=== PATIENT | male | born 1940 | race Caucasian/White ===

== ENCOUNTER → 2018-06-17 10:45 | Outpatient (CLI) | payer MEDICARE, BC, SELFPAY | PROVIDERS: Family Provider Internal Medicine; PCP Internal Medicine; Visit Provider Psychiatry & Neurology Neurology | DX: R51 Headache (principal) | CPT/HCPCS: 70450 ==

== ENCOUNTER 2018-07-27 11:00 | Outpatient (RCR) | payer MEDICARE, BC, SELFPAY ==
--- NOTE | 2018-04-14 12:09 | HP.PTEVAL_ITS ---
Patient's Visit Information ISIAH PATEL is a 77 year old M referred to Physical Therapy by NASEEM Ramirez with a diagnosis of PD and unbalance. Date of Evaluation: 04/14/18 Physical Therapist: Zoe Agrawal - Visit Plan Plan: No R knee strengthening per Dr Mccray.....ok to do some R functional hip abd strength to be able to help with knee giving out into valgus with walking and functional B glut strenth to be able to assist with getting out of a chair. Work on gait mechaincs with increase stride and heel to toe gait, work on 90 degree and 180 degree turns, work on Posture and static and dynmaic balance. - Subjective Subjective: Pt fell and broke his knee cap and he had 2 failed surgeries and he had to have knee cap removed and wears a brace as he has almost no quad control.....Dr Mccray wants no more therapy on the R knee because the pt pushes himself too much and the quad tendon tears more. Pt is not sure if his brace is to be locked or not with gait. Discussed having the brace lpcked for stability with gait. He fell again and broke his L hip. He has been using the U -step for about a year now with no falls. He needs min A at home or a lift chart at home.... He does some leg lifts at home in bed in morning. He sits in the wc at home to eat and does some therapy at the sink as well. 3 steps in and out of the house in the garage with a 2 railings. They also have a wc ramp/ lift and he goes out in his wc to the mailbox. He has a stand up shower with shower rails. - Objective Gait: walks with a u-step wtih a R knee brace that needs to be locked into extension as R Quad control is poor. He walks on his L toe and does not advance his L foot like he should with gait. He has flexed trunk and neck with gait. Sit to stand: needs min A at times. Turning 90 degrees to sit down in chair: takes multiple tiny steps and sometimes leaves L foot behind and unsafe turning to get into the chair. Stairs: up 3 steps with 2 hand rails (up with the L and down with the R) with min A. Bed mobility: sit to supine and supine to iván Indep. Rolling to each side indep. Hip abd R 4-/5 and L 4/5, able to bridge,,,, R knee ext 3-/5 and L knee ext 4/5, B knee flex 4-/5...... - Goals Goal 1:: I HEP Goal Time Frame: 6-8 Weeks Goal 2:: Be able to turn 90 and 180 degrees with large steps safely with good coordination and no LOB Goal Time Frame: 6-8 Weeks Goal 3:: Be able to walk 1 lap around Dept with good fluid motion with U-step with CGA with no R knee giving out on him Goal Time Frame: 6-8 Weeks Goal 4:: Be able to side step in // bars X 6 lengths with good stride and decreaed freq of R knee giving out on him. Goal Time Frame: 6-8 Weeks Goal 5:: Be able to sit to stand X 4 in a row with good form with UE support Goal Time Frame: 6-8 Weeks - Anticipated Interventions Patient/Client Instruction: Educate patient on: Condition, Plan of Care For the Purpose of:: To improve muscle performance and motor function, To improve ability to perform ADL's, To increase tolerance to activity/condition/ position, To improve performance and independence with ADL's, To improve ability of physical actions for home/community/work/leisure, To improve gait and locomotor functions, To improve balance, To improve safety with gait Therapeutic Exercise to Include: Strength training, Balance training, Coordination, Postural training, Gait and locomotor training, Neuromotor development, Active ROM For the Purpose of:: To improve muscle performance and motor function, To improve ability to perform ADL's, To increase tolerance to activity/condition/ position, To improve performance and independence with ADL's, To improve ability of physical actions for home/community/work/leisure, To improve gait and locomotor functions, To improve balance, To improve safety with gait, To improve safety, To improve health and function, To foster healthy habits Functional Training to Include: Gait training For the Purpose of:: To improve gait and locomotor functions, To improve safety with gait Thank you for the opportunity to evaluate your patient. For Medicare and Medicare HMO plans, please review the plan of care and approve it. It will need to be FAXED BACK to us at [phone] for Medicare purposes. Please let me know if there are questions or concerns regarding this plan of care. Physician Signature: Date:
--- NOTE | 2018-05-19 12:33 | HP.PTREVAL_ITS ---
Latrice Parks, NASEEM-C, It has been my pleasure to treat ISIAH PATEL over the last 5 visits for PD and unbalance. Please see the progress note below for an update on the physical therapy plan of care! Subjective: Pt reports that there is a screw or something missing on his brace and he is going up to [facility] to get it fixed. Objective/Function: Pt's R leg giving out with gait and other standing activities is hindering pt from more smooth gait pattern at times. Plan Plan: No R knee strengthening per Dr Mccray.....ok to do some R functional hip abd strength to be able to help with knee giving out into valgus with walking and functional B glut strenth to be able to assist with getting out of a chair. Work on gait mechaincs with increase stride and heel to toe gait, work on 90 degree and 180 degree turns, work on Posture and static and dynmaic balance. Goals Goal 1:: I HEP Goal Time Frame: 6-8 Weeks Goal 2:: Be able to turn 90 and 180 degrees with large steps safely with good coordination and no LOB Goal Time Frame: 6-8 Weeks Goal 3:: Be able to walk 1 lap around Dept with good fluid motion with U-step with CGA with no R knee giving out on him Goal Time Frame: 6-8 Weeks Goal 4:: Be able to side step in // bars X 6 lengths with good stride and decreaed freq of R knee giving out on him. Goal Time Frame: 6-8 Weeks Goal 5:: Be able to sit to stand X 4 in a row with good form with UE support Goal Time Frame: 6-8 Weeks Anticipated Interventions Patient/Client Instruction: Educate patient on: Condition, Plan of Care For the Purpose of:: To improve muscle performance and motor function, To improve ability to perform ADL's, To increase tolerance to activity/condition/ position, To improve performance and independence with ADL's, To improve ability of physical actions for home/community/work/leisure, To improve gait and locomotor functions, To improve balance, To improve safety with gait Therapeutic Exercise to Include: Strength training, Balance training, Coordination, Postural training, Gait and locomotor training, Neuromotor development, Active ROM For the Purpose of:: To improve muscle performance and motor function, To improve ability to perform ADL's, To increase tolerance to activity/condition/ position, To improve performance and independence with ADL's, To improve ability of physical actions for home/community/work/leisure, To improve gait and locomotor functions, To improve balance, To improve safety with gait, To improve safety, To improve health and function, To foster healthy habits Functional Training to Include: Gait training For the Purpose of:: To improve gait and locomotor functions, To improve safety with gait Please do not hesitate to contact me at [phone] by phone or Fax: if you have questions or concerns regarding this new plan of care! Sincerely, Zoe Agrawal
--- NOTE | 2018-06-30 12:34 | HP.PTREVAL_ITS ---
Latrice Parks, NASEEM-C, It has been my pleasure to treat ISIAH PATEL over the last 10 visits for PD and unbalance. Please see the progress note below for an update on the physical therapy plan of care! Subjective: Pt reports that he is really struggling. He feels that the heat is making him worse. He is having trouble getting out of a chair and walking. He goes back to PD Dr kain for along time. He is still doing delay the disease one day a week (except this Thursday and next Thursday cause of the fair). He feels that he is at least 80% better and last time he was in here he walked clear out to the car without stopping. Pt has had some BP changes and he is wondering if he needs his PD meds changed but does not want too. Objective/Function: Pt is able to sit to stand X4 with hands on hand rails with verbal cues to shift weight fw. (at first he struggled with weight shifting fw to get out of the chair). Gait: pt is struggling wirh continuing strides today and weight shifting to the R to clear the L foot on the floor. Plan Plan: Continue seeing pt 1X/ week for 1 month to focus on gait and fucntional activities..... No R knee strengthening per Dr Mccray.....ok to do some R functional hip abd strength to be able to help with knee giving out into valgus with walking and functional B glut strenth to be able to assist with getting out of a chair. Work on gait mechaincs with increase stride and heel to toe gait, work on 90 degree and 180 degree turns, work on Posture and static and dynmaic balance and weight shifting onto the R leg to bring the L leg through. Goals Goal 1:: I HEP Goal Time Frame: 6-8 Weeks Goal Progress: Goal Met Goal 2:: Be able to turn 90 and 180 degrees with large steps safely with good coordination and no LOB Goal Time Frame: 6-8 Weeks Goal Progress: Progressing Goal 3:: Be able to walk 1 lap around Dept with good fluid motion with U-step with CGA with no R knee giving out on him Goal Time Frame: 6-8 Weeks Goal Progress: Progressing Goal 4:: Be able to side step in // bars X 6 lengths with good stride and decreaed freq of R knee giving out on him. Goal Time Frame: 6-8 Weeks Goal Progress: Progressing Goal 5:: Be able to sit to stand X 4 in a row with good form with UE support Goal Time Frame: 6-8 Weeks Goal Progress: Goal Met Goal 6:: Be able to sit to stand X 8 in a row with good form with UE support Goal Time Frame: 2-4 Weeks Anticipated Interventions Patient/Client Instruction: Educate patient on: Condition, Plan of Care For the Purpose of:: To improve muscle performance and motor function, To improve ability to perform ADL's, To increase tolerance to activity/condition/ position, To improve performance and independence with ADL's, To improve ability of physical actions for home/community/work/leisure, To improve gait and locomotor functions, To improve balance, To improve safety with gait Therapeutic Exercise to Include: Strength training, Balance training, Coordination, Postural training, Gait and locomotor training, Neuromotor development, Active ROM For the Purpose of:: To improve muscle performance and motor function, To improve ability to perform ADL's, To increase tolerance to activity/condition/ position, To improve performance and independence with ADL's, To improve ability of physical actions for home/community/work/leisure, To improve gait and locomotor functions, To improve balance, To improve safety with gait, To improve safety, To improve health and function, To foster healthy habits Functional Training to Include: Gait training For the Purpose of:: To improve gait and locomotor functions, To improve safety with gait Please do not hesitate to contact me at [phone] by phone or Fax: if you have questions or concerns regarding this new plan of care! Sincerely, Zoe Agrawal
--- NOTE | 2018-07-27 12:02 | HP.PTDCSUM ---
HP - PT D/C Summary It has been my pleasure to treat ISIAH PATEL under orders from NORMA RamirezC, for the diagnosis of PD and unbalance for a total of 14 visit(s). Discharge Date: 07/27/18 Please see the following information for a summary of their discharge status. - Subjective Subjective: Pt reports that he can not get on his upright bike at home cause it is unsafe. - Overall Improvement % Improvement: 80 - Objective Objective/Function: Pt has a harder time when walking getting started or if he gets distracted his arms and rollator might get ahead of him and his feet stay behind. He has trouble turning 90 degrees turns taking bigger steps. The pt was doing better with the above but for some reason we have taken a slight step BW. - Goals Goal 1:: I HEP Goal Progress: Goal Met Goal 2:: Be able to turn 90 and 180 degrees with large steps safely with good coordination and no LOB Goal Progress: Progressing Goal 3:: Be able to walk 1 lap around Dept with good fluid motion with U-step with CGA with no R knee giving out on him Goal Progress: Progressing Goal 4:: Be able to side step in // bars X 6 lengths with good stride and decreaed freq of R knee giving out on him. Goal Progress: Progressing Goal 5:: Be able to sit to stand X 4 in a row with good form with UE support Goal Progress: Goal Met Goal 6:: Be able to sit to stand X 8 in a row with good form with UE support Goal Progress: Goal Met - Plan Plan: DC PT to possiblt getting a walk in recumbant bike, Delay the Disease classes and some chair exercises at home. - D/C Information Discharge Comments: DC PT If there are questions or concerns regarding this patient's physical therapy, please feel free to call me at [phone]. Thank you for the referral of this patient. Sincerely, Zoe Agrawal
== END 2018-07-27 19:00 | disposition home or self-care (01) ==
LOC: PT 11:00
PROVIDERS: Family Provider Internal Medicine; PCP Internal Medicine; Visit Provider Nurse Practitioner Acute Care
DX: G20 Parkinson's disease (principal); R26.81 Unsteadiness on feet
CPT/HCPCS: 97110; 97116; 97162; 97530

== ENCOUNTER 2018-11-25 08:54 | Day surgery (SDC) | payer MEDICARE, BC, SELFPAY ==
[2018-11-25] VITALS (8 sets, daily range): BP systolic 132–160; BP diastolic 79–95; PULSE 73–88; RESP 16–18; TEMP 36.3–36.7; O2SAT 91–97; BMI 26.3
--- NOTE | 2018-11-25 09:08 | EKG12_ITS ---
Test Reason : PRE OP Blood Pressure : / mmHG Vent. Rate : 078 BPM Atrial Rate : 078 BPM P-R Int : 162 ms QRS Dur : 096 ms QT Int : 434 ms P-R-T Axes : 040 -47 018 degrees QTc Int : 494 ms Normal sinus rhythm Left anterior fascicular block Prolonged QT Abnormal ECG When compared with ECG of 22-DEC-2016 12:55, No significant change was found Confirmed by KINDRA CALERO, KAITY ([id number]), editorial manager INDU PATEL ([id number]) on 11/30/2018 9:08:03 AM Referred By: Africa Conde Confirmed By:KAITY ARGUELLES MD
--- NOTE | 2018-11-25 10:00 | RAD_ITS ---
STUDY: X-RAY LEFT FOOT, SECOND TOE REASON FOR EXAM: Male, 78 years old. Fusion of the interphalangeal joints of the second toe. TECHNIQUE: 2 intraoperative view(s) of the toe were obtained. COMPARISON: None. FINDINGS: A metallic pin is seen through the second toe. There is good alignment. RAD/Toe(s) Min 2 Views IMPRESSION: Metallic pin inserted in the second toe. There is good alignment. Electronically Signed: Thomas Dennison MD at 15:14 EST , Service support ,
[2018-11-25] MEDS: Bupivacaine Mpf 0.5% 30 ML VIAL (10:18)
--- NOTE | 2018-11-25 11:21 | RAD_ITS ---
STUDY: X-RAY - LEFT FOOT CLINICAL: Male, 78 years old. Fusion of the second toe. TECHNIQUE: 3 view(s) of the foot. COMPARISON: None. FINDINGS: There is a plantar calcaneal spur. Normal visualized subtalar, talonavicular, calcaneocuboid, tarsal and tarsometatarsal articulations. There is demineralization of the metatarsi. There is degenerative arthrosis of the metatarsophalangeal joint of the hallux . Normal tibial and fibular sesamoid bones. Normal interphalangeal joint of the great toe. Normal phalanges of the great toe. Normal second through fifth metatarsophalangeal joints. Status post pinning of the second toe Soft tissue swelling. RAD/Foot min 3 Views IMPRESSION: Percutaneous pinning of the second toe. Electronically Signed: Thomas Dennison MD at 15:15 EST , Service support ,
--- NOTE | 2018-11-25 11:24 | PCM.IMDPSTOP ---
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
--- NOTE | 2018-11-25 11:28 | OP.PN_ITS ---
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
--- NOTE | 2018-11-25 11:31 | DCINST_ITS ---
Discharge Activity: May not drive while taking narcotic pain medications., May Not Shower, Use Walker, Use Crutches Ice area for (Minutes): 20 - Left foot 20 minutes of each hour while awake Weight Bearing Status: Partial weight bearing - while in surgical shoe Keep extremity elevated above heart level: Operative Extremity Call your doctor if your incision/area has: Sudden Increased Bleeding, Increased Pain/ Swelling Call your doctor if you observe: Fever of 101 or Higher, Shortness of breath, Dizziness, Chest pain, Increased palpitations (irregular heartbeat), Calf discomfort Cleanse incision/area with: Keep Dressing Clean & Dry Allergies/Adverse Reactions: Allergies haloperidol [From Haldol] Allergy (Verified 11/19/18 08:53) as a parkinson's pt was told never to have it Penicillins Allergy (Verified 11/19/18 08:53) Rash Medications to take at Discharge Carbidopa/Levodopa 25/250 [Sinemet 25/250] 1 tab PO 0730,1130,1630,2030 08/27/15 Sertraline HCl [Zoloft] 100 mg PO DAILY 08/27/15 Alendronate Sodium 70 mg PO TU 10/03/16 Ergocalciferol [Vitamin D] 50,000 unit PO Th@0800 capsule 10/21/16 Acetaminophen [Tylenol Tablet] 650 mg PO Q6H PRN PRN #0 tablet 12/25/16 Ensure Enlive 120 ml PO 4X/DAY liquid 01/08/17 Pramipexole Di-HCl [Mirapex] 0.5 mg PO TID tablet 01/08/17 Calcium (Elemental) [Os-Raheem 500] 630 mg PO BID 11/19/18 Carbidopa/Levodopa [Carbidopa-Levo ER 50-200 Tab] 1 each PO 1000 11/19/18 Chlorithalidone 25 mg PO DAILY 11/19/18 Lansoprazole [Prevacid] 30 mg PO DAILY 11/19/18 Leuprolide Acetate [Lupron Depot] 7.5 mg IM QMONTH 11/19/18 Losartan Potassium [Cozaar] 100 mg PO DAILY 11/19/18 Potassium Chloride [K-Dur] 10 meq PO DAILYCM 11/19/18 Acetaminophen/Codeine #3 [Tylenol#3] 1 tab PO Q4H PRN PRN 7 Days #30 tab 11/25/18 The following prescriptions were given: Acetaminophen/Codeine #3 [Tylenol#3] 1 tab PO Q4H PRN PRN 7 Days #30 tab PRN Reason: Pain Primary Care Physician: Kendall Patel MD [Primary Care Provider] - Test Results: Test results from this visit will be discussed in further detail at your follow- up appointment, if applicable.
--- NOTE | 2018-11-28 18:24 | OP.PCM_ITS ---
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 He has had continued pain and difficulty with tripping as it healed contracted. He presented to my office and conservative and surgical options were discussed. He presents today for surgical intervention. All risks, complications, and alternatives were discussed with the patient, and the patient signed an informed consent. No guarantees were given. Procedure: On 11/25/2018, Ciro Borden was visually and verbally identified in the preoperative holding area. The consent form was again reviewed with the patient and his and daughter, as were all risks, complications, and alternatives and the patient wished to proceed with the proposed surgery. The left foot was marked as the correct operative extremity. The patient was brought to the operating room and placed on the operating room table in the normal SUPINE position. After sedation by anesthesia, a surgical time out was performed and all present were in agreement. After sterile preparation a 10 cc local block of 0.5% marcaine plain was injected at the anticipated surgical site. a pneumatic ankle tourniquet was then placed. At this time the left lower extremity was prepped and draped in the usual sterile fashion. The left lower extremity was elevated and the tourniquet was inflated to 250 mmHg. Attention was then turned to the second toe where a 3 cm longitudinal incision was utilized extending from the dorsal aspect of the base of the middle phalanx to the 2nd metatarsophalangeal joint. Blunt dissection was carried deep through the subcutaneous tissues with careful attention paid to all bleeders, which were clamped and tied or bovied as necessary. All vital neurovascular structures were retracted. The subcutaneous tissues were reflected from the underlying dannie p fascia. A standard Z-plasty lengthening of the extensor tendon was performed over the proximal phalanx. The proximal portion of the extensor tendon was retracted proximally and an extensor brown r ecession was performed. A dorsal capsulotomy of the 2nd metatarsophalangeal joint was performed. At this point, the Kelikian push-up test demonstrated good reduction of the third metatarsophalangeal joint subluxation. No further release of the 2nd metatarsophalangeal joint was needed. The distal portion of the extensor tendon was then retracted distally and the proximal interphalangeal joint was exposed. The collateral ligaments of the 2nd proximal interphalangeal joint were released exposing the proximal phalangeal head and the middle phalangeal base. Inspection of the proximal phalangeal head demonstrated it to be markedly hypertrophic with loss of articular cartilage. Similarly, the middle phalangeal base was devoid of articular cartilage, and what cartilage remained was pitted. Utilizing a bone cutting forceps, the remaining articular cartilage of the proximal phalangeal head along with the subchondral bone plate was resected in table top fashion. Similarly, utilizing a bone rongeur, the remaining articular cartilage and subchondral bone plate of the middle phalangeal base of the second toe was resected in table top fashion. A 0.062 k wire was the placed retrograde from the proximal end of the middle phalanx until it exited the toe distally and just beneath the nail. I then reduced the PIPJ joint and placed the k wire across the PIPJ joint and centrally in the proximal phalanx with care noted to not extend past the base and into the joint. Positioning and reduction was confirmed on intraoperative fluoroscopy. The k wire was bent distally and cut along with a cap placed for protection.closure was initiated. The incision was flushed with copious amounts of normal sterile saline. The extensor tendons to the second toe was reapproximated in the corrected and lengthened positions with #3-0 Vicryl in [id number] fashion. The subcutaneous tissues of all incisions was closed with #3-0 Vicryl in horizontal mattress fashion. The skin incision was closed with #3-0 Prolene. An additional 10 cc of 0.5% marcaine plain was administered at the 2nd MPJ/digit. Total tourniquet time was 45 minutes, upon deflation all digits had immediate capillary refill. Betadine soaked adaptic and DSD were applied to the incision. A light compression wrap and surgical shoe was then applied. The patient tolerated the procedure and anesthesia well. The patient was then transported to the postanesthesia care unit by a member of the anesthesia team and myself with all vital signs stable and neurovascular status of the [ ] lower extremity equal to pre-operative levels. At the end of the case all sponge, needle and instrument counts were found to be correct. Grafts/Implants Used: 0.062 k wire - Complications none - Admit VTE Documentation VTE Present on Admission: No VTE Mechan Device Prophylaxis: SCD's, Knee High RACHELLE Hose VTE Pharm Prophylaxis ordered?: No Reason prophylaxis not ordered:: Medical Contraindication
== END 2018-11-25 13:35 | disposition home or self-care (01) ==
LOC: SDC 08:56 → AC 08:59
PROVIDERS: Family Provider Internal Medicine; PCP Internal Medicine; Referring Provider Podiatrist Foot & Ankle Surgery; Visit Provider Podiatrist Foot & Ankle Surgery
PROC: (CPT 26860; principal; 2018-11-25 10:45)
DX: M24.575 Contracture, left foot (principal); M20.42 Other hammer toe(s) (acquired), left foot; M19.072 Primary osteoarthritis, left ankle and foot; I10 Essential (primary) hypertension; E66.3 Overweight; R60.0 Localized edema; D69.3 Immune thrombocytopenic purpura; M81.0 Age-related osteoporosis without current pathological fracture; G20 Parkinson's disease; K21.9 Gastro-esophageal reflux disease without esophagitis; Z93.3 Colostomy status; Z68.26 Body mass index [BMI] 26.0-26.9, adult; Z85.46 Personal history of malignant neoplasm of prostate; Z85.038 Personal history of other malignant neoplasm of large intestine; Z85.828 Personal history of other malignant neoplasm of skin; Z79.899 Other long term (current) drug therapy
CPT/HCPCS: 01480; 28285; 73630; 73660; 76000; 93005; J7120

== ENCOUNTER 2020-10-29 13:45 | Inpatient (IN) | payer MEDICARE, BC, SELFPAY ==
[2018-11-25 09:23] VITALS: BMI 26.3
[2020-10-29] VITALS (8 sets, daily range): BP systolic 101–149; BP diastolic 63–82; PULSE 80–100; RESP 16–18; TEMP 36–37.2; O2SAT 90–96; BMI 26.1; BMI 24.5
--- NOTE | 2020-10-29 14:23 | ED.DCSUM_ITS ---
History of Present Illness Chief Complaint: Lower Extremity Injury Informant: Patient Narrative: 72-year-old male with history of Parkinson's presents with right hip pain after mechanical fall. He states he lost his balance but was not dizzy or lightheaded. He states he has frequent falls due to his Parkinson's. He was not able to get up off the floor. On EMS arrival they just picked him up and brought him to the emergency room. He has not tried to bear weight yet. Past Medical History - Allergies and Home Meds Allergies/Adverse Reactions: Allergies haloperidol [From Haldol] Allergy (Verified 10/29/20 13:52) as a parkinson's pt was told never to have it Penicillins Allergy (Verified 10/29/20 13:52) Rash Primary Care Physician: Kendall Patel MD [Primary Care Provider] - Past Medical History: - - Parkinson's disease, GERD, hypertension frequent falls, ITP Surgical History: cholecystectomy, colectomy - with colostomy., - - Prostate surgery for prostate cancer. Lives: Spouse/ Significant Other Smoking Status: Never smoker Alcohol: None Drugs: None - Family History Maternal Family History: Reports: No pertinent history Paternal Family History: Reports: Renal Disease Review of Systems General: Denies: Chills, Fever, Sweats Eyes: Denies: Visual changes - bilaterally, Diplopia ENT: Denies: Rhinorrhea, Sore throat Cardiovascular: Denies: Chest pain, Palpitations Respiratory: Denies: Dyspnea, Cough, Dyspnea on exertion Gastrointestinal: Denies: Abdominal pain, Nausea, Vomiting, Diarrhea, Melena, Hematochezia Genitourinary: Denies: Dysuria, Hematuria, Frequency Musculoskeletal: Denies: Back pain, Extremity Pain Skin: Denies: Rash, Wounds Neurological: Denies: Headache, Weakness, Numbness Psych: Denies: Depression, Anxiety Physical Exam Vital Signs/Narrative: Vital Signs Temp Pulse Resp BP Pulse Ox 10/29/20 13:46 96.8 F L 88 16 133/77 H 95 Inital Vital Signs reviewed: Yes General: Well nourished, No Acute Distress Head: Normocephalic, Atraumatic Eyes: Perrl, EOMI ENT: Moist mucous membranes, No rhinorrhea Cardiovascular: Regular rate, Regular rhythm Respiratory: No distress, CTA bilaterally Abdomen: Soft, Nontender, Nondistended Extremities: - - Is to palpation over right hip. Positive logroll on right but there is well.. Negative for: Edema Skin: Normal color, No rash. Negative for: Cyanosis, Diaphoresis Neurological: Alert, Oriented x3 Psychological: Normal affect, Normal Mood Diagnostic/Tx/Re-eval Clinical Impression(s) from Imaging Studies Chest X-Ray 10/29/20 14:40 IMPRESSION: Mild increased markings at the left lung base suggestive of linear atelectasis and/or scarring. Hyperinflation. Electronically Signed: Thomas Jesi, at 15:01 EST , Service support , Hip/Pelvis X-Ray 10/29/20 14:40 IMPRESSION: Nondisplaced left intertrochanteric fracture. Electronically Signed: Thomas Jesi, at 15:01 EST , Service support , Laboratory Data 10/29/20 10/29/20 14:54 14:54 WBC 9.1 RBC 4.16 L Hgb 12.2 L Hct 37.9 L MCV 91.1 MCH 29.3 MCHC 32.2 RDW Std Deviation 49.3 H RDW Coeff of Shahid 14.8 H Plt Count 43 L* MPV TNP Differential Comment SCANNED Sodium 139 Potassium 3.8 Chloride 108 H Carbon Dioxide 25.0 Anion Gap 6 BUN 8 Creatinine 0.76 Estim Creat Clear Calc 70.78 Est GFR (MDRD) Af Amer 127 Est GFR (MDRD) Non-Af 105 BUN/Creatinine Ratio 10.5 Glucose 107 H Calcium 8.7 - Medical Decision Making 80-year-old male with mechanical fall and right hip injury. He states that he has not been able to bear weight but he has not tried yet. On exam he is a positive logroll on the right hip. X-ray of the right hip as interpreted by myself and the radiologist shows an intertrochanteric hip fracture. Patient's CBC is normal with exception of his low platelets which is a result of his ITP. He states he gets Nplate infusions weekly. Patient just had this last week. BMP is unremarkable. Patient was given morphine and Zofran for pain and nausea respectively. Patient was discussed with hospitalist and orthopedic surgeon on- call. Patient was admitted to the hospital in stable condition. Impression: 1. Mechanical fall 2. Right intratrochanteric hip fracture ED Disposition - Plan for ED Patient: Referrals: Kendall Patel MD [Primary Care Provider] -
--- NOTE | 2020-10-29 14:40 | RAD_ITS ---
STUDY: X-RAY CHEST REASON FOR EXAM: Male, 80 years old. RIGHT SIDE, RIGHT HIP PAIN S/P FALL TECHNIQUE: Single AP portable view of the chest. COMPARISON: Comparison is made with prior study dated 12/22/2016. FINDINGS: Mild degree of increased markings at the left lung base suggestive of either linear atelectasis and/or scarring. Hyperinflation. Normal size heart. Normal mediastinum and ghada. Normal visualized pulmonary arteries. There is atherosclerotic calcification of the aortic arch with tortuosity. Normal visualized thoracic spine. Normal visualized ribs, clavicles, and shoulders. There is no demonstrated abnormality of the visualized soft tissue structures of the upper abdomen. RAD/Chest 1 View IMPRESSION: Mild increased markings at the left lung base suggestive of linear atelectasis and/or scarring. Hyperinflation. Electronically Signed: Thomas Dennison, at 15:01 EST , Service support ,
--- NOTE | 2020-10-29 14:40 | RAD_ITS ---
STUDY: X-RAY - PELVIS AND RIGHT HIP REASON FOR EXAM: Male, 80 years old. RIGHT HIP PAIN S/P FALL TECHNIQUE: 3 views of the pelvis and hip. COMPARISON: None. FINDINGS: There is a nondisplaced right intertrochanteric fracture. Status post ORIF of a left intertrochanteric fracture. Surgical clips are seen in the pelvis. RAD/HIP, UNI W/ Pelvis 2-3 Views IMPRESSION: Nondisplaced left intertrochanteric fracture. Electronically Signed: Thomas Dennison, at 15:01 EST , Service support ,
[2020-10-29 15:05] LABS: ERROR FUNCTION FLAG YES; Hematocrit 37.9 % (40-54); Hemoglobin 12.2 g/dL (13.0-16.5); Mean Corp Hgb Conc 32.2 g/dL (32-36); Mean Corpuscular Hgb 29.3 pg (27.0-32.0); Mean Corpuscular Volume 91.1 fL (80-94); POSITIVE COUNT YES; RBC Distribution Width CV 14.8 % (11.6-14.6); RBC Distribution Width SD 49.3 fl (35.1-43.9); Red Blood Count 4.16 M/mm3 (4.6-6.2); White Blood Count 9.1 K/mm3 (4.4-11.0)
[2020-10-29 15:17] LABS: Anion Gap 6 (5-15); BUN 8 mg/dL (7-18); BUN/Creat Ratio 10.5 RATIO (10-20); Calcium,Total 8.7 mg/dL (8.5-10.1); Chloride 108 mmol/L (98-107); Creatinine, Serum 0.76 mg/dL (0.70-1.30); EST Glomerular Filtration Rate 105 mL/min (>60); Est Glom Filt Rate - Afr Amer 127 mL/min (>60); Estimated Creatinine Clearance 70.78 ml/min; Glucose 107 mg/dL (74-106); Potassium 3.8 mmol/L (3.5-5.1); Sodium Level 139 mmol/L (136-145)
[2020-10-29 15:22] LABS: Scan Indicated on CBC? Y/N YES- FLAGS NOTED
[2020-10-29 15:23] LABS: Platelet Count 43 K/mm3 (150-450)
[2020-10-29 15:46] LABS: Differential Comment SCANNED
[2020-10-29] MEDS: Morphine 4 MG/ML Syringe IV (16:10)
[2020-10-29] MEDS: Ondansetron 4 MG/2 ML Vial IV (16:10)
--- NOTE | 2020-10-29 16:23 | HP.PCM_ITS ---
<Jacquelin Najera HOTEL OR MOTEL MANAGER - Last Filed: 10/29/20 16:46> Problem List (1) Right patella fracture Status: Resolved (2) Fall Status: Acute Comment: has brace to right knee from prior patellar injury in september (3) Closed left hip fracture Status: Chronic (4) Radius and ulna distal fracture Status: Resolved Qualifiers: Encounter type: initial encounter Fracture type: closed Laterality: left Qualified Code(s): S52.502A - Unspecified fracture of the lower end of left radius, initial encounter for closed fracture; S52.602A - Unspecified fracture of lower end of left ulna, initial encounter for closed fracture (5) Displaced intertrochanteric fracture of left femur Status: Chronic Qualifiers: Encounter type: initial encounter Fracture type: closed Qualified Code(s): S72.142A - Displaced intertrochanteric fracture of left femur, initial encounter for closed fracture Comment: WBAT, pt on xarelto x 30 days post operative, final dose 01/23 (6) Left wrist fracture Status: Chronic (7) Hip fracture Status: Acute Qualifiers: Encounter type: initial encounter Fracture type: closed Laterality: right Qualified Code(s): S72.001A - Fracture of unspecified part of neck of right femur, initial encounter for closed fracture (8) Vitamin D deficiency Status: Chronic (9) Osteoporosis Status: Chronic (10) GERD (gastroesophageal reflux disease) Status: Chronic (11) Depression Status: Chronic (12) Hypertension Status: Chronic (13) Patellar instability Status: Chronic (14) S/P ORIF (open reduction internal fixation) fracture Status: Chronic Comment: 11/2716 Dr Ott left intertrochanteric fracture 10/04/[address] Rebolledo right patellar fracture (15) Parkinson disease Status: Chronic Comment: mirapex increased during this admission, will require new prescription at d/c History of Present Illness Date of Admission: 10/29/20 Chief Complaint: Fall, right hip pain. The patient is a 80 year old M who presents to the emergency room after sustaining a fall. He states he was attempting to get out of his wheelchair and use his walker when he fell resulting in right hip pain. Patient has a history of Parkinson's and reports recurrent falls with multiple past injuries. at bedside notes that she is having difficulty caring for patient and helping him when he falls. He denies pain elsewhere, denies hitting head. Denies other symptoms or complaints. His past medical history includes Parkinson's disease, hypertension, depression, GERD, osteoporosis, vitamin D deficiency, history of prostate cancer, history of colon cancer status post colectomy. Past Medical History Past Medical History (Chronic Problems): Chronic Problems Closed left hip fracture (Chronic) Displaced intertrochanteric fracture of left femur (Chronic) WBAT, pt on xarelto x 30 days post operative, final dose 01/23 Left wrist fracture (Chronic) Vitamin D deficiency (Chronic) Osteoporosis (Chronic) GERD (gastroesophageal reflux disease) (Chronic) Depression (Chronic) Hypertension (Chronic) Patellar instability (Chronic) S/P ORIF (open reduction internal fixation) fracture (Chronic) 11/2716 Dr Ott left intertrochanteric fracture 10/04/[address] Rebolledo right patellar fracture Parkinson disease (Chronic) mirapex increased during this admission, will require new prescription at d/c Allergies haloperidol [From Haldol] Allergy (Verified 10/29/20 13:52) as a parkinson's pt was told never to have it Penicillins Allergy (Verified 10/29/20 13:52) Rash Home Medications: Ambulatory Orders Medication Instructions Recorded Carbidopa/Levodopa 25/250 [Sinemet 1 tab PO 729,1130,1630,202908/27/15 25/250] Sertraline HCl [Zoloft] 100 mg PO DAILY@72908/27/15 Acetaminophen [Tylenol Tablet] 650 mg PO Q6H PRN PRN #0 tablet 12/25/16 Calcium (Elemental) [Os-Raheem 500] 630 mg PO BID 11/19/18 Carbidopa/Levodopa [Carbidopa-Levo 1 each PO BID@0900,219911/19/18 ER 50-200 Tab] Lansoprazole [Prevacid] 30 mg PO DAILY@72911/19/18 Losartan Potassium [Cozaar] 100 mg PO DAILY@72911/19/18 Alendronate Sodium [Fosamax] 70 mg PO TU 10/29/20 Amantadine [Symmetrel] 1 tab PO BID@1000,2200 10/29/20 Ensure Enlive 120 ml PO 4X/DAY 10/29/20 Ergocalciferol [Vitamin D] 50,000 unit PO Th@0800 10/29/20 Pramipexole Di-HCl [Mirapex] 0.5 mg PO TID@0730,1400,2030 10/29/20 Surgical History: cholecystectomy, colectomy - with colostomy., - - Prostate surgery for prostate cancer, left hip ORIF, right knee surgery for patellar fracture with subsequent instability, right ankle surgery, left second digit PIPJ arthrodesis with extensor tendon lengthening, closed reduction left wrist Psychiatric History: Depression Lives: Spouse/ Significant Other Smoking Status: Never smoker Tobacco Use: Non-smoker Alcohol: None Drugs: None - *Family History Maternal History Items: - - Denies known maternal medical history including cardiac history. Paternal History Items: Renal Disease Review of Systems Constitutional: Denies: Chills, Fever, Weight Change HEENT: Denies: Head Aches, Sinus Congestion, Sinus Drainage Cardiovascular: Denies: Chest Pain, Palpitations, Syncope Respiratory: Denies: Cough, Shortness of breath at rest, Sputum production Gastrointestinal: Denies: Abdominal Pain, Nausea, Vomiting Genitourinary: Denies: Dysuria Musculoskeletal: Denies: Joint Pain, Joint Tenderness Skin: Denies: Rash, Wounds Neurological: Reports: Balance problems. Denies: Change in Speech, Slurred speech, Numbness Psychiatric: Reports: Depression. Denies: Anxiety, Homicidal Ideations, Suicidal Ideations Hematologic/ Lymphatic: Denies: Easy Bruising, Easy Bleeding VTE Information - Inpt Only VTE Present on Admission: No VTE Mechan Device Prophylaxis: SCD's VTE Pharm Prophylaxis ordered?: No Reason prophylaxis not ordered:: Medical Contraindication - Thrombocytopenia Patient Problems: Active and Suspected Problems Fall (Acute) has brace to right knee from prior patellar injury in september Hip fracture (Acute) - Physical Exam Vitals/I&O's: Vital Signs Temp Pulse Resp BP Pulse Ox 98.3 F 82 18 149/82 H 96 10/29/20 16:05 10/29/20 16:05 10/29/20 16:05 10/29/20 16:05 10/29/20 16:05 Oxygen Delivery Method Room Air Weight: 203 lb 11.314 oz Body Mass Index (BMI) 26.1 General: Alert, Oriented x3, Cooperative HEENT: Atraumatic, PERRLA, EOMI, Normocephalic Neck: Supple, No JVD, Negative Carotid Bruits Lungs: Clear to auscultation, Normal air movement Cardiovascular: Regular rate, No murmurs Abdomen: Bowel Sounds Present, Soft, Non Tender, Non-Distended, - - colostomy in place Extremities: No clubbing, No cyanosis, No edema, Capillary Refill Less than 3 Seconds Skin: No rashes, No breakdown Musculoskeletal: No Tenderness to Palpation of Joints or Extremities, Tenderness - Right hip Neurological: Cranial nerves II-XII grossly intact, Neuro grossly intact Psych/Mental Status: Normal Affect, Appropriate Laboratory Results 10/29/20 14:54: WBC 9.1, RBC 4.16 L, Hgb 12.2 L, Hct 37.9 L, MCV 91.1, MCH 29.3, MCHC 32.2, RDW Std Deviation 49.3 H, RDW Coeff of Shahid 14.8 H, Plt Count 43 L*, MPV TNP, Differential Comment SCANNED 10/29/20 14:54: Sodium 139, Potassium 3.8, Chloride 108 H, Carbon Dioxide 25.0, Anion Gap 6, BUN 8, Creatinine 0.76, Estim Creat Clear Calc 70.78, Est GFR (MDRD) Af Amer 127, Est GFR (MDRD) Non-Af 105, BUN/Creatinine Ratio 10.5, Glucose 107 H, Calcium 8.7 Assessment/Plan All Active Problems Closed right hip fracture (Acute) Fall (Acute) Hip fracture (Acute) Radius and ulna distal fracture (Resolved) Right patella fracture (Resolved) 1. Traumatic right hip fracture, secondary to mechanical fall prior to admission- ortho consulted from ED. NSQIP surgical risk calculator demonstrates an above average risk for , serious complication. This is based on totally dependent functional status and severe systemic disease related to progressive Parkinson's disease. PT/OT. As needed pain regimen. Case management consult for discharge planning. Feel that medically, patient may proceed with surgical intervention however will need SNF/rehab at discharge to prevent complications and recurrent injuries/falls. 2. Parkinson's disease with progressive debility and recurrent falls-recently referred to palliative care. PT/OT. Continue home Sinemet, Mirapex, Symmetrel regimen. 3. Thrombocytopenia-hold heparin products. Trend CBC. 4. Hypertension-stable, continue losartan. 5. GERD-continue home Prevacid regimen. 6. Depression-continue sertraline. 7. Osteoporosis, vitamin D deficiency-on Fosamax, calcium/vitamin D supplementation. 8. 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 DVT prophylaxis-SCDs CODE STATUS: DNR CCA no intubation. Discussed with patient and patient's healthcare power of trial attorney who is his . This patient was seen by BRITNI De La Rosa under the supervision of Dr. Millan. <Curtis Millan - Last Filed: 10/29/20 17:00> Problem List (1) Closed right hip fracture Status: Acute (2) Fall Status: Acute Qualifiers: Encounter type: initial encounter Comment: has brace to right knee from prior patellar injury in september (3) Closed left hip fracture Status: Chronic (4) Displaced intertrochanteric fracture of left femur Status: Chronic Qualifiers: Encounter type: initial encounter Fracture type: closed Qualified Code(s): S72.142A - Displaced intertrochanteric fracture of left femur, initial encounter for closed fracture Comment: WBAT, pt on xarelto x 30 days post operative, final dose 01/23 (5) Left wrist fracture Status: Chronic (6) Hip fracture Status: Acute Qualifiers: Encounter type: initial encounter Fracture type: closed Laterality: right Qualified Code(s): S72.001A - Fracture of unspecified part of neck of right femur, initial encounter for closed fracture (7) Vitamin D deficiency Status: Chronic (8) Osteoporosis Status: Chronic (9) GERD (gastroesophageal reflux disease) Status: Chronic (10) Depression Status: Chronic Qualifiers: (11) Hypertension Status: Chronic Qualifiers: (12) Patellar instability Status: Chronic (13) S/P ORIF (open reduction internal fixation) fracture Status: Chronic Comment: 11/2716 Dr Ott left intertrochanteric fracture 10/04/[address] Rebolledo right patellar fracture (14) Parkinson disease Status: Chronic Comment: mirapex increased during this admission, will require new prescription at d/c History of Present Illness The patient is a 80 year old M w known h/o Parkinson's Dz fell sustaining a non- displaced right intertrochanteric fxr. Pt has frequent falls due to PD. He has limited mobility due to PD but also due to impaired right leg from a prior patellar fxr and subsequent surgery. He is mostly wheelchair bound.[] Past Medical History Allergies haloperidol [From Haldol] Allergy (Verified 10/29/20 13:52) as a parkinson's pt was told never to have it Penicillins Allergy (Verified 10/29/20 13:52) Rash Surgical History: cholecystectomy, colectomy, - Psychiatric History: Depression Lives: Spouse/ Significant Other Smoking Status: Never smoker Tobacco Use: Non-smoker Alcohol: None Drugs: None - *Family History Maternal History Items: - Paternal History Items: Renal Disease Review of Systems Constitutional: Denies: Chills, Fever, Weight Change HEENT: Denies: Head Aches, Sinus Congestion, Sinus Drainage Cardiovascular: Denies: Chest Pain, Palpitations, Syncope Respiratory: Denies: Cough, Shortness of breath at rest, Sputum production Gastrointestinal: Denies: Abdominal Pain, Nausea, Vomiting Genitourinary: Denies: Dysuria Musculoskeletal: Denies: Joint Pain, Joint Tenderness Skin: Denies: Rash, Wounds Neurological: Denies: Change in Speech, Slurred speech, Numbness Psychiatric: Reports: Depression. Denies: Anxiety, Homicidal Ideations, Suicidal Ideations Hematologic/ Lymphatic: Denies: Easy Bruising, Easy Bleeding VTE Information - Inpt Only VTE Present on Admission: No VTE Mechan Device Prophylaxis: SCD's VTE Pharm Prophylaxis ordered?: No Reason prophylaxis not ordered:: Medical Contraindication - Physical Exam Vitals/I&O's: Vital Signs Temp Pulse Resp BP Pulse Ox 36.8 C 82 18 149/82 H 96 10/29/20 16:05 10/29/20 16:05 10/29/20 16:05 10/29/20 16:05 10/29/20 16:05 Oxygen Delivery Method Room Air Weight: 92.4 kg Body Mass Index (BMI) 26.1 General: Alert, Cooperative, - - soft voice, but coherent HEENT: Atraumatic, Normocephalic, - - impaired vertical saccades Neck: Supple, Negative Carotid Bruits Lungs: Clear to auscultation, Normal air movement Cardiovascular: Regular rate, No murmurs Abdomen: Bowel Sounds Present, Soft, Non Tender, Non-Distended, - Extremities: No edema, No Calf Tenderness Skin: No rashes, No breakdown Psych/Mental Status: Normal Affect, Appropriate Laboratory Results 10/29/20 14:54: WBC 9.1, RBC 4.16 L, Hgb 12.2 L, Hct 37.9 L, MCV 91.1, MCH 29.3, MCHC 32.2, RDW Std Deviation 49.3 H, RDW Coeff of Shahid 14.8 H, Plt Count 43 L*, MPV TNP, Differential Comment SCANNED 10/29/20 14:54: Sodium 139, Potassium 3.8, Chloride 108 H, Carbon Dioxide 25.0, Anion Gap 6, BUN 8, Creatinine 0.76, Estim Creat Clear Calc 70.78, Est GFR (MDRD) Af Amer 127, Est GFR (MDRD) Non-Af 105, BUN/Creatinine Ratio 10.5, Glucose 107 H, Calcium 8.7 Assessment/Plan Pt seen and examined independently. I agree with the above history, exam and assessment and plan by HOTEL OR MOTEL MANAGER. 1. Right hip fracture: 2/2 mechanical fall. Medically optimized for surgery. Bed rest. Martinez while on bedrest. 2. PD: poses further risk of falls. PT OT eval and treat post op. Will need SNF/rehab upon discharge. Continue medications. Follows with Dr. Luna in [place]. Has not seen a movement disorder physician. states his medications have helped, though endorses that the patient has steadily gotten worse over the years. Palliative was to see patient as outpt. Informed that he can have home care when he is eventually released from SNF/rehab, but may need to consider health aides to further assist (informed of [id number] expenses). 3. ITP: chronic. platelets wax and wane. will transfuse platelets for # > 50k for surgery. Inpatient E&M: [id number] Init Hosp L3
--- NOTE | 2020-10-29 17:45 | EKG12_ITS ---
Test Reason : PRE-OP Blood Pressure : / mmHG Vent. Rate : 098 BPM Atrial Rate : 098 BPM P-R Int : 158 ms QRS Dur : 092 ms QT Int : 388 ms P-R-T Axes : 042 -52 036 degrees QTc Int : 495 ms Sinus rhythm with marked sinus arrhythmia Left anterior fascicular block Poor R wave progression Abnormal ECG Confirmed by FALGUNI CALERO, NITHIN ([id number]), editor & co founder RUPESH POOLE ([id number]) on 10/31/2020 9:46:44 AM Referred By: MARIBEL Confirmed By:NITHIN MONTES DE OCA MD
[2020-10-29] MEDS: Carbidopa/Levodopa 25/250 Tablet PO ×2 (18:00→20:29)
[2020-10-29 18:02] LABS: International Normalized Ratio 1.3; Prothrombin Time (Protime)PT. 15.6 SECONDS (11.7-14.9)
[2020-10-29 18:03] LABS: Partial Thromboplast Time 34.7 Seconds (24.1-36.2)
[2020-10-29 18:12] LABS: AST(SGOT) 51 U/L (15-37); Alanine Aminotransfer ALT/SGPT 7 U/L (16-61); Alkaline Phosphatase 180 U/L (45-117); Bilirubin, Direct 0.24 mg/dL (0.00-0.30); Globulin 3.3 g/dL (2.2-4.2); Protein, Total 6.3 g/dL (6.4-8.2)
[2020-10-29] MEDS: CARBIDOPA/LEVODOPA CR 50/200 Tablet PO (21:18)
[2020-10-29] MEDS: Pramipexole Di-HCl 0.5 MG Tablet PO (21:18)
[2020-10-29] MEDS: Amantadine 100 MG Capsule PO (21:18)
[2020-10-29] MEDS: Acetaminophen 325 MG Tablet 650 MG PO (21:29)
[2020-10-30] VITALS (10 sets, daily range): BP systolic 94–147; BP diastolic 51–72; PULSE 81–95; RESP 16–20; TEMP 36.8–37.8; O2SAT 88–94; BMI 24.5
[2020-10-30 06:01] LABS: Absolute Lymphocyte Count 1.06 X10^3/uL (0.83-4.51); Absolute Neutrophil Count 8.2 X10^3/uL (2.0-7.7); Basophil# 0.04 X10^3/uL; Basophil% 0.4 % (0-1); Eosinophil# 0.17 X10^3/uL; Eosinophils% 1.6 % (0-5); Hematocrit 32.9 % (40-54); Hemoglobin 10.2 g/dL (13.0-16.5); Lymphocyte # 1.06 X10^3/ul (4.0); Lymphocyte % 10.1 % (19-41); Mean Corpuscular Hgb 28.3 pg (27.0-32.0); Mean Corpuscular Volume 91.4 fL (80-94); Monocyte# 0.92 X10^3/uL; Monocyte% 8.8 % (0-10); NRBC Flagged by Analyzer 0 % (0-5); Neutrophil # 8.24 X10^3/uL (2.7-7.7); Neutrophil % 78.7 % (47-70); POSITIVE COUNT YES; Platelet Count 49 K/mm3 (150-450); RBC Distribution Width CV 14.8 % (11.6-14.6); White Blood Count 10.5 K/mm3 (4.4-11.0)
[2020-10-30 06:03] LABS: Differential Indicated SCAN CRITERIA MET
[2020-10-30 06:20] LABS: Anion Gap 8 (5-15); BUN 14 mg/dL (7-18); BUN/Creat Ratio 19.2 RATIO (10-20); Calcium,Total 8.1 mg/dL (8.5-10.1); Chloride 105 mmol/L (98-107); Creatinine, Serum 0.73 mg/dL (0.70-1.30); EST Glomerular Filtration Rate 111 mL/min (>60); Est Glom Filt Rate - Afr Amer 134 mL/min (>60); Estimated Creatinine Clearance 70.78 ml/min; Glucose 109 mg/dL (74-106); Potassium 3.6 mmol/L (3.5-5.1); Sodium Level 137 mmol/L (136-145)
[2020-10-30 06:26] LABS: Differential Comment SCANNED
--- NOTE | 2020-10-30 10:32 | PN_ITS ---
Patient Problems: Active and Suspected Problems Closed right hip fracture (Acute) Fall (Acute) has brace to right knee from prior patellar injury in september Hip fracture (Acute) Subjective: Patient seen and examined. Reports right hip pain tolerable at rest, increased pain during movement. Denies other symptoms or complaints. Surgery on hold at this time due to thrombocytopenia, awaiting additional platelets. - Physical Exam Vitals/I&O's: Vital Signs Temp Pulse Resp BP Pulse Ox 98.2 F 81 16 101/51 L 94 10/30/20 05:30 10/30/20 05:30 10/30/20 05:30 10/30/20 05:30 10/30/20 05:30 Oxygen Delivery Method Room Air Weight: 191 lb 3.2 oz Body Mass Index (BMI) 24.5 Intake and Output for Last 24 Hours 10/28/20 10/29/20 10/30/20 23:59 23:59 23:59 Intake Total 450 / 450 Output Total 300 / 300 Balance 150 / 150 General: Alert, Oriented x3, Cooperative HEENT: Atraumatic, PERRLA, EOMI, Normocephalic Neck: Supple, No JVD, Negative Carotid Bruits Lungs: Clear to auscultation, Normal air movement Cardiovascular: Regular rate, No murmurs Abdomen: Bowel Sounds Present, Soft, Non Tender, Non-Distended, - - Colostomy in place Extremities: No clubbing, No cyanosis, No edema, Capillary Refill Less than 3 Seconds Skin: No rashes, No breakdown Musculoskeletal: No Tenderness to Palpation of Joints or Extremities Neurological: Cranial nerves II-XII grossly intact, Neuro grossly intact Psych/Mental Status: Normal Affect, Appropriate Microbiology Past 72 Hours 10/29/20 19:10 Mucosa - Nasopharyngeal SARS-CoV-2 Antigen (Rapid) - Final Laboratory Results 10/29/20 14:54: WBC 9.1, RBC 4.16 L, Hgb 12.2 L, Hct 37.9 L, MCV 91.1, MCH 29.3, MCHC 32.2, RDW Std Deviation 49.3 H, RDW Coeff of Shahid 14.8 H, Plt Count 43 L*, MPV TNP, Differential Comment SCANNED 10/29/20 14:54: Sodium 139, Potassium 3.8, Chloride 108 H, Carbon Dioxide 25.0, Anion Gap 6, BUN 8, Creatinine 0.76, Estim Creat Clear Calc 70.78, Est GFR (MDRD) Af Amer 127, Est GFR (MDRD) Non-Af 105, BUN/Creatinine Ratio 10.5, Glucose 107 H, Calcium 8.7 10/29/20 14:59: PT 15.6 H, INR 1.3, APTT 34.7 10/29/20 14:59: Total Bilirubin 0.90, Direct Bilirubin 0.24, AST 51 H, ALT 7 L, Alkaline Phosphatase 180 H, Total Protein 6.3 L, Albumin 3.0 L, Globulin 3.3 10/29/20 18:07: Blood Type O POSITIVE, Antibody Screen NEGATIVE 10/30/20 05:48: WBC 10.5, RBC 3.60 L, Hgb 10.2 L, Hct 32.9 L, MCV 91.4, MCH 28.3, MCHC 31.0 L, RDW Std Deviation 50.0 H, RDW Coeff of Shahid 14.8 H, Plt Count 49 L*, Immature Gran % (Auto) 0.400, Neut % (Auto) 78.7 H, Lymph % (Auto) 10.1 L , [place] % (Auto) 8.8, Eos % (Auto) 1.6, Baso % (Auto) 0.4, Absolute Neuts (auto) 8.2 H, Absolute Lymphs (auto) 1.06, Nucleated RBC % 0, Differential Comment SCANNED, Diff Path Review February10/30/20 05:48: Sodium 137, Potassium 3.6, Chloride 105, Carbon Dioxide 24.0, Anion Gap 8, BUN 14, Creatinine 0.73, Estim Creat Clear Calc 70.78, Est GFR (MDRD) Af Amer 134, Est GFR (MDRD) Non-Af 111, BUN/Creatinine Ratio 19.2, Glucose 109 H, Calcium 8.1 L Current Medications Acetaminophen (Acetaminophen 325 Mg Tablet) 650 mg PO Q6H PRN PRN PRN Reason: Mild Pain (scale 1-3)/T>100.7 Last Admin: 10/29/20 21:29 Dose: 650 mg Documented by: Amantadine HCl (Amantadine 100 Mg Capsule) 100 mg PO BID [facility] Last Admin: 10/29/20 21:18 Dose: 100 mg Documented by: Calcium Carbonate (Calcium (Elemental) 500 Mg Tablet) 500 mg PO BIDCM [facility] Carbidopa/Levodopa (Carbidopa/Levodopa Cr 50/200 Tablet) 1 tablet PO 0900,2200 [facility] Last Admin: 10/29/20 21:18 Dose: 1 tablet Documented by: Carbidopa/Levodopa (Carbidopa/Levodopa 25/250 Tablet) 1 tablet PO 0730,1130,1630,2030 [facility] Last Admin: 10/30/20 03:22 Dose: Not Given Documented by: Ergocalciferol (Ergocalciferol 50,000 Unit Capsule) 50,000 unit PO Th@0800 [facility] Sodium Chloride () 250 mls @ 15 mls/hr IV .[id number] PRN PRN Reason: Saline Flush Sodium Chloride () 250 mls @ 15 mls/hr IV .[id number] PRN PRN Reason: Additional IVPB Infusion Cefazolin Sodium 2 gm/ Sodium (Chloride) 110 mls @ 150 mls/hr IV PREOP ONE Stop: 10/30/20 13:43 Immune Globulin 5 gm/ N/A 50 mls @ 41 mls/hr IV Q1H ONE; Protocol Stop: 10/30/20 11:13 Immune Globulin 10 gm/ N/A 100 mls @ 41 mls/hr IV Q1H ONE; Protocol Stop: 10/30/20 12:26 Immune Globulin 20 gm/ N/A 200 mls @ 41 mls/hr IV Q1H ONE; Protocol Stop: 10/30/20 14:52 Losartan Potassium (Losartan Potassium 100 Mg Tablet) 100 mg PO DAILY [facility] Morphine Sulfate (Morphine 2 Mg/Ml Syringe) 1 - 2 mg IV Q4H PRN PRN PRN Reason: breakthrough pain Nutritional Formula (Lactose Free) (Ensure Enlive 120 Ml Liquid) 120 ml PO 4X/DAY [facility] Last Admin: 10/29/20 21:19 Dose: 120 ml Documented by: Ondansetron HCl (Ondansetron 4 Mg/2 Ml Vial) 4 mg IV Q8H PRN PRN PRN Reason: NAUSEA/VOMITING Oxycodone HCl (Oxycodone 5 Mg Tablet) 5 mg PO Q4H PRN PRN PRN Reason: Pain Score 4-5 Oxycodone HCl (Oxycodone 5 Mg Tablet) 10 mg PO Q4H PRN PRN PRN Reason: Pain Score 6-10 Pantoprazole Sodium (Pantoprazole Sodium 40 Mg Tablet) 40 mg PO DAILY [facility] Pramipexole Dihydrochloride (Pramipexole Di-Hcl 0.5 Mg Tablet) 0.5 mg PO TID [facility] Last Admin: 10/30/20 03:22 Dose: Not Given Documented by: Prednisone (Prednisone 20 Mg Tablet) 40 mg PO DAILY@0800 [facility] Sertraline HCl (Sertraline 100 Mg Tablet) 100 mg PO DAILY [facility] Medical Necessity - Tobacco Use Smoking Status: Never smoker Tobacco Use: Non-smoker Assessment/Plan All Active Problems Closed right hip fracture (Acute) Fall (Acute) Hip fracture (Acute) Radius and ulna distal fracture (Resolved) Right patella fracture (Resolved) 1. Traumatic right hip fracture, secondary to mechanical fall prior to admission- ortho consulted. PT/OT. As needed pain regimen. Case management consult for discharge planning. Plan for OR when platelets above 60. 2. Parkinson's disease with progressive debility and recurrent falls-recently referred to palliative care. PT/OT. Continue home Sinemet, Mirapex, Symmetrel regimen. 3. ITP-hold heparin products. Platelets 49 this morning. Additional platelets ordered. Initiated on prednisone and IgG. Repeat platelets following transfusion. 4. Hypertension-stable, continue losartan. 5. GERD-continue home Prevacid regimen. 6. Depression-continue sertraline. 7. Osteoporosis, vitamin D deficiency-on Fosamax, calcium/vitamin D supplementation. 8. 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 DVT prophylaxis-SCDs CODE STATUS: DNR CCA no intubation. This patient was seen by BRITNI De La Rosa under the supervision of Dr. Croft.
--- NOTE | 2020-10-30 10:40 | CASEMGMT ---
RN CM Face to Face with patient for initial transition planning/care coordination assessment. RN CM introduced self and role at [facility]. Patient lying in bed, alert and oriented, at bedside. Patient willing to participate in assessment and is able to answer all questions appropriately. Care providers, pharmacy, and demographics verified. Patient and unsure of discharge disposition, will monitor progress with therapy. Patient states he has no further needs or concerns at this time. CM to follow for discharge planning needs that may arise. PCP: Jorge Specialists: Yolande oncologist Preferred Pharmacy: [facility] Insurance: [employer] Prescription Benefit: yes Living Will/HPOA: yes, Delmy Borden LNOK: Living Arrangements: Patient lives with in a 1 story home with ramp to enter the home. assist with care at times. Transportation: DME/HHC: Patient has shower chair, cane, walker, wheelchair, grab bars, lift chair. Patient has previously been to [facility] and has had [facility] in the past Disposition Plan: TBD by course of treatment and progress with therapy. Keerthi HSUN, RN, CM
[2020-10-30] MEDS: Morphine 2 MG/ML Syringe IV (11:10)
[2020-10-30 11:14] LABS: Pathologist Review Reviewed
[2020-10-30 11:15] LABS: Pathologist Review Reviewed
--- NOTE | 2020-10-30 11:43 | NURSING ---
UNIT OF PLATELETS STARTED
[2020-10-30] MEDS: Immune Globulin 10 gm Premixed Solution 41 BAG IV (13:01)
[2020-10-30 13:06] LABS: POSITIVE COUNT YES; Platelet Count 48 K/mm3 (150-450)
--- NOTE | 2020-10-30 13:46 | NURSING ---
O2 SAT 88% ON RA. PT PLACED ON O2 2L NC
[2020-10-30 14:43] LABS: POSITIVE COUNT YES; Platelet Count 54 K/mm3 (150-450)
[2020-10-30] MEDS: Immune Globulin 5 GM Premixed Solution 41 BAG IV (15:19)
--- NOTE | 2020-10-30 15:24 | CHAPLAIN ---
Type of Pastoral Visit _x__ Initial Visit ___ Follow-up Visit ___ On-call Visit ___ General Patient Visit ___ Spiritual Assessment ___ Family Conference ___ Bereavement ___ Rapid Response ___ Code Blue ___ Other (describe below) Pastoral Care Referral From _x__ Patient _x__ Family ___ Nurse ___ Physician ___ Electronic Warfare Officer ___ Bottler ___ Other (describe below) Sacrament/Intervention _x__ Active listening ___ Anointing ___ Hindu ___ Bereavement ___ Communion _x__ Evelyn exploration ___ _x__ Life review _x__ Prayer ___ Reconciliation ___ Sacrament of Sick _x__ Supportive presence ___ Wedding ___ Other (describe below) Pastoral Comments patient and spouse waiting in room until right numbers are accomplished before surgery; spouse remembers this ordinary seaman from a previous admission of pt; pt is connected to pentecostalism and has family support; pt does request prayer and lists several family or personal concerns at this time;
[2020-10-30] MEDS: Immune Globulin 20 gm Premixed Solution 41 BAG IV (16:22)
[2020-10-30] MEDS: predniSONE 20 MG Tablet 40 MG PO (17:38)
[2020-10-30] MEDS: Pantoprazole Sodium 40 MG Tablet PO (17:38)
[2020-10-30] MEDS: Sertraline 100 MG Tablet PO (17:38)
[2020-10-30] MEDS: Losartan Potassium 100 MG Tablet PO (17:38)
[2020-10-30] MEDS: Carbidopa/Levodopa 25/250 Tablet PO ×2 (17:39→21:32)
[2020-10-30] MEDS: Calcium (Elemental) 500 MG Tablet PO (17:39)
--- NOTE | 2020-10-30 17:41 | NURSING ---
AM MEDS GIVEN LATE DUE TO PT BEING NPO EARLIER FOR POSSIBLE SURGERY
[2020-10-30] MEDS: CARBIDOPA/LEVODOPA CR 50/200 Tablet PO (21:30)
[2020-10-30] MEDS: Pramipexole Di-HCl 0.5 MG Tablet PO (21:31)
[2020-10-30] MEDS: Amantadine 100 MG Capsule PO (21:33)
[2020-10-31] VITALS (12 sets, daily range): BP systolic 102–125; BP diastolic 50–71; PULSE 71–87; RESP 16–20; TEMP 36.6–37.3; O2SAT 93–97; BMI 24.5
--- NOTE | 2020-10-31 05:37 | NURSING ---
0532 Pt. left floor for surgery with Carolann ASSISTANT SUPERINTENDENT to be down in AC at 0545 as requested.
[2020-10-31] MEDS: 0.9% Normal Saline 1,000 ML 100 ML IV ×3 (06:08→21:59)
[2020-10-31 06:44] LABS: Hematocrit 30.5 % (40-54); Hemoglobin 9.8 g/dL (13.0-16.5); Mean Corp Hgb Conc 32.1 g/dL (32-36); Mean Corpuscular Hgb 29.1 pg (27.0-32.0); Mean Corpuscular Volume 90.5 fL (80-94); POSITIVE COUNT YES; Platelet Count 67 K/mm3 (150-450); RBC Distribution Width CV 14.6 % (11.6-14.6); RBC Distribution Width SD 48.6 fl (35.1-43.9); Red Blood Count 3.37 M/mm3 (4.6-6.2)
--- NOTE | 2020-10-31 06:45 | RAD_ITS ---
STUDY: X-RAY - PELVIS AND RIGHT HIP REASON FOR EXAM: Male, 80 years old. ORIF, HIP, GAMMA NAIL. NO PELVIS IMAGE TAKEN. 149.5 SEC. FL., 6 IMAGES TECHNIQUE: 6 views of the pelvis and hip. COMPARISON: 10/29/2020 FINDINGS: Fluoroscopy the right hip was utilized and operating room during open reduction internal fixation of fracture of the intertrochanteric femur and the 6 images are somewhat limited for interpretation.. RAD/Hip Min 2 Views (Portable) IMPRESSION: Fluoroscopy during surgery. Electronically Signed: Chau Cintron MD at 13:48 EST Tel , Service support ,
[2020-10-31] MEDS: Cefazolin 2 GM in 0.9% Normal Saline 100 ML IV (06:54)
[2020-10-31 07:13] LABS: Anion Gap 5 (5-15); BUN 14 mg/dL (7-18); BUN/Creat Ratio 19.4 RATIO (10-20); Calcium,Total 8.1 mg/dL (8.5-10.1); Chloride 106 mmol/L (98-107); Creatinine, Serum 0.72 mg/dL (0.70-1.30); EST Glomerular Filtration Rate 112 mL/min (>60); Est Glom Filt Rate - Afr Amer 135 mL/min (>60); Estimated Creatinine Clearance 70.78 ml/min; Glucose 112 mg/dL (74-106); Potassium 4.1 mmol/L (3.5-5.1); Sodium Level 138 mmol/L (136-145)
--- NOTE | 2020-10-31 07:31 | PCS.PANDOC ---
PANDEMIC DOCUMENTATION INITIATED: Date: 10/02/2020 Time:
--- NOTE | 2020-10-31 07:53 | PCM.CONS.GEN ---
Reason for Consult Date of Consultation: 10/31/20 History of Present Illness: The patient is a 80 year old male that slipped and fell fracturing his right hip on October 29, 2020. Was brought into the hospital and diagnosed with a right hip intertrochanteric fracture . He was noted to have ITP. Anesthesia was consulted. Hospitalist was consulted. Patient was admitted to the hospitalist service and orthopedics was consulted. She had left hip fracture surgery by Dr. Zambrano several years ago. Patient is a minimal ambulator based on his history of Parkinson's. Due to his right hip fracture he and his would like to proceed with surgical intervention. [] Past Medical History Past Medical History (Chronic Problems): Chronic Problems Closed left hip fracture (Chronic) Displaced intertrochanteric fracture of left femur (Chronic) WBAT, pt on xarelto x 30 days post operative, final dose 01/23 Left wrist fracture (Chronic) Vitamin D deficiency (Chronic) Osteoporosis (Chronic) GERD (gastroesophageal reflux disease) (Chronic) Depression (Chronic) Hypertension (Chronic) Patellar instability (Chronic) S/P ORIF (open reduction internal fixation) fracture (Chronic) 11/2716 Dr Ott left intertrochanteric fracture 10/04/[address] Rebolledo right patellar fracture Parkinson disease (Chronic) mirapex increased during this admission, will require new prescription at d/c Allergies haloperidol [From Haldol] Allergy (Verified 10/29/20 13:52) as a parkinson's pt was told never to have it Penicillins Allergy (Verified 10/29/20 13:52) Rash Home Medications: Ambulatory Orders Medication Instructions Recorded Carbidopa/Levodopa 25/250 [Sinemet 1 tab PO 30,1130,1630,2030 08/27/15 25/250] Sertraline HCl [Zoloft] 100 mg PO DAILY@72908/27/15 Acetaminophen [Tylenol Tablet] 650 mg PO Q6H PRN PRN #0 tablet 12/25/16 Calcium (Elemental) [Os-Raheem 500] 630 mg PO BID 11/19/18 Carbidopa/Levodopa [Carbidopa-Levo 1 each PO BID@0900,2200 11/19/18 ER 50-200 Tab] Lansoprazole [Prevacid] 30 mg PO DAILY@72911/19/18 Losartan Potassium [Cozaar] 100 mg PO DAILY@0730 11/19/18 Alendronate Sodium [Fosamax] 70 mg PO TU 10/29/20 Amantadine [Symmetrel] 1 tab PO BID@1000,2200 10/29/20 Ensure Enlive 120 ml PO 4X/DAY 10/29/20 Ergocalciferol [Vitamin D] 50,000 unit PO Th@0800 10/29/20 Pramipexole Di-HCl [Mirapex] 0.5 mg PO TID@0730,1400,2030 10/29/20 Surgical History: cholecystectomy, colectomy, - Psychiatric History: Depression Lives: Spouse/ Significant Other Smoking Status: Never smoker Tobacco Use: Non-smoker Alcohol: None Drugs: None - *Family History Maternal History Items: - Paternal History Items: Renal Disease Patient Problems: Active and Suspected Problems Closed right hip fracture (Acute) Fall (Acute) has brace to right knee from prior patellar injury in september Hip fracture (Acute) Objective: Review of systems was performed and updated. No significant recent changes to eyes ears nose or throat heart or lungs bowel or bladder Right hip has shortening and external rotation. Right hip has pain on palpation. Leg is neurovascular intact distally. Well-healed incision of the right knee. Bruising about the right hip. No severe swelling about the hip or thigh. X-rays AP pelvis AP and lateral right hip shows a displaced unstable intertrochanteric right hip fracture. Left hip shows internal fixation with hip screw and sideplate. Laboratory work and vital signs reviewed. Case has been discussed with hospitalist and anesthesia service. - Physical Exam Vitals/I&O's: Vital Signs Temp Pulse Resp BP Pulse Ox 98.8 F 79 18 125/71 H 93 10/31/20 03:42 10/31/20 06:06 10/31/20 03:42 10/31/20 06:06 10/31/20 03:42 Oxygen Flow Rate (L/min) 2 Oxygen Delivery Method Nasal Cannula Weight: 86.7 kg Body Mass Index (BMI) 24.5 Intake and Output for Last 24 Hours 10/29/20 10/30/20 10/31/20 23:59 23:59 23:59 Intake Total 799 / 799 Output Total 450 / 450 300 / 300 Balance 349 / 349 -300 / -300 Microbiology Past 72 Hours 10/29/20 19:10 Mucosa - Nasopharyngeal SARS-CoV-2 Antigen (Rapid) - Final Laboratory Results 10/29/20 14:54: Diff Path Review Reviewed 10/30/20 05:48: Diff Path Review Reviewed 10/30/20 12:53: Plt Count 48 L* 10/30/20 14:34: Plt Count 54 L 10/31/20 06:37: WBC 10.0, RBC 3.37 L, Hgb 9.8 L, Hct 30.5 L, MCV 90.5, MCH 29.1, MCHC 32.1, RDW Std Deviation 48.6 H, RDW Coeff of Shahid 14.6, Plt Count 67 L, MPV 14.0 H 10/31/20 06:37: Sodium 138, Potassium 4.1, Chloride 106, Carbon Dioxide 27.0, Anion Gap 5, BUN 14, Creatinine 0.72, Estim Creat Clear Calc 70.78, Est GFR (MDRD) Af Amer 135, Est GFR (MDRD) Non-Af 112, BUN/Creatinine Ratio 19.4, Glucose 112 H, Calcium 8.1 L Current Medications Acetaminophen (Acetaminophen 325 Mg Tablet) 650 mg PO Q6H PRN PRN PRN Reason: Mild Pain (scale 1-3)/T>100.7 Last Admin: 10/29/20 21:29 Dose: 650 mg Documented by: Amantadine HCl (Amantadine 100 Mg Capsule) 100 mg PO BID [facility] Last Admin: 10/30/20 21:33 Dose: 100 mg Documented by: Calcium Carbonate (Calcium (Elemental) 500 Mg Tablet) [facility] Last Admin: 10/30/20 17:39 Dose: 500 mg Documented by: Carbidopa/Levodopa (Carbidopa/Levodopa Cr 50/200 Tablet) 1 tablet PO 0900,2200 [facility] Last Admin: 10/30/20 21:30 Dose: 1 tablet Documented by: Carbidopa/Levodopa (Carbidopa/Levodopa 25/250 Tablet) 1 tablet PO 0730,1130,1630,2030 [facility] Last Admin: 10/31/20 05:03 Dose: Not Given Documented by: Ergocalciferol (Ergocalciferol 50,000 Unit Capsule) 50,000 unit PO Th@0800 [facility] Sodium Chloride () 250 mls @ 15 mls/hr IV .[id number] PRN PRN Reason: Saline Flush Sodium Chloride () 250 mls @ 15 mls/hr IV .[id number] PRN PRN Reason: Additional IVPB Infusion Sodium Chloride () 1,000 mls @ 100 mls/hr IV .Q10H [facility] Last Admin: 10/31/20 06:08 Dose: 100 mls/hr Documented by: Cefazolin Sodium () 1 gm in 50 mls @ 100 mls/hr IV Q6 [facility] Stop: 11/01/20 00:29 Losartan Potassium (Losartan Potassium 100 Mg Tablet) 100 mg PO DAILY [facility] Last Admin: 10/30/20 17:38 Dose: 100 mg Documented by: Morphine Sulfate (Morphine 2 Mg/Ml Syringe) 1 - 2 mg IV Q4H PRN PRN PRN Reason: breakthrough pain Last Admin: 10/30/20 11:10 Dose: 2 mg Documented by: Nutritional Formula (Lactose Free) (Ensure Enlive 120 Ml Liquid) 120 ml PO 4X/DAY [facility] Last Admin: 10/30/20 21:34 Dose: 120 ml Documented by: Ondansetron HCl (Ondansetron 4 Mg/2 Ml Vial) 4 mg IV Q8H PRN PRN PRN Reason: NAUSEA/VOMITING Oxycodone HCl (Oxycodone 5 Mg Tablet) 5 mg PO Q4H PRN PRN PRN Reason: Pain Score 4-5 Oxycodone HCl (Oxycodone 5 Mg Tablet) 10 mg PO Q4H PRN PRN PRN Reason: Pain Score 6-10 Pantoprazole Sodium (Pantoprazole Sodium 40 Mg Tablet) 40 mg PO DAILY [facility] Last Admin: 10/30/20 17:38 Dose: 40 mg Documented by: Pramipexole Dihydrochloride (Pramipexole Di-Hcl 0.5 Mg Tablet) 0.5 mg PO TID [facility] Last Admin: 10/31/20 05:03 Dose: Not Given Documented by: Prednisone (Prednisone 20 Mg Tablet) 40 mg PO DAILY@0800 [facility] Last Admin: 10/30/20 17:38 Dose: 40 mg Documented by: Sertraline HCl (Sertraline 100 Mg Tablet) 100 mg PO DAILY [facility] Last Admin: 10/30/20 17:38 Dose: 100 mg Documented by: Assessment/Plan All Active Problems Closed right hip fracture (Acute) Fall (Acute) Hip fracture (Acute) Radius and ulna distal fracture (Resolved) Right patella fracture (Resolved) Right hip displaced intertrochanteric fracture. Surgical intervention recommended for open reduction internal fixation with short intramedullary nail. Risk of surgery including but not limited to from operative or postoperative complications. Risk of anesthetic complications such as heart attacks, strokes, seizures, or . Risk of infections. Risk of damage to nerves arteries tendons. Risk of inadvertent fractures or dislocations. Risk of bone or wound healing complications. Possibility of nonunion malunion pain stiffness weakness. Possible need for further surgery such as hardware removal. Risk of DVT PE and other potential complications could lead to or disability explained. No guarantees were stated or implied. All of their questions were answered. Appropriate informed consent was obtained and signed for surgical intervention. Increased risk associated with COVID-19 explained. Increased risk associated with thrombocytopenia explained. He will maintain on the medical service. They will follow his platelet count and treat accordingly. This note was generated with [employer] dictation software. It may contain incorrect words, spelling, and punctuation that were not noted in checking the note before signing.
--- NOTE | 2020-10-31 07:58 | PRO.PCM_ITS ---
Procedure Report Date of Procedure: 10/31/20 Preoperative diagnosis: Right hip displaced unstable intertrochanteric fracture Postoperative diagnosis: Same Title of operation: Right hip open reduction internal fixation, intramedullary nail fixation, locked Surgeon: Dr. Negrito Borden Industrial Technician: Cris SHI Anesthesia: General Medications: Ancef, platelets Complications: None EBL: 50 Indications for surgery: Patient is an 80-year-old male sustained a hip fracture 2 days ago. Patient and their family explained diagnosis and treatment options. Patient evaluated by the medical services. Patient did wish to have surgery. Appropriate informed consent obtained and signed. Findings: Patient had a displaced unstable intertrochanteric hip fracture. They underwent standard reduction, internal fixation using a Domingo short gamma nail. X-rays taken throughout. esol teacher assistant, physician yard assistant, was utilized throughout the entire procedure. They were vital to the procedure from beginning to end. They help with patient transfer, patient padding and positioning, fracture reduction, maintenance of fracture reduction, internal fixation of implants, wound closure, bandage application, patient transfer. Without certified ophthalmic surgical assistant, surgical time would have been significantly increased and surgical outcome could have been less optimal. Procedure: Patient was taken to the operating room. Placed under a general anesthetic and transferred to the operating table with the help of the yard assistant. With the help of the yard assistant patient was prepped and padded for surgery. Operative side foot was well-padded and placed in the traction boot. Uninjured lower extremity was abducted and flexed out of harms way. RACHELLE hose and SCDs utilized. Fluoroscopy was brought in. With the help of the yard assistant and manipulation of the limb, reduction was nicely obtained as verified under AP lateral and oblique fluoroscopic images. . Operative hip/thigh was prepped padded draped in usual orthopedic sterile fashion for the procedure. Longitudinal incision was made just proximal to the greater trochanter. Taken through skin and subcutaneous tissue. Sharp awl was placed on the tip of the greater trochanter. Position verified under AP and lateral fluoroscopic images. This was then taken down inside the bone. Slightly bent ball-tipped guide gloria was then placed from the tip of the greater trochanter into the intra-medullary canal of the femur. Its position verified radiographically. Reamer was then done over the tip of this with the help of the yard assistant holding the soft tissue protector appropriately. Once reaming was done we placed the short 125? angle device over the guidepin. This was easily introduced. Guide gloria removed. Outrigger device was utilized to position a guidepin from the lateral cortex of the femur across the fracture site and into the femoral head in a good position centrally, as noted on AP lateral and oblique fluoroscopic images. This was measured. Appropriate reaming done. Appreciate length lag screw was placed from the lateral cortex of the femur into the femoral head. A small amount of the screw was noted to be protruding laterally as planned. No cartilage penetration of the femoral head noted on any x-ray. Fracture was then compressed with the outrigger device. Proximal cap screw was placed by the yard assistant seated down completely, confirmed, and then loosened one fourth turn. We then used the outrigger device to place distal cross locking screw under standard technique. This was confirmed to be of adequate length in good position on AP and lateral images. Outrigger device removed. Final set of AP and lateral proximal x-rays taken and saved. Incisions thoroughly irrigated. Closing by the yard assistant with deep 0 Vicryl, mid layer 0 Vicryl, inverted 2-0 Vicryl, skin lawrence. Puncture wounds closed with inverted 2-0 Vicryl and lawrence. Xeroform 4 x 4's ABD tape applied. Patient was awoken from their anesthetic, transferred back to their own bed with the help of the yard assistant and into recovery room in satisfactory condition. Patient will continue to be admitted to the hospital under the hospitalist service. This note was generated with [employer] software. It may contain incorrect words, spelling, and punctuation that were not noted in checking the note before signing
--- NOTE | 2020-10-31 08:48 | SUR.PHASEI ---
Platelet started @ 0640 and completed in OR @ 0800. Unit number [id number]. Unable to document on in TAR.
[2020-10-31] MEDS: CARBIDOPA/LEVODOPA CR 50/200 Tablet PO ×2 (09:52→22:00)
[2020-10-31] MEDS: oxyCODONE 5 MG Tablet PO ×2 (09:52→22:00)
[2020-10-31] MEDS: Pantoprazole Sodium 40 MG Tablet PO (09:52)
[2020-10-31] MEDS: Calcium (Elemental) 500 MG Tablet PO ×2 (09:52→16:26)
[2020-10-31] MEDS: predniSONE 20 MG Tablet 40 MG PO (09:53)
[2020-10-31] MEDS: Acetaminophen 325 MG Tablet 650 MG PO ×2 (09:53→20:18)
[2020-10-31] MEDS: Pramipexole Di-HCl 0.5 MG Tablet PO ×3 (09:53→22:00)
[2020-10-31] MEDS: Carbidopa/Levodopa 25/250 Tablet PO ×4 (09:53→20:18)
[2020-10-31] MEDS: Amantadine 100 MG Capsule PO ×2 (09:54→22:00)
[2020-10-31] MEDS: Cefazolin 1 GM/50 ML BAG IV ×2 (13:14→18:36)
--- NOTE | 2020-10-31 13:28 | PN_ITS ---
Patient Problems: Active and Suspected Problems Closed right hip fracture (Acute) Fall (Acute) has brace to right knee from prior patellar injury in september Hip fracture (Acute) Subjective: Patient seen and examined. Underwent right hip open reduction internal fixation with intramedullary nail fixation this morning. Patient states pain is currently well controlled. Denies current symptoms or complaints. - Physical Exam Vitals/I&O's: Vital Signs Temp Pulse Resp BP Pulse Ox 98.2 F 87 18 102/71 94 10/31/20 13:20 10/31/20 13:20 10/31/20 13:20 10/31/20 13:20 10/31/20 13:20 Oxygen Flow Rate (L/min) 2 Oxygen Delivery Method Nasal Cannula Weight: 191 lb 2.252 oz Body Mass Index (BMI) 24.5 Intake and Output for Last 24 Hours 10/29/20 10/30/20 10/31/20 23:59 23:59 23:59 Intake Total 799 / 799 655 / 655 Output Total 450 / 450 550 / 550 Balance 349 / 349 105 / 105 General: Alert, Oriented x3, Cooperative HEENT: Atraumatic, PERRLA, EOMI, Normocephalic Neck: Supple, No JVD, Negative Carotid Bruits Lungs: Clear to auscultation, Normal air movement Cardiovascular: Regular rate, No murmurs Abdomen: Bowel Sounds Present, Soft, Non Tender, Non-Distended, - - Colostomy in place Extremities: No clubbing, No cyanosis, No edema, Capillary Refill Less than 3 Seconds Skin: No rashes, No breakdown, - - Right hip postop dressing intact Musculoskeletal: No Tenderness to Palpation of Joints or Extremities Neurological: Cranial nerves II-XII grossly intact, Neuro grossly intact Psych/Mental Status: Normal Affect, Appropriate Microbiology Past 72 Hours 10/29/20 19:10 Mucosa - Nasopharyngeal SARS-CoV-2 Antigen (Rapid) - Final Laboratory Results 10/30/20 14:34: Plt Count 54 L 10/31/20 06:37: WBC 10.0, RBC 3.37 L, Hgb 9.8 L, Hct 30.5 L, MCV 90.5, MCH 29.1, MCHC 32.1, RDW Std Deviation 48.6 H, RDW Coeff of Shahid 14.6, Plt Count 67 L, MPV 14.0 H 10/31/20 06:37: Sodium 138, Potassium 4.1, Chloride 106, Carbon Dioxide 27.0, Anion Gap 5, BUN 14, Creatinine 0.72, Estim Creat Clear Calc 70.78, Est GFR (MDRD) Af Amer 135, Est GFR (MDRD) Non-Af 112, BUN/Creatinine Ratio 19.4, Glucose 112 H, Calcium 8.1 L Current Medications Acetaminophen (Acetaminophen 325 Mg Tablet) 650 mg PO Q6H PRN PRN PRN Reason: Mild Pain (scale 1-3)/T>100.7 Last Admin: 10/31/20 09:53 Dose: 650 mg Documented by: Amantadine HCl (Amantadine 100 Mg Capsule) 100 mg PO BID [facility] Last Admin: 10/31/20 09:54 Dose: 100 mg Documented by: Calcium Carbonate (Calcium (Elemental) 500 Mg Tablet) [facility] Last Admin: 10/31/20 09:52 Dose: 500 mg Documented by: Carbidopa/Levodopa (Carbidopa/Levodopa Cr 50/200 Tablet) 1 tablet PO 0900,2200 [facility] Last Admin: 10/31/20 09:52 Dose: 1 tablet Documented by: Carbidopa/Levodopa (Carbidopa/Levodopa 25/250 Tablet) 1 tablet PO 0730,1130,1630,2030 [facility] Last Admin: 10/31/20 11:32 Dose: 1 tablet Documented by: Ergocalciferol (Ergocalciferol 50,000 Unit Capsule) 50,000 unit PO Th@0800 [facility] Sodium Chloride () 250 mls @ 15 mls/hr IV .[id number] PRN PRN Reason: Saline Flush Sodium Chloride () 250 mls @ 15 mls/hr IV .[id number] PRN PRN Reason: Additional IVPB Infusion Sodium Chloride () 1,000 mls @ 100 mls/hr IV .Q10H [facility] Last Admin: 10/31/20 11:35 Dose: 100 mls/hr Documented by: Cefazolin Sodium () 1 gm in 50 mls @ 100 mls/hr IV Q6H [facility] Stop: 11/01/20 01:29 Last Admin: 10/31/20 13:14 Dose: 100 mls/hr Documented by: Losartan Potassium (Losartan Potassium 100 Mg Tablet) 100 mg PO DAILY [facility] Last Admin: 10/31/20 13:16 Dose: Not Given Documented by: Morphine Sulfate (Morphine 2 Mg/Ml Syringe) 1 - 2 mg IV Q4H PRN PRN PRN Reason: breakthrough pain Last Admin: 10/30/20 11:10 Dose: 2 mg Documented by: Nutritional Formula (Lactose Free) (Ensure Enlive 120 Ml Liquid) 120 ml PO 4X/DAY [facility] Last Admin: 10/31/20 12:18 Dose: Not Given Documented by: Ondansetron HCl (Ondansetron 4 Mg/2 Ml Vial) 4 mg IV Q8H PRN PRN PRN Reason: NAUSEA/VOMITING Oxycodone HCl (Oxycodone 5 Mg Tablet) 5 mg PO Q4H PRN PRN PRN Reason: Pain Score 4-5 Last Admin: 10/31/20 09:52 Dose: 5 mg Documented by: Oxycodone HCl (Oxycodone 5 Mg Tablet) 10 mg PO Q4H PRN PRN PRN Reason: Pain Score 6-10 Pantoprazole Sodium (Pantoprazole Sodium 40 Mg Tablet) 40 mg PO DAILY [facility] Last Admin: 10/31/20 09:52 Dose: 40 mg Documented by: Pramipexole Dihydrochloride (Pramipexole Di-Hcl 0.5 Mg Tablet) 0.5 mg PO TID [facility] Last Admin: 10/31/20 13:17 Dose: 0.5 mg Documented by: Prednisone (Prednisone 20 Mg Tablet) 40 mg PO DAILY@0800 [facility] Last Admin: 10/31/20 09:53 Dose: 40 mg Documented by: Sertraline HCl (Sertraline 100 Mg Tablet) 100 mg PO DAILY [facility] Last Admin: 10/31/20 13:16 Dose: Not Given Documented by: Medical Necessity - Tobacco Use Smoking Status: Never smoker Tobacco Use: Non-smoker Assessment/Plan All Active Problems Closed right hip fracture (Acute) Fall (Acute) Hip fracture (Acute) Radius and ulna distal fracture (Resolved) Right patella fracture (Resolved) 1. Traumatic right hip fracture, secondary to mechanical fall prior to admission- ortho consulted. PT/OT. As needed pain regimen. Case management consult for discharge planning. Patient underwent right hip open reduction internal fixation with intramedullary nail fixation 10/31/2020. Plan for SNF pending pre-CERT/acceptance. 2. Parkinson's disease with progressive debility and recurrent falls-recently referred to palliative care. PT/OT. Continue home Sinemet, Mirapex, Symmetrel regimen. 3. 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 Initiated on prednisone, completed IgG. Follows with Dr. Lanier. 4. Hypertension-stable, continue losartan. 5. GERD-continue home Prevacid regimen. 6. Depression-continue sertraline. 7. Osteoporosis, vitamin D deficiency-on Fosamax, calcium/vitamin D supplementation. 8. 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 DVT prophylaxis-SCDs CODE STATUS: DNR CCA no intubation. Discharge planning: SNF for rehab pending acceptance. This patient was seen by BRITNI De La Rosa under the supervision of Dr. Croft.
--- NOTE | 2020-10-31 14:54 | CASEMGMT ---
Social Work Note SW updated that pt is agreeable to TCU at discharge. SW placed a call to Kimmy in TCU and provided referral. TCU will have a bed available Thursday. Plan: TCU Thursday Keerthi DIAZ, [employer]SEM[employer]
--- NOTE | 2020-10-31 15:11 | CHAPLAIN ---
Type of Pastoral Visit ___ Initial Visit _x__ Follow-up Visit ___ On-call Visit ___ General Patient Visit ___ Spiritual Assessment ___ Family Conference ___ Bereavement ___ Rapid Response ___ Code Blue ___ Other (describe below) Pastoral Care Referral From _x__ Patient _x__ Family ___ Nurse ___ Physician ___ Rolling Machine Tender ___ Adding Machine Operator ___ Other (describe below) Sacrament/Intervention _x__ Active listening ___ Anointing ___ Spiritism ___ Bereavement ___ Communion ___ Evelyn exploration ___ ___ Life review _x__ Prayer ___ Reconciliation ___ Sacrament of Sick _x__ Supportive presence ___ Wedding ___ Other (describe below) Pastoral Comments
--- NOTE | 2020-10-31 22:02 | NURSING ---
assisted pt to stand at bedside. max 2 assist. pt unable to take steps and reports he normally pivot transfers to his wheelchair at home. pt had significant pain. repositioned in bed with commercial painter fausto.
[2020-11-01] MEDS: Cefazolin 1 GM/50 ML BAG IV (01:53)
[2020-11-01 01:55] VITALS: BP 101/55; PULSE 82; RESP 18; TEMP 36.8; O2SAT 94
[2020-11-01 02:02] VITALS: BMI 24.5
[2020-11-01 06:17] LABS: Hematocrit 28.7 % (40-54); Hemoglobin 9.1 g/dL (13.0-16.5); Mean Corp Hgb Conc 31.7 g/dL (32-36); Mean Corpuscular Hgb 29.5 pg (27.0-32.0); Mean Corpuscular Volume 93.2 fL (80-94); Mean Platelet Vol. 12.4 fl (6.2-12.0); Platelet Count 139 K/mm3 (150-450); RBC Distribution Width CV 15.1 % (11.6-14.6); RBC Distribution Width SD 51.5 fl (35.1-43.9); Red Blood Count 3.08 M/mm3 (4.6-6.2); White Blood Count 9.2 K/mm3 (4.4-11.0)
[2020-11-01 06:25] VITALS: BMI 24.5
[2020-11-01] MEDS: Pramipexole Di-HCl 0.5 MG Tablet PO ×2 (06:37→14:12)
[2020-11-01 06:38] LABS: Anion Gap 2 (5-15); BUN 21 mg/dL (7-18); BUN/Creat Ratio 26.6 RATIO (10-20); Calcium,Total 8.1 mg/dL (8.5-10.1); Chloride 110 mmol/L (98-107); Creatinine, Serum 0.79 mg/dL (0.70-1.30); EST Glomerular Filtration Rate 101 mL/min (>60); Est Glom Filt Rate - Afr Amer 122 mL/min (>60); Estimated Creatinine Clearance 70.78 ml/min; Glucose 98 mg/dL (74-106); Potassium 3.9 mmol/L (3.5-5.1); Sodium Level 140 mmol/L (136-145)
[2020-11-01] MEDS: Carbidopa/Levodopa 25/250 Tablet PO ×3 (06:38→16:24)
[2020-11-01 09:07] VITALS: BP 118/57; PULSE 90; RESP 20; TEMP 36.8; O2SAT 95
[2020-11-01] MEDS: Acetaminophen 325 MG Tablet 650 MG PO ×2 (09:21→16:23)
[2020-11-01] MEDS: Pantoprazole Sodium 40 MG Tablet PO (09:22)
[2020-11-01] MEDS: CARBIDOPA/LEVODOPA CR 50/200 Tablet PO (09:22)
[2020-11-01] MEDS: Losartan Potassium 100 MG Tablet PO (09:22)
[2020-11-01] MEDS: oxyCODONE 5 MG Tablet PO ×2 (09:22→16:23)
[2020-11-01] MEDS: Calcium (Elemental) 500 MG Tablet PO ×2 (09:22→16:24)
[2020-11-01] MEDS: predniSONE 20 MG Tablet 40 MG PO (09:22)
[2020-11-01] MEDS: Sertraline 100 MG Tablet PO (09:23)
[2020-11-01] MEDS: Amantadine 100 MG Capsule PO (09:23)
[2020-11-01] MEDS: 0.9% Saline Lock 10 ML Syringe IV (09:30)
--- NOTE | 2020-11-01 10:19 | PCM.PN.ORT ---
Patient Problems: Active and Suspected Problems Closed right hip fracture (Acute) Fall (Acute) has brace to right knee from prior patellar injury in september Hip fracture (Acute) Subjective: The patient was sitting on the side of the bed with physical therapy upon examination. Patient denies chest pain, shortness of breath, dizziness, lightheadedness, nausea, vomiting or calf pain. Pain is controlled on medications. No adverse events overnight. Objective: Vital signs stable. Patient is afebrile. Patient is able to plantar flex and dorsiflex actively. Sensation is intact to light touch to saphenous, sural, superficial and deep peroneal and tibial nerve distributions. Dressing is saturated to all 3 edges on the proximal third of the dressing. Negative Homans bilaterally. Negative signs and symptoms of DVT. - Physical Exam Vitals/I&O's: Vital Signs Temp Pulse Resp BP Pulse Ox 98.3 F 90 20 H 118/57 L 95 11/01/20 09:07 11/01/20 09:07 11/01/20 09:07 11/01/20 09:07 11/01/20 09:07 Oxygen Flow Rate (L/min) 2 Oxygen Delivery Method Nasal Cannula Weight: 86.7 kg Body Mass Index (BMI) 24.5 Intake and Output for Last 24 Hours 10/30/20 10/31/20 11/01/20 23:59 23:59 23:59 Intake Total 799 / 799 2475 / 2475 1176.92 / 1176.92 Output Total 450 / 450 850 / 850 250 / 250 Balance 349 / 349 1625 / 1625 926.92 / 926.92 General: Alert, Cooperative Extremities: Capillary Refill Less than 3 Seconds, No Calf Tenderness Skin: Incision - Right hip. Psych/Mental Status: Normal Affect, Appropriate Microbiology Past 72 Hours 10/29/20 19:10 Mucosa - Nasopharyngeal SARS-CoV-2 Antigen (Rapid) - Final Laboratory Results 11/01/20 05:46: WBC 9.2, RBC 3.08 L, Hgb 9.1 L, Hct 28.7 L, MCV 93.2, MCH 29.5, MCHC 31.7 L, RDW Std Deviation 51.5 H, RDW Coeff of Shahid 15.1 H, Plt Count 139 L, MPV 12.4 H 11/01/20 05:46: Sodium 140, Potassium 3.9, Chloride 110 H, Carbon Dioxide 28.0, Anion Gap 2 L, BUN 21 H, Creatinine 0.79, Estim Creat Clear Calc 70.78, Est GFR (MDRD) Af Amer 122, Est GFR (MDRD) Non-Af 101, BUN/Creatinine Ratio 26.6 H, Glucose 98, Calcium 8.1 L Current Medications Acetaminophen (Acetaminophen 325 Mg Tablet) 650 mg PO Q6H PRN PRN PRN Reason: Mild Pain (scale 1-3)/T>100.7 Last Admin: 11/01/20 09:21 Dose: 650 mg Documented by: Amantadine HCl (Amantadine 100 Mg Capsule) 100 mg PO BID [facility] Last Admin: 11/01/20 09:23 Dose: 100 mg Documented by: Calcium Carbonate (Calcium (Elemental) 500 Mg Tablet) [facility] Last Admin: 11/01/20 09:22 Dose: 500 mg Documented by: Carbidopa/Levodopa (Carbidopa/Levodopa Cr 50/200 Tablet) 1 tablet PO 0900,2200 [facility] Last Admin: 11/01/20 09:22 Dose: 1 tablet Documented by: Carbidopa/Levodopa (Carbidopa/Levodopa 25/250 Tablet) 1 tablet PO 0730,1130,1630,2030 [facility] Last Admin: 11/01/20 06:38 Dose: 1 tablet Documented by: Ergocalciferol (Ergocalciferol 50,000 Unit Capsule) 50,000 unit PO Th@0800 [facility] Last Admin: 11/01/20 09:23 Dose: 50,000 unit Documented by: Sodium Chloride () 250 mls @ 15 mls/hr IV .[id number] PRN PRN Reason: Saline Flush Sodium Chloride () 250 mls @ 15 mls/hr IV .[id number] PRN PRN Reason: Additional IVPB Infusion Losartan Potassium (Losartan Potassium 100 Mg Tablet) 100 mg PO DAILY [facility] Last Admin: 11/01/20 09:22 Dose: 100 mg Documented by: Morphine Sulfate (Morphine 2 Mg/Ml Syringe) 1 - 2 mg IV Q4H PRN PRN PRN Reason: breakthrough pain Last Admin: 10/30/20 11:10 Dose: 2 mg Documented by: Nutritional Formula (Lactose Free) (Ensure Enlive 120 Ml Liquid) 120 ml PO 4X/DAY [facility] Last Admin: 11/01/20 09:11 Dose: Not Given Documented by: Ondansetron HCl (Ondansetron 4 Mg/2 Ml Vial) 4 mg IV Q8H PRN PRN PRN Reason: NAUSEA/VOMITING Oxycodone HCl (Oxycodone 5 Mg Tablet) 5 mg PO Q4H PRN PRN PRN Reason: Pain Score 4-5 Last Admin: 11/01/20 09:22 Dose: 5 mg Documented by: Oxycodone HCl (Oxycodone 5 Mg Tablet) 10 mg PO Q4H PRN PRN PRN Reason: Pain Score 6-10 Pantoprazole Sodium (Pantoprazole Sodium 40 Mg Tablet) 40 mg PO DAILY [facility] Last Admin: 11/01/20 09:22 Dose: 40 mg Documented by: Pramipexole Dihydrochloride (Pramipexole Di-Hcl 0.5 Mg Tablet) 0.5 mg PO TID [facility] Last Admin: 11/01/20 06:37 Dose: 0.5 mg Documented by: Prednisone (Prednisone 20 Mg Tablet) 40 mg PO DAILY@0800 [facility] Last Admin: 11/01/20 09:22 Dose: 40 mg Documented by: Sertraline HCl (Sertraline 100 Mg Tablet) 100 mg PO DAILY [facility] Last Admin: 11/01/20 09:23 Dose: 100 mg Documented by: Sodium Chloride (0.9% Saline Lock 10 Ml Syringe) 10 - 40 ml IV UD PRN PRN Reason: SALINE FLUSH Last Admin: 11/01/20 09:30 Dose: 10 ml Documented by: Medical Necessity - Tobacco Use Smoking Status: Never smoker Tobacco Use: Non-smoker Assessment/Plan All Active Problems Closed right hip fracture (Acute) Fall (Acute) Hip fracture (Acute) Radius and ulna distal fracture (Resolved) Right patella fracture (Resolved) 1. Status post right hip open reduction internal fixation with locked intramedullary nail fixation post operative day #1. 2. Continue pain medications: Tylenol and OxyIR per medicine. 3. DVT prophylaxis: SCDs due to patient having ITP. Patient has received multiple units of platelets prior to surgery. 4. PT: 50% weightbearing. 5. H & H: 9.1/28.7, patient is asymptomatic. Platelets: 139. 6. WBCs: 9.2, afebrile. 7. Encouraged incentive spirometry. 8. Continue postoperative medical management per medicine. 9. Disposition: Patient is orthopedically stable. Okay for discharge when medically ready. Orthopedics will be signing off. Please contact us if any questions or concerns. He should follow-up with [facility] in [address] Negrito Borden or Ruthann Mireles PA-C. The dressing was saturated on all 3 edges at the proximal third. The dressing was changed and a clean dry dressing was applied. The dressing should remain intact until he is seen in the office for follow-up. May shower over the dressing as long as the edges are intact to the skin.
--- NOTE | 2020-11-01 13:34 | CASEMGMT ---
Social Work Note SW received message from Kimmy in TCU requesting pt admit to TCU today. CAS spoke with physician, pt is medically cleared for discharge today. CAS received message from Dora Rendon at [facility]. Dora states pt is active with Palliative Care and had concerns/questions about how long pt is able to stay at [facility] TCU and how she will get assistance/things arranged at home. Dora provided number [phone]. CAS placed a call to Dora at [facility]. CAS updated Dora at [facility] that plan is for pt to admit to TCU today and that Jaqueline, TCU MACHINE CHOCOLATE MOLDER, will be assisting pt on TCU to arrange any home going needs from TCU. CAS provided Jaqueline's direct number to Dora. Dora states she is going to call pt's [employer] to determine if pt has any aide service coverage through his insurance for when pt returns home. CAS spoke with pt and pt's Delmy. CAS addressed Delmy' concerns/questions regarding TCU. CAS explained Medicare coverage at [facility]. CAS informed Delmy that Jaqueline TCU MACHINE CHOCOLATE MOLDER will be assist pt with home going needs for when pt leaves [facility]. Delmy states understanding, denied additional needs or concerns at this time. CAS informed Delmy that pt will be discharged to TCU today. Plan: TCU today Keerthi Negron RESIDENTIAL TECH, MACHINE CHOCOLATE MOLDER
[2020-11-01 14:14] VITALS: BMI 24.5
--- NOTE | 2020-11-01 15:47 | PCM.TXEXTCAR ---
- Diet 10/30/20 16:13 Diet: Regular - General Food consistency:: Mechanical (Minced/Moist) Liquid Consistency:: Regular/Thin Type of Dietary Supplement:: Ensure Enlive Is pt able to select menu?: No Diet Comments: easy to chew foods - Routine Orders/Code Status O2 Liters per Minute: 2 O2 Frequency: Continuous Keep PO Greater than or Equal to (%): 90 Routine Lab Work: CBC - weekly times two Code Status: DNRCC-A - no intubation - Wound(s) right hip Wound Type: Surgical Incision - Therapies Weight Bearing: Partial weight bearing - 50 % Physical Therapy: Eval and Treat Occupational Therapy: Eval and Treat Speech Therapy: Eval and Treat - Problem/Diagnosis (1) Chronic ITP (idiopathic thrombocytopenia) Status: Chronic (2) Closed right hip fracture Status: Acute (3) Vitamin D deficiency Status: Chronic (4) Osteoporosis Status: Chronic (5) GERD (gastroesophageal reflux disease) Status: Chronic (6) Parkinson disease Status: Chronic Comment: mirapex increased during this admission, will require new prescription at d/c - Allergies/Procedures Done in Hospital Allergies/Adverse Reactions: Allergies haloperidol [From Haldol] Allergy (Verified 10/29/20 13:52) as a parkinson's pt was told never to have it Penicillins Allergy (Verified 10/29/20 13:52) Rash Procedures: - - intramedullary nail fixation right hip - Type of Care/Length of Stay Estimated LOS: Convalescent Care Less Than 30 days Type of Care Needed: Skilled Rehab Potential: Good Prognosis: Good - Additional Orders/Day of Discharge Additional Orders: SCD's to prevent VTE. follow up with Dr. Borden in 14 days-call office for appointment. patient may shower over the dressing as long as the edges are intact to the skin H&P will serve as current which was dated: 10/29/20 Day of Discharge: 11/01/20 - Dietary and Speech Recommendations Dietitian Recommendations/Changes: Advance diet post-op to Regular diet with texture/consistency modifications as per MANIFEST/ORDER ORGANIZER PRINT ORDERS as needed. Continue ensure enlive w/ medpass as ordered once diet advanced post-op and d/c if intake established good at meals. - Follow Up Care Primary Care Physician: Kendall Patel MD [Primary Care Provider] -
[2020-11-01 16:20] VITALS: BP 128/61; PULSE 90; RESP 18; TEMP 36.8; O2SAT 94
--- NOTE | 2020-11-04 16:59 | DS.PCM_ITS ---
Discharge Date and Diagnosis - Problem List Patient Problems: Active and Suspected Problems Closed right hip fracture (Acute) Fall (Acute) has brace to right knee from prior patellar injury in september Hip fracture (Acute) Date of Admission: 10/29/20 Date of Discharge: 11/01/20 - Primary Discharge Diagnosis Acute Problems: Active Problems #1 closed right hip intertrochanteric fracture secondary to osteoporosis #2 Parkinson's disease #3 ITP #4 essential hypertension #5 GERD #6 chronic depression #7 hypoxia secondary to atelectasis - Secondary Discharge Diagnosis Chronic Problems: Chronic Problems Chronic ITP (idiopathic thrombocytopenia) (Chronic) Idiopathic thrombocytopenia (Chronic) Prostate cancer (Chronic) Closed left hip fracture (Chronic) Displaced intertrochanteric fracture of left femur (Chronic) WBAT, pt on xarelto x 30 days post operative, final dose 01/23 Left wrist fracture (Chronic) Vitamin D deficiency (Chronic) Osteoporosis (Chronic) GERD (gastroesophageal reflux disease) (Chronic) Depression (Chronic) Hypertension (Chronic) Patellar instability (Chronic) S/P ORIF (open reduction internal fixation) fracture (Chronic) 11/2716 Dr Ott left intertrochanteric fracture 10/04/[address] Rebolledo right patellar fracture Parkinson disease (Chronic) mirapex increased during this admission, will require new prescription at d/c Hospital Course and Treatment Operations: - - Intramedullary nail fixation right hip intertrochanteric fracture-10/31/2020 Procedures: None Summary of Care Provided: The patient is a 80 year old M who was seen in the emergency room at [facility] with a chief complaint of right hip pain after mechanical fa ll, patient lost his balance and fell on the floor. Evaluation in the emergency room included x-rays which showed a right intertrochanteric hip fracture, lab was remarkable for a low platelet count of 43,000, patient had a known history of ITP. Patient was admitted to [facility], he received platelet transfusions was placed on prednisone and given IgG. He underwent insertion of an intramedullary gloria in the right hip for repair the right hip fracture and had no major complications from the surgery. He was seen by PT and OT after surgery, he was felt to benefit from inpatient rehab services and patient agreed to the same. On 11/01/2020, patient was seen and examined: On examination he appeared in good health and spirits. Vital signs as documented. Skin warm and dry and without overt rashes. Neck without JVD, neck was supple, trachea midline, thyroid was normal. Lungs clear bilaterally, normal air movement was noted. Heart exam notable for regular rhythm, normal sounds and absence of murmurs, rubs or gallops. Abdomen unremarkable and without evidence of organomegaly, masses, or abdominal aortic enlargement. Bowel sounds are present, abdomen is not distended. Extremities nonedematous, no cyanosis was noted, no clubbing was noted. Neuro: Cranial nerves II through XII are grossly intact, no focal motor deficits were noted, sensation to light touch and pinprick intact, motor exam 5/5 throughout. Psych: Patient is alert and oriented x3, he does not appear anxious or depressed, he does not appear agitated. On 11/01/2020, patient was seen and examined and discharged in stable condition to TCU for further rehab services. Patient Problems: Active and Suspected Problems Closed right hip fracture (Acute) Fall (Acute) has brace to right knee from prior patellar injury in september Hip fracture (Acute) - Physical Exam Vitals/I&O's: Vital Signs Temp Pulse Resp BP Pulse Ox 98.2 F 90 18 128/61 H 94 11/01/20 16:20 11/01/20 16:20 11/01/20 16:20 11/01/20 16:20 11/01/20 16:20 Oxygen Flow Rate (L/min) 2 Oxygen Delivery Method Nasal Cannula Weight: 86.7 kg Body Mass Index (BMI) 24.5 Home Medications: Medications to take at Discharge Carbidopa/Levodopa 25/250 [Sinemet 25/250] 1 tab PO 0730,1130,1630,2030 08/27/15 Sertraline HCl [Zoloft] 100 mg PO DAILY@72908/27/15 Acetaminophen [Tylenol Tablet] 650 mg PO Q6H PRN PRN #0 tablet 12/25/16 Calcium (Elemental) [Os-Raheem 500] 630 mg PO BID 11/19/18 Carbidopa/Levodopa [Carbidopa-Levo ER 50-200 Tab] 1 each PO BID@0900,2200 11/19/18 Lansoprazole [Prevacid] 30 mg PO DAILY@72911/19/18 Losartan Potassium [Cozaar] 100 mg PO DAILY@72911/19/18 Alendronate Sodium [Fosamax] 70 mg PO TU 10/29/20 Amantadine [Symmetrel] 1 tab PO BID@1000,2200 10/29/20 Ensure Enlive 120 ml PO 4X/DAY 10/29/20 Ergocalciferol [Vitamin D] 50,000 unit PO Th@0800 10/29/20 Pramipexole Di-HCl [Mirapex] 0.5 mg PO TID@0730,1400,2030 10/29/20 Oxycodone [Oxyir] 5 - 10 mg PO Q4H PRN PRN #15 tab 11/01/20 predniSONE tablet 40 mg PO DAILY@0811/01/20 Following Prescriptions Were Given to Patient: Oxycodone [Oxyir] 5 - 10 mg PO Q4H PRN PRN #15 tab PRN Reason: Pain Score 4-5 Prescription Printed Primary Care Physician: Kendall Patel MD [Primary Care Provider] - Disposition: Long Term facility Minutes spent on discharge:: 31 Patient Condition:: Stable Medical Necessity - Tobacco Use Smoking Status: Never smoker Tobacco Use: Non-smoker Meaningful Use Info Meaningful Use Diagnoses (Choose all that apply): None applicable Inpatient E&M: 71232 Disch Hosp
== END 2020-11-01 20:30 | DRG 481 ==
LOC: ED 15:01 → MS3 16:16
PROVIDERS: Anesthesiology; Nurse Practitioner Family; Orthopaedic Surgery; Emergency Provider Student in an Organized Health Care Education/Training Program; PCP Internal Medicine; Visit Provider Internal Medicine
PROC: 0QS606Z Reposition Right Upper Femur with Intramedullary Internal Fixation Device, Open Approach (ICD-10-PCS; CPT 27245; principal; 2020-10-31 06:15)
DX: S72.141A Displaced intertrochanteric fracture of right femur, initial encounter for closed fracture (principal); D69.3 Immune thrombocytopenic purpura; J98.11 Atelectasis; W01.0XXA Fall on same level from slipping, tripping and stumbling without subsequent striking against object, initial encounter; G20 Parkinson's disease; I10 Essential (primary) hypertension; K21.9 Gastro-esophageal reflux disease without esophagitis; F32.9 Major depressive disorder, single episode, unspecified; R29.6 Repeated falls; E55.9 Vitamin D deficiency, unspecified; M81.0 Age-related osteoporosis without current pathological fracture; Z66 Do not resuscitate; Z93.3 Colostomy status; Z79.83 Long term (current) use of bisphosphonates; Z79.899 Other long term (current) drug therapy; Z85.46 Personal history of malignant neoplasm of prostate; Z85.038 Personal history of other malignant neoplasm of large intestine
CPT/HCPCS: 36415; 71045; 73502; 76000; 80048; 80076; 85025; 85027; 85049; 85610; 85730; 86644; 86850; 86900; 86901; 86965; 87426; 93005; 97162; 97166; 99285; C1713; J7030; J7040; J7120; P9035; A4216; J1568; J2405

== ENCOUNTER 2020-11-01 21:31 | Inpatient (IN) | payer MEDICARE, BC, SELFPAY ==
[2020-10-31 03:42] VITALS: BMI 24.5
[2020-11-01 21:35] VITALS: BP 126/69; PULSE 86; RESP 18; TEMP 36.3; O2SAT 90; BMI 26.9
--- NOTE | 2020-11-01 22:42 | HP.PCM_ITS ---
Problem List (1) Debility Status: Acute (2) Frequent falls Status: Acute (3) Idiopathic thrombocytopenia Status: Chronic (4) Prostate cancer Status: Chronic (5) Closed right hip fracture Status: Acute (6) Vitamin D deficiency Status: Chronic (7) Osteoporosis Status: Chronic (8) GERD (gastroesophageal reflux disease) Status: Chronic (9) Depression Status: Chronic Qualifiers: (10) Hypertension Status: Chronic Qualifiers: (11) Parkinson disease Status: Chronic Comment: mirapex increased during this admission, will require new prescription at d/c History of Present Illness Date of Admission: 11/01/20 Chief Complaint: Here for rehabilitation, strengthening, prior to discharge home with . 10/29/2020 The patient is a 80 year old Male with below past medical history presented to [facility] with right lower extremity injury. 10/29/2020 Chest X-ray hyperinflation, left base linear atelectasis/scarring. 10/29/2020 X-ray pelvis, right hip showed right hip fracture. 10/29/2020 EKG sinus rhythm with marked sinus arrhythmia, left anterior fascicular block, poor R wave progression. X-ray shows right hip fracture. Low platelets due to ITP, he receives weekly platelet transfusions from Dr. Lanier. Morphine, Zofran given. 10/29/2020 Admit to Hospital. PT/OT for Custodial Facility. Consult orthopedics. 10/30/2020 Multiple platelet transfusions to prepare for surgery. 10/31/2020 Orthopedics performed right hip ORIF, intramedullary nail fixation, locked. 10/31/2020 Prednisone started for ITP. 11/01/2020 Admit to TCU with debility, here for rehabilitation, strengthening, prior to discharge home with . Past Medical History Past Medical History (Chronic Problems): Chronic Problems Chronic ITP (idiopathic thrombocytopenia) (Chronic) Idiopathic thrombocytopenia (Chronic) Prostate cancer (Chronic) Closed left hip fracture (Chronic) Displaced intertrochanteric fracture of left femur (Chronic) WBAT, pt on xarelto x 30 days post operative, final dose 01/23 Left wrist fracture (Chronic) Vitamin D deficiency (Chronic) Osteoporosis (Chronic) GERD (gastroesophageal reflux disease) (Chronic) Depression (Chronic) Hypertension (Chronic) Patellar instability (Chronic) S/P ORIF (open reduction internal fixation) fracture (Chronic) 11/2716 Dr Ott left intertrochanteric fracture 10/04/[address] Rebolledo right patellar fracture Parkinson disease (Chronic) mirapex increased during this admission, will require new prescription at d/c Allergies haloperidol [From Haldol] Allergy (Verified 10/29/20 13:52) as a parkinson's pt was told never to have it Penicillins Allergy (Verified 10/29/20 13:52) Rash Home Medications: Ambulatory Orders Medication Instructions Recorded Carbidopa/Levodopa 25/250 [Sinemet 1 tab PO 30,1130,1630,202908/27/15 25/250] Sertraline HCl [Zoloft] 100 mg PO DAILY@72908/27/15 Acetaminophen [Tylenol Tablet] 650 mg PO Q6H PRN PRN #0 tablet 12/25/16 Calcium (Elemental) [Os-Raheem 500] 630 mg PO BID 11/19/18 Carbidopa/Levodopa [Carbidopa-Levo 1 each PO BID@0900,219911/19/18 ER 50-200 Tab] Lansoprazole [Prevacid] 30 mg PO DAILY@72911/19/18 Losartan Potassium [Cozaar] 100 mg PO DAILY@72911/19/18 Alendronate Sodium [Fosamax] 70 mg PO TU 10/29/20 Amantadine [Symmetrel] 1 tab PO BID@1000,219910/29/20 Ensure Enlive 120 ml PO 4X/DAY 10/29/20 Ergocalciferol [Vitamin D] 50,000 unit PO Th@0810/29/20 Pramipexole Di-HCl [Mirapex] 0.5 mg PO TID@0730,1400,202910/29/20 Oxycodone [Oxyir] 5 - 10 mg PO Q4H PRN PRN #15 tab 11/01/20 predniSONE tablet 40 mg PO DAILY@0811/01/20 Surgical History: cholecystectomy, colectomy - Colostomy., - - Prostate surgery for prostate cancer, Left hip ORIF, Right knee patella fracture, Right ankle surgery, Left 2nd PIPJ arthrodesis, Left wrist closed reduction, Right hip ORIF nail. Psychiatric History: Depression Lives: Spouse/ Significant Other Smoking Status: Never smoker Tobacco Use: Non-smoker Alcohol: None Drugs: None - *Family History Maternal History Items: - Paternal History Items: Renal Disease Review of Systems Constitutional: Denies: Chills, Fever, Weight Change HEENT: Denies: Head Aches, Sinus Congestion, Sinus Drainage Cardiovascular: Denies: Chest Pain, Palpitations Respiratory: Denies: Cough, Shortness of breath at rest, Sputum production Gastrointestinal: Denies: Abdominal Pain, Nausea, Vomiting Genitourinary: Denies: Dysuria Musculoskeletal: Denies: Joint Pain, Joint Tenderness Skin: Denies: Rash, Wounds Neurological: Denies: Numbness, Tingling, Focal weakness Psychiatric: Denies: Anxiety, Depression, Homicidal Ideations, Suicidal Ideations Hematologic/ Lymphatic: Denies: Easy Bruising, Easy Bleeding VTE Information - Inpt Only VTE Present on Admission: No VTE Mechan Device Prophylaxis: Knee High RACHELLE Hose VTE Pharm Prophylaxis ordered?: Yes Patient Problems: Active and Suspected Problems Closed right hip fracture (Acute) Debility (Acute) Frequent falls (Acute) - Physical Exam Vitals/I&O's: Weight: 95.254 kg Body Mass Index (BMI) 26.9 General: Alert, Oriented x3, Cooperative HEENT: Atraumatic, PERRLA, EOMI, Normocephalic Neck: Supple, No JVD, Negative Carotid Bruits Lungs: Clear to auscultation, Normal air movement Cardiovascular: Regular rate, No murmurs Abdomen: Bowel Sounds Present, Soft, Non Tender Extremities: No edema, Capillary Refill Less than 3 Seconds Skin: No rashes, No breakdown Musculoskeletal: No Tenderness to Palpation of Joints or Extremities Neurological: Cranial nerves II-XII grossly intact Psych/Mental Status: Normal Affect, Appropriate Current Medications Acetaminophen (Acetaminophen 325 Mg Tablet) 650 mg PO Q6H PRN PRN PRN Reason: Mild Pain (scale 1-10)/T>100.7 Alendronate Sodium (Alendronate Sodium 70 Mg Tablet) 70 mg PO TU [facility] Amantadine HCl (Amantadine 100 Mg Capsule) 100 mg PO BID@1000,2200 [facility] Calcium Carbonate (Calcium (Elemental) 500 Mg Tablet) 500 mg PO BIDCM [facility] Carbidopa/Levodopa (Carbidopa/Levodopa 25/250 Tablet) 1 tablet PO 0730,1130,1630,2030 [facility] Carbidopa/Levodopa (Carbidopa/Levodopa Cr 50/200 Tablet) 1 tablet PO BID@0900,2200 [facility] Enoxaparin Sodium (Enoxaparin 40 Mg/0.4 Ml Syringe) 40 mg SC DAILY@0600 [facility] Ergocalciferol (Ergocalciferol 50,000 Unit Capsule) 50,000 unit PO Th@0800 [facility] Losartan Potassium (Losartan Potassium 100 Mg Tablet) 100 mg PO DAILY@0730 [facility] Nutritional Formula (Lactose Free) (Ensure Enlive 120 Ml Liquid) 120 ml PO 4X/DAY [facility] Oxycodone HCl (Oxycodone 5 Mg Tablet) 5 - 10 mg PO Q4H PRN PRN PRN Reason: Pain Score 1-10 Pantoprazole Sodium (Pantoprazole Sodium 40 Mg Tablet) 40 mg PO DAILY@0730 [facility] Pramipexole Dihydrochloride (Pramipexole Di-Hcl 0.5 Mg Tablet) 0.5 mg PO TID@0730,1400,2030 [facility] Prednisone (Prednisone 20 Mg Tablet) 40 mg PO DAILY@0800 [facility] Stop: 11/08/20 08:01 Prednisone (Prednisone 20 Mg Tablet) 20 mg PO DAILY@0800 [facility] Stop: 11/15/20 08:01 Prednisone (Prednisone 10 Mg Tablet) 10 mg PO DAILY@0800 [facility] Stop: 11/22/20 08:01 Sertraline HCl (Sertraline 100 Mg Tablet) 100 mg PO DAILY@0730 [facility] Tuberculin PPD (Tuberculin,Purif.Prot.Deriv. 50 Tu/Ml Vial) 5 tu ID X1 ONE Stop: 11/02/20 10:01 Tuberculin PPD (Tuberculin,Purif.Prot.Deriv. 50 Tu/Ml Vial) 5 tu ID X1 ONE Stop: 11/09/20 10:01 Assessment/Plan All Active Problems Closed right hip fracture (Acute) Debility (Acute) Frequent falls (Acute) Fall (Acute) Hip fracture (Acute) Radius and ulna distal fracture (Resolved) Right patella fracture (Resolved) 80 year old male with below past medical history significant for Parkinson Disease, frequent falls, hospitalized for right hip fracture, underwent ORIF, intramedullary nail 10/31/2020, admitted to TCU with debility, here for rehabilitation, strengthening, prior to discharge home with . * Debility - PT/OT. * Cognition - ST. * Pain - Tylenol 1000MG Q6H PRN pain (1-5), Oxycodone 5MG Q4H PRN pain (6-10). * Bowel - Miralax 17GM daily, Senna/colace 2 tablets BID, MOM 30ML daily PRN, Dulcolax 10MG daily PRN. * Adult immunization - Administer Prevnar 13, Pneumovax 23, Fluzone, COVID19 vaccine as appropriate. * DVT prophylaxis - Lovenox 40MG SC daily. * Osteoporosis - Fosamax 70MG per week, Calcium 500MG BID. * Vitamin D deficiency - D2 50,000 units per week. * Parkinson Disease - Sinemet 25/250MG 1 tablet QID, Sinemet CR 50/200MG BID, Mirapex 0.5MG TID, Amantadine 100MG BID. * Nutrition - Ensure Enlive 120ML 4x/day. * Hypertension - Losartan 100MG daily. * GERD - Pantoprazole 40MG daily. * ITP - Prednisone taper. * Depression - Sertraline 100MG daily, stable chronic senior care use, GDR not recommended.
[2020-11-01] MEDS: Amantadine 100 MG Capsule PO (23:08)
[2020-11-01] MEDS: CARBIDOPA/LEVODOPA CR 50/200 Tablet PO (23:09)
--- NOTE | 2020-11-01 23:16 | NURSING ---
This nurse explained code status to patient and he wanted to change from DNR to Full Code.
[2020-11-02 01:42] VITALS: BMI 27.0
[2020-11-02 05:40] LABS: Absolute Lymphocyte Count 1.25 X10^3/uL (0.83-4.51); Absolute Neutrophil Count 7.4 X10^3/uL (2.0-7.7); Basophil# 0.02 X10^3/uL; Basophil% 0.2 % (0-1); Eosinophil# 0.08 X10^3/uL; Eosinophils% 0.8 % (0-5); Hematocrit 27.3 % (40-54); Hemoglobin 8.5 g/dL (13.0-16.5); Lymphocyte # 1.25 X10^3/ul (4.0); Lymphocyte % 12.8 % (19-41); Mean Corp Hgb Conc 31.1 g/dL (32-36); Mean Corpuscular Hgb 28.5 pg (27.0-32.0); Mean Corpuscular Volume 91.6 fL (80-94); Mean Platelet Vol. 11.6 fl (6.2-12.0); Monocyte# 0.94 X10^3/uL; Monocyte% 9.7 % (0-10); NRBC Flagged by Analyzer 0 % (0-5); Platelet Count 179 K/mm3 (150-450); RBC Distribution Width CV 14.9 % (11.6-14.6); RBC Distribution Width SD 50.1 fl (35.1-43.9); Red Blood Count 2.98 M/mm3 (4.6-6.2); White Blood Count 9.7 K/mm3 (4.4-11.0)
[2020-11-02 05:55] LABS: Anion Gap 3 (5-15); BUN 21 mg/dL (7-18); BUN/Creat Ratio 35.6 RATIO (10-20); Calcium,Total 8.1 mg/dL (8.5-10.1); Chloride 110 mmol/L (98-107); Creatinine, Serum 0.59 mg/dL (0.70-1.30); EST Glomerular Filtration Rate 141 mL/min (>60); Est Glom Filt Rate - Afr Amer 171 mL/min (>60); Estimated Creatinine Clearance 70.78 ml/min; Glucose 86 mg/dL (74-106); Potassium 4.1 mmol/L (3.5-5.1); Sodium Level 139 mmol/L (136-145)
[2020-11-02 06:45] VITALS: O2SAT 91
[2020-11-02 06:50] VITALS: BP 144/74; PULSE 78; RESP 16; TEMP 36.8; O2SAT 95
[2020-11-02] MEDS: Polyethylene Glycol 3350 17 GM PACKET PO (06:52)
[2020-11-02] MEDS: Senna/Docusate Sodium 1 Tablet 2 TABLET PO ×2 (06:52→16:57)
[2020-11-02] MEDS: Enoxaparin 40 MG/0.4 ML Syringe SC (06:53)
[2020-11-02] MEDS: Pramipexole Di-HCl 0.5 MG Tablet PO ×3 (06:53→22:52)
[2020-11-02] MEDS: Pantoprazole Sodium 40 MG Tablet PO (06:53)
[2020-11-02] MEDS: Losartan Potassium 100 MG Tablet PO (06:54)
[2020-11-02] MEDS: Calcium (Elemental) 500 MG Tablet PO ×2 (08:48→16:57)
[2020-11-02] MEDS: predniSONE 20 MG Tablet 40 MG PO (08:48)
[2020-11-02] MEDS: Sertraline 100 MG Tablet PO (08:49)
[2020-11-02] MEDS: Carbidopa/Levodopa 25/250 Tablet PO ×4 (08:49→22:52)
[2020-11-02] MEDS: CARBIDOPA/LEVODOPA CR 50/200 Tablet PO ×2 (10:06→22:52)
[2020-11-02] MEDS: Amantadine 100 MG Capsule PO ×2 (10:06→22:53)
[2020-11-02] MEDS: Tuberculin,Purif.prot.deriv. 50 TU/ML Vial 5 ML ID (10:11)
[2020-11-02] MEDS: Acetaminophen 500 MG Tablet 1000 MG PO (10:16)
--- NOTE | 2020-11-02 11:50 | CASEMGMT ---
Social Work Discussed code status with pt. Pt confirmed full code. MOLST form reviewed, communication to , placed in chart. Jaqueline Dockery, SERVICE TRAINER [employer]
[2020-11-02 15:00] VITALS: PULSE 85; RESP 18; O2SAT 94
--- NOTE | 2020-11-02 15:02 | NURSING ---
osteotomy bag changed today. pt does his self but needs help.
[2020-11-02 15:11] VITALS: BP 109/55; PULSE 93; RESP 18; TEMP 36.4; O2SAT 95
--- NOTE | 2020-11-02 19:05 | NURSING ---
called to update her on pt and ask a few questions. got answer machine,left message.
[2020-11-03 05:00] VITALS: BP 132/67; PULSE 76; RESP 18; TEMP 36.6; O2SAT 91
[2020-11-03] MEDS: Senna/Docusate Sodium 1 Tablet 2 TABLET PO (06:38)
[2020-11-03] MEDS: Enoxaparin 40 MG/0.4 ML Syringe SC (06:38)
[2020-11-03] MEDS: Polyethylene Glycol 3350 17 GM PACKET PO (06:38)
[2020-11-03] MEDS: predniSONE 20 MG Tablet 40 MG PO (08:45)
[2020-11-03] MEDS: Pramipexole Di-HCl 0.5 MG Tablet PO ×3 (08:45→21:41)
[2020-11-03] MEDS: CARBIDOPA/LEVODOPA CR 50/200 Tablet PO ×2 (08:45→22:26)
[2020-11-03] MEDS: Losartan Potassium 100 MG Tablet PO (08:46)
[2020-11-03] MEDS: Carbidopa/Levodopa 25/250 Tablet PO ×4 (08:46→21:42)
[2020-11-03] MEDS: Calcium (Elemental) 500 MG Tablet PO ×2 (08:46→17:00)
[2020-11-03] MEDS: Pantoprazole Sodium 40 MG Tablet PO (08:47)
[2020-11-03] MEDS: Sertraline 100 MG Tablet PO (08:47)
[2020-11-03] MEDS: Amantadine 100 MG Capsule PO ×2 (08:48→22:26)
--- NOTE | 2020-11-03 10:22 | NURSING ---
Addendum entered by Aviva Heredia 11/03/20 15:52: This nurse called and asked her if she would like us to use our colostomy supplies while pt is here or if she was able to bring in supplies from home. The requested that staff used hospital colostomy supplies while he was here. This nurse asked about ostomy regimen pt was used to following at home, stated she changed the whole system including the wafer every thursday and thursday, and changed the bag as needed. asked this nurse if we could follow the same regimen here at the hospital, d/t pt having sensitive skin and she fears break down. RN updated on request Original Note: Pt's called upset that we have not been changing his ostomy barrier and we should not be giving him any stool softeners. Talked to her and let her know that we will get it changed for her today and I will update Dr. Flores and other nurses not to give him stool softeners. Pt's was okay and apologized let her know if she has any questions or concerns that she can call us at anytime.
[2020-11-03 15:27] VITALS: BP 123/67; PULSE 87; RESP 18; TEMP 36.2; O2SAT 94
--- NOTE | 2020-11-03 21:43 | NURSING ---
Aleida Gonzales called the nurses station and states that her mom called her and was upset because she had talked to patient and patient told her that we have not been giving him his sinemet like it needs to be given and that his ostomy bag has been leaking all day today and that no one has changed it. Per report from day shift, ostomy bag was changed by staff today, wafer was not but wafer is intact and not leaking. In to check on patient, gave patients sinemet scheduled. Asked patient about ostomy and if it was leaking. Patient states that is not leaking. It is noted to not be leaking. Called aleida Gonzales back and explained to above. Janet very appreciative of call and of staff help.
[2020-11-04 05:00] VITALS: BP 119/59; PULSE 66; RESP 18; TEMP 36.9; O2SAT 96
[2020-11-04] MEDS: Enoxaparin 40 MG/0.4 ML Syringe SC (06:38)
[2020-11-04 06:50] VITALS: O2SAT 93
[2020-11-04 06:53] LABS: Hematocrit 27.5 % (40-54); Hemoglobin 8.7 g/dL (13.0-16.5)
[2020-11-04] MEDS: Pantoprazole Sodium 40 MG Tablet PO (07:41)
[2020-11-04] MEDS: Carbidopa/Levodopa 25/250 Tablet PO ×4 (07:41→19:19)
[2020-11-04] MEDS: Losartan Potassium 100 MG Tablet PO (07:41)
[2020-11-04] MEDS: Pramipexole Di-HCl 0.5 MG Tablet PO ×3 (07:41→19:19)
[2020-11-04] MEDS: Calcium (Elemental) 500 MG Tablet PO ×2 (07:42→16:46)
[2020-11-04] MEDS: Sertraline 100 MG Tablet PO (07:42)
[2020-11-04] MEDS: predniSONE 20 MG Tablet 40 MG PO (07:43)
[2020-11-04] MEDS: Amantadine 100 MG Capsule PO ×2 (09:42→21:45)
[2020-11-04] MEDS: CARBIDOPA/LEVODOPA CR 50/200 Tablet PO ×2 (09:43→21:45)
[2020-11-04 10:00] VITALS: PULSE 76; RESP 18; O2SAT 95
--- NOTE | 2020-11-04 10:06 | NURSING ---
Pt continues to take Sinemet at scheduled times, Ostomy system was changed today including wafer and bag. Old stoma adhesive removed and new applied. Pt had this nurse use his own supplies at this time refusing to use hospitals. Dressing to right hip changed. Pt tolerated well
--- NOTE | 2020-11-04 10:49 | NURSING ---
This nurse spoke with pt's Delmy at length today going over Sinemet, mirapex and amantadine scheduled times and when they are administered, concerned stating if pt does not get medications as they are exactly timed pt struggles with ADL's this nurse explained medication administration guidelines and explained we will do our best to accommodate his regimen as you do at home, but pt is receiving his medications according to our policy. Delmy was also updated on N.O. for iron, hgb levels as well as the last labs, stool softners changing from scheduled to prn, and that ostomy and hip dressings where changed. thanked this nurse and stated she appreciated all that had been done since yesterday to help out with his care.
[2020-11-04 14:38] VITALS: BP 109/49; PULSE 16; RESP 16; TEMP 36.2; O2SAT 96
[2020-11-04 18:12] VITALS: BP 118/53
[2020-11-04 21:51] VITALS: TEMP 36.6
--- NOTE | 2020-11-04 23:56 | NURSING ---
Increased edema and drainage noted to surgery incision. Surgical dressing changed per RN. Pope op dressing placed. Severance intact. Patient tolerated well.
[2020-11-05 02:44] VITALS: BP 123/54; PULSE 84; RESP 18; TEMP 36.4; O2SAT 96
[2020-11-05] MEDS: Enoxaparin 40 MG/0.4 ML Syringe SC (06:12)
[2020-11-05] MEDS: Iron Polysaccharide Complex 150 MG CAPSULE PO (06:13)
[2020-11-05] MEDS: Carbidopa/Levodopa 25/250 Tablet PO ×4 (07:59→20:34)
[2020-11-05] MEDS: Pramipexole Di-HCl 0.5 MG Tablet PO ×3 (07:59→20:35)
[2020-11-05] MEDS: Losartan Potassium 100 MG Tablet PO (08:01)
[2020-11-05] MEDS: Pantoprazole Sodium 40 MG Tablet PO (08:01)
[2020-11-05] MEDS: Sertraline 100 MG Tablet PO (08:01)
[2020-11-05] MEDS: Calcium (Elemental) 500 MG Tablet PO ×2 (08:01→16:31)
[2020-11-05] MEDS: predniSONE 20 MG Tablet 40 MG PO (08:07)
[2020-11-05 08:11] VITALS: BP 123/60; PULSE 77
--- NOTE | 2020-11-05 08:35 | NURSING ---
THIS NURSE CHANGED HOLE UNIT OF OSTOMY DUE TO BAG OVER FULL AND STOOL EVERY WHERE WHEN THIS NURSE WENT INTO ROOM. RN AWARE.
[2020-11-05] MEDS: CARBIDOPA/LEVODOPA CR 50/200 Tablet PO ×2 (10:22→22:48)
[2020-11-05] MEDS: Amantadine 100 MG Capsule PO ×2 (10:23→22:48)
--- NOTE | 2020-11-05 12:48 | NURSING ---
DRESSING CHANGED TO RIGHT HIP DUE TO OLD DRESSING SATURATED WITH DRAINAGE.
--- NOTE | 2020-11-05 13:34 | PHA.CONS_ITS ---
<Larry Chauhani - Last Filed: 11/05/20 13:34> Progress Note - Pharmacy Subjective: TCU Admission Objective: Allergies haloperidol [From Haldol] Allergy (Verified 10/29/20 13:52) as a parkinson's pt was told never to have it Penicillins Allergy (Verified 10/29/20 13:52) Rash Current Medications Generic Name Dose Route Start Last Admin Trade Name Freq PRN Reason Stop Dose Admin Acetaminophen 1,000 mg 11/01/20 23:01 11/02/20 10:16 Acetaminophen 500 Mg Tablet PO 1,000 mg Q6H PRN PRN Administration Pain Score 1-5 Alendronate Sodium 70 mg 11/06/20 06:00 Alendronate Sodium 70 Mg Tablet PO TU [facility] Amantadine HCl 100 mg 11/01/20 22:00 11/05/20 10:23 Amantadine 100 Mg Capsule PO 100 mg BID@1000,2200 HARPREET Administration Bisacodyl 10 mg 11/01/20 23:01 Bisacodyl 10 Mg Suppository RECTAL DAILY PRN Constipation Calcium Carbonate 500 mg 11/02/20 08:00 11/05/20 08:01 Calcium (Elemental) 500 Mg Tablet PO 500 mg BIDCM HARPREET Administration Carbidopa/Levodopa 1 tablet 11/02/20 07:30 11/05/20 11:41 Carbidopa/Levodopa 25/250 Tablet PO 1 tablet 0730,1130,1630,2030 HARPREET Administration Carbidopa/Levodopa 1 tablet 11/01/20 22:00 11/05/20 10:22 Carbidopa/Levodopa Cr 50/200 Tablet PO 1 tablet BID@0900,2200 HARPREET Administration Enoxaparin Sodium 40 mg 11/02/20 06:00 11/05/20 06:12 Enoxaparin 40 Mg/0.4 Ml Syringe SC 40 mg DAILY@0600 HARPREET Administration Ergocalciferol 50,000 unit 11/08/20 08:00 Ergocalciferol 50,000 Unit Capsule PO Th@0800 HARPREET Losartan Potassium 100 mg 11/02/20 07:30 11/05/20 08:01 Losartan Potassium 100 Mg Tablet PO 100 mg DAILY@0730 HARPREET Administration Magnesium Hydroxide 30 ml 11/01/20 23:01 Magnesium Hydroxide 30 Ml Udc PO DAILY PRN Constipation Nutritional Formula (Lactose Free) 120 ml 11/01/20 22:00 11/05/20 11:41 Ensure Enlive 120 Ml Liquid PO 120 ml 4X/DAY HARPREET Administration Oxycodone HCl 5 mg 11/01/20 23:01 Oxycodone 5 Mg Tablet PO Q4H PRN PRN Pain Score 6-10 Pantoprazole Sodium 40 mg 11/02/20 07:30 11/05/20 08:01 Pantoprazole Sodium 40 Mg Tablet PO 40 mg DAILY@0730 [facility] Administration Polyethylene Glycol 17 gm 11/04/20 10:19 Polyethylene Glycol 3350 17 Gm Packet PO DAILY PRN Constipation Polysaccharide Iron Complex 150 mg 11/05/20 06:00 11/05/20 06:13 Iron Polysaccharide Complex 150 Mg Capsule PO 150 mg DAILY [facility] Administration Pramipexole Dihydrochloride 0.5 mg 11/02/20 07:30 11/05/20 07:59 Pramipexole Di-Hcl 0.5 Mg Tablet PO 0.5 mg TID@0730,1400,2030 [facility] Administration Prednisone 40 mg 11/02/20 08:00 11/05/20 08:07 Prednisone 20 Mg Tablet PO 11/08/20 08:01 40 mg DAILY@0800 [facility] Administration Prednisone 20 mg 11/09/20 08:00 Prednisone 20 Mg Tablet PO 11/15/20 08:01 DAILY@0800 [facility] Prednisone 10 mg 11/16/20 08:00 Prednisone 10 Mg Tablet PO 11/22/20 08:01 DAILY@0800 [facility] Senna/Docusate Sodium 2 tablet 11/04/20 10:19 Senna/Docusate Sodium 1 Tablet PO BID PRN Constipation Sertraline HCl 100 mg 11/02/20 07:30 11/05/20 08:01 Sertraline 100 Mg Tablet PO 100 mg DAILY@0730 [facility] Administration Tuberculin PPD 5 tu 11/09/20 10:00 Tuberculin,Purif.Prot.Deriv. 50 Tu/Ml Vial ID 11/09/20 10:01 X1 ONE Problem List Closed right hip fracture (Acute) Debility (Acute) Frequent falls (Acute) Idiopathic thrombocytopenia (Chronic) Prostate cancer (Chronic) Vitamin D deficiency (Chronic) Osteoporosis (Chronic) GERD (gastroesophageal reflux disease) (Chronic) Depression (Chronic) Hypertension (Chronic) Parkinson disease (Chronic) Vital Signs Temp Pulse Resp BP Pulse Ox 97.5 F L 77 18 123/60 H 96 11/05/20 02:44 11/05/20 08:11 11/05/20 02:44 11/05/20 08:11 11/05/20 02:44 Oxygen Flow Rate (L/min) 2 Oxygen Delivery Method Nasal Cannula Weight: 95.254 kg Body Mass Index (BMI) 26.9 Sodium 139 mmol/L (136-145) 11/02/20 05:05 Potassium 4.1 mmol/L (3.5-5.1) 11/02/20 05:05 Chloride 110 mmol/L (98-107) H 11/02/20 05:05 Carbon Dioxide 26.0 mmol/L (21.0-32.0) 11/02/20 05:05 Anion Gap 3 (5-15) L 11/02/20 05:05 BUN 21 mg/dL (7-18) H 11/02/20 05:05 Creatinine 0.59 mg/dL (0.70-1.30) L 11/02/20 05:05 Est GFR (MDRD) Af Amer 171 mL/min (>60) 11/02/20 05:05 Est GFR (MDRD) Non-Af 141 mL/min (>60) 11/02/20 05:05 BUN/Creatinine Ratio 35.6 RATIO (10-20) H 11/02/20 05:05 Glucose 86 mg/dL (74-106) 11/02/20 05:05 Assessment/Plan: 1. Pain: acetaminophen 1000mg PO Q6H PRN pain (1-5) and oxycodone 5mg Q4H PRN pain (6-10). Please continue to monitor for increased pain, constipation, PRN usage, and respiratory depression. 2. Parkinson disease: Sinemet 25/250mg 1 tab PO four times daily, Sinemet CR 50/200mg PO BID, pramipexole 0.5mg PO TID, and amantadine 100mg PO BID. Please continue to monitor for GI side effects, renal function, dizziness, and dyskinesias. 3. DVT prophylaxis: enoxaparin 40mg SC daily. Please continue to monitor for S/S of bleeding/DVT, platelets (last 179,000), hemoglobin (last 8.7g/dL), and renal function. 4. Osteoporosis: alendronate 70mg PO every week, Calcium carbonate 500mg PO BID. Please continue to monitor calcium levels (last 8.1 mg/dL), BMD, jaw pain. Please give alendronate on an empty stomach with a full glass of water. 5. Hypertension: losartan 100mg PO daily. Please continue to monitor BP (last 123/60), renal function, and potassium. 6. GERD: pantoprazole 40mg PO daily. please continue to monitor for S/S of GERD. 7. ITP: Prednisone taper - 40mg PO daily until 11/09. On 11/09, 20mg PO daily until 11/16. On 11/16, 10mg PO daily through 11/22. Please continue to monitor for platelets (last 179,000), bleeding, insomnia, gastritis, hypertension, blood glucose, and infections. *8. Vitamin D deficiency: Ergocalciferol 50,000 units PO every week. Please consider ordering a vitamin D level. Last level from 11/2016. Thanks. 9. Iron deficiency: Ferrex 150mg PO daily. Please continue to monitor hemoglobin levels (last 8.7g/dL) and for dark stools. Psychotropic Medications: 1. Depression: sertraline 100mg PO daily. Please see physician note regarding GDR. Please continue to monitor for GI side effects. Unnecessary Medications: None Bowel Regimen: Miralax 17 gm PO daily PRN constipation, Senna/docusate 2 tablets PO BID PRN constipation, MOM 30ml PO daily PRN constipation, and bisacodyl 10mg rectally daily PRN constipation. Please continue to monitor for constipation and PRN usage. Date of Note:: 11/05/20 - Provider Comments Provider responsibility: Provider responsible to enter orders to implement recommendations <Servando Flores Chi - Last Filed: 11/05/20 17:36> Progress Note - Pharmacy Subjective: [] Objective: Allergies haloperidol [From Haldol] Allergy (Verified 10/29/20 13:52) as a parkinson's pt was told never to have it Penicillins Allergy (Verified 10/29/20 13:52) Rash Current Medications Generic Name Dose Route Start Last Admin Trade Name Freq PRN Reason Stop Dose Admin Acetaminophen 1,000 mg 11/01/20 23:01 11/02/20 10:16 Acetaminophen 500 Mg Tablet PO 1,000 mg Q6H PRN PRN Administration Pain Score 1-5 Alendronate Sodium 70 mg 11/06/20 06:00 Alendronate Sodium 70 Mg Tablet PO TU [facility] Amantadine HCl 100 mg 11/01/20 22:00 11/05/20 10:23 Amantadine 100 Mg Capsule PO 100 mg BID@1000,2200 [facility] Administration Bisacodyl 10 mg 11/01/20 23:01 Bisacodyl 10 Mg Suppository RECTAL DAILY PRN Constipation Calcium Carbonate 500 mg 11/02/20 08:00 11/05/20 16:31 Calcium (Elemental) 500 Mg Tablet PO 500 mg BIDCM [facility] Administration Carbidopa/Levodopa 1 tablet 11/02/20 07:30 11/05/20 16:28 Carbidopa/Levodopa 25/250 Tablet PO 1 tablet 0730,1130,1630,2030 [facility] Administration Carbidopa/Levodopa 1 tablet 11/01/20 22:00 11/05/20 10:22 Carbidopa/Levodopa Cr 50/200 Tablet PO 1 tablet BID@0900,2200 [facility] Administration Enoxaparin Sodium 40 mg 11/02/20 06:00 11/05/20 06:12 Enoxaparin 40 Mg/0.4 Ml Syringe SC 40 mg DAILY@0600 [facility] Administration Ergocalciferol 50,000 unit 11/08/20 08:00 Ergocalciferol 50,000 Unit Capsule PO Th@0800 [facility] Losartan Potassium 100 mg 11/02/20 07:30 11/05/20 08:01 Losartan Potassium 100 Mg Tablet PO 100 mg DAILY@0730 [facility] Administration Magnesium Hydroxide 30 ml 11/01/20 23:01 Magnesium Hydroxide 30 Ml Udc PO DAILY PRN Constipation Nutritional Formula (Lactose Free) 120 ml 11/01/20 22:00 11/05/20 16:31 Ensure Enlive 120 Ml Liquid PO Not Given 4X/DAY [facility] Oxycodone HCl 5 mg 11/01/20 23:01 Oxycodone 5 Mg Tablet PO Q4H PRN PRN Pain Score 6-10 Pantoprazole Sodium 40 mg 11/02/20 07:30 11/05/20 08:01 Pantoprazole Sodium 40 Mg Tablet PO 40 mg DAILY@0730 [facility] Administration Polyethylene Glycol 17 gm 11/04/20 10:19 Polyethylene Glycol 3350 17 Gm Packet PO DAILY PRN Constipation Polysaccharide Iron Complex 150 mg 11/05/20 06:00 11/05/20 06:13 Iron Polysaccharide Complex 150 Mg Capsule PO 150 mg DAILY HARPREET Administration Pramipexole Dihydrochloride 0.5 mg 11/02/20 07:30 11/05/20 13:37 Pramipexole Di-Hcl 0.5 Mg Tablet PO 0.5 mg TID@0730,1400,2030 [facility] Administration Prednisone 40 mg 11/02/20 08:00 11/05/20 08:07 Prednisone 20 Mg Tablet PO 11/08/20 08:01 40 mg DAILY@0800 [facility] Administration Prednisone 20 mg 11/09/20 08:00 Prednisone 20 Mg Tablet PO 11/15/20 08:01 DAILY@0800 [facility] Prednisone 10 mg 11/16/20 08:00 Prednisone 10 Mg Tablet PO 11/22/20 08:01 DAILY@0800 [facility] Senna/Docusate Sodium 2 tablet 11/04/20 10:19 Senna/Docusate Sodium 1 Tablet PO BID PRN Constipation Sertraline HCl 100 mg 11/02/20 07:30 11/05/20 08:01 Sertraline 100 Mg Tablet PO 100 mg DAILY@0730 [facility] Administration Tuberculin PPD 5 tu 11/09/20 10:00 Tuberculin,Purif.Prot.Deriv. 50 Tu/Ml Vial ID 11/09/20 10:01 X1 ONE Problem List Closed right hip fracture (Acute) Debility (Acute) Frequent falls (Acute) Idiopathic thrombocytopenia (Chronic) Prostate cancer (Chronic) Vitamin D deficiency (Chronic) Osteoporosis (Chronic) GERD (gastroesophageal reflux disease) (Chronic) Depression (Chronic) Hypertension (Chronic) Parkinson disease (Chronic) Vital Signs Temp Pulse Resp BP Pulse Ox 97.4 F L 92 18 116/56 L 96 11/05/20 14:11 11/05/20 14:11 11/05/20 14:11 11/05/20 14:11 11/05/20 14:11 Oxygen Flow Rate (L/min) 2 Oxygen Delivery Method Room Air Weight: 95.254 kg Body Mass Index (BMI) 26.9 Sodium 139 mmol/L (136-145) 11/02/20 05:05 Potassium 4.1 mmol/L (3.5-5.1) 11/02/20 05:05 Chloride 110 mmol/L (98-107) H 11/02/20 05:05 Carbon Dioxide 26.0 mmol/L (21.0-32.0) 11/02/20 05:05 Anion Gap 3 (5-15) L 11/02/20 05:05 BUN 21 mg/dL (7-18) H 11/02/20 05:05 Creatinine 0.59 mg/dL (0.70-1.30) L 11/02/20 05:05 Est GFR (MDRD) Af Amer 171 mL/min (>60) 11/02/20 05:05 Est GFR (MDRD) Non-Af 141 mL/min (>60) 11/02/20 05:05 BUN/Creatinine Ratio 35.6 RATIO (10-20) H 11/02/20 05:05 Glucose 86 mg/dL (74-106) 11/02/20 05:05 Assessment/Plan: Psychotropic Medications: Unnecessary Medications: Bowel Regimen: - Provider Comments Provider responsibility: Provider responsible to enter orders to implement recommendations Provider Comments to Recommendations by Pharmacy: Agree
[2020-11-05 14:11] VITALS: BP 116/56; PULSE 92; RESP 18; TEMP 36.3; O2SAT 96
--- NOTE | 2020-11-05 15:52 | NURSING ---
THIS NURSE TRIED CALLING FAMILY TO UPDATE ON PT. NO ANSWER ON BOTH,LEFT MESSAGE.
--- NOTE | 2020-11-05 15:56 | NURSING ---
CALLED BACK AND WAS UPDATED.
--- NOTE | 2020-11-05 16:03 | PT ---
Pt's SPO2 was 97% on 2L of O2. He was able to maintain SPO2 at 93-94% while on room air with activity and 95-96% when at rest on room air.
--- NOTE | 2020-11-06 00:58 | NURSING ---
ostomy bag changed tonight at hs, pt changed with nursing assistance. wafer intact at this time.
[2020-11-06 05:00] VITALS: BP 139/65; PULSE 73; RESP 18; TEMP 36.6; O2SAT 95
[2020-11-06] MEDS: Enoxaparin 40 MG/0.4 ML Syringe SC (05:58)
[2020-11-06] MEDS: Iron Polysaccharide Complex 150 MG CAPSULE PO (05:59)
[2020-11-06] MEDS: Alendronate Sodium 70 MG Tablet PO (05:59)
[2020-11-06 07:10] VITALS: O2SAT 96
[2020-11-06] MEDS: Carbidopa/Levodopa 25/250 Tablet PO ×4 (08:18→20:25)
[2020-11-06] MEDS: Losartan Potassium 100 MG Tablet PO (08:19)
[2020-11-06] MEDS: Pramipexole Di-HCl 0.5 MG Tablet PO ×3 (08:19→20:25)
[2020-11-06] MEDS: Pantoprazole Sodium 40 MG Tablet PO (08:19)
[2020-11-06] MEDS: predniSONE 20 MG Tablet 40 MG PO (08:20)
[2020-11-06] MEDS: Sertraline 100 MG Tablet PO (08:20)
[2020-11-06] MEDS: Calcium (Elemental) 500 MG Tablet PO ×2 (08:20→16:39)
[2020-11-06 08:23] VITALS: BP 149/66; PULSE 86
[2020-11-06] MEDS: CARBIDOPA/LEVODOPA CR 50/200 Tablet PO ×2 (09:59→22:27)
[2020-11-06] MEDS: Amantadine 100 MG Capsule PO ×2 (09:59→22:27)
[2020-11-06 10:00] VITALS: PULSE 83; RESP 18; O2SAT 96
--- NOTE | 2020-11-06 10:20 | NURSING ---
OSTOMY BAG CHANGED BY THIS NURSE.
[2020-11-06 13:36] VITALS: BP 115/54; PULSE 85; RESP 17; TEMP 36.2
[2020-11-06 13:48] VITALS: BP 115/54; PULSE 85; RESP 17; TEMP 36.2; O2SAT 97
--- NOTE | 2020-11-06 16:44 | NURSING ---
STOPPED IN TO DROP OFF CLOTHES,ETC AT ENTRANCE AND THIS NURSE UPDATED HER ON PT. STATED THANK YOU AND WAS HAPPY.
[2020-11-07 05:00] VITALS: BP 146/76; PULSE 76; RESP 18; TEMP 36.6; O2SAT 94
[2020-11-07] MEDS: Enoxaparin 40 MG/0.4 ML Syringe SC (06:09)
[2020-11-07] MEDS: Iron Polysaccharide Complex 150 MG CAPSULE PO (06:09)
[2020-11-07] MEDS: Carbidopa/Levodopa 25/250 Tablet PO ×4 (08:25→20:31)
[2020-11-07] MEDS: Pramipexole Di-HCl 0.5 MG Tablet PO ×3 (08:25→20:31)
[2020-11-07] MEDS: Losartan Potassium 100 MG Tablet PO (08:26)
[2020-11-07] MEDS: Sertraline 100 MG Tablet PO (08:26)
[2020-11-07] MEDS: predniSONE 20 MG Tablet 40 MG PO (08:27)
[2020-11-07] MEDS: Calcium (Elemental) 500 MG Tablet PO ×2 (08:27→16:31)
[2020-11-07] MEDS: CARBIDOPA/LEVODOPA CR 50/200 Tablet PO ×2 (08:27→22:04)
[2020-11-07] MEDS: Pantoprazole Sodium 40 MG Tablet PO (08:28)
[2020-11-07] MEDS: Amantadine 100 MG Capsule PO ×2 (09:57→22:04)
--- NOTE | 2020-11-07 12:45 | CHAPLAIN ---
Type of Pastoral Visit _x__ Initial Visit ___ Follow-up Visit ___ On-call Visit ___ General Patient Visit ___ Spiritual Assessment ___ Family Conference ___ Bereavement ___ Rapid Response ___ Code Blue ___ Other (describe below) Pastoral Care Referral From _x__ Patient ___ Family ___ Nurse ___ Physician ___ Hoist Cylinder Loader ___ Layout Designer ___ Other (describe below) Sacrament/Intervention _x__ Active listening ___ Anointing ___ Judaism ___ Bereavement ___ Communion ___ Evelyn exploration ___ ___ Life review _x__ Prayer ___ Reconciliation ___ Sacrament of Sick _x__ Supportive presence ___ Wedding ___ Other (describe below) Pastoral Comments met this patient previously in [facility]; pt and family desire spiritual care support; pt was eating lunch at this time; pt was welcoming but slow to answer questions or talk today; pt stated I am really slow today and the Parkinsons is really at work; prayer and presence welcomed
[2020-11-07 13:00] VITALS: O2SAT 97
--- NOTE | 2020-11-07 13:19 | NURSING ---
This nurse called Dr. Borden's office to schedule 2 week post op appointment, appointment scheduled for 11/16/20 at 11:00. updated and stated she had transport van and would like to transport pt. to [facility] pt at approx 10:15am
[2020-11-07 14:12] VITALS: BP 118/59; PULSE 84; RESP 14; TEMP 36.7; O2SAT 95
--- NOTE | 2020-11-07 14:29 | CASEMGMT ---
Social Work IDT met with patient and via conference call for care plan meeting. Discussed patient's progress in therapy. Pt is max x2 for bed mobility, STS, and SPT with FWW. Pt is using 0# wts on RLE and 2# wts on LLE. Pt has retrolean with standing with cues to correct. Pt is SBA/set up for UE ADLs, dependent x2 for LE ADLs. Pt has colostomy and uses urinal. Pt is on soft, bite sized textures with thin liquids. ST working on dysarthria treatment secondary to Parkinson's, assisting with voice strategies. Pt was doing delay the disease at [facility]. Pt is on a regular diet, good intake and receiving ensure. Pt is out of isolation 11/15, gets lawrence removed 11/14, doing daily dressing changes, and working weaning off of O2. Explained Medicare benefit. The goal is for pt to return home with . looking into hiring nonskilled HHC to assist. CAS collaborating with Dora CARDOZO at [facility] as well. She is working on getting aides and a hospital bed for pt at [place]. stated she needs pt to tx independently as she has vertigo and cannot lean over or physically assist. She was helping pt with LE dressing at bed level. Recommended hiring aides for showers. agreed. Will continue to follow. EMILY RamirezW
--- NOTE | 2020-11-07 15:18 | NURSING ---
Ostomy bag changed at approx 1500
[2020-11-07 20:12] VITALS: PULSE 86; RESP 16
[2020-11-08 05:00] VITALS: BP 138/74; PULSE 76; RESP 16; TEMP 36.9; O2SAT 92
[2020-11-08] MEDS: Iron Polysaccharide Complex 150 MG CAPSULE PO (05:56)
[2020-11-08] MEDS: Enoxaparin 40 MG/0.4 ML Syringe SC (05:58)
[2020-11-08] MEDS: Carbidopa/Levodopa 25/250 Tablet PO ×4 (07:52→22:11)
[2020-11-08] MEDS: Pramipexole Di-HCl 0.5 MG Tablet PO ×3 (07:54→22:11)
[2020-11-08] MEDS: Pantoprazole Sodium 40 MG Tablet PO (07:54)
[2020-11-08] MEDS: Losartan Potassium 100 MG Tablet PO (07:54)
[2020-11-08] MEDS: Calcium (Elemental) 500 MG Tablet PO ×2 (07:55→16:32)
[2020-11-08] MEDS: Sertraline 100 MG Tablet PO (07:55)
[2020-11-08] MEDS: predniSONE 20 MG Tablet 40 MG PO (07:55)
[2020-11-08 08:03] VITALS: BP 129/66; PULSE 80
[2020-11-08 08:57] LABS: Absolute Lymphocyte Count 1.65 X10^3/uL (0.83-4.51); Absolute Neutrophil Count 10.7 X10^3/uL (2.0-7.7); Basophil# 0.05 X10^3/uL; Basophil% 0.4 % (0-1); Eosinophil# 0.32 X10^3/uL; Eosinophils% 2.3 % (0-5); Hematocrit 33.7 % (40-54); Hemoglobin 10.4 g/dL (13.0-16.5); Lymphocyte # 1.65 X10^3/ul (4.0); Lymphocyte % 11.8 % (19-41); Mean Corp Hgb Conc 30.9 g/dL (32-36); Mean Corpuscular Hgb 28.7 pg (27.0-32.0); Mean Corpuscular Volume 92.8 fL (80-94); Monocyte# 1.04 X10^3/uL; Monocyte% 7.5 % (0-10); NRBC Flagged by Analyzer 0 % (0-5); Neutrophil # 10.67 X10^3/uL (2.7-7.7); Neutrophil % 76.4 % (47-70); Platelet Count 146 K/mm3 (150-450); RBC Distribution Width CV 16.2 % (11.6-14.6); RBC Distribution Width SD 53.8 fl (35.1-43.9); Red Blood Count 3.63 M/mm3 (4.6-6.2)
[2020-11-08] MEDS: CARBIDOPA/LEVODOPA CR 50/200 Tablet PO ×2 (09:37→22:10)
[2020-11-08] MEDS: Amantadine 100 MG Capsule PO ×2 (09:37→22:10)
[2020-11-08 10:00] VITALS: PULSE 78; RESP 15; O2SAT 94
[2020-11-08 13:02] VITALS: BP 126/64; PULSE 82; RESP 18; TEMP 36.6; O2SAT 95
--- NOTE | 2020-11-08 15:34 | NURSING ---
OSTOMY BAG CHANGED A LONG WITH HIP DRESSING. PT TOLERATED WELL.
[2020-11-09 05:00] VITALS: BP 151/71; PULSE 66; RESP 18; TEMP 36.7; O2SAT 95
[2020-11-09] MEDS: Iron Polysaccharide Complex 150 MG CAPSULE PO (05:30)
[2020-11-09 06:08] LABS: Absolute Lymphocyte Count 1.53 X10^3/uL (0.83-4.51); Absolute Neutrophil Count 8.5 X10^3/uL (2.0-7.7); Basophil# 0.03 X10^3/uL; Basophil% 0.3 % (0-1); Eosinophils% 1.8 % (0-5); Hematocrit 29.9 % (40-54); Hemoglobin 9.3 g/dL (13.0-16.5); Lymphocyte # 1.53 X10^3/ul (4.0); Lymphocyte % 13.4 % (19-41); Mean Corp Hgb Conc 31.1 g/dL (32-36); Mean Corpuscular Hgb 28.9 pg (27.0-32.0); Mean Corpuscular Volume 92.9 fL (80-94); Mean Platelet Vol. 12.9 fl (6.2-12.0); Monocyte# 0.89 X10^3/uL; Monocyte% 7.8 % (0-10); NRBC Flagged by Analyzer 0 % (0-5); Neutrophil # 8.47 X10^3/uL (2.7-7.7); Neutrophil % 74.4 % (47-70); Platelet Count 103 K/mm3 (150-450); RBC Distribution Width CV 16.1 % (11.6-14.6); RBC Distribution Width SD 54.3 fl (35.1-43.9); Red Blood Count 3.22 M/mm3 (4.6-6.2); White Blood Count 11.4 K/mm3 (4.4-11.0)
[2020-11-09 06:36] LABS: Anion Gap 6 (5-15); BUN 22 mg/dL (7-18); Calcium,Total 7.9 mg/dL (8.5-10.1); Chloride 106 mmol/L (98-107); Glucose 77 mg/dL (74-106); Potassium 3.7 mmol/L (3.5-5.1); Sodium Level 136 mmol/L (136-145)
[2020-11-09] MEDS: Pantoprazole Sodium 40 MG Tablet PO (08:00)
[2020-11-09] MEDS: Pramipexole Di-HCl 0.5 MG Tablet PO ×3 (08:00→20:07)
[2020-11-09] MEDS: Sertraline 100 MG Tablet PO (08:00)
[2020-11-09] MEDS: Calcium (Elemental) 500 MG Tablet PO ×2 (08:00→17:23)
[2020-11-09] MEDS: Carbidopa/Levodopa 25/250 Tablet PO ×4 (08:00→20:07)
[2020-11-09] MEDS: Losartan Potassium 100 MG Tablet PO (08:00)
[2020-11-09] MEDS: predniSONE 20 MG Tablet PO (08:01)
[2020-11-09 08:10] VITALS: O2SAT 95
[2020-11-09] MEDS: CARBIDOPA/LEVODOPA CR 50/200 Tablet PO ×2 (09:00→21:40)
[2020-11-09] MEDS: Amantadine 100 MG Capsule PO ×2 (10:28→21:40)
--- NOTE | 2020-11-09 11:10 | NURSING ---
Colostomy wafer and bag changed at this time, pt tolerated well
[2020-11-09] MEDS: Tuberculin,Purif.prot.deriv. 50 TU/ML Vial 5 ML ID (11:17)
[2020-11-09 15:22] VITALS: BP 118/62; PULSE 78; RESP 12; TEMP 36.4; O2SAT 95
[2020-11-09 15:31] LABS: BUN/Creat Ratio 25.9 RATIO (10-20); Creatinine, Serum 0.85 mg/dL (0.70-1.30); EST Glomerular Filtration Rate 93 mL/min (>60); Est Glom Filt Rate - Afr Amer 113 mL/min (>60); Estimated Creatinine Clearance 83.27 ml/min
[2020-11-09 20:10] VITALS: PULSE 77; RESP 16; O2SAT 96
[2020-11-10 02:02] VITALS: BP 137/64; PULSE 80; RESP 18; TEMP 36.2; O2SAT 95
[2020-11-10] MEDS: Iron Polysaccharide Complex 150 MG CAPSULE PO (05:24)
[2020-11-10 07:30] VITALS: O2SAT 94
[2020-11-10] MEDS: Pantoprazole Sodium 40 MG Tablet PO (07:34)
[2020-11-10] MEDS: Carbidopa/Levodopa 25/250 Tablet PO ×4 (07:34→20:07)
[2020-11-10] MEDS: Losartan Potassium 100 MG Tablet PO (07:34)
[2020-11-10] MEDS: predniSONE 20 MG Tablet PO (07:34)
[2020-11-10] MEDS: Calcium (Elemental) 500 MG Tablet PO ×2 (07:34→15:40)
[2020-11-10] MEDS: Pramipexole Di-HCl 0.5 MG Tablet PO ×3 (07:35→20:07)
[2020-11-10] MEDS: Sertraline 100 MG Tablet PO (07:36)
[2020-11-10] MEDS: CARBIDOPA/LEVODOPA CR 50/200 Tablet PO ×2 (09:13→22:16)
[2020-11-10] MEDS: Amantadine 100 MG Capsule PO ×2 (09:13→22:16)
[2020-11-10 10:00] VITALS: PULSE 82; RESP 16; O2SAT 92
[2020-11-10 13:29] VITALS: BP 117/63; PULSE 79; RESP 18; TEMP 36.6; O2SAT 95
[2020-11-11 05:00] VITALS: BP 143/82; PULSE 73; RESP 16; TEMP 36.5; O2SAT 95
[2020-11-11] MEDS: Iron Polysaccharide Complex 150 MG CAPSULE PO (05:29)
[2020-11-11] MEDS: Carbidopa/Levodopa 25/250 Tablet PO ×4 (07:40→20:01)
[2020-11-11] MEDS: predniSONE 20 MG Tablet PO (07:40)
[2020-11-11] MEDS: Calcium (Elemental) 500 MG Tablet PO ×2 (07:40→16:06)
[2020-11-11] MEDS: Pramipexole Di-HCl 0.5 MG Tablet PO ×3 (07:40→20:01)
[2020-11-11] MEDS: Pantoprazole Sodium 40 MG Tablet PO (07:40)
[2020-11-11] MEDS: Sertraline 100 MG Tablet PO (07:40)
[2020-11-11] MEDS: Losartan Potassium 100 MG Tablet PO (07:40)
[2020-11-11] MEDS: Amantadine 100 MG Capsule PO ×2 (09:02→22:10)
[2020-11-11] MEDS: CARBIDOPA/LEVODOPA CR 50/200 Tablet PO ×2 (09:02→22:10)
[2020-11-11 13:53] VITALS: BP 128/62; PULSE 80; RESP 18; TEMP 36.4; O2SAT 96
[2020-11-12 05:00] VITALS: BP 131/65; PULSE 72; RESP 16; TEMP 36.2; O2SAT 95
[2020-11-12] MEDS: Iron Polysaccharide Complex 150 MG CAPSULE PO (06:44)
[2020-11-12] MEDS: Sertraline 100 MG Tablet PO (07:59)
[2020-11-12] MEDS: Calcium (Elemental) 500 MG Tablet PO ×2 (07:59→16:46)
[2020-11-12] MEDS: predniSONE 20 MG Tablet PO (07:59)
[2020-11-12] MEDS: Pramipexole Di-HCl 0.5 MG Tablet PO ×3 (08:00→20:46)
[2020-11-12] MEDS: Losartan Potassium 100 MG Tablet PO (08:00)
[2020-11-12] MEDS: Carbidopa/Levodopa 25/250 Tablet PO ×4 (08:00→20:45)
[2020-11-12] MEDS: Pantoprazole Sodium 40 MG Tablet PO (08:00)
[2020-11-12] MEDS: CARBIDOPA/LEVODOPA CR 50/200 Tablet PO ×2 (09:13→22:14)
[2020-11-12] MEDS: Amantadine 100 MG Capsule PO ×2 (09:56→22:14)
--- NOTE | 2020-11-12 10:52 | MDS.RN ---
Information for the mds was obtained from review of the clinical record, interview of resident, staff, and direct observation of resident's care.
[2020-11-12 14:46] VITALS: BP 111/62; PULSE 80; RESP 16; TEMP 36.3; O2SAT 93
[2020-11-12 20:50] VITALS: PULSE 80; RESP 16; O2SAT 95
[2020-11-13 05:00] VITALS: BP 136/70; PULSE 72; RESP 16; TEMP 36.7; O2SAT 95
[2020-11-13] MEDS: Iron Polysaccharide Complex 150 MG CAPSULE PO (05:09)
[2020-11-13] MEDS: Alendronate Sodium 70 MG Tablet PO (05:09)
[2020-11-13 07:47] VITALS: BP 127/70; PULSE 79
[2020-11-13] MEDS: Pramipexole Di-HCl 0.5 MG Tablet PO ×3 (07:48→21:09)
[2020-11-13] MEDS: Carbidopa/Levodopa 25/250 Tablet PO ×4 (07:49→21:09)
[2020-11-13] MEDS: Losartan Potassium 100 MG Tablet PO (07:49)
[2020-11-13] MEDS: Pantoprazole Sodium 40 MG Tablet PO (07:49)
[2020-11-13] MEDS: predniSONE 20 MG Tablet PO (07:50)
[2020-11-13] MEDS: Calcium (Elemental) 500 MG Tablet PO ×2 (07:50→16:43)
[2020-11-13] MEDS: Sertraline 100 MG Tablet PO (07:50)
[2020-11-13] MEDS: CARBIDOPA/LEVODOPA CR 50/200 Tablet PO ×2 (09:32→22:08)
[2020-11-13] MEDS: Amantadine 100 MG Capsule PO ×2 (09:33→22:08)
[2020-11-13] MEDS: Acetaminophen 500 MG Tablet 1000 MG PO (09:42)
[2020-11-13] MEDS: Menthol/Lanolin/Calamine/Znox 113 GM Tube 1 APPLIC TOPICAL ×2 (11:12→21:10)
--- NOTE | 2020-11-13 11:13 | NURSING ---
pt moved from room 2 to 6. pt mood has improved and pt stated he loves the room. family aware and son stated my dad sounds more happy today.
[2020-11-13 11:32] VITALS: BP 128/74; PULSE 82; RESP 18; TEMP 36.4; O2SAT 93
--- NOTE | 2020-11-13 13:37 | NURSING ---
pt stated he updated his family also
--- NOTE | 2020-11-13 15:45 | NURSING ---
COLOSTOMY UNIT CHANGED TODAY. PT TOLERATED WELL.
[2020-11-13] MEDS: Nystatin Powder 15gm Bottle 1 APPLIC TOPICAL (21:10)
[2020-11-14] MEDS: Iron Polysaccharide Complex 150 MG CAPSULE PO (04:43)
[2020-11-14] MEDS: Menthol/Lanolin/Calamine/Znox 113 GM Tube 1 APPLIC TOPICAL ×2 (04:43→20:16)
[2020-11-14 04:49] VITALS: BP 141/68; PULSE 75; RESP 18; TEMP 36.6; O2SAT 94
[2020-11-14] MEDS: Losartan Potassium 100 MG Tablet PO (07:58)
[2020-11-14] MEDS: Pramipexole Di-HCl 0.5 MG Tablet PO ×3 (07:58→20:15)
[2020-11-14] MEDS: predniSONE 20 MG Tablet PO (07:58)
[2020-11-14] MEDS: Calcium (Elemental) 500 MG Tablet PO ×2 (07:58→16:30)
[2020-11-14] MEDS: Carbidopa/Levodopa 25/250 Tablet PO ×4 (07:58→20:15)
[2020-11-14] MEDS: Sertraline 100 MG Tablet PO (07:59)
[2020-11-14] MEDS: Pantoprazole Sodium 40 MG Tablet PO (07:59)
[2020-11-14] MEDS: CARBIDOPA/LEVODOPA CR 50/200 Tablet PO ×2 (09:03→21:50)
[2020-11-14] MEDS: Amantadine 100 MG Capsule PO ×2 (10:10→21:50)
[2020-11-14 13:44] VITALS: BP 123/68; PULSE 68; RESP 16; TEMP 36.1; O2SAT 97
--- NOTE | 2020-11-14 13:57 | NURSING ---
lawrence removed from hip today per order, no drainage present, incision remains well approximated, pt tolerated well.
--- NOTE | 2020-11-14 15:35 | NURSING ---
Addendum entered by Aviva Heredia 11/14/20 16:23: This nurse reassessed ostomy and no active bleeding noted, Pt stated he talked with and she told him that his ostomy bleeds at home from time to time, RN updated Original Note: ADMINISTRATIVE ANALYST notified this nurse that pt's ostomy was bleeding, this nurse immediately assessed pt and noted small amount of active bleeding around stoma. Stoma and jaida wound cleansed and ostomy bag reapplied, this nurse reported to RN.
[2020-11-14] MEDS: Nystatin Powder 15gm Bottle 1 APPLIC TOPICAL (21:50)
[2020-11-15 02:24] VITALS: BP 137/72; PULSE 90; RESP 18; TEMP 36.1; O2SAT 95
[2020-11-15] MEDS: Menthol/Lanolin/Calamine/Znox 113 GM Tube 1 APPLIC TOPICAL ×2 (04:10→20:31)
[2020-11-15] MEDS: Iron Polysaccharide Complex 150 MG CAPSULE PO (04:10)
[2020-11-15] MEDS: Nystatin Powder 15gm Bottle 1 APPLIC TOPICAL ×2 (04:11→20:31)
[2020-11-15] MEDS: Losartan Potassium 100 MG Tablet PO (07:45)
[2020-11-15] MEDS: Pramipexole Di-HCl 0.5 MG Tablet PO ×3 (07:45→20:31)
[2020-11-15] MEDS: Sertraline 100 MG Tablet PO (07:45)
[2020-11-15] MEDS: Carbidopa/Levodopa 25/250 Tablet PO ×4 (07:45→20:31)
[2020-11-15] MEDS: Pantoprazole Sodium 40 MG Tablet PO (07:45)
[2020-11-15] MEDS: Calcium (Elemental) 500 MG Tablet PO ×2 (07:46→16:34)
[2020-11-15] MEDS: predniSONE 20 MG Tablet PO (07:46)
[2020-11-15] MEDS: Amantadine 100 MG Capsule PO ×2 (09:35→21:38)
[2020-11-15] MEDS: CARBIDOPA/LEVODOPA CR 50/200 Tablet PO ×2 (09:35→21:38)
[2020-11-15 13:15] VITALS: PULSE 83; RESP 18; O2SAT 94
--- NOTE | 2020-11-15 13:23 | NURSING ---
Resident and family updated on current COVID status on the unit.
[2020-11-15 14:00] VITALS: BP 108/64; PULSE 83; RESP 16; TEMP 36; O2SAT 94
--- NOTE | 2020-11-15 15:54 | CHAPLAIN ---
Type of Pastoral Visit ___ Initial Visit _x__ Follow-up Visit ___ On-call Visit ___ General Patient Visit ___ Spiritual Assessment ___ Family Conference ___ Bereavement ___ Rapid Response ___ Code Blue ___ Other (describe below) Pastoral Care Referral From _x__ Patient ___ Family ___ Nurse ___ Physician ___ Chemical Laboratory Chief ___ Airplane Charter Clerk ___ Other (describe below) Sacrament/Intervention _x__ Active listening ___ Anointing ___ Mormon ___ Bereavement ___ Communion ___ Evelyn exploration ___ ___ Life review _x__ Prayer ___ Reconciliation ___ Sacrament of Sick _x__ Supportive presence ___ Wedding ___ Other (describe below) Pastoral Comments
--- NOTE | 2020-11-15 20:41 | NURSING ---
Trimmed patients fingernails at this time per patient request. Patient tolerated well and stated, My will be happy!
[2020-11-16 01:53] VITALS: BP 144/69; PULSE 82; RESP 16; TEMP 36.7; O2SAT 96
[2020-11-16] MEDS: Iron Polysaccharide Complex 150 MG CAPSULE PO (05:33)
[2020-11-16] MEDS: Menthol/Lanolin/Calamine/Znox 113 GM Tube 1 APPLIC TOPICAL ×2 (05:34→20:42)
[2020-11-16] MEDS: Nystatin Powder 15gm Bottle 1 APPLIC TOPICAL ×2 (05:34→20:49)
[2020-11-16 05:52] LABS: Absolute Lymphocyte Count 1.35 X10^3/uL (0.83-4.51); Absolute Neutrophil Count 7.6 X10^3/uL (2.0-7.7); Basophil# 0.04 X10^3/uL; Basophil% 0.4 % (0-1); Eosinophil# 0.17 X10^3/uL; Eosinophils% 1.7 % (0-5); Hematocrit 34.3 % (40-54); Hemoglobin 10.5 g/dL (13.0-16.5); Lymphocyte # 1.35 X10^3/ul (4.0); Lymphocyte % 13.5 % (19-41); Mean Corp Hgb Conc 30.6 g/dL (32-36); Mean Corpuscular Hgb 28.8 pg (27.0-32.0); Monocyte# 0.76 X10^3/uL; Monocyte% 7.6 % (0-10); NRBC Flagged by Analyzer 0 % (0-5); Neutrophil % 76.1 % (47-70); POSITIVE COUNT YES; POSITIVE MORPHOLOGY YES; Platelet Count 52 K/mm3 (150-450); RBC Distribution Width CV 16.4 % (11.6-14.6); RBC Distribution Width SD 56.4 fl (35.1-43.9); Red Blood Count 3.65 M/mm3 (4.6-6.2)
[2020-11-16 05:53] LABS: Differential Indicated SCAN CRITERIA MET
[2020-11-16 05:59] LABS: Anion Gap 6 (5-15); BUN 22 mg/dL (7-18); BUN/Creat Ratio 24.6 RATIO (10-20); Calcium,Total 8.3 mg/dL (8.5-10.1); Chloride 107 mmol/L (98-107); Creatinine, Serum 0.89 mg/dL (0.70-1.30); EST Glomerular Filtration Rate 88 mL/min (>60); Est Glom Filt Rate - Afr Amer 106 mL/min (>60); Estimated Creatinine Clearance 79.53 ml/min; Glucose 82 mg/dL (74-106); Potassium 3.9 mmol/L (3.5-5.1); Sodium Level 139 mmol/L (136-145)
[2020-11-16 06:19] LABS: Platelet Estimate MOD DEC (ADEQ)
[2020-11-16] MEDS: Carbidopa/Levodopa 25/250 Tablet PO ×4 (08:00→20:40)
[2020-11-16] MEDS: Calcium (Elemental) 500 MG Tablet PO ×2 (08:00→17:06)
[2020-11-16] MEDS: Sertraline 100 MG Tablet PO (08:00)
[2020-11-16] MEDS: predniSONE 10 MG Tablet PO (08:00)
[2020-11-16] MEDS: Pramipexole Di-HCl 0.5 MG Tablet PO ×3 (08:01→20:40)
[2020-11-16] MEDS: Losartan Potassium 100 MG Tablet PO (08:01)
[2020-11-16] MEDS: Pantoprazole Sodium 40 MG Tablet PO (08:01)
[2020-11-16] MEDS: CARBIDOPA/LEVODOPA CR 50/200 Tablet PO ×2 (09:05→22:22)
--- NOTE | 2020-11-16 09:08 | NURSING ---
Pt's ostomy system changed this morning including wafer and bag. Pt tolerated well jaida wound reddened, ostomy beefy red, sure prep barrier wand applied prior to new wafer placement to protect periskin.
[2020-11-16] MEDS: Amantadine 100 MG Capsule PO ×2 (10:21→22:22)
--- NOTE | 2020-11-16 15:17 | NURSING ---
Pt returned from ortho appointment today, pt is to f/u with ortho in 6-8 weeks
[2020-11-16 16:00] VITALS: BP 113/60; PULSE 77; RESP 20; TEMP 36.7; O2SAT 100
[2020-11-17 05:00] VITALS: BP 137/70; PULSE 72; RESP 16; TEMP 36.6; O2SAT 96
[2020-11-17] MEDS: Iron Polysaccharide Complex 150 MG CAPSULE PO (05:23)
[2020-11-17] MEDS: Nystatin Powder 15gm Bottle 1 APPLIC TOPICAL ×2 (05:25→20:53)
[2020-11-17] MEDS: Menthol/Lanolin/Calamine/Znox 113 GM Tube 1 APPLIC TOPICAL ×2 (05:26→20:52)
[2020-11-17] MEDS: Carbidopa/Levodopa 25/250 Tablet PO ×4 (07:48→20:52)
[2020-11-17] MEDS: Pantoprazole Sodium 40 MG Tablet PO (07:49)
[2020-11-17] MEDS: Pramipexole Di-HCl 0.5 MG Tablet PO ×3 (07:49→20:52)
[2020-11-17] MEDS: Calcium (Elemental) 500 MG Tablet PO ×2 (07:49→16:20)
[2020-11-17] MEDS: Sertraline 100 MG Tablet PO (07:50)
[2020-11-17] MEDS: Losartan Potassium 100 MG Tablet PO (07:50)
[2020-11-17] MEDS: predniSONE 10 MG Tablet PO (07:51)
[2020-11-17] MEDS: Amantadine 100 MG Capsule PO ×2 (09:34→22:29)
[2020-11-17] MEDS: CARBIDOPA/LEVODOPA CR 50/200 Tablet PO ×2 (09:34→22:29)
[2020-11-17 09:45] VITALS: PULSE 79; RESP 18; O2SAT 95
[2020-11-17 15:35] VITALS: BP 107/63; PULSE 83; RESP 14; TEMP 36.1; O2SAT 95
[2020-11-18 05:00] VITALS: BP 136/68; PULSE 72; RESP 18; TEMP 36.6; O2SAT 94
[2020-11-18] MEDS: Iron Polysaccharide Complex 150 MG CAPSULE PO (05:39)
[2020-11-18] MEDS: Menthol/Lanolin/Calamine/Znox 113 GM Tube 1 APPLIC TOPICAL ×2 (05:40→20:30)
[2020-11-18] MEDS: Nystatin Powder 15gm Bottle 1 APPLIC TOPICAL ×2 (05:40→20:30)
[2020-11-18 06:17] LABS: Absolute Lymphocyte Count 1.06 X10^3/uL (0.83-4.51); Absolute Neutrophil Count 5.7 X10^3/uL (2.0-7.7); Basophil# 0.05 X10^3/uL; Basophil% 0.7 % (0-1); Eosinophil# 0.19 X10^3/uL; Eosinophils% 2.5 % (0-5); Hematocrit 34.2 % (40-54); Hemoglobin 10.8 g/dL (13.0-16.5); Lymphocyte # 1.06 X10^3/ul (4.0); Mean Corp Hgb Conc 31.6 g/dL (32-36); Mean Corpuscular Hgb 29.1 pg (27.0-32.0); Mean Corpuscular Volume 92.2 fL (80-94); Monocyte# 0.55 X10^3/uL; Monocyte% 7.3 % (0-10); NRBC Flagged by Analyzer 0 % (0-5); Neutrophil # 5.68 X10^3/uL (2.7-7.7); Neutrophil % 74.8 % (47-70); POSITIVE COUNT YES; RBC Distribution Width CV 16.6 % (11.6-14.6); RBC Distribution Width SD 55.5 fl (35.1-43.9); Red Blood Count 3.71 M/mm3 (4.6-6.2); White Blood Count 7.6 K/mm3 (4.4-11.0)
[2020-11-18 06:21] LABS: Differential Indicated SCAN CRITERIA MET
[2020-11-18 06:22] LABS: Platelet Count 36 K/mm3 (150-450)
--- NOTE | 2020-11-18 06:30 | NURSING ---
Took call from lab. Pt's platelets are 36. Gave message to his primary nurse, Brigitte.
[2020-11-18 07:05] LABS: Differential Comment SCANNED
[2020-11-18 07:06] LABS: Platelet Estimate MKD DEC (ADEQ)
[2020-11-18 07:43] VITALS: BP 132/71; PULSE 79
[2020-11-18] MEDS: Carbidopa/Levodopa 25/250 Tablet PO ×4 (07:44→20:29)
[2020-11-18] MEDS: Pramipexole Di-HCl 0.5 MG Tablet PO ×3 (07:44→20:30)
[2020-11-18] MEDS: Losartan Potassium 100 MG Tablet PO (07:44)
[2020-11-18] MEDS: Pantoprazole Sodium 40 MG Tablet PO (07:45)
[2020-11-18] MEDS: predniSONE 10 MG Tablet PO (07:46)
[2020-11-18] MEDS: Sertraline 100 MG Tablet PO (07:46)
[2020-11-18] MEDS: Calcium (Elemental) 500 MG Tablet PO ×2 (07:46→16:47)
[2020-11-18] MEDS: CARBIDOPA/LEVODOPA CR 50/200 Tablet PO ×2 (09:32→22:08)
[2020-11-18] MEDS: Amantadine 100 MG Capsule PO ×2 (09:33→22:08)
[2020-11-18 15:24] VITALS: BP 130/71; PULSE 84; RESP 18; TEMP 36.2; O2SAT 94
--- NOTE | 2020-11-18 16:30 | NURSING ---
CALLED PT AND UPDATED HER.
[2020-11-18] MEDS: Senna/Docusate Sodium 1 Tablet 2 TABLET PO (16:51)
[2020-11-19 05:00] VITALS: BP 140/73; PULSE 76; RESP 18; TEMP 36.6; O2SAT 98
[2020-11-19] MEDS: Iron Polysaccharide Complex 150 MG CAPSULE PO (06:20)
[2020-11-19] MEDS: Nystatin Powder 15gm Bottle 1 APPLIC TOPICAL ×2 (06:20→20:11)
[2020-11-19] MEDS: Menthol/Lanolin/Calamine/Znox 113 GM Tube 1 APPLIC TOPICAL ×2 (06:20→20:12)
[2020-11-19] MEDS: Carbidopa/Levodopa 25/250 Tablet PO ×4 (08:12→20:07)
[2020-11-19] MEDS: Pramipexole Di-HCl 0.5 MG Tablet PO ×3 (08:12→20:07)
[2020-11-19] MEDS: Calcium (Elemental) 500 MG Tablet PO ×2 (08:13→17:25)
[2020-11-19] MEDS: predniSONE 10 MG Tablet PO (08:13)
[2020-11-19] MEDS: Losartan Potassium 100 MG Tablet PO (08:13)
[2020-11-19] MEDS: Pantoprazole Sodium 40 MG Tablet PO (08:13)
[2020-11-19] MEDS: Sertraline 100 MG Tablet PO (08:13)
--- NOTE | 2020-11-19 09:54 | NURSING ---
Dr. Lanier's office called today and updated on platelet count of 36,000. Appointment scheduled for 2pm today for pt to receive nplate shot at Dr. Lanier's office. was updated and stated she would transport, RN updated
[2020-11-19 10:00] VITALS: PULSE 77; RESP 16; O2SAT 96
[2020-11-19] MEDS: Amantadine 100 MG Capsule PO ×2 (10:06→22:19)
[2020-11-19] MEDS: CARBIDOPA/LEVODOPA CR 50/200 Tablet PO ×2 (10:06→22:19)
--- NOTE | 2020-11-19 10:31 | NURSING ---
Dr. Lanier's office called this nurse and gave new order to recheck CBC on 11/21/19. Fax results to [phone]. RN updated
--- NOTE | 2020-11-19 10:40 | NURSING ---
Received orders from Dr. Negrito Borden's office for patient to have xray of pelvis and right hip.
[2020-11-19 13:31] LABS: Pathologist Review Reviewed
[2020-11-19 13:57] VITALS: BP 138/68; PULSE 90; RESP 20; TEMP 36.6; O2SAT 96
--- NOTE | 2020-11-19 14:19 | NURSING ---
pt left at approx [address] Lanier appointment transported by
--- NOTE | 2020-11-19 15:00 | RAD_ITS ---
STUDY: X-RAY - PELVIS AND RIGHT HIP REASON FOR EXAM: Male, 80 years old. Follow up right hip fracture TECHNIQUE: 3 views of the pelvis and hip. COMPARISON: Comparison is made with prior study dated 10/29/2020. FINDINGS: The patient is status post ORIF of the right intertrochanteric fracture using compressive screw and intramedullary gloria fixation device. There is good alignment. The patient is status post ORIF of the left intertrochanteric fracture. RAD/HIP, UNI W/ Pelvis 2-3 Views IMPRESSION: Status post ORIF of the right intertrochanteric fracture. There is good alignment. Electronically Signed: Thomas Dennison MD at 15:37 EST , Service support ,
--- NOTE | 2020-11-19 15:47 | NURSING ---
pt returned from Dr. Lanier's office
[2020-11-20 05:00] VITALS: BP 138/71; PULSE 74; RESP 16; TEMP 36.7; O2SAT 94
[2020-11-20] MEDS: Iron Polysaccharide Complex 150 MG CAPSULE PO (06:15)
[2020-11-20] MEDS: Nystatin Powder 15gm Bottle 1 APPLIC TOPICAL ×2 (06:15→20:09)
[2020-11-20] MEDS: Alendronate Sodium 70 MG Tablet PO (06:16)
[2020-11-20] MEDS: Menthol/Lanolin/Calamine/Znox 113 GM Tube 1 APPLIC TOPICAL ×2 (06:18→20:08)
[2020-11-20] MEDS: Carbidopa/Levodopa 25/250 Tablet PO ×4 (07:47→20:05)
[2020-11-20] MEDS: Pramipexole Di-HCl 0.5 MG Tablet PO ×3 (07:47→20:05)
[2020-11-20] MEDS: Sertraline 100 MG Tablet PO (07:49)
[2020-11-20] MEDS: Losartan Potassium 100 MG Tablet PO (07:49)
[2020-11-20] MEDS: Pantoprazole Sodium 40 MG Tablet PO (07:49)
[2020-11-20] MEDS: Calcium (Elemental) 500 MG Tablet PO ×2 (07:50→16:32)
[2020-11-20] MEDS: predniSONE 10 MG Tablet PO (07:50)
[2020-11-20 07:57] VITALS: BP 125/80; PULSE 77
[2020-11-20] MEDS: Amantadine 100 MG Capsule PO ×2 (09:11→21:25)
[2020-11-20] MEDS: CARBIDOPA/LEVODOPA CR 50/200 Tablet PO ×2 (09:11→21:25)
--- NOTE | 2020-11-20 13:31 | NURSING ---
total ostomy appliance changed out. beefy red. small amount of bleeding. area cleaned and new unit applied. pt tolerated well.
[2020-11-20 13:51] VITALS: BP 107/53; PULSE 86; RESP 20; TEMP 36.2; O2SAT 95
--- NOTE | 2020-11-20 14:01 | PT ---
Spoke with physician Dr. Borden about pt's weight bearing status. Physician stated he reviewed x-rays and pt is to remain PWB on RLE until next ortho follow up.
[2020-11-20] MEDS: Senna/Docusate Sodium 1 Tablet 2 TABLET PO (16:36)
[2020-11-20 21:07] VITALS: PULSE 88; RESP 18; O2SAT 96
[2020-11-21 02:27] VITALS: BP 109/58; PULSE 81; RESP 18; TEMP 36.4; O2SAT 96
[2020-11-21] MEDS: Senna/Docusate Sodium 1 Tablet 2 TABLET PO (05:17)
[2020-11-21] MEDS: Iron Polysaccharide Complex 150 MG CAPSULE PO (05:17)
[2020-11-21] MEDS: Nystatin Powder 15gm Bottle 1 APPLIC TOPICAL ×2 (05:19→21:48)
[2020-11-21] MEDS: Menthol/Lanolin/Calamine/Znox 113 GM Tube 1 APPLIC TOPICAL ×2 (05:19→21:48)
[2020-11-21 05:21] VITALS: PULSE 84; RESP 16; O2SAT 97
[2020-11-21 05:28] VITALS: TEMP 36.4; O2SAT 97
[2020-11-21 05:45] LABS: Absolute Lymphocyte Count 1.15 X10^3/uL (0.83-4.51); Absolute Neutrophil Count 6.4 X10^3/uL (2.0-7.7); Basophil# 0.03 X10^3/uL; Basophil% 0.4 % (0-1); Eosinophil# 0.22 X10^3/uL; Eosinophils% 2.6 % (0-5); Hematocrit 33.7 % (40-54); Hemoglobin 10.6 g/dL (13.0-16.5); Lymphocyte # 1.15 X10^3/ul (4.0); Lymphocyte % 13.7 % (19-41); Mean Corp Hgb Conc 31.5 g/dL (32-36); Mean Corpuscular Volume 92.3 fL (80-94); Monocyte# 0.53 X10^3/uL; Monocyte% 6.3 % (0-10); NRBC Flagged by Analyzer 0 % (0-5); Neutrophil # 6.43 X10^3/uL (2.7-7.7); Neutrophil % 76.5 % (47-70); POSITIVE COUNT YES; RBC Distribution Width CV 16.4 % (11.6-14.6); RBC Distribution Width SD 55.5 fl (35.1-43.9); Red Blood Count 3.65 M/mm3 (4.6-6.2); White Blood Count 8.4 K/mm3 (4.4-11.0)
[2020-11-21 05:56] LABS: Differential Indicated SCAN CRITERIA MET; Platelet Count 30 K/mm3 (150-450)
[2020-11-21 06:28] LABS: Platelet Estimate MKD DEC (ADEQ)
--- NOTE | 2020-11-21 07:27 | NURSING ---
CBC results faxed to Dr. Lanier's office, platelet 30,000.
[2020-11-21] MEDS: Pramipexole Di-HCl 0.5 MG Tablet PO ×3 (07:52→19:57)
[2020-11-21] MEDS: Pantoprazole Sodium 40 MG Tablet PO (07:52)
[2020-11-21] MEDS: Calcium (Elemental) 500 MG Tablet PO ×2 (07:52→17:10)
[2020-11-21] MEDS: Carbidopa/Levodopa 25/250 Tablet PO ×4 (07:52→19:57)
[2020-11-21] MEDS: Sertraline 100 MG Tablet PO (07:52)
[2020-11-21] MEDS: predniSONE 10 MG Tablet PO (07:52)
[2020-11-21] MEDS: Losartan Potassium 100 MG Tablet PO (07:52)
--- NOTE | 2020-11-21 08:39 | NURSING ---
Pt's ostomy bag emptied this morning, stoma beefy red, no active bleeding noted at this time
--- NOTE | 2020-11-21 09:01 | NURSING ---
This nurse called Dr. Lanier's office to confirm they received the fax containing the CBC from this morning. This nurse spoke with Angie and she stated that they did receive his CBC from this morning and that Dr. Lanier is not in the office yet but she will leave a note and update him. Angie also stated that the Nplate shot can take up to 5 days to be effective. This nurse informed Angie that pt is also have intermittent active bleeding around his stoma, Angie stated she would update Dr. Lanier on his bleeding as well and will contact this nurse after she talks to Dr. Lanier and update us on treatment plan. RN, pt and Delmy updated
[2020-11-21] MEDS: CARBIDOPA/LEVODOPA CR 50/200 Tablet PO ×2 (09:27→21:48)
[2020-11-21] MEDS: Amantadine 100 MG Capsule PO ×2 (09:27→21:48)
--- NOTE | 2020-11-21 10:40 | NURSING ---
Dr. Lanier's office called back with new order: Increase prednisone to 40mg QD, recheck CBC on thursday11/26/20 and fax results to [phone] and call to confirm they received results. Appointment scheduled 11/26/20 at 0915, appointment may be cancelled if Platelet levels are stable. Dr. Lanier requests that Dr. Flores assesses stoma site for bleeding. RN and updated of treatment plan.
--- NOTE | 2020-11-21 12:00 | NURSING ---
This nurse spoke with Angie from Dr. Lanier's office. Dr. Lanier would like a 1x dose of 30mg of prednisone and 40mg of prednisone starting tomorrow. Nurse stated that there is no stop date and they will evaluate his labs weekly.
[2020-11-21 12:09] LABS: Pathologist Review Reviewed
[2020-11-21] MEDS: predniSONE 10 MG Tablet 30 MG PO (13:51)
[2020-11-21 14:21] VITALS: BP 115/56; PULSE 88; RESP 18; TEMP 36.2; O2SAT 93
[2020-11-22 06:01] VITALS: BP 137/76; PULSE 79; RESP 17; TEMP 36.6; O2SAT 97
[2020-11-22] MEDS: Iron Polysaccharide Complex 150 MG CAPSULE PO (06:03)
[2020-11-22] MEDS: Nystatin Powder 15gm Bottle 1 APPLIC TOPICAL ×2 (06:07→21:04)
[2020-11-22] MEDS: Menthol/Lanolin/Calamine/Znox 113 GM Tube 1 APPLIC TOPICAL ×2 (06:07→21:04)
[2020-11-22] MEDS: Carbidopa/Levodopa 25/250 Tablet PO ×4 (07:46→20:51)
[2020-11-22] MEDS: Pramipexole Di-HCl 0.5 MG Tablet PO ×3 (07:46→20:50)
[2020-11-22] MEDS: Losartan Potassium 100 MG Tablet PO (07:46)
[2020-11-22] MEDS: Calcium (Elemental) 500 MG Tablet PO ×2 (07:47→17:15)
[2020-11-22] MEDS: Sertraline 100 MG Tablet PO (07:47)
[2020-11-22] MEDS: Pantoprazole Sodium 40 MG Tablet PO (07:47)
[2020-11-22] MEDS: predniSONE 20 MG Tablet 40 MG PO (07:48)
[2020-11-22] MEDS: CARBIDOPA/LEVODOPA CR 50/200 Tablet PO ×2 (09:27→22:16)
[2020-11-22] MEDS: Amantadine 100 MG Capsule PO ×2 (09:28→22:16)
[2020-11-22 12:52] VITALS: BP 132/68; PULSE 80; RESP 20; TEMP 36.3; O2SAT 97
--- NOTE | 2020-11-22 14:49 | NURSING ---
Pt Delmy given updates on patient.
[2020-11-22 21:00] VITALS: PULSE 76; RESP 18; O2SAT 96
[2020-11-23 05:00] VITALS: BP 124/68; PULSE 73; RESP 16; TEMP 36.7; O2SAT 94
[2020-11-23 05:46] LABS: Absolute Lymphocyte Count 1.35 X10^3/uL (0.83-4.51); Absolute Neutrophil Count 7.1 X10^3/uL (2.0-7.7); Basophil# 0.04 X10^3/uL; Basophil% 0.4 % (0-1); Eosinophil# 0.15 X10^3/uL; Eosinophils% 1.6 % (0-5); Hematocrit 34.6 % (40-54); Hemoglobin 10.7 g/dL (13.0-16.5); Lymphocyte # 1.35 X10^3/ul (4.0); Lymphocyte % 14.5 % (19-41); Mean Corp Hgb Conc 30.9 g/dL (32-36); Mean Corpuscular Hgb 28.9 pg (27.0-32.0); Mean Corpuscular Volume 93.5 fL (80-94); Monocyte# 0.58 X10^3/uL; Monocyte% 6.2 % (0-10); NRBC Flagged by Analyzer 0 % (0-5); Neutrophil # 7.14 X10^3/uL (2.7-7.7); Neutrophil % 76.8 % (47-70); POSITIVE COUNT YES; RBC Distribution Width CV 16.3 % (11.6-14.6); RBC Distribution Width SD 56.6 fl (35.1-43.9); White Blood Count 9.3 K/mm3 (4.4-11.0)
[2020-11-23 05:47] LABS: Differential Indicated SCAN CRITERIA MET; Platelet Count 39 K/mm3 (150-450)
[2020-11-23 06:01] LABS: Anion Gap 6 (5-15); BUN 22 mg/dL (7-18); BUN/Creat Ratio 29.9 RATIO (10-20); Chloride 108 mmol/L (98-107); Creatinine, Serum 0.74 mg/dL (0.70-1.30); EST Glomerular Filtration Rate 109 mL/min (>60); Est Glom Filt Rate - Afr Amer 132 mL/min (>60); Estimated Creatinine Clearance 70.78 ml/min; Glucose 77 mg/dL (74-106); Potassium 3.9 mmol/L (3.5-5.1); Sodium Level 138 mmol/L (136-145)
[2020-11-23 06:10] LABS: Platelet Estimate MKD DEC (ADEQ)
[2020-11-23] MEDS: Iron Polysaccharide Complex 150 MG CAPSULE PO (06:42)
[2020-11-23] MEDS: Nystatin Powder 15gm Bottle 1 APPLIC TOPICAL ×2 (06:44→20:25)
[2020-11-23] MEDS: Menthol/Lanolin/Calamine/Znox 113 GM Tube 1 APPLIC TOPICAL ×2 (06:44→20:25)
[2020-11-23] MEDS: Carbidopa/Levodopa 25/250 Tablet PO ×4 (07:39→20:24)
[2020-11-23] MEDS: Losartan Potassium 100 MG Tablet PO (07:39)
[2020-11-23] MEDS: Pramipexole Di-HCl 0.5 MG Tablet PO ×3 (07:39→20:25)
[2020-11-23] MEDS: Pantoprazole Sodium 40 MG Tablet PO (07:40)
[2020-11-23] MEDS: Calcium (Elemental) 500 MG Tablet PO ×2 (07:41→16:36)
[2020-11-23] MEDS: Sertraline 100 MG Tablet PO (07:41)
[2020-11-23] MEDS: predniSONE 20 MG Tablet 40 MG PO (07:41)
[2020-11-23 07:47] VITALS: BP 105/57; PULSE 77
[2020-11-23] MEDS: CARBIDOPA/LEVODOPA CR 50/200 Tablet PO ×2 (09:25→22:11)
[2020-11-23] MEDS: Amantadine 100 MG Capsule PO ×2 (09:25→22:11)
--- NOTE | 2020-11-23 10:09 | NURSING ---
ostomy unit changed,stoma beef red and small amount of bleeding on one side. pt tolerated well. rn aware
[2020-11-23 11:39] LABS: Pathologist Review Reviewed
[2020-11-23 12:41] VITALS: BP 123/64; PULSE 83; RESP 20; TEMP 36.7; O2SAT 94
[2020-11-24 05:00] VITALS: BP 137/73; PULSE 72; RESP 18; TEMP 36.6; O2SAT 93
[2020-11-24] MEDS: Menthol/Lanolin/Calamine/Znox 113 GM Tube 1 APPLIC TOPICAL ×2 (05:00→21:20)
[2020-11-24] MEDS: Iron Polysaccharide Complex 150 MG CAPSULE PO (05:00)
[2020-11-24] MEDS: Nystatin Powder 15gm Bottle 1 APPLIC TOPICAL ×2 (05:00→21:21)
[2020-11-24] MEDS: Pramipexole Di-HCl 0.5 MG Tablet PO ×3 (08:04→20:00)
[2020-11-24] MEDS: Carbidopa/Levodopa 25/250 Tablet PO ×4 (08:04→19:57)
[2020-11-24] MEDS: Pantoprazole Sodium 40 MG Tablet PO (08:04)
[2020-11-24] MEDS: Losartan Potassium 100 MG Tablet PO (08:05)
[2020-11-24] MEDS: predniSONE 20 MG Tablet 40 MG PO (08:05)
[2020-11-24] MEDS: Calcium (Elemental) 500 MG Tablet PO ×2 (08:05→16:20)
[2020-11-24] MEDS: Sertraline 100 MG Tablet PO (08:05)
[2020-11-24] MEDS: CARBIDOPA/LEVODOPA CR 50/200 Tablet PO ×2 (08:51→22:04)
[2020-11-24 10:00] VITALS: PULSE 77; O2SAT 93
[2020-11-24] MEDS: Amantadine 100 MG Capsule PO ×2 (10:15→22:04)
[2020-11-24 13:55] VITALS: BP 113/57; PULSE 63; RESP 16; TEMP 36.3; O2SAT 99
[2020-11-25 06:15] VITALS: BP 133/73; PULSE 74; RESP 16; TEMP 35.9; O2SAT 95
[2020-11-25] MEDS: Iron Polysaccharide Complex 150 MG CAPSULE PO (06:16)
[2020-11-25] MEDS: Menthol/Lanolin/Calamine/Znox 113 GM Tube 1 APPLIC TOPICAL ×2 (06:17→20:21)
[2020-11-25] MEDS: Nystatin Powder 15gm Bottle 1 APPLIC TOPICAL ×2 (06:20→20:21)
[2020-11-25] MEDS: Sertraline 100 MG Tablet PO (07:43)
[2020-11-25] MEDS: Losartan Potassium 100 MG Tablet PO (07:43)
[2020-11-25] MEDS: Pantoprazole Sodium 40 MG Tablet PO (07:43)
[2020-11-25] MEDS: Pramipexole Di-HCl 0.5 MG Tablet PO ×3 (07:43→20:18)
[2020-11-25] MEDS: Carbidopa/Levodopa 25/250 Tablet PO ×4 (07:43→20:18)
[2020-11-25] MEDS: predniSONE 20 MG Tablet 40 MG PO (07:43)
[2020-11-25] MEDS: Calcium (Elemental) 500 MG Tablet PO ×2 (07:43→16:16)
[2020-11-25] MEDS: CARBIDOPA/LEVODOPA CR 50/200 Tablet PO ×2 (08:56→21:54)
[2020-11-25 09:15] VITALS: PULSE 78; O2SAT 93
[2020-11-25] MEDS: Amantadine 100 MG Capsule PO ×2 (10:03→21:54)
[2020-11-25 14:24] VITALS: BP 123/58; PULSE 90; RESP 18; TEMP 36.7; O2SAT 94
[2020-11-26 01:22] VITALS: BP 136/65; PULSE 81; RESP 18; TEMP 36.2; O2SAT 95
[2020-11-26] MEDS: Iron Polysaccharide Complex 150 MG CAPSULE PO (05:19)
[2020-11-26] MEDS: Nystatin Powder 15gm Bottle 1 APPLIC TOPICAL ×2 (05:21→20:10)
[2020-11-26] MEDS: Menthol/Lanolin/Calamine/Znox 113 GM Tube 1 APPLIC TOPICAL ×2 (05:21→20:11)
[2020-11-26 05:28] LABS: Absolute Neutrophil Count 6.7 X10^3/uL (2.0-7.7); Basophil# 0.03 X10^3/uL; Basophil% 0.3 % (0-1); Eosinophil# 0.18 X10^3/uL; Hematocrit 34.9 % (40-54); Hemoglobin 10.9 g/dL (13.0-16.5); Lymphocyte % 14.7 % (19-41); Mean Corp Hgb Conc 31.2 g/dL (32-36); Mean Corpuscular Hgb 29.3 pg (27.0-32.0); Mean Corpuscular Volume 93.8 fL (80-94); Mean Platelet Vol. 14.6 fl (6.2-12.0); Monocyte# 0.61 X10^3/uL; Monocyte% 6.9 % (0-10); NRBC Flagged by Analyzer 0 % (0-5); Neutrophil # 6.69 X10^3/uL (2.7-7.7); Neutrophil % 75.4 % (47-70); POSITIVE COUNT YES; Platelet Count 62 K/mm3 (150-450); RBC Distribution Width CV 16.2 % (11.6-14.6); RBC Distribution Width SD 55.6 fl (35.1-43.9); Red Blood Count 3.72 M/mm3 (4.6-6.2); White Blood Count 8.9 K/mm3 (4.4-11.0)
--- NOTE | 2020-11-26 07:00 | NURSING ---
LABS FAXED TO DR LANDIS PER HIS REQUEST.
[2020-11-26 07:46] VITALS: BP 128/70; PULSE 71
[2020-11-26] MEDS: Pramipexole Di-HCl 0.5 MG Tablet PO ×3 (07:48→20:10)
[2020-11-26] MEDS: Losartan Potassium 100 MG Tablet PO (07:48)
[2020-11-26] MEDS: Sertraline 100 MG Tablet PO (07:49)
[2020-11-26] MEDS: Carbidopa/Levodopa 25/250 Tablet PO ×4 (07:49→20:10)
[2020-11-26] MEDS: Pantoprazole Sodium 40 MG Tablet PO (07:49)
[2020-11-26] MEDS: predniSONE 20 MG Tablet 40 MG PO (07:50)
[2020-11-26] MEDS: Calcium (Elemental) 500 MG Tablet PO ×2 (07:50→16:41)
[2020-11-26] MEDS: CARBIDOPA/LEVODOPA CR 50/200 Tablet PO ×2 (08:36→22:24)
--- NOTE | 2020-11-26 08:45 | NURSING ---
this nurse took pt down by wheel chair for to take pt to dr. shaw appointment. left floor at 8:40 am.
--- NOTE | 2020-11-26 10:08 | NURSING ---
Back from appointment with Dr Lanier. No new orders. He will have another follow up next Thursday.
--- NOTE | 2020-11-26 10:13 | NURSING ---
this nurse brought pt back to floor at 10am in wheel chair from dropping him off after appointment.
[2020-11-26] MEDS: Amantadine 100 MG Capsule PO ×2 (10:20→22:24)
[2020-11-26 10:40] VITALS: PULSE 70; RESP 18; O2SAT 95
--- NOTE | 2020-11-26 11:51 | NURSING ---
Nurse from Dr Lanier's office calls and states she will be faxing over standing orders. Requests that we enter order for a CBC to be done every Thursday AM. Resident to have injections in their office on Mondays. will be transporting to all appointments. Next appointment this thursdayDec 03 at 10:15. Orders entered.
--- NOTE | 2020-11-26 13:12 | NURSING ---
BLOOD SEEN IN OSTOMY BAG IN STOOL. REPORTED TO RN.
[2020-11-26 14:30] VITALS: BP 117/73; PULSE 83; RESP 18; TEMP 36.7; O2SAT 94
[2020-11-26 14:41] LABS: Bedside Glucose 133 mg/dL (70-110)
[2020-11-26 14:50] VITALS: BP 101/61; PULSE 78; RESP 18; TEMP 36.7; O2SAT 95
[2020-11-26] MEDS: 0.9% Normal Saline 1,000 ML 75 ML IV (14:56)
--- NOTE | 2020-11-26 15:09 | NURSING ---
Was called by nursing staff to assess the stoma d/t profuse bleeding. appliance was in place when this nurse arrived to the room. nursing stated that blood was shooting out from a small pinhole area. nursing states they did not remove the flange, just changed the pouch. this nurse removed the flange to thoroughly assess the stoma and peristomal skin. 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 Pt states that color has been present for a while now. patient does have a small separation to the right lateral edge of the stoma with some mild bleeding noted. This nurse did not have the camera at this time to take a photo d/t getting called from another unit. Nursing states there has been blood in the appliance off and on. Today had been the most bleeding noted though. Dr Flores had been notified by nursing and general surgery is now consulted to assess as well.
[2020-11-26 15:17] LABS: Absolute Lymphocyte Count 0.45 X10^3/uL (0.83-4.51); Absolute Neutrophil Count 8.4 X10^3/uL (2.0-7.7); Basophil# 0.01 X10^3/uL; Basophil% 0.1 % (0-1); Hematocrit 35.9 % (40-54); Hemoglobin 11.3 g/dL (13.0-16.5); Lymphocyte # 0.45 X10^3/ul (4.0); Lymphocyte % 4.9 % (19-41); Mean Corp Hgb Conc 31.5 g/dL (32-36); Mean Corpuscular Hgb 29.9 pg (27.0-32.0); Monocyte# 0.27 X10^3/uL; Monocyte% 2.9 % (0-10); NRBC Flagged by Analyzer 0 % (0-5); Neutrophil # 8.41 X10^3/uL (2.7-7.7); Neutrophil % 91.7 % (47-70); POSITIVE COUNT YES; POSITIVE DIFFERENTIAL YES; Platelet Count 73 K/mm3 (150-450); RBC Distribution Width CV 16.6 % (11.6-14.6); RBC Distribution Width SD 56.7 fl (35.1-43.9); Red Blood Count 3.78 M/mm3 (4.6-6.2); White Blood Count 9.2 K/mm3 (4.4-11.0)
--- NOTE | 2020-11-26 15:21 | NURSING ---
MINE EQUIPMENT DESIGN ENGINEER called at 1425 d/t bleeding from colostomy, difficulty getting it stopped. this ghost writer was notified that pt had blood in stool, removed bag to assess stoma to check for bleeding, cleansed around stoma and projectile bleeding started approx size of a pin hole to right of stoma pressure applied for several minutes, assisted to bed, bleeding stopped. Dr Spencer ordered 0.9 NS @ 75cc/hr, consult general surgery, & labs. had wound nurse assess area. She changed colostomy flange and noted a purple hue skin around stoma where flange is placed. spoke with Dr Moran, who will be up today to see pt.
[2020-11-26 15:23] LABS: Differential Indicated SCAN CRITERIA MET
--- NOTE | 2020-11-26 15:53 | CHAPLAIN ---
Type of Pastoral Visit ___ Initial Visit ___ Follow-up Visit ___ On-call Visit ___ General Patient Visit ___ Spiritual Assessment ___ Family Conference ___ Bereavement _x__ Rapid Response ___ Code Blue ___ Other (describe below) Pastoral Care Referral From ___ Patient ___ Family ___ Nurse ___ Physician ___ Detention Attendant ___ [employer] Forces Weapons Sergeant ___ Other (describe below) Sacrament/Intervention ___ Active listening ___ Anointing ___ Religious ___ Bereavement ___ Communion ___ Evelyn exploration ___ ___ Life review ___ Prayer ___ Reconciliation ___ Sacrament of Sick ___ Supportive presence ___ Wedding ___ Other (describe below) Pastoral Comments responded to rapid response; numerous medical team members are in the room at this time; pt is stable; returned a couple of times to check on patient and situation but each time staff was busy caring for pt.
[2020-11-26 15:54] LABS: Anion Gap 8 (5-15); BUN 23 mg/dL (7-18); BUN/Creat Ratio 29.6 RATIO (10-20); Calcium,Total 8.7 mg/dL (8.5-10.1); Chloride 106 mmol/L (98-107); Creatinine, Serum 0.78 mg/dL (0.70-1.30); EST Glomerular Filtration Rate 103 mL/min (>60); Est Glom Filt Rate - Afr Amer 124 mL/min (>60); Estimated Creatinine Clearance 70.78 ml/min; Glucose 136 mg/dL (74-106); Potassium 4.2 mmol/L (3.5-5.1); Sodium Level 138 mmol/L (136-145)
[2020-11-26 16:06] LABS: Differential Comment SCANNED
--- NOTE | 2020-11-26 16:23 | PCM.CONS.GEN ---
Reason for Consult History of Present Illness: The patient is a 80 year old M [] Past Medical History Past Medical History (Chronic Problems): Chronic Problems Chronic ITP (idiopathic thrombocytopenia) (Chronic) Idiopathic thrombocytopenia (Chronic) Prostate cancer (Chronic) Closed left hip fracture (Chronic) Displaced intertrochanteric fracture of left femur (Chronic) WBAT, pt on xarelto x 30 days post operative, final dose 01/23 Left wrist fracture (Chronic) Vitamin D deficiency (Chronic) Osteoporosis (Chronic) GERD (gastroesophageal reflux disease) (Chronic) Depression (Chronic) Hypertension (Chronic) Patellar instability (Chronic) S/P ORIF (open reduction internal fixation) fracture (Chronic) 11/2716 Dr Ott left intertrochanteric fracture 10/04/[address] Rebolledo right patellar fracture Parkinson disease (Chronic) mirapex increased during this admission, will require new prescription at d/c Allergies haloperidol [From Haldol] Allergy (Verified 10/29/20 13:52) as a parkinson's pt was told never to have it Penicillins Allergy (Verified 10/29/20 13:52) Rash Home Medications: Ambulatory Orders Medication Instructions Recorded Carbidopa/Levodopa 25/250 [Sinemet 1 tab PO 30,1130,1630,2030 08/27/15 25/250] Sertraline HCl [Zoloft] 100 mg PO DAILY@72908/27/15 Acetaminophen [Tylenol Tablet] 650 mg PO Q6H PRN PRN #0 tablet 12/25/16 Calcium (Elemental) [Os-Raheem 500] 630 mg PO BID 11/19/18 Carbidopa/Levodopa [Carbidopa-Levo 1 each PO BID@0900,219911/19/18 ER 50-200 Tab] Lansoprazole [Prevacid] 30 mg PO DAILY@72911/19/18 Losartan Potassium [Cozaar] 100 mg PO DAILY@72911/19/18 Alendronate Sodium [Fosamax] 70 mg PO TU 10/29/20 Amantadine [Symmetrel] 1 tab PO BID@1000,0 10/29/20 Ensure Enlive 120 ml PO 4X/DAY 10/29/20 Ergocalciferol [Vitamin D] 50,000 unit PO Th@0800 10/29/20 Pramipexole Di-HCl [Mirapex] 0.5 mg PO TID@30,1400,2030 10/29/20 Oxycodone [Oxyir] 5 - 10 mg PO Q4H PRN PRN #15 tab 11/01/20 predniSONE tablet 40 mg PO DAILY@0800 11/01/20 Surgical History: cholecystectomy, colectomy - Colostomy., - - Prostate surgery for prostate cancer, Left hip ORIF, Right knee patella fracture, Right ankle surgery, Left 2nd PIPJ arthrodesis, Left wrist closed reduction, Right hip ORIF nail. Psychiatric History: Depression Lives: Spouse/ Significant Other Smoking Status: Never smoker Tobacco Use: Non-smoker Alcohol: None Drugs: None - *Family History Maternal History Items: - Paternal History Items: Renal Disease Patient Problems: Active and Suspected Problems Closed right hip fracture (Acute) Debility (Acute) Frequent falls (Acute) - Physical Exam Vitals/I&O's: Vital Signs Temp Pulse Resp BP Pulse Ox 98.0 F 78 18 101/61 95 11/26/20 14:50 11/26/20 14:50 11/26/20 14:50 11/26/20 14:50 11/26/20 14:50 Oxygen Flow Rate (L/min) 97 Oxygen Delivery Method Room Air Weight: 193 lb 1.011 oz Body Mass Index (BMI) 26.9 Intake and Output for Last 24 Hours 11/24/20 11/25/20 11/26/20 23:59 23:59 23:59 Intake Total 840 / 840 840 / 840 360 / 360 Balance 840 / 840 840 / 840 360 / 360 Microbiology Past 72 Hours 11/26/20 10:11 Nasal Secretion SARS-CoV-2 Antigen (Rapid) - Final Laboratory Results 11/26/20 05:13: WBC 8.9, RBC 3.72 L, Hgb 10.9 L, Hct 34.9 L, MCV 93.8, MCH 29.3, MCHC 31.2 L, RDW Std Deviation 55.6 H, RDW Coeff of Shahid 16.2 H, Plt Count 62 L, MPV 14.6 H, Immature Gran % (Auto) 0.700, Neut % (Auto) 75.4 H, Lymph % (Auto) 14.7 L, Gem % (Auto) 6.9, Eos % (Auto) 2.0, Baso % (Auto) 0.3, Absolute Neuts (auto) 6.7, Absolute Lymphs (auto) 1.30, Nucleated RBC % 0 11/26/20 14:35: POC Glucose 133 H 11/26/20 15:02: WBC 9.2, RBC 3.78 L, Hgb 11.3 L, Hct 35.9 L, MCV 95.0 H, MCH 29.9, MCHC 31.5 L, RDW Std Deviation 56.7 H, RDW Coeff of Shahid 16.6 H, Plt Count 73 L, Immature Gran % (Auto) 0.400, Neut % (Auto) 91.7 H, Lymph % (Auto) 4.9 L, Gem % (Auto) 2.9, Eos % (Auto) 0.0, Baso % (Auto) 0.1, Absolute Neuts (auto) 8.4 H, Absolute Lymphs (auto) 0.45 L, Nucleated RBC % 0, Differential Comment SCANNED 11/26/20 15:02: Sodium 138, Potassium 4.2, Chloride 106, Carbon Dioxide 24.0, Anion Gap 8, BUN 23 H, Creatinine 0.78, Estim Creat Clear Calc 70.78, Est GFR (MDRD) Af Amer 124, Est GFR (MDRD) Non-Af 103, BUN/Creatinine Ratio 29.6 H, Glucose 136 H, Calcium 8.7 Current Medications Acetaminophen (Acetaminophen 500 Mg Tablet) 1,000 mg PO Q6H PRN PRN PRN Reason: Pain Score 1-5 Last Admin: 11/13/20 09:42 Dose: 1,000 mg Documented by: Alendronate Sodium (Alendronate Sodium 70 Mg Tablet) 70 mg PO TU [facility] Last Admin: 11/20/20 06:16 Dose: 70 mg Documented by: Amantadine HCl (Amantadine 100 Mg Capsule) 100 mg PO BID@1000,2200 [facility] Last Admin: 11/26/20 10:20 Dose: 100 mg Documented by: Bisacodyl (Bisacodyl 10 Mg Suppository) 10 mg RECTAL DAILY PRN PRN Reason: Constipation Calamine/Phenol (Menthol/Lanolin/Calamine/Znox 113 Gm Tube) 1 applic TOPICAL 0600,2200 [facility]; Protocol Last Admin: 11/26/20 05:21 Dose: 1 applicatio Documented by: Calcium Carbonate (Calcium (Elemental) 500 Mg Tablet) 500 mg PO BIDCM [facility] Last Admin: 11/26/20 07:50 Dose: 500 mg Documented by: Carbidopa/Levodopa (Carbidopa/Levodopa 25/250 Tablet) 1 tablet PO 0730,1130,1630,2030 [facility] Last Admin: 11/26/20 11:32 Dose: 1 tablet Documented by: Carbidopa/Levodopa (Carbidopa/Levodopa Cr 50/200 Tablet) 1 tablet PO BID@0900,2200 [facility] Last Admin: 11/26/20 08:36 Dose: 1 tablet Documented by: Ergocalciferol (Ergocalciferol 50,000 Unit Capsule) 50,000 unit PO Th@0800 [facility] Last Admin: 11/22/20 07:48 Dose: 50,000 unit Documented by: Sodium Chloride () 1,000 mls @ 75 mls/hr IV .[id number] [facility] Last Admin: 11/26/20 14:56 Dose: 75 mls/hr Documented by: Losartan Potassium (Losartan Potassium 100 Mg Tablet) 100 mg PO DAILY@729 [facility] Last Admin: 11/26/20 07:48 Dose: 100 mg Documented by: Magnesium Hydroxide (Magnesium Hydroxide 30 Ml Udc) 30 ml PO DAILY PRN PRN Reason: Constipation Nutritional Formula (Lactose Free) (Ensure Enlive 120 Ml Liquid) 120 ml PO 4X/DAY [facility] Last Admin: 11/26/20 11:32 Dose: Not Given Documented by: Nystatin (Nystatin Powder 15gm Bottle) 1 applic TOPICAL 0600,2200 [facility]; Protocol Last Admin: 11/26/20 05:21 Dose: 1 applicatio Documented by: Oxycodone HCl (Oxycodone 5 Mg Tablet) 5 mg PO Q4H PRN PRN PRN Reason: Pain Score 6-10 Pantoprazole Sodium (Pantoprazole Sodium 40 Mg Tablet) 40 mg PO DAILY@07 [facility] Last Admin: 11/26/20 07:49 Dose: 40 mg Documented by: Polyethylene Glycol (Polyethylene Glycol 3350 17 Gm Packet) 17 gm PO DAILY PRN PRN Reason: Constipation Polysaccharide Iron Complex (Iron Polysaccharide Complex 150 Mg Capsule) 150 mg PO DAILY [facility] Last Admin: 11/26/20 05:19 Dose: 150 mg Documented by: Pramipexole Dihydrochloride (Pramipexole Di-Hcl 0.5 Mg Tablet) 0.5 mg PO TID@0730,1400,2030 [facility] Last Admin: 11/26/20 13:28 Dose: 0.5 mg Documented by: Prednisone (Prednisone 20 Mg Tablet) 40 mg PO DAILY@0800 [facility] Last Admin: 11/26/20 07:50 Dose: 40 mg Documented by: Senna/Docusate Sodium (Senna/Docusate Sodium 1 Tablet) 2 tablet PO BID PRN PRN Reason: Constipation Last Admin: 11/21/20 05:17 Dose: 2 tablet Documented by: Sertraline HCl (Sertraline 100 Mg Tablet) 100 mg PO DAILY@0730 [facility] Last Admin: 11/26/20 07:49 Dose: 100 mg Documented by: Sodium Chloride (0.9% Saline Lock 10 Ml Syringe) 10 - 40 ml IV UD PRN PRN Reason: SALINE FLUSH Assessment/Plan All Active Problems Closed right hip fracture (Acute) Debility (Acute) Frequent falls (Acute) Fall (Acute) Hip fracture (Acute) Radius and ulna distal fracture (Resolved) Right patella fracture (Resolved) 72-year-old male with left lower quadrant colostomy with bleeding 1. Bleeding at colostomy is currently resolved with pressure held. 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 Patient denies any liver disease or history of drinking.We will continue to monitor, If this were to be varices and there were continued bleeding it could possibly need angio for embolization. Dea Moran M.D. Pager: [phone] [facility] [address] [place] [address], [facility], [address] [place] [address] Office: [phone]
--- NOTE | 2020-11-26 16:51 | CON.PCM_ITS ---
Reason for Consult Date of Consultation: 11/26/20 History of Present Illness: Previous consultation note accidentally signed before complete The patient is a 80 year old M admitted to TCU had DERRICK BOAT LEVERMAN called due to squirting blood from the colostomy site. The bleeding did resolve with pressure being held. Currently there is no bleeding from the 3:00 area of the left lower quadrant colostomy which is where the nurse pointed to the previous bleeding from. Patient denies ever having an issue like this previously. Patient states he had his colostomy placed somewhere in [place] due to colorectal cancer. Patient does have thrombocytopenia with platelets in the 30s to 40s yesterday did improved to the 60s and patient is being followed/treated for this by Dr. Lanier. Patient also denies any history of cirrhosis or liver disease or heavy alcohol use. Past Medical History Past Medical History (Chronic Problems): Chronic Problems Chronic ITP (idiopathic thrombocytopenia) (Chronic) Idiopathic thrombocytopenia (Chronic) Prostate cancer (Chronic) Closed left hip fracture (Chronic) Displaced intertrochanteric fracture of left femur (Chronic) WBAT, pt on xarelto x 30 days post operative, final dose 01/23 Left wrist fracture (Chronic) Vitamin D deficiency (Chronic) Osteoporosis (Chronic) GERD (gastroesophageal reflux disease) (Chronic) Depression (Chronic) Hypertension (Chronic) Patellar instability (Chronic) S/P ORIF (open reduction internal fixation) fracture (Chronic) 11/2716 Dr Ott left intertrochanteric fracture 10/04/[address] Rebolledo right patellar fracture Parkinson disease (Chronic) mirapex increased during this admission, will require new prescription at d/c Allergies haloperidol [From Haldol] Allergy (Verified 10/29/20 13:52) as a parkinson's pt was told never to have it Penicillins Allergy (Verified 10/29/20 13:52) Rash Home Medications: Ambulatory Orders Medication Instructions Recorded Carbidopa/Levodopa 25/250 [Sinemet 1 tab PO 0730,1130,1630,2030 08/27/15 25/250] Sertraline HCl [Zoloft] 100 mg PO DAILY@0730 08/27/15 Acetaminophen [Tylenol Tablet] 650 mg PO Q6H PRN PRN #0 tablet 12/25/16 Calcium (Elemental) [Os-Raheem 500] 630 mg PO BID 11/19/18 Carbidopa/Levodopa [Carbidopa-Levo 1 each PO BID@00,219911/19/18 ER 50-200 Tab] Lansoprazole [Prevacid] 30 mg PO DAILY@72911/19/18 Losartan Potassium [Cozaar] 100 mg PO DAILY@72911/19/18 Alendronate Sodium [Fosamax] 70 mg PO TU 10/29/20 Amantadine [Symmetrel] 1 tab PO BID@1000,219910/29/20 Ensure Enlive 120 ml PO 4X/DAY 10/29/20 Ergocalciferol [Vitamin D] 50,000 unit PO Th@79910/29/20 Pramipexole Di-HCl [Mirapex] 0.5 mg PO TID@729,1400,202910/29/20 Oxycodone [Oxyir] 5 - 10 mg PO Q4H PRN PRN #15 tab 11/01/20 predniSONE tablet 40 mg PO DAILY@0811/01/20 Surgical History: cholecystectomy, colectomy - Colostomy., - - Prostate surgery for prostate cancer, Left hip ORIF, Right knee patella fracture, Right ankle surgery, Left 2nd PIPJ arthrodesis, Left wrist closed reduction, Right hip ORIF nail. Psychiatric History: Depression Lives: Spouse/ Significant Other Smoking Status: Never smoker Tobacco Use: Non-smoker Alcohol: None Drugs: None - *Family History Maternal History Items: - Paternal History Items: Renal Disease Review of Systems Constitutional: Denies: Anorexia Eyes: Denies: Blurred vision HEENT: Denies: Difficulty Swallowing Cardiovascular: Denies: Chest Pain Respiratory: Denies: Cough Gastrointestinal: Denies: Abdominal Pain, Nausea, Vomiting Hematologic/ Lymphatic: Denies: Easy Bleeding Patient Problems: Active and Suspected Problems Closed right hip fracture (Acute) Debility (Acute) Frequent falls (Acute) - Physical Exam Vitals/I&O's: Vital Signs Temp Pulse Resp BP Pulse Ox 98.0 F 78 18 101/61 95 11/26/20 14:50 11/26/20 14:50 11/26/20 14:50 11/26/20 14:50 11/26/20 14:50 Oxygen Flow Rate (L/min) 97 Oxygen Delivery Method Room Air Weight: 193 lb 1.011 oz Body Mass Index (BMI) 26.9 Intake and Output for Last 24 Hours 11/24/20 11/25/20 11/26/20 23:59 23:59 23:59 Intake Total 840 / 840 840 / 840 600 / 600 Balance 840 / 840 840 / 840 600 / 600 General: Alert, Cooperative, No apparent distress HEENT: Atraumatic Lungs: Normal air movement Cardiovascular: Regular rate Abdomen: Soft, Non Tender, Non-Distended, - - Left lower quadrant colostomy pink, no active bleeding from the 3:00 area; colostomy appliance in place.Unable to really see the surrounding skin. Microbiology Past 72 Hours 11/26/20 10:11 Nasal Secretion SARS-CoV-2 Antigen (Rapid) - Final Laboratory Results 11/26/20 05:13: WBC 8.9, RBC 3.72 L, Hgb 10.9 L, Hct 34.9 L, MCV 93.8, MCH 29.3, MCHC 31.2 L, RDW Std Deviation 55.6 H, RDW Coeff of Shahid 16.2 H, Plt Count 62 L, MPV 14.6 H, Immature Gran % (Auto) 0.700, Neut % (Auto) 75.4 H, Lymph % (Auto) 14.7 L, Frio % (Auto) 6.9, Eos % (Auto) 2.0, Baso % (Auto) 0.3, Absolute Neuts (auto) 6.7, Absolute Lymphs (auto) 1.30, Nucleated RBC % 0 11/26/20 14:35: POC Glucose 133 H 11/26/20 15:02: WBC 9.2, RBC 3.78 L, Hgb 11.3 L, Hct 35.9 L, MCV 95.0 H, MCH 29.9, MCHC 31.5 L, RDW Std Deviation 56.7 H, RDW Coeff of Shahid 16.6 H, Plt Count 73 L, Immature Gran % (Auto) 0.400, Neut % (Auto) 91.7 H, Lymph % (Auto) 4.9 L, Frio % (Auto) 2.9, Eos % (Auto) 0.0, Baso % (Auto) 0.1, Absolute Neuts (auto) 8.4 H, Absolute Lymphs (auto) 0.45 L, Nucleated RBC % 0, Differential Comment SCANNED 11/26/20 15:02: Sodium 138, Potassium 4.2, Chloride 106, Carbon Dioxide 24.0, Anion Gap 8, BUN 23 H, Creatinine 0.78, Estim Creat Clear Calc 70.78, Est GFR (MDRD) Af Amer 124, Est GFR (MDRD) Non-Af 103, BUN/Creatinine Ratio 29.6 H, Glucose 136 H, Calcium 8.7 Current Medications Acetaminophen (Acetaminophen 500 Mg Tablet) 1,000 mg PO Q6H PRN PRN PRN Reason: Pain Score 1-5 Last Admin: 11/13/20 09:42 Dose: 1,000 mg Documented by: Alendronate Sodium (Alendronate Sodium 70 Mg Tablet) 70 mg PO TU [facility] Last Admin: 11/20/20 06:16 Dose: 70 mg Documented by: Amantadine HCl (Amantadine 100 Mg Capsule) 100 mg PO BID@1000,2200 [facility] Last Admin: 11/26/20 10:20 Dose: 100 mg Documented by: Bisacodyl (Bisacodyl 10 Mg Suppository) 10 mg RECTAL DAILY PRN PRN Reason: Constipation Calamine/Phenol (Menthol/Lanolin/Calamine/Znox 113 Gm Tube) 1 applic TOPICAL 0600,2200 [facility]; Protocol Last Admin: 11/26/20 05:21 Dose: 1 applicatio Documented by: Calcium Carbonate (Calcium (Elemental) 500 Mg Tablet) 500 mg PO BIDCM [facility] Last Admin: 11/26/20 16:41 Dose: 500 mg Documented by: Carbidopa/Levodopa (Carbidopa/Levodopa 25/250 Tablet) 1 tablet PO 0730,1130,1630,2030 [facility] Last Admin: 11/26/20 16:41 Dose: 1 tablet Documented by: Carbidopa/Levodopa (Carbidopa/Levodopa Cr 50/200 Tablet) 1 tablet PO BID@0900,2200 [facility] Last Admin: 11/26/20 08:36 Dose: 1 tablet Documented by: Ergocalciferol (Ergocalciferol 50,000 Unit Capsule) 50,000 unit PO Th@0800 [facility] Last Admin: 11/22/20 07:48 Dose: 50,000 unit Documented by: Sodium Chloride () 1,000 mls @ 75 mls/hr IV .[id number] [facility] Last Admin: 11/26/20 14:56 Dose: 75 mls/hr Documented by: Losartan Potassium (Losartan Potassium 100 Mg Tablet) 100 mg PO DAILY@0730 [facility] Last Admin: 11/26/20 07:48 Dose: 100 mg Documented by: Magnesium Hydroxide (Magnesium Hydroxide 30 Ml Udc) 30 ml PO DAILY PRN PRN Reason: Constipation Nutritional Formula (Lactose Free) (Ensure Enlive 120 Ml Liquid) 120 ml PO 4X/DAY [facility] Last Admin: 11/26/20 16:34 Dose: 120 ml Documented by: Nystatin (Nystatin Powder 15gm Bottle) 1 applic TOPICAL 0600,2200 [facility]; Protocol Last Admin: 11/26/20 05:21 Dose: 1 applicatio Documented by: Oxycodone HCl (Oxycodone 5 Mg Tablet) 5 mg PO Q4H PRN PRN PRN Reason: Pain Score 6-10 Pantoprazole Sodium (Pantoprazole Sodium 40 Mg Tablet) 40 mg PO DAILY@729 [facility] Last Admin: 11/26/20 07:49 Dose: 40 mg Documented by: Polyethylene Glycol (Polyethylene Glycol 3350 17 Gm Packet) 17 gm PO DAILY PRN PRN Reason: Constipation Polysaccharide Iron Complex (Iron Polysaccharide Complex 150 Mg Capsule) 150 mg PO DAILY [facility] Last Admin: 11/26/20 05:19 Dose: 150 mg Documented by: Pramipexole Dihydrochloride (Pramipexole Di-Hcl 0.5 Mg Tablet) 0.5 mg PO TID@0730,1400,2030 [facility] Last Admin: 11/26/20 13:28 Dose: 0.5 mg Documented by: Prednisone (Prednisone 20 Mg Tablet) 40 mg PO DAILY@0800 [facility] Last Admin: 11/26/20 07:50 Dose: 40 mg Documented by: Senna/Docusate Sodium (Senna/Docusate Sodium 1 Tablet) 2 tablet PO BID PRN PRN Reason: Constipation Last Admin: 11/21/20 05:17 Dose: 2 tablet Documented by: Sertraline HCl (Sertraline 100 Mg Tablet) 100 mg PO DAILY@0730 [facility] Last Admin: 11/26/20 07:49 Dose: 100 mg Documented by: Sodium Chloride (0.9% Saline Lock 10 Ml Syringe) 10 - 40 ml IV UD PRN PRN Reason: SALINE FLUSH Assessment/Plan All Active Problems Closed right hip fracture (Acute) Debility (Acute) Frequent falls (Acute) Fall (Acute) Hip fracture (Acute) Radius and ulna distal fracture (Resolved) Right patella fracture (Resolved) 72-year-old male with left lower quadrant colostomy with bleeding 1. Bleeding at colostomy is currently resolved with pressure held. 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 Patient denies any liver disease or history of drinking.We will continue to monitor, If this were to be varices and there were continued bleeding it could possibly need angio for embolization. Dea Moran M.D. Pager: [phone] [facility] [address] [place] [address], [facility], [address] [place] [address] Office: [phone] Inpatient E&M: 85513 Init Hosp L2
--- NOTE | 2020-11-26 19:12 | PN_ITS ---
Subjective: Resident seen and examined for regulatory visit. 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 Dr. Lanier saw resident in office, prednisone added, Platelets now up to 73. Today was eventful, resident had bleeding from colostomy stoma which was difficult to stop. Dr. Moran consulted, she will return tomorrow to take down colostomy and examine stoma closely. Appreciate Dr. Lanier, Dr. Moran. Resident has not new complaints, he feels he is improving with therapy, he denied pain. Vitals/I&O's: Vital Signs Temp Pulse Resp BP Pulse Ox 98.0 F 78 18 101/61 95 11/26/20 14:50 11/26/20 14:50 11/26/20 14:50 11/26/20 14:50 11/26/20 14:50 Oxygen Flow Rate (L/min) 97 Oxygen Delivery Method Room Air Weight: 87.572 kg Body Mass Index (BMI) 26.9 Intake and Output for Last 24 Hours 11/24/20 11/25/20 11/26/20 23:59 23:59 23:59 Intake Total 840 / 840 840 / 840 600 / 600 Balance 840 / 840 840 / 840 600 / 600 Microbiology Past 72 Hours 11/26/20 10:11 Nasal Secretion SARS-CoV-2 Antigen (Rapid) - Final Laboratory Results 11/26/20 05:13: WBC 8.9, RBC 3.72 L, Hgb 10.9 L, Hct 34.9 L, MCV 93.8, MCH 29.3, MCHC 31.2 L, RDW Std Deviation 55.6 H, RDW Coeff of Shahid 16.2 H, Plt Count 62 L, MPV 14.6 H, Immature Gran % (Auto) 0.700, Neut % (Auto) 75.4 H, Lymph % (Auto) 14.7 L, [place] % (Auto) 6.9, Eos % (Auto) 2.0, Baso % (Auto) 0.3, Absolute Neuts (auto) 6.7, Absolute Lymphs (auto) 1.30, Nucleated RBC % 0 11/26/20 14:35: POC Glucose 133 H 11/26/20 15:02: WBC 9.2, RBC 3.78 L, Hgb 11.3 L, Hct 35.9 L, MCV 95.0 H, MCH 29.9, MCHC 31.5 L, RDW Std Deviation 56.7 H, RDW Coeff of Shahid 16.6 H, Plt Count 73 L, Immature Gran % (Auto) 0.400, Neut % (Auto) 91.7 H, Lymph % (Auto) 4.9 L, [place] % (Auto) 2.9, Eos % (Auto) 0.0, Baso % (Auto) 0.1, Absolute Neuts (auto) 8.4 H, Absolute Lymphs (auto) 0.45 L, Nucleated RBC % 0, Differential Comment SCANNED 11/26/20 15:02: Sodium 138, Potassium 4.2, Chloride 106, Carbon Dioxide 24.0, Anion Gap 8, BUN 23 H, Creatinine 0.78, Estim Creat Clear Calc 70.78, Est GFR (MDRD) Af Amer 124, Est GFR (MDRD) Non-Af 103, BUN/Creatinine Ratio 29.6 H, Glucose 136 H, Calcium 8.7 Past Medical History Past Medical History (Chronic Problems): Chronic Problems Chronic ITP (idiopathic thrombocytopenia) (Chronic) Idiopathic thrombocytopenia (Chronic) Prostate cancer (Chronic) Closed left hip fracture (Chronic) Displaced intertrochanteric fracture of left femur (Chronic) WBAT, pt on xarelto x 30 days post operative, final dose 01/23 Left wrist fracture (Chronic) Vitamin D deficiency (Chronic) Osteoporosis (Chronic) GERD (gastroesophageal reflux disease) (Chronic) Depression (Chronic) Hypertension (Chronic) Patellar instability (Chronic) S/P ORIF (open reduction internal fixation) fracture (Chronic) 11/2716 Dr Ott left intertrochanteric fracture 10/04/[address] Rebolledo right patellar fracture Parkinson disease (Chronic) mirapex increased during this admission, will require new prescription at d/c Allergies haloperidol [From Haldol] Allergy (Verified 10/29/20 13:52) as a parkinson's pt was told never to have it Penicillins Allergy (Verified 10/29/20 13:52) Rash Home Medications: Ambulatory Orders Medication Instructions Recorded Carbidopa/Levodopa 25/250 [Sinemet 1 tab PO 0730,1130,1630,2030 08/27/15 25/250] Sertraline HCl [Zoloft] 100 mg PO DAILY@0730 08/27/15 Acetaminophen [Tylenol Tablet] 650 mg PO Q6H PRN PRN #0 tablet 12/25/16 Calcium (Elemental) [Os-Raheem 500] 630 mg PO BID 11/19/18 Carbidopa/Levodopa [Carbidopa-Levo 1 each PO BID@0900,219911/19/18 ER 50-200 Tab] Lansoprazole [Prevacid] 30 mg PO DAILY@72911/19/18 Losartan Potassium [Cozaar] 100 mg PO DAILY@72911/19/18 Alendronate Sodium [Fosamax] 70 mg PO TU 10/29/20 Amantadine [Symmetrel] 1 tab PO BID@1000,219910/29/20 Ensure Enlive 120 ml PO 4X/DAY 10/29/20 Ergocalciferol [Vitamin D] 50,000 unit PO Th@79910/29/20 Pramipexole Di-HCl [Mirapex] 0.5 mg PO TID@0730,1400,202910/29/20 Oxycodone [Oxyir] 5 - 10 mg PO Q4H PRN PRN #15 tab 11/01/20 predniSONE tablet 40 mg PO DAILY@79911/01/20 Surgical History: cholecystectomy, colectomy - Colostomy., - - Prostate surgery for prostate cancer, Left hip ORIF, Right knee patella fracture, Right ankle surgery, Left 2nd PIPJ arthrodesis, Left wrist closed reduction, Right hip ORIF nail. Psychiatric History: Depression Lives: Spouse/ Significant Other Smoking Status: Never smoker Tobacco Use: Non-smoker Alcohol: None Drugs: None - *Family History Maternal History Items: - Paternal History Items: Renal Disease Capacity - Capacity Assessment Tool Can the patient make a choice & communicate that choice?: Yes Can the patient understand benefits, risks and alternatives?: Yes Can the patient make a logical, rational choice?: Yes Is the choice the patient makes consistent w/ their values?: Yes Is there an impending, emergent risk to the patient?: No Does the patient have an Advance Directive?: No Is there a Surrogate Available?: Yes i.e. HCPOA: Yes i.e. close relative (spouse, child, parent, sibling)?: Yes Review of Systems Constitutional: Denies: Chills, Fever, Weight Change HEENT: Denies: Head Aches, Sinus Congestion, Sinus Drainage Cardiovascular: Denies: Chest Pain, Palpitations Respiratory: Denies: Cough, Shortness of breath at rest, Sputum production Gastrointestinal: Denies: Abdominal Pain, Nausea, Vomiting Genitourinary: Denies: Dysuria Musculoskeletal: Denies: Joint Pain, Joint Tenderness Skin: Denies: Rash, Wounds Neurological: Denies: Numbness, Tingling, Focal weakness Psychiatric: Denies: Anxiety, Depression, Homicidal Ideations, Suicidal Ideations Hematologic/ Lymphatic: Denies: Easy Bruising, Easy Bleeding Patient Problems: Active and Suspected Problems Closed right hip fracture (Acute) Debility (Acute) Frequent falls (Acute) - Physical Exam Vitals/I&O's: Vital Signs Temp Pulse Resp BP Pulse Ox 98.0 F 78 18 101/61 95 11/26/20 14:50 11/26/20 14:50 11/26/20 14:50 11/26/20 14:50 11/26/20 14:50 Oxygen Flow Rate (L/min) 97 Oxygen Delivery Method Room Air Weight: 87.572 kg Body Mass Index (BMI) 26.9 Intake and Output for Last 24 Hours 11/24/20 11/25/20 11/26/20 23:59 23:59 23:59 Intake Total 840 / 840 840 / 840 600 / 600 Balance 840 / 840 840 / 840 600 / 600 General: Alert, Oriented x3, Cooperative HEENT: Atraumatic, PERRLA, EOMI, Normocephalic Neck: Supple, No JVD, Negative Carotid Bruits Lungs: Clear to auscultation, Normal air movement Cardiovascular: Regular rate, No murmurs Abdomen: Bowel Sounds Present, Soft, Non Tender, - - Colostomy left lower quadrant. Extremities: No edema, Capillary Refill Less than 3 Seconds Skin: No rashes, No breakdown Musculoskeletal: No Tenderness to Palpation of Joints or Extremities Neurological: Cranial nerves II-XII grossly intact Psych/Mental Status: Normal Affect, Appropriate Microbiology Past 72 Hours 11/26/20 10:11 Nasal Secretion SARS-CoV-2 Antigen (Rapid) - Final Laboratory Results 11/26/20 05:13: WBC 8.9, RBC 3.72 L, Hgb 10.9 L, Hct 34.9 L, MCV 93.8, MCH 29.3, MCHC 31.2 L, RDW Std Deviation 55.6 H, RDW Coeff of Shahid 16.2 H, Plt Count 62 L, MPV 14.6 H, Immature Gran % (Auto) 0.700, Neut % (Auto) 75.4 H, Lymph % (Auto) 14.7 L, [place] % (Auto) 6.9, Eos % (Auto) 2.0, Baso % (Auto) 0.3, Absolute Neuts (auto) 6.7, Absolute Lymphs (auto) 1.30, Nucleated RBC % 0 11/26/20 14:35: POC Glucose 133 H 11/26/20 15:02: WBC 9.2, RBC 3.78 L, Hgb 11.3 L, Hct 35.9 L, MCV 95.0 H, MCH 29.9, MCHC 31.5 L, RDW Std Deviation 56.7 H, RDW Coeff of Shahid 16.6 H, Plt Count 73 L, Immature Gran % (Auto) 0.400, Neut % (Auto) 91.7 H, Lymph % (Auto) 4.9 L, [place] % (Auto) 2.9, Eos % (Auto) 0.0, Baso % (Auto) 0.1, Absolute Neuts (auto) 8.4 H, Absolute Lymphs (auto) 0.45 L, Nucleated RBC % 0, Differential Comment SCANNED 11/26/20 15:02: Sodium 138, Potassium 4.2, Chloride 106, Carbon Dioxide 24.0, Anion Gap 8, BUN 23 H, Creatinine 0.78, Estim Creat Clear Calc 70.78, Est GFR (MDRD) Af Amer 124, Est GFR (MDRD) Non-Af 103, BUN/Creatinine Ratio 29.6 H, Glucose 136 H, Calcium 8.7 Current Medications Acetaminophen (Acetaminophen 500 Mg Tablet) 1,000 mg PO Q6H PRN PRN PRN Reason: Pain Score 1-5 Last Admin: 11/13/20 09:42 Dose: 1,000 mg Documented by: Alendronate Sodium (Alendronate Sodium 70 Mg Tablet) 70 mg PO TU [facility] Last Admin: 11/20/20 06:16 Dose: 70 mg Documented by: Amantadine HCl (Amantadine 100 Mg Capsule) 100 mg PO BID@1000,2200 [facility] Last Admin: 11/26/20 10:20 Dose: 100 mg Documented by: Bisacodyl (Bisacodyl 10 Mg Suppository) 10 mg RECTAL DAILY PRN PRN Reason: Constipation Calamine/Phenol (Menthol/Lanolin/Calamine/Znox 113 Gm Tube) 1 applic TOPICAL 0600,2200 [facility]; Protocol Last Admin: 11/26/20 05:21 Dose: 1 applicatio Documented by: Calcium Carbonate (Calcium (Elemental) 500 Mg Tablet) 500 mg PO BIDCM [facility] Last Admin: 11/26/20 16:41 Dose: 500 mg Documented by: Carbidopa/Levodopa (Carbidopa/Levodopa 25/250 Tablet) 1 tablet PO 0730,1130,1630,2030 [facility] Last Admin: 11/26/20 16:41 Dose: 1 tablet Documented by: Carbidopa/Levodopa (Carbidopa/Levodopa Cr 50/200 Tablet) 1 tablet PO BID@ 0900,2200 [facility] Last Admin: 11/26/20 08:36 Dose: 1 tablet Documented by: Ergocalciferol (Ergocalciferol 50,000 Unit Capsule) 50,000 unit PO Th@0800 [facility] Last Admin: 11/22/20 07:48 Dose: 50,000 unit Documented by: Sodium Chloride () 1,000 mls @ 75 mls/hr IV .[id number] [facility] Last Admin: 11/26/20 14:56 Dose: 75 mls/hr Documented by: Losartan Potassium (Losartan Potassium 100 Mg Tablet) 100 mg PO DAILY@0730 [facility] Last Admin: 11/26/20 07:48 Dose: 100 mg Documented by: Magnesium Hydroxide (Magnesium Hydroxide 30 Ml Udc) 30 ml PO DAILY PRN PRN Reason: Constipation Nutritional Formula (Lactose Free) (Ensure Enlive 120 Ml Liquid) 120 ml PO 4X/DAY [facility] Last Admin: 11/26/20 16:34 Dose: 120 ml Documented by: Nystatin (Nystatin Powder 15gm Bottle) 1 applic TOPICAL 0600,2200 [facility]; Protocol Last Admin: 11/26/20 05:21 Dose: 1 applicatio Documented by: Oxycodone HCl (Oxycodone 5 Mg Tablet) 5 mg PO Q4H PRN PRN PRN Reason: Pain Score 6-10 Pantoprazole Sodium (Pantoprazole Sodium 40 Mg Tablet) 40 mg PO DAILY@0730 [facility] Last Admin: 11/26/20 07:49 Dose: 40 mg Documented by: Polyethylene Glycol (Polyethylene Glycol 3350 17 Gm Packet) 17 gm PO DAILY PRN PRN Reason: Constipation Polysaccharide Iron Complex (Iron Polysaccharide Complex 150 Mg Capsule) 150 mg PO DAILY [facility] Last Admin: 11/26/20 05:19 Dose: 150 mg Documented by: Pramipexole Dihydrochloride (Pramipexole Di-Hcl 0.5 Mg Tablet) 0.5 mg PO TID@0730,1400,2030 [facility] Last Admin: 11/26/20 13:28 Dose: 0.5 mg Documented by: Prednisone (Prednisone 20 Mg Tablet) 40 mg PO DAILY@0800 [facility] Last Admin: 11/26/20 07:50 Dose: 40 mg Documented by: Senna/Docusate Sodium (Senna/Docusate Sodium 1 Tablet) 2 tablet PO BID PRN PRN Reason: Constipation Last Admin: 11/21/20 05:17 Dose: 2 tablet Documented by: Sertraline HCl (Sertraline 100 Mg Tablet) 100 mg PO DAILY@0730 [facility] Last Admin: 11/26/20 07:49 Dose: 100 mg Documented by: Sodium Chloride (0.9% Saline Lock 10 Ml Syringe) 10 - 40 ml IV UD PRN PRN Reason: SALINE FLUSH Assessment/Plan All Active Problems Closed right hip fracture (Acute) Debility (Acute) Frequent falls (Acute) Fall (Acute) Hip fracture (Acute) Radius and ulna distal fracture (Resolved) Right patella fracture (Resolved) 80 year old male with below past medical history significant for Parkinson Disease, frequent falls, hospitalized for right hip fracture, underwent ORIF, intramedullary nail 10/31/2020, admitted to TCU with debility, here for rehabilitation, strengthening, prior to discharge home with . * Debility - PT/OT. * Cognition - ST. * Pain - Tylenol 1000MG Q6H PRN pain (1-5), Oxycodone 5MG Q4H PRN pain (6-10). * Bowel - Miralax 17GM daily PRN, Senna/colace 2 tablets BID PRN, MOM 30ML daily PRN, Dulcolax 10MG daily PRN. * Adult immunization - Administer Prevnar 13, Pneumovax 23, Fluzone, COVID19 vaccine as appropriate. * DVT prophylaxis - Held due to anemia, low platelets. * Iron deficiency anemia - Ferrex 150MG daily, Hemoglobin improving. * Osteoporosis - Fosamax 70MG per week, Calcium 500MG BID. * Vitamin D deficiency - D2 50,000 units per week. * Parkinson Disease - Sinemet 25/250MG 1 tablet QID, Sinemet CR 50/200MG BID, Mirapex 0.5MG TID, Amantadine 100MG BID. * Nutrition - Ensure Enlive 120ML 4x/day. * Hypertension - Losartan 100MG daily. * GERD - Pantoprazole 40MG daily. * ITP - Prednisone 40MG daily, Platelets 73,000, appreciate Dr. Lanier's recommendations. * Depression - Sertraline 100MG daily, stable chronic rn long term care use, GDR not recommended. * Skin irritation - Calmoseptine BID. * Tinea Corporis - Nystatin powder BID. * Stoma bleeding - stopped, appreciate Dr. Moran recommendations.
[2020-11-27] MEDS: 0.9% Normal Saline 1,000 ML 75 ML IV (04:03)
[2020-11-27] MEDS: 0.9% Saline Lock 10 ML Syringe IV (04:04)
[2020-11-27 05:00] VITALS: BP 168/88; PULSE 70; RESP 18; TEMP 36.8; O2SAT 94
[2020-11-27] MEDS: Iron Polysaccharide Complex 150 MG CAPSULE PO (05:47)
[2020-11-27] MEDS: Alendronate Sodium 70 MG Tablet PO (05:47)
[2020-11-27] MEDS: Nystatin Powder 15gm Bottle 1 APPLIC TOPICAL ×2 (05:48→20:18)
[2020-11-27] MEDS: Menthol/Lanolin/Calamine/Znox 113 GM Tube 1 APPLIC TOPICAL ×2 (05:49→20:19)
[2020-11-27] MEDS: Carbidopa/Levodopa 25/250 Tablet PO ×4 (07:56→20:18)
[2020-11-27] MEDS: Pramipexole Di-HCl 0.5 MG Tablet PO ×3 (07:57→20:18)
[2020-11-27] MEDS: Sertraline 100 MG Tablet PO (07:57)
[2020-11-27] MEDS: Calcium (Elemental) 500 MG Tablet PO ×2 (07:57→16:20)
[2020-11-27] MEDS: Pantoprazole Sodium 40 MG Tablet PO (07:57)
[2020-11-27] MEDS: Losartan Potassium 100 MG Tablet PO (07:57)
[2020-11-27] MEDS: predniSONE 20 MG Tablet 40 MG PO (07:58)
[2020-11-27 08:03] VITALS: BP 131/70; PULSE 76
[2020-11-27] MEDS: CARBIDOPA/LEVODOPA CR 50/200 Tablet PO ×2 (09:10→22:13)
[2020-11-27] MEDS: Amantadine 100 MG Capsule PO ×2 (09:10→22:13)
--- NOTE | 2020-11-27 09:15 | NURSING ---
this nurse in to see pt at 8:15 am and checked ostomy and seen blood in pt stool same as yesterday. called rn to room. no complaints from pt at this time. will continue to monitor till comes to floor to see colostomy.
[2020-11-27 12:52] VITALS: BP 116/56; PULSE 88; RESP 20; TEMP 36.1; O2SAT 95
--- NOTE | 2020-11-27 13:38 | NURSING ---
advertising assistant Carmencita in to see pt and took pictures. new ostomy unit applied and nno at this time but to just monitor pt. no bleeding at this time. pt tolerated well. RN aware.
--- NOTE | 2020-11-27 14:01 | PCM.PN.SRG ---
Patient Problems: Active and Suspected Problems Closed right hip fracture (Acute) Debility (Acute) Frequent falls (Acute) Subjective: Patient evaluated resting comfortably in bed. He denies pain/discomfort. He notes intermittent bleeding in the ostomy bag for the last few months. He denies any previous episodes of significant bleeding like yesterday. Patient was noted to have blood within the stoma bag and small clot. - Physical Exam Vitals/I&O's: Vital Signs Temp Pulse Resp BP Pulse Ox 96.9 F L 88 20 H 116/56 L 95 11/27/20 12:52 11/27/20 12:52 11/27/20 12:52 11/27/20 12:52 11/27/20 12:52 Oxygen Flow Rate (L/min) 97 Oxygen Delivery Method Room Air Weight: 192 lb Body Mass Index (BMI) 26.9 Intake and Output for Last 24 Hours 11/25/20 11/26/20 11/27/20 23:59 23:59 23:59 Intake Total 840 / 840 960 / 960 2121.25 / 2121.25 Balance 840 / 840 960 / 960 2121.25 / 2121.25 General: Alert, Oriented x3, Cooperative Abdomen: Soft, Non Tender, - - Stoma- healthy red stoma. Purple skin discoloration surrounding the stoma. Medial lower edge of the stoma noted to have small ulcer versus varicose vein. Negative for active bleeding. Microbiology Past 72 Hours 11/26/20 10:11 Nasal Secretion SARS-CoV-2 Antigen (Rapid) - Final Laboratory Results 11/26/20 14:35: POC Glucose 133 H 11/26/20 15:02: WBC 9.2, RBC 3.78 L, Hgb 11.3 L, Hct 35.9 L, MCV 95.0 H, MCH 29.9, MCHC 31.5 L, RDW Std Deviation 56.7 H, RDW Coeff of Shahid 16.6 H, Plt Count 73 L, Immature Gran % (Auto) 0.400, Neut % (Auto) 91.7 H, Lymph % (Auto) 4.9 L, [place] % (Auto) 2.9, Eos % (Auto) 0.0, Baso % (Auto) 0.1, Absolute Neuts (auto) 8.4 H, Absolute Lymphs (auto) 0.45 L, Nucleated RBC % 0, Differential Comment SCANNED 11/26/20 15:02: Sodium 138, Potassium 4.2, Chloride 106, Carbon Dioxide 24.0, Anion Gap 8, BUN 23 H, Creatinine 0.78, Estim Creat Clear Calc 70.78, Est GFR (MDRD) Af Amer 124, Est GFR (MDRD) Non-Af 103, BUN/Creatinine Ratio 29.6 H, Glucose 136 H, Calcium 8.7 Current Medications Acetaminophen (Acetaminophen 500 Mg Tablet) 1,000 mg PO Q6H PRN PRN PRN Reason: Pain Score 1-5 Last Admin: 11/13/20 09:42 Dose: 1,000 mg Documented by: Alendronate Sodium (Alendronate Sodium 70 Mg Tablet) 70 mg PO TU [facility] Last Admin: 11/27/20 05:47 Dose: 70 mg Documented by: Amantadine HCl (Amantadine 100 Mg Capsule) 100 mg PO BID@1000,2200 [facility] Last Admin: 11/27/20 09:10 Dose: 100 mg Documented by: Bisacodyl (Bisacodyl 10 Mg Suppository) 10 mg RECTAL DAILY PRN PRN Reason: Constipation Calamine/Phenol (Menthol/Lanolin/Calamine/Znox 113 Gm Tube) 1 applic TOPICAL 0600,2200 [facility]; Protocol Last Admin: 11/27/20 05:49 Dose: 1 applicatio Documented by: Calcium Carbonate (Calcium (Elemental) 500 Mg Tablet) 500 mg PO BIDCM [facility] Last Admin: 11/27/20 07:57 Dose: 500 mg Documented by: Carbidopa/Levodopa (Carbidopa/Levodopa 25/250 Tablet) 1 tablet PO 0730,1130,1630,2030 [facility] Last Admin: 11/27/20 11:20 Dose: 1 tablet Documented by: Carbidopa/Levodopa (Carbidopa/Levodopa Cr 50/200 Tablet) 1 tablet PO BID@0900,2200 [facility] Last Admin: 11/27/20 09:10 Dose: 1 tablet Documented by: Ergocalciferol (Ergocalciferol 50,000 Unit Capsule) 50,000 unit PO Th@0800 [facility] Last Admin: 11/22/20 07:48 Dose: 50,000 unit Documented by: Losartan Potassium (Losartan Potassium 100 Mg Tablet) 100 mg PO DAILY@0730 [facility] Last Admin: 11/27/20 07:57 Dose: 100 mg Documented by: Magnesium Hydroxide (Magnesium Hydroxide 30 Ml Udc) 30 ml PO DAILY PRN PRN Reason: Constipation Nutritional Formula (Lactose Free) (Ensure Enlive 120 Ml Liquid) 120 ml PO 4X/DAY [facility] Last Admin: 11/27/20 11:21 Dose: Not Given Documented by: Nystatin (Nystatin Powder 15gm Bottle) 1 applic TOPICAL 0600,2200 [facility]; Protocol Last Admin: 11/27/20 05:48 Dose: 1 applicatio Documented by: Oxycodone HCl (Oxycodone 5 Mg Tablet) 5 mg PO Q4H PRN PRN PRN Reason: Pain Score 6-10 Pantoprazole Sodium (Pantoprazole Sodium 40 Mg Tablet) 40 mg PO DAILY@729 [facility] Last Admin: 11/27/20 07:57 Dose: 40 mg Documented by: Polyethylene Glycol (Polyethylene Glycol 3350 17 Gm Packet) 17 gm PO DAILY PRN PRN Reason: Constipation Polysaccharide Iron Complex (Iron Polysaccharide Complex 150 Mg Capsule) 150 mg PO DAILY [facility] Last Admin: 11/27/20 05:47 Dose: 150 mg Documented by: Pramipexole Dihydrochloride (Pramipexole Di-Hcl 0.5 Mg Tablet) 0.5 mg PO TID@0730,1400,2030 [facility] Last Admin: 11/27/20 13:09 Dose: 0.5 mg Documented by: Prednisone (Prednisone 20 Mg Tablet) 40 mg PO DAILY@0800 [facility] Last Admin: 11/27/20 07:58 Dose: 40 mg Documented by: Senna/Docusate Sodium (Senna/Docusate Sodium 1 Tablet) 2 tablet PO BID PRN PRN Reason: Constipation Last Admin: 11/21/20 05:17 Dose: 2 tablet Documented by: Sertraline HCl (Sertraline 100 Mg Tablet) 100 mg PO DAILY@0730 [facility] Last Admin: 11/27/20 07:57 Dose: 100 mg Documented by: Sodium Chloride (0.9% Saline Lock 10 Ml Syringe) 10 - 40 ml IV UD PRN PRN Reason: SALINE FLUSH Last Admin: 11/27/20 04:04 Dose: 10 ml Documented by: Medical Necessity - Tobacco Use Smoking Status: Never smoker Tobacco Use: Non-smoker Assessment/Plan All Active Problems Closed right hip fracture (Acute) Debility (Acute) Frequent falls (Acute) Fall (Acute) Hip fracture (Acute) Radius and ulna distal fracture (Resolved) Right patella fracture (Resolved) I am following this patient in conjunction with Dr. Moran Impression: Likely etiology Varicose vein versus ulcerated skin edge. Plan: Patient discussed with Dr. Moran. At this time recommend observation of the area. If bleeding occurs again hold pressure. Unfortunately cautery is not possible with a varicose vein. It will make for increase in bleeding. If bleeding continues, patient may need ligation or embolization of this area from a larger facility. Patient has had the opportunity to ask and have questions answered. Patient's nurse was also in the room. We will continue to monitor as needed. Inpatient E&M: [id number] [facility] L[facility]
--- NOTE | 2020-11-27 16:03 | CHAPLAIN ---
Type of Pastoral Visit ___ Initial Visit _x__ Follow-up Visit ___ On-call Visit ___ General Patient Visit ___ Spiritual Assessment ___ Family Conference ___ Bereavement ___ Rapid Response ___ Code Blue ___ Other (describe below) Pastoral Care Referral From _x__ Patient ___ Family _x__ Nurse ___ Physician ___ [employer] ___ Manager Client Support ___ Other (describe below) Sacrament/Intervention _x__ Active listening ___ Anointing ___ Zoroastrian ___ Bereavement ___ Communion ___ Evelyn exploration ___ ___ Life review _x__ Prayer ___ Reconciliation ___ Sacrament of Sick _x__ Supportive presence ___ Wedding ___ Other (describe below) Pastoral Comments RN recommended a visit with this horologist today after patient had rapid response yesterday; pt is welcoming of visit and eager to have the presence and prayer; pt admits to 'being scared' yesterday; pt states he is much better today
[2020-11-27 20:32] VITALS: PULSE 80; RESP 16; O2SAT 97
[2020-11-28 05:39] VITALS: BP 143/77; PULSE 70; RESP 16; TEMP 37; O2SAT 98
[2020-11-28] MEDS: Iron Polysaccharide Complex 150 MG CAPSULE PO (06:12)
[2020-11-28] MEDS: Menthol/Lanolin/Calamine/Znox 113 GM Tube 1 APPLIC TOPICAL ×2 (06:12→20:41)
[2020-11-28] MEDS: Nystatin Powder 15gm Bottle 1 APPLIC TOPICAL ×2 (06:13→20:41)
[2020-11-28] MEDS: Sertraline 100 MG Tablet PO (07:49)
[2020-11-28] MEDS: Losartan Potassium 100 MG Tablet PO (07:49)
[2020-11-28] MEDS: Carbidopa/Levodopa 25/250 Tablet PO ×4 (07:49→20:40)
[2020-11-28] MEDS: Pramipexole Di-HCl 0.5 MG Tablet PO ×3 (07:49→20:41)
[2020-11-28] MEDS: Calcium (Elemental) 500 MG Tablet PO ×2 (07:50→16:25)
[2020-11-28] MEDS: predniSONE 20 MG Tablet 40 MG PO (07:50)
[2020-11-28] MEDS: Pantoprazole Sodium 40 MG Tablet PO (07:50)
[2020-11-28] MEDS: CARBIDOPA/LEVODOPA CR 50/200 Tablet PO ×2 (08:50→22:17)
[2020-11-28 10:00] VITALS: PULSE 83; RESP 16; O2SAT 94
[2020-11-28] MEDS: Amantadine 100 MG Capsule PO ×2 (10:20→22:17)
[2020-11-28 13:56] VITALS: BP 106/62; PULSE 64; RESP 16; TEMP 35.8; O2SAT 96
[2020-11-29 05:00] VITALS: BP 145/78; PULSE 70; RESP 18; TEMP 36.6; O2SAT 96
[2020-11-29] MEDS: Nystatin Powder 15gm Bottle 1 APPLIC TOPICAL ×2 (05:16→22:54)
[2020-11-29] MEDS: Iron Polysaccharide Complex 150 MG CAPSULE PO (05:16)
[2020-11-29] MEDS: Menthol/Lanolin/Calamine/Znox 113 GM Tube 1 APPLIC TOPICAL ×2 (05:16→22:53)
[2020-11-29] MEDS: Carbidopa/Levodopa 25/250 Tablet PO ×4 (07:44→21:00)
[2020-11-29] MEDS: Calcium (Elemental) 500 MG Tablet PO ×2 (07:44→16:12)
[2020-11-29] MEDS: Pramipexole Di-HCl 0.5 MG Tablet PO ×3 (07:45→21:00)
[2020-11-29] MEDS: predniSONE 20 MG Tablet 40 MG PO (07:45)
[2020-11-29] MEDS: Losartan Potassium 100 MG Tablet PO (07:45)
[2020-11-29] MEDS: Pantoprazole Sodium 40 MG Tablet PO (07:46)
[2020-11-29] MEDS: Sertraline 100 MG Tablet PO (07:46)
[2020-11-29 07:50] VITALS: BP 138/70; PULSE 73
[2020-11-29] MEDS: CARBIDOPA/LEVODOPA CR 50/200 Tablet PO ×2 (09:07→22:54)
[2020-11-29] MEDS: Amantadine 100 MG Capsule PO ×2 (09:07→22:55)
--- NOTE | 2020-11-29 14:20 | NURSING ---
NO NEW UPDATES AND STATED HE TALKED TO TODAY.
[2020-11-30 05:00] VITALS: BP 139/76; PULSE 71; RESP 18; TEMP 36.6; O2SAT 93
[2020-11-30] MEDS: Iron Polysaccharide Complex 150 MG CAPSULE PO (05:44)
[2020-11-30] MEDS: Nystatin Powder 15gm Bottle 1 APPLIC TOPICAL ×2 (05:46→19:53)
[2020-11-30] MEDS: Menthol/Lanolin/Calamine/Znox 113 GM Tube 1 APPLIC TOPICAL ×2 (05:46→19:53)
[2020-11-30 05:51] LABS: Absolute Lymphocyte Count 1.39 X10^3/uL (0.83-4.51); Absolute Neutrophil Count 6.5 X10^3/uL (2.0-7.7); Basophil# 0.04 X10^3/uL; Basophil% 0.5 % (0-1); Eosinophil# 0.12 X10^3/uL; Eosinophils% 1.4 % (0-5); Hematocrit 36.9 % (40-54); Hemoglobin 11.3 g/dL (13.0-16.5); Lymphocyte # 1.39 X10^3/ul (4.0); Lymphocyte % 15.8 % (19-41); Mean Corp Hgb Conc 30.6 g/dL (32-36); Mean Corpuscular Hgb 28.8 pg (27.0-32.0); Mean Corpuscular Volume 94.1 fL (80-94); Mean Platelet Vol. 14.4 fl (6.2-12.0); Monocyte# 0.68 X10^3/uL; Monocyte% 7.7 % (0-10); NRBC Flagged by Analyzer 0 % (0-5); Neutrophil # 6.49 X10^3/uL (2.7-7.7); Neutrophil % 73.6 % (47-70); POSITIVE COUNT YES; Platelet Count 88 K/mm3 (150-450); RBC Distribution Width CV 15.9 % (11.6-14.6); RBC Distribution Width SD 54.8 fl (35.1-43.9); Red Blood Count 3.92 M/mm3 (4.6-6.2); White Blood Count 8.8 K/mm3 (4.4-11.0)
[2020-11-30 06:06] LABS: Anion Gap 5 (5-15); BUN 23 mg/dL (7-18); BUN/Creat Ratio 27.6 RATIO (10-20); Calcium,Total 8.5 mg/dL (8.5-10.1); Chloride 106 mmol/L (98-107); Creatinine, Serum 0.83 mg/dL (0.70-1.30); EST Glomerular Filtration Rate 95 mL/min (>60); Est Glom Filt Rate - Afr Amer 115 mL/min (>60); Estimated Creatinine Clearance 85.28 ml/min; Glucose 79 mg/dL (74-106); Potassium 3.8 mmol/L (3.5-5.1); Sodium Level 139 mmol/L (136-145)
[2020-11-30] MEDS: Carbidopa/Levodopa 25/250 Tablet PO ×4 (07:56→19:53)
[2020-11-30] MEDS: Calcium (Elemental) 500 MG Tablet PO ×2 (07:56→16:53)
[2020-11-30] MEDS: Sertraline 100 MG Tablet PO (07:56)
[2020-11-30] MEDS: predniSONE 20 MG Tablet 40 MG PO (07:56)
[2020-11-30] MEDS: Pramipexole Di-HCl 0.5 MG Tablet PO ×3 (07:56→19:53)
[2020-11-30] MEDS: Losartan Potassium 100 MG Tablet PO (07:56)
[2020-11-30] MEDS: Pantoprazole Sodium 40 MG Tablet PO (07:56)
[2020-11-30] MEDS: CARBIDOPA/LEVODOPA CR 50/200 Tablet PO ×2 (09:30→21:24)
--- NOTE | 2020-11-30 09:53 | NURSING ---
Colostomy appliance changed. there was a moderate amount of formed dark brown stool in appliance. no bleeding noted. stoma is beefy red and moist. well budded. peristomal skin still with a purple hue. pt denies noticing any blood in the appliance the last couple of days. cleansed skin gently with warm water. pat dry. applied a new flat 2 piece [place] appliance with an [employer] ring. pt tolerated well. see stoma photo.
[2020-11-30] MEDS: Amantadine 100 MG Capsule PO ×2 (10:02→21:24)
--- NOTE | 2020-11-30 10:05 | NURSING ---
stoma photo: left lower abdomen
--- NOTE | 2020-11-30 13:09 | NURSING ---
Ostomy system was changed today by wound nurse.
[2020-11-30 16:00] VITALS: BP 114/65; PULSE 90; RESP 16; TEMP 36.4; O2SAT 95
[2020-12-01 02:17] VITALS: BP 114/68; PULSE 94; RESP 16; TEMP 36.4; O2SAT 95
[2020-12-01] MEDS: Iron Polysaccharide Complex 150 MG CAPSULE PO (06:16)
[2020-12-01] MEDS: Menthol/Lanolin/Calamine/Znox 113 GM Tube 1 APPLIC TOPICAL ×2 (06:17→20:24)
[2020-12-01] MEDS: Nystatin Powder 15gm Bottle 1 APPLIC TOPICAL ×2 (06:18→20:24)
[2020-12-01] MEDS: predniSONE 20 MG Tablet 40 MG PO (08:48)
[2020-12-01] MEDS: Pantoprazole Sodium 40 MG Tablet PO (08:49)
[2020-12-01] MEDS: Pramipexole Di-HCl 0.5 MG Tablet PO ×3 (08:49→20:19)
[2020-12-01] MEDS: Amantadine 100 MG Capsule PO ×2 (08:49→22:11)
[2020-12-01] MEDS: Calcium (Elemental) 500 MG Tablet PO ×2 (08:49→17:18)
[2020-12-01] MEDS: CARBIDOPA/LEVODOPA CR 50/200 Tablet PO ×2 (08:49→22:11)
[2020-12-01] MEDS: Carbidopa/Levodopa 25/250 Tablet PO ×4 (08:49→20:19)
[2020-12-01] MEDS: Losartan Potassium 100 MG Tablet PO (08:50)
[2020-12-01] MEDS: Sertraline 100 MG Tablet PO (08:50)
[2020-12-01 14:47] VITALS: BP 110/60; PULSE 87; RESP 20; TEMP 36.4; O2SAT 94
[2020-12-02 05:00] VITALS: BP 153/76; PULSE 74; RESP 18; TEMP 36.8; O2SAT 93
[2020-12-02] MEDS: Iron Polysaccharide Complex 150 MG CAPSULE PO (06:06)
[2020-12-02] MEDS: Nystatin Powder 15gm Bottle 1 APPLIC TOPICAL ×2 (06:07→22:48)
[2020-12-02] MEDS: Menthol/Lanolin/Calamine/Znox 113 GM Tube 1 APPLIC TOPICAL ×2 (06:08→22:47)
[2020-12-02] MEDS: Calcium (Elemental) 500 MG Tablet PO ×2 (07:46→17:04)
[2020-12-02] MEDS: Carbidopa/Levodopa 25/250 Tablet PO ×4 (07:46→20:33)
[2020-12-02] MEDS: predniSONE 20 MG Tablet 40 MG PO (07:46)
[2020-12-02] MEDS: Losartan Potassium 100 MG Tablet PO (07:47)
[2020-12-02] MEDS: Pantoprazole Sodium 40 MG Tablet PO (07:47)
[2020-12-02] MEDS: Sertraline 100 MG Tablet PO (07:47)
[2020-12-02] MEDS: Pramipexole Di-HCl 0.5 MG Tablet PO ×3 (07:47→20:33)
[2020-12-02] MEDS: Amantadine 100 MG Capsule PO ×2 (07:48→22:47)
[2020-12-02] MEDS: CARBIDOPA/LEVODOPA CR 50/200 Tablet PO ×2 (07:48→22:47)
--- NOTE | 2020-12-02 07:52 | NURSING ---
DC ensure on dec due to pt receiving 8oz with each meal tray. pt c/o not able to drink that much ensure every day
[2020-12-02 14:34] VITALS: BP 114/63; PULSE 87; RESP 20; TEMP 36.3; O2SAT 95
[2020-12-02 21:45] VITALS: PULSE 76; RESP 16; O2SAT 96
--- NOTE | 2020-12-02 22:27 | NURSING ---
This nurse noted bloody stool in colostomy system when this nurse went to check collection device. This nurse removed collection device to empty and told patient that I would need to change system due to bloody area around peristomal when he gets in bed. Patient looks down at it and states, it gets like this sometime when I sitting up in the chair. I told him I would come back to when he's ready to get in bed and change appliance. Patient refused once he was in the bed states, it's not bleeding anymore. I didn't see any more bloody stool will continue to monitor during this shift. Stoma appearance beefy red, and peristomal irritated and red. Rn made aware.
[2020-12-03 05:00] VITALS: BP 146/81; PULSE 70; RESP 16; TEMP 36.6; O2SAT 94
[2020-12-03 05:50] LABS: Absolute Neutrophil Count 8.4 X10^3/uL (2.0-7.7); Basophil# 0.04 X10^3/uL; Basophil% 0.4 % (0-1); Eosinophil# 0.09 X10^3/uL; Eosinophils% 0.8 % (0-5); Hematocrit 36.9 % (40-54); Hemoglobin 11.4 g/dL (13.0-16.5); Mean Corp Hgb Conc 30.9 g/dL (32-36); Mean Corpuscular Hgb 29.1 pg (27.0-32.0); Mean Corpuscular Volume 94.1 fL (80-94); Mean Platelet Vol. 14.4 fl (6.2-12.0); Monocyte# 0.75 X10^3/uL; Monocyte% 6.9 % (0-10); NRBC Flagged by Analyzer 0 % (0-5); Neutrophil # 8.38 X10^3/uL (2.7-7.7); Neutrophil % 77.5 % (47-70); POSITIVE COUNT YES; Platelet Count 92 K/mm3 (150-450); RBC Distribution Width CV 15.7 % (11.6-14.6); RBC Distribution Width SD 54.4 fl (35.1-43.9); Red Blood Count 3.92 M/mm3 (4.6-6.2); White Blood Count 10.8 K/mm3 (4.4-11.0)
[2020-12-03] MEDS: Iron Polysaccharide Complex 150 MG CAPSULE PO (06:06)
[2020-12-03] MEDS: Menthol/Lanolin/Calamine/Znox 113 GM Tube 1 APPLIC TOPICAL ×2 (06:07→20:14)
[2020-12-03] MEDS: Nystatin Powder 15gm Bottle 1 APPLIC TOPICAL ×2 (06:07→20:14)
[2020-12-03] MEDS: Losartan Potassium 100 MG Tablet PO (08:04)
[2020-12-03] MEDS: Carbidopa/Levodopa 25/250 Tablet PO ×4 (08:04→20:11)
[2020-12-03] MEDS: Pramipexole Di-HCl 0.5 MG Tablet PO ×3 (08:04→20:11)
[2020-12-03] MEDS: predniSONE 20 MG Tablet 40 MG PO (08:04)
[2020-12-03] MEDS: Pantoprazole Sodium 40 MG Tablet PO (08:04)
[2020-12-03] MEDS: Sertraline 100 MG Tablet PO (08:05)
[2020-12-03] MEDS: Calcium (Elemental) 500 MG Tablet PO ×2 (08:05→17:19)
[2020-12-03] MEDS: CARBIDOPA/LEVODOPA CR 50/200 Tablet PO ×2 (09:00→22:04)
[2020-12-03] MEDS: Amantadine 100 MG Capsule PO ×2 (09:00→22:04)
--- NOTE | 2020-12-03 09:56 | NURSING ---
Labs sent with pt to Dr. Lanier's office
--- NOTE | 2020-12-03 12:34 | NURSING ---
Addendum entered by Aviva Heredia 12/03/20 15:08: Pt states he received another Nplate shot. Original Note: pt returned from Dr. Lanier's office, N.N.O.
--- NOTE | 2020-12-03 14:50 | NURSING ---
stoma photo: abdomen
--- NOTE | 2020-12-03 14:51 | NURSING ---
Was asked by nursing to assess the stoma for bleeding d/t a large amount of blood noted in the appliance. gently removed the appliance. pt had an area that was actively bleeding to the right lateral side of the stoma at approx 8 o'clock position. direct pressure held to this area for approx 5 min. bleeding stopped. there is still a purple hue noted to the peristomal skin. no other areas of bleeding noted. very gently cleansed the skin with warm water. pat dry. applied a new 2 piece flat [place] appliance with an Adapt ring. pt tolerated well. see stoma photo.
[2020-12-03 14:54] VITALS: BP 111/55; PULSE 83; RESP 16; TEMP 36.4; O2SAT 93
[2020-12-04 05:00] VITALS: BP 149/81; PULSE 70; RESP 18; TEMP 36.6; O2SAT 95
[2020-12-04] MEDS: Alendronate Sodium 70 MG Tablet PO (05:42)
[2020-12-04] MEDS: Iron Polysaccharide Complex 150 MG CAPSULE PO (05:42)
[2020-12-04] MEDS: Nystatin Powder 15gm Bottle 1 APPLIC TOPICAL ×2 (05:44→20:28)
[2020-12-04] MEDS: Menthol/Lanolin/Calamine/Znox 113 GM Tube 1 APPLIC TOPICAL ×2 (05:44→20:28)
[2020-12-04] MEDS: predniSONE 20 MG Tablet 40 MG PO (07:41)
[2020-12-04] MEDS: Carbidopa/Levodopa 25/250 Tablet PO ×4 (07:41→20:27)
[2020-12-04] MEDS: Pramipexole Di-HCl 0.5 MG Tablet PO ×3 (07:41→20:28)
[2020-12-04] MEDS: Losartan Potassium 100 MG Tablet PO (07:41)
[2020-12-04] MEDS: Pantoprazole Sodium 40 MG Tablet PO (07:41)
[2020-12-04] MEDS: Calcium (Elemental) 500 MG Tablet PO ×2 (07:42→16:38)
[2020-12-04] MEDS: Sertraline 100 MG Tablet PO (07:42)
[2020-12-04 07:45] VITALS: BP 137/78; PULSE 75
[2020-12-04] MEDS: CARBIDOPA/LEVODOPA CR 50/200 Tablet PO ×2 (09:04→22:13)
[2020-12-04] MEDS: Amantadine 100 MG Capsule PO ×2 (09:04→22:13)
[2020-12-04 15:27] VITALS: BP 126/66; PULSE 88; RESP 20; TEMP 36.2; O2SAT 95
[2020-12-04 22:14] VITALS: PULSE 79; RESP 18; O2SAT 95
[2020-12-05 02:04] VITALS: BP 121/67; PULSE 79; RESP 18; TEMP 36.4; O2SAT 95
[2020-12-05] MEDS: Menthol/Lanolin/Calamine/Znox 113 GM Tube 1 APPLIC TOPICAL ×2 (06:02→20:09)
[2020-12-05] MEDS: Iron Polysaccharide Complex 150 MG CAPSULE PO (06:02)
[2020-12-05] MEDS: Nystatin Powder 15gm Bottle 1 APPLIC TOPICAL ×2 (06:03→20:09)
[2020-12-05] MEDS: predniSONE 20 MG Tablet 40 MG PO (07:41)
[2020-12-05] MEDS: Pramipexole Di-HCl 0.5 MG Tablet PO ×3 (07:41→20:08)
[2020-12-05] MEDS: Carbidopa/Levodopa 25/250 Tablet PO ×4 (07:41→20:08)
[2020-12-05] MEDS: Sertraline 100 MG Tablet PO (07:42)
[2020-12-05] MEDS: Calcium (Elemental) 500 MG Tablet PO ×2 (07:42→16:53)
[2020-12-05] MEDS: Losartan Potassium 100 MG Tablet PO (07:42)
[2020-12-05] MEDS: Pantoprazole Sodium 40 MG Tablet PO (07:42)
[2020-12-05] MEDS: CARBIDOPA/LEVODOPA CR 50/200 Tablet PO ×2 (08:51→22:08)
[2020-12-05 10:00] VITALS: PULSE 102; O2SAT 94
[2020-12-05] MEDS: Amantadine 100 MG Capsule PO ×2 (10:08→22:08)
[2020-12-05 15:13] VITALS: BP 90/50; PULSE 92; RESP 20; TEMP 36.1; O2SAT 95
[2020-12-05] MEDS: Senna/Docusate Sodium 1 Tablet 2 TABLET PO (22:09)
[2020-12-06 02:13] VITALS: BP 110/64; PULSE 84; RESP 16; TEMP 36.6; O2SAT 96
[2020-12-06] MEDS: Iron Polysaccharide Complex 150 MG CAPSULE PO (05:59)
[2020-12-06] MEDS: Menthol/Lanolin/Calamine/Znox 113 GM Tube 1 APPLIC TOPICAL ×2 (05:59→20:48)
[2020-12-06] MEDS: Nystatin Powder 15gm Bottle 1 APPLIC TOPICAL ×2 (06:00→20:48)
[2020-12-06] MEDS: Carbidopa/Levodopa 25/250 Tablet PO ×4 (07:48→20:47)
[2020-12-06] MEDS: predniSONE 20 MG Tablet 40 MG PO (07:48)
[2020-12-06] MEDS: Losartan Potassium 100 MG Tablet PO (07:49)
[2020-12-06] MEDS: Sertraline 100 MG Tablet PO (07:49)
[2020-12-06] MEDS: Calcium (Elemental) 500 MG Tablet PO ×2 (07:49→16:34)
[2020-12-06] MEDS: Pantoprazole Sodium 40 MG Tablet PO (07:49)
[2020-12-06] MEDS: Pramipexole Di-HCl 0.5 MG Tablet PO ×3 (07:49→20:47)
[2020-12-06 07:52] VITALS: BP 140/81; PULSE 71
[2020-12-06] MEDS: CARBIDOPA/LEVODOPA CR 50/200 Tablet PO ×2 (09:27→22:26)
[2020-12-06] MEDS: Amantadine 100 MG Capsule PO ×2 (09:27→22:26)
[2020-12-06 11:27] VITALS: BP 116/67; PULSE 79; RESP 17; TEMP 36.4; O2SAT 97
--- NOTE | 2020-12-06 14:41 | CASEMGMT ---
Social Work Received call from SW at [facility] that spoke with her and expressed anxiety with discharge plans. Contacted - answered questions. inquired about pt's progress in therapy. Offered for therapy to contact her with details. Explained once DC date is set, SW will contact her to order HHC/DME needs and assist with process. Explained anytime has questions to call in and speak with any discipline. expressed feeling less anxious and appreciative of update. Notified therapy. Will continue to follow. EMILY RamirezW
[2020-12-07 05:00] VITALS: BP 133/73; PULSE 71; RESP 18; TEMP 36.6; O2SAT 95
[2020-12-07] MEDS: Iron Polysaccharide Complex 150 MG CAPSULE PO (05:02)
[2020-12-07] MEDS: Menthol/Lanolin/Calamine/Znox 113 GM Tube 1 APPLIC TOPICAL ×2 (05:02→20:41)
[2020-12-07] MEDS: Nystatin Powder 15gm Bottle 1 APPLIC TOPICAL ×2 (05:02→20:45)
[2020-12-07 06:27] LABS: Anion Gap 4 (5-15); BUN 22 mg/dL (7-18); BUN/Creat Ratio 29.6 RATIO (10-20); Calcium,Total 8.4 mg/dL (8.5-10.1); Chloride 107 mmol/L (98-107); Creatinine, Serum 0.74 mg/dL (0.70-1.30); EST Glomerular Filtration Rate 108 mL/min (>60); Est Glom Filt Rate - Afr Amer 131 mL/min (>60); Estimated Creatinine Clearance 70.78 ml/min; Glucose 80 mg/dL (74-106); Potassium 3.7 mmol/L (3.5-5.1); Sodium Level 140 mmol/L (136-145)
[2020-12-07] MEDS: predniSONE 20 MG Tablet 40 MG PO (07:51)
[2020-12-07] MEDS: Losartan Potassium 100 MG Tablet PO (07:51)
[2020-12-07] MEDS: Pramipexole Di-HCl 0.5 MG Tablet PO ×3 (07:51→20:41)
[2020-12-07] MEDS: Calcium (Elemental) 500 MG Tablet PO ×2 (07:51→16:45)
[2020-12-07] MEDS: Pantoprazole Sodium 40 MG Tablet PO (07:51)
[2020-12-07] MEDS: Carbidopa/Levodopa 25/250 Tablet PO ×4 (07:51→20:41)
[2020-12-07] MEDS: Sertraline 100 MG Tablet PO (07:51)
[2020-12-07] MEDS: CARBIDOPA/LEVODOPA CR 50/200 Tablet PO ×2 (10:09→22:29)
[2020-12-07] MEDS: Amantadine 100 MG Capsule PO ×2 (10:09→22:29)
--- NOTE | 2020-12-07 11:11 | NURSING ---
Ostomy system changed today, minimal bleeding at ostomy site. Stoma ring applied Pt tolerated well
[2020-12-07 14:12] VITALS: BP 120/65; PULSE 91; RESP 16; TEMP 36.4; O2SAT 95
[2020-12-07 20:47] VITALS: PULSE 80; RESP 18; O2SAT 95
[2020-12-08 05:00] VITALS: BP 147/73; PULSE 75; RESP 16; TEMP 36.7; O2SAT 95
[2020-12-08] MEDS: Iron Polysaccharide Complex 150 MG CAPSULE PO (05:22)
[2020-12-08] MEDS: Nystatin Powder 15gm Bottle 1 APPLIC TOPICAL ×2 (05:23→20:49)
[2020-12-08] MEDS: Menthol/Lanolin/Calamine/Znox 113 GM Tube 1 APPLIC TOPICAL ×2 (05:27→20:48)
[2020-12-08] MEDS: Pramipexole Di-HCl 0.5 MG Tablet PO ×3 (07:50→20:48)
[2020-12-08] MEDS: Losartan Potassium 100 MG Tablet PO (07:50)
[2020-12-08] MEDS: Carbidopa/Levodopa 25/250 Tablet PO ×4 (07:50→20:48)
[2020-12-08] MEDS: Calcium (Elemental) 500 MG Tablet PO ×2 (07:51→16:39)
[2020-12-08] MEDS: predniSONE 20 MG Tablet 40 MG PO (07:51)
[2020-12-08] MEDS: Pantoprazole Sodium 40 MG Tablet PO (07:51)
[2020-12-08] MEDS: Sertraline 100 MG Tablet PO (07:52)
[2020-12-08 07:55] VITALS: BP 148/80; PULSE 77
[2020-12-08] MEDS: CARBIDOPA/LEVODOPA CR 50/200 Tablet PO ×2 (09:17→22:52)
[2020-12-08] MEDS: Amantadine 100 MG Capsule PO ×2 (09:17→22:52)
[2020-12-08 13:35] VITALS: PULSE 84; RESP 18; O2SAT 96
[2020-12-08 13:56] VITALS: BP 117/69; PULSE 82; RESP 16; TEMP 36.3; O2SAT 94
[2020-12-09 05:00] VITALS: BP 144/80; PULSE 69; RESP 18; TEMP 36.6; O2SAT 95
[2020-12-09] MEDS: Iron Polysaccharide Complex 150 MG CAPSULE PO (05:28)
[2020-12-09] MEDS: Menthol/Lanolin/Calamine/Znox 113 GM Tube 1 APPLIC TOPICAL ×2 (05:29→20:34)
[2020-12-09] MEDS: Nystatin Powder 15gm Bottle 1 APPLIC TOPICAL ×2 (05:29→20:34)
[2020-12-09] MEDS: Calcium (Elemental) 500 MG Tablet PO ×2 (07:43→16:33)
[2020-12-09] MEDS: predniSONE 20 MG Tablet 40 MG PO (07:43)
[2020-12-09] MEDS: Pantoprazole Sodium 40 MG Tablet PO (07:44)
[2020-12-09] MEDS: Losartan Potassium 100 MG Tablet PO (07:45)
[2020-12-09] MEDS: Carbidopa/Levodopa 25/250 Tablet PO ×4 (07:45→20:28)
[2020-12-09] MEDS: Pramipexole Di-HCl 0.5 MG Tablet PO ×3 (07:45→20:28)
[2020-12-09] MEDS: Sertraline 100 MG Tablet PO (07:45)
[2020-12-09 07:49] VITALS: BP 132/71; PULSE 71
[2020-12-09] MEDS: Amantadine 100 MG Capsule PO ×2 (09:26→22:44)
[2020-12-09] MEDS: CARBIDOPA/LEVODOPA CR 50/200 Tablet PO ×2 (09:27→22:44)
[2020-12-09 14:54] VITALS: BP 136/83; PULSE 82; RESP 16; TEMP 36.2; O2SAT 96
[2020-12-10 05:00] VITALS: BP 142/78; PULSE 75; RESP 18; TEMP 36.6; O2SAT 94
[2020-12-10 05:58] LABS: Absolute Lymphocyte Count 1.51 X10^3/uL (0.83-4.51); Absolute Neutrophil Count 8.9 X10^3/uL (2.0-7.7); Basophil# 0.05 X10^3/uL; Basophil% 0.4 % (0-1); Eosinophil# 0.11 X10^3/uL; Hematocrit 39.1 % (40-54); Lymphocyte # 1.51 X10^3/ul (4.0); Lymphocyte % 13.2 % (19-41); Mean Corp Hgb Conc 30.7 g/dL (32-36); Mean Corpuscular Hgb 28.9 pg (27.0-32.0); Mean Corpuscular Volume 94.2 fL (80-94); Mean Platelet Vol. 14.6 fl (6.2-12.0); Monocyte# 0.73 X10^3/uL; Monocyte% 6.4 % (0-10); NRBC Flagged by Analyzer 0 % (0-5); Neutrophil # 8.87 X10^3/uL (2.7-7.7); Neutrophil % 77.6 % (47-70); POSITIVE COUNT YES; Platelet Count 93 K/mm3 (150-450); RBC Distribution Width CV 15.5 % (11.6-14.6); RBC Distribution Width SD 53.7 fl (35.1-43.9); Red Blood Count 4.15 M/mm3 (4.6-6.2); White Blood Count 11.4 K/mm3 (4.4-11.0)
[2020-12-10] MEDS: Menthol/Lanolin/Calamine/Znox 113 GM Tube 1 APPLIC TOPICAL ×2 (06:05→22:20)
[2020-12-10] MEDS: Nystatin Powder 15gm Bottle 1 APPLIC TOPICAL ×2 (06:05→22:21)
[2020-12-10] MEDS: Iron Polysaccharide Complex 150 MG CAPSULE PO (06:05)
[2020-12-10 06:22] LABS: Anion Gap 5 (5-15); BUN 21 mg/dL (7-18); BUN/Creat Ratio 24.2 RATIO (10-20); Calcium,Total 8.5 mg/dL (8.5-10.1); Chloride 106 mmol/L (98-107); Creatinine, Serum 0.87 mg/dL (0.70-1.30); EST Glomerular Filtration Rate 91 mL/min (>60); Est Glom Filt Rate - Afr Amer 110 mL/min (>60); Estimated Creatinine Clearance 81.36 ml/min; Glucose 80 mg/dL (74-106); Potassium 3.7 mmol/L (3.5-5.1); Sodium Level 140 mmol/L (136-145)
[2020-12-10] MEDS: Pantoprazole Sodium 40 MG Tablet PO (08:33)
[2020-12-10] MEDS: Sertraline 100 MG Tablet PO (08:33)
[2020-12-10] MEDS: Calcium (Elemental) 500 MG Tablet PO ×2 (08:33→17:04)
[2020-12-10] MEDS: predniSONE 20 MG Tablet 40 MG PO (08:34)
[2020-12-10] MEDS: Losartan Potassium 100 MG Tablet PO (08:34)
[2020-12-10] MEDS: Carbidopa/Levodopa 25/250 Tablet PO ×4 (08:34→21:04)
[2020-12-10] MEDS: Pramipexole Di-HCl 0.5 MG Tablet PO ×3 (08:34→21:04)
[2020-12-10] MEDS: CARBIDOPA/LEVODOPA CR 50/200 Tablet PO ×2 (09:18→22:19)
[2020-12-10 10:00] VITALS: PULSE 85; O2SAT 94
[2020-12-10] MEDS: Amantadine 100 MG Capsule PO ×2 (10:03→22:19)
--- NOTE | 2020-12-10 11:09 | NURSING ---
Pt stated he had appointment with Dr. Lanier this morning Delmy confirmed this, pt left for appointment at 1030. This nurse talked with Dr. Lanier's office, they stated they are able to pull labs from [facility] and do not need us to fax them. Pt has standing appointment on thursday' with Dr. Lanier.
--- NOTE | 2020-12-10 13:27 | CASEMGMT ---
Social Work IDT set DC date 12/27. Spoke with whom is agreeable. Explained SW will notify Dora CARDOZO at [facility]. Dora will assist with nonskilled HHC. requesting hospital bed. [place] [facility] used [facility] prior, inquired if /pt would like to use them again or have a preference to a difference agency. /pt would like to use [facility]. Referral made for PT/OT/ST/SN. Spoke with Dora at [facility] of above information. Plan: DC home with 12/27 with [facility]/OT[facility]ST/SN, [facility] - hosp. bed, [facility] Jaqueline Dockery MSW APARTMENT LOCATOR
[2020-12-10 14:23] VITALS: BP 106/61; PULSE 80; RESP 18; TEMP 36.6; O2SAT 96
--- NOTE | 2020-12-10 16:26 | NURSING ---
Pt received Nplate shot today at Dr. Lanier's office, pt returned from appointment at [phone]
--- NOTE | 2020-12-10 19:26 | DCINST_ITS ---
- Discharge Diagnoses Current Active Problems: Current Active and Chronic Problems Closed right hip fracture (Acute) Debility (Acute) Frequent falls (Acute) Idiopathic thrombocytopenia (Chronic) Prostate cancer (Chronic) Vitamin D deficiency (Chronic) Osteoporosis (Chronic) GERD (gastroesophageal reflux disease) (Chronic) Depression (Chronic) Hypertension (Chronic) Parkinson disease (Chronic) mirapex increased during this admission, will require new prescription at d/c You will use the following diet at home:: No restrictions, Regular Your food should be the consistency of: Regular Your liquids should be the consistency of: Regular/Thin Discharge Activity: Return to Normal Activity, May Shower, Use Walker Weight Bearing Status: Weight bearing as tolerated Call your doctor if you observe: Fever of 101 or Higher, Inability to urinate, Inability to have a bowel movement, Shortness of breath, Chest pain, Uncontrolled pain Allergies/Adverse Reactions: Allergies haloperidol [From Haldol] Allergy (Verified 10/29/20 13:52) as a parkinson's pt was told never to have it Penicillins Allergy (Verified 10/29/20 13:52) Rash Medications to take at Discharge Carbidopa/Levodopa 25/250 [Sinemet 25/250] 1 tab PO 0730,1130,1630,202908/27/15 Sertraline HCl [Zoloft] 100 mg PO DAILY@72908/27/15 Calcium (Elemental) [Os-Raheem 500] 630 mg PO BID 11/19/18 Carbidopa/Levodopa [Carbidopa-Levo ER 50-200 Tab] 1 each PO BID@0900,219911/19/18 Lansoprazole [Prevacid] 30 mg PO DAILY@72911/19/18 Losartan Potassium [Cozaar] 100 mg PO DAILY@72911/19/18 Alendronate Sodium [Fosamax] 70 mg PO 10/29/20 Amantadine [Symmetrel] 1 tab PO BID@1000,219910/29/20 Ergocalciferol [Vitamin D] 50,000 unit PO Th@0810/29/20 Pramipexole Di-HCl [Mirapex] 0.5 mg PO TID@0730,1400,202910/29/20 Acetaminophen [Tylenol] 1,000 mg PO Q6H PRN PRN tablet 12/10/20 Iron Polysaccharide Complex [Ferrex 150] 150 mg PO DAILY #30 cap 12/10/20 Menthol/Lanolin/Calamine/Znox [Calmoseptine Ointment] 1 applic TOPICAL 0600,2200 tube 12/10/20 Nystatin Powder [Mycostatin Powder] 1 applic TOPICAL 0600,2200 bottle 12/10/20 predniSONE tablet 40 mg PO DAILY@0800 #120 tab 12/10/20 The following prescriptions were given: Iron Polysaccharide Complex [Ferrex 150] 150 mg PO DAILY #30 cap Transmission Status: Pending to [facility] [id number] predniSONE tablet 40 mg PO DAILY@0800 #120 tab Transmission Status: Pending to [facility] [id number] Primary Care Physician: Kendall Patel MD [Primary Care Provider] - Please follow up with your Primary Care Physician in: 1 week. Test Results: Test results from this visit will be discussed in further detail at your follow- up appointment, if applicable. Please Follow Up With: Dr. Borden When: 2 week post op appointment Please Follow Up With: Dr. Borden Please Follow Up With: Dr. Lanier When: 1 week. Proposed Discharge Date: 12/27/20
--- NOTE | 2020-12-10 19:28 | PCM.DC.SUM ---
Discharge Date and Diagnosis - Problem List Patient Problems: Active and Suspected Problems Closed right hip fracture (Acute) Debility (Acute) Frequent falls (Acute) Date of Admission: 11/01/20 Date of Discharge: 12/27/20 - Primary Discharge Diagnosis Acute Problems: Active Problems Closed right hip fracture (Acute) Debility (Acute) Frequent falls (Acute) - Secondary Discharge Diagnosis Chronic Problems: Chronic Problems Chronic ITP (idiopathic thrombocytopenia) (Chronic) Idiopathic thrombocytopenia (Chronic) Prostate cancer (Chronic) Closed left hip fracture (Chronic) Displaced intertrochanteric fracture of left femur (Chronic) WBAT, pt on xarelto x 30 days post operative, final dose 01/23 Left wrist fracture (Chronic) Vitamin D deficiency (Chronic) Osteoporosis (Chronic) GERD (gastroesophageal reflux disease) (Chronic) Depression (Chronic) Hypertension (Chronic) Patellar instability (Chronic) S/P ORIF (open reduction internal fixation) fracture (Chronic) 11/2716 Dr Ott left intertrochanteric fracture 10/04/[address] Rebolledo right patellar fracture Parkinson disease (Chronic) mirapex increased during this admission, will require new prescription at d/c Hospital Course and Treatment Imaging Results: 11/01/20 22:08 Diet: Regular - General Food consistency:: Soft & Bite Sized Liquid Consistency:: Regular/Thin Diet Comments: chopped meats but not minced; upright in chair for meals,pizza ok if cut up Clinical Impression(s) from Imaging Studies Hip/Pelvis X-Ray 11/19/20 15:00 IMPRESSION: Status post ORIF of the right intertrochanteric fracture. There is good alignment. Electronically Signed: Thomas Dennison MD at 15:37 EST , Service support , Labs (Last 48 Hours) 12/10/20 12/10/20 05:10 05:10 WBC 11.4 H RBC 4.15 L Hgb 12.0 L Hct 39.1 L MCV 94.2 H MCH 28.9 MCHC 30.7 L RDW Std Deviation 53.7 H RDW Coeff of Shahid 15.5 H Plt Count 93 L MPV 14.6 H Immature Gran % (Auto) 1.400 H Neut % (Auto) 77.6 H Lymph % (Auto) 13.2 L Dukes % (Auto) 6.4 Eos % (Auto) 1.0 Baso % (Auto) 0.4 Absolute Neuts (auto) 8.9 H Absolute Lymphs (auto) 1.51 Nucleated RBC % 0 Sodium 140 Potassium 3.7 Chloride 106 Carbon Dioxide 29.0 Anion Gap 5 BUN 21 H Creatinine 0.87 Estim Creat Clear Calc 81.36 Est GFR (MDRD) Af Amer 110 Est GFR (MDRD) Non-Af 91 BUN/Creatinine Ratio 24.2 H Glucose 80 Calcium 8.5 Operations: None Procedures: None Summary of Care Provided: The patient is a 80 year old Male with below past medical history significant for Parkinson Disease, frequent falls, hospitalized for right hip fracture, underwent ORIF, intramedullary nail 10/31/2020, admitted to TCU with debility, here for rehabilitation, strengthening, prior to discharge home with . Resident had low platelets due to ITP, Dr. Lanier added prednisone, and the platelet count improved. Resident had bleeding from his ostomy, General Surgery diagnosed either varicose vein versus ulcerated edge, recommended direct pressure, if worse, refer to tertiary center for embolization procedure. Bleeding stopped. Ferrex 150MG daily added for postoperative anemia, can stop once hemoglobin back to baseline. Discharge home with , [facility] PT/OT/ST/SN, [facility] bed, [facility]. Patient Problems: Active and Suspected Problems Closed right hip fracture (Acute) Debility (Acute) Frequent falls (Acute) - Physical Exam Vitals/I&O's: Vital Signs Temp Pulse Resp BP Pulse Ox 97.9 F 80 18 106/61 96 12/10/20 14:23 12/10/20 14:23 12/10/20 14:23 12/10/20 14:23 12/10/20 14:23 Oxygen Flow Rate (L/min) 97 Oxygen Delivery Method Room Air Weight: 86.835 kg Body Mass Index (BMI) 26.9 Intake and Output for Last 24 Hours 12/08/20 12/09/20 12/10/20 23:59 23:59 23:59 Intake Total 840 / 840 1080 / 1080 480 / 480 Output Total 300 / 300 300 / 300 Balance 540 / 540 780 / 780 480 / 480 Laboratory Results 12/10/20 05:10: WBC 11.4 H, RBC 4.15 L, Hgb 12.0 L, Hct 39.1 L, MCV 94.2 H, MCH 28.9, MCHC 30.7 L, RDW Std Deviation 53.7 H, RDW Coeff of Shahid 15.5 H, Plt Count 93 L, MPV 14.6 H, Immature Gran % (Auto) 1.400 H, Neut % (Auto) 77.6 H, Lymph % (Auto) 13.2 L, Dukes % (Auto) 6.4, Eos % (Auto) 1.0, Baso % (Auto) 0.4, Absolute Neuts (auto) 8.9 H, Absolute Lymphs (auto) 1.51, Nucleated RBC % 0 12/10/20 05:10: Sodium 140, Potassium 3.7, Chloride 106, Carbon Dioxide 29.0, Anion Gap 5, BUN 21 H, Creatinine 0.87, Estim Creat Clear Calc 81.36, Est GFR (MDRD) Af Amer 110, Est GFR (MDRD) Non-Af 91, BUN/Creatinine Ratio 24.2 H, Glucose 80, Calcium 8.5 Current Medications Acetaminophen (Acetaminophen 500 Mg Tablet) 1,000 mg PO Q6H PRN PRN PRN Reason: Pain Score 1-5 Last Admin: 11/13/20 09:42 Dose: 1,000 mg Documented by: Alendronate Sodium (Alendronate Sodium 70 Mg Tablet) 70 mg PO TU [facility] Last Admin: 12/04/20 05:42 Dose: 70 mg Documented by: Amantadine HCl (Amantadine 100 Mg Capsule) 100 mg PO BID@1000,2200 [facility] Last Admin: 12/10/20 10:03 Dose: 100 mg Documented by: Bisacodyl (Bisacodyl 10 Mg Suppository) 10 mg RECTAL DAILY PRN PRN Reason: Constipation Calamine/Phenol (Menthol/Lanolin/Calamine/Znox 113 Gm Tube) 1 applic TOPICAL 0600,2200 [facility]; Protocol Last Admin: 12/10/20 06:05 Dose: 1 applicatio Documented by: Calcium Carbonate (Calcium (Elemental) 500 Mg Tablet) 500 mg PO BIDCM [facility] Last Admin: 12/10/20 17:04 Dose: 500 mg Documented by: Carbidopa/Levodopa (Carbidopa/Levodopa 25/250 Tablet) 1 tablet PO 0730,1130,1630,2030 [facility] Last Admin: 12/10/20 17:04 Dose: 1 tablet Documented by: Carbidopa/Levodopa (Carbidopa/Levodopa Cr 50/200 Tablet) 1 tablet PO BID@0900,2200 [facility] Last Admin: 12/10/20 09:18 Dose: 1 tablet Documented by: Ergocalciferol (Ergocalciferol 50,000 Unit Capsule) 50,000 unit PO Th@0800 [facility] Last Admin: 12/06/20 07:49 Dose: 50,000 unit Documented by: Losartan Potassium (Losartan Potassium 100 Mg Tablet) 100 mg PO DAILY@0730 [facility] Last Admin: 12/10/20 08:34 Dose: 100 mg Documented by: Magnesium Hydroxide (Magnesium Hydroxide 30 Ml Udc) 30 ml PO DAILY PRN PRN Reason: Constipation Nystatin (Nystatin Powder 15gm Bottle) 1 applic TOPICAL 0600,2200 [facility]; Protocol Last Admin: 12/10/20 06:05 Dose: 1 applicatio Documented by: Oxycodone HCl (Oxycodone 5 Mg Tablet) 5 mg PO Q4H PRN PRN PRN Reason: Pain Score 6-10 Pantoprazole Sodium (Pantoprazole Sodium 40 Mg Tablet) 40 mg PO DAILY@0730 [facility] Last Admin: 12/10/20 08:33 Dose: 40 mg Documented by: Polyethylene Glycol (Polyethylene Glycol 3350 17 Gm Packet) 17 gm PO DAILY PRN PRN Reason: Constipation Polysaccharide Iron Complex (Iron Polysaccharide Complex 150 Mg Capsule) 150 mg PO DAILY [facility] Last Admin: 12/10/20 06:05 Dose: 150 mg Documented by: Pramipexole Dihydrochloride (Pramipexole Di-Hcl 0.5 Mg Tablet) 0.5 mg PO TID@0730,1400,2030 [facility] Last Admin: 12/10/20 14:15 Dose: 0.5 mg Documented by: Prednisone (Prednisone 20 Mg Tablet) 40 mg PO DAILY@0800 [facility] Last Admin: 12/10/20 08:34 Dose: 40 mg Documented by: Senna/Docusate Sodium (Senna/Docusate Sodium 1 Tablet) 2 tablet PO BID PRN PRN Reason: Constipation Last Admin: 12/05/20 22:09 Dose: 2 tablet Documented by: Sertraline HCl (Sertraline 100 Mg Tablet) 100 mg PO DAILY@0730 [facility] Last Admin: 12/10/20 08:33 Dose: 100 mg Documented by: Sodium Chloride (0.9% Saline Lock 10 Ml Syringe) 10 - 40 ml IV UD PRN PRN Reason: SALINE FLUSH Last Admin: 11/27/20 04:04 Dose: 10 ml Documented by: Discharge Diet: No Restrictions Discharge Activity: Return to Normal Activity, May Shower, Use Walker Weight Bearing Status: Weight bearing as tolerated Call your doctor if you observe: Fever of 101 or Higher, Inability to urinate, Inability to have a bowel movement, Shortness of breath, Chest pain, Uncontrolled pain Home Medications: Medications to take at Discharge Carbidopa/Levodopa 25/250 [Sinemet 25/250] 1 tab PO 0730,1130,1630,202908/27/15 Sertraline HCl [Zoloft] 100 mg PO DAILY@72908/27/15 Calcium (Elemental) [Os-Raheem 500] 630 mg PO BID 11/19/18 Carbidopa/Levodopa [Carbidopa-Levo ER 50-200 Tab] 1 each PO BID@0900,2200 11/19/18 Lansoprazole [Prevacid] 30 mg PO DAILY@72911/19/18 Losartan Potassium [Cozaar] 100 mg PO DAILY@72911/19/18 Alendronate Sodium [Fosamax] 70 mg PO TU 10/29/20 Amantadine [Symmetrel] 1 tab PO BID@1000,2200 10/29/20 Ergocalciferol [Vitamin D] 50,000 unit PO Th@0800 10/29/20 Pramipexole Di-HCl [Mirapex] 0.5 mg PO TID@0730,1400,202910/29/20 Acetaminophen [Tylenol] 1,000 mg PO Q6H PRN PRN tablet 12/10/20 Iron Polysaccharide Complex [Ferrex 150] 150 mg PO DAILY #30 cap 12/10/20 Menthol/Lanolin/Calamine/Znox [Calmoseptine Ointment] 1 applic TOPICAL 0600,2200 tube 12/10/20 Nystatin Powder [Mycostatin Powder] 1 applic TOPICAL 0600,2200 bottle 12/10/20 predniSONE tablet 40 mg PO DAILY@0800 #120 tab 12/10/20 Following Prescriptions Were Given to Patient: Iron Polysaccharide Complex [Ferrex 150] 150 mg PO DAILY #30 cap Transmission Status: Pending to [facility] 1811 predniSONE tablet 40 mg PO DAILY@0800 #120 tab Transmission Status: Pending to [facility]11 Primary Care Physician: Kendall Patel MD [Primary Care Provider] - Please follow up with your Primary Care Physician in: 1 week. Please Follow Up With: Dr. Borden When: 2 week post op appointment Please Follow Up With: Dr. Borden Please Follow Up With: Dr. Lanier When: 1 week. Disposition: Home with Home Health Minutes spent on discharge:: 35 Patient Condition:: Stable Medical Necessity - Tobacco Use Smoking Status: Never smoker Tobacco Use: Non-smoker Meaningful Use Info Meaningful Use Diagnoses (Choose all that apply): None applicable
[2020-12-11 05:00] VITALS: BP 146/78; PULSE 70; RESP 16; TEMP 36.8; O2SAT 95
[2020-12-11] MEDS: Iron Polysaccharide Complex 150 MG CAPSULE PO (05:38)
[2020-12-11] MEDS: Alendronate Sodium 70 MG Tablet PO (05:39)
[2020-12-11] MEDS: Menthol/Lanolin/Calamine/Znox 113 GM Tube 1 APPLIC TOPICAL ×2 (05:43→20:48)
[2020-12-11] MEDS: Nystatin Powder 15gm Bottle 1 APPLIC TOPICAL ×2 (05:43→20:49)
[2020-12-11] MEDS: Pramipexole Di-HCl 0.5 MG Tablet PO ×3 (07:51→20:46)
[2020-12-11] MEDS: Pantoprazole Sodium 40 MG Tablet PO (07:51)
[2020-12-11] MEDS: Carbidopa/Levodopa 25/250 Tablet PO ×4 (07:51→20:46)
[2020-12-11] MEDS: Losartan Potassium 100 MG Tablet PO (07:52)
[2020-12-11] MEDS: Sertraline 100 MG Tablet PO (07:52)
[2020-12-11] MEDS: Calcium (Elemental) 500 MG Tablet PO ×2 (07:52→16:34)
[2020-12-11] MEDS: predniSONE 20 MG Tablet 40 MG PO (07:53)
[2020-12-11 07:56] VITALS: BP 135/69; PULSE 74
[2020-12-11] MEDS: CARBIDOPA/LEVODOPA CR 50/200 Tablet PO ×2 (09:16→21:57)
[2020-12-11] MEDS: Amantadine 100 MG Capsule PO ×2 (09:16→21:58)
--- NOTE | 2020-12-11 10:54 | NURSING ---
TOTAL OSTOMY UNIT CHANGED OUT AND SITE CLEANED. SMALL AMOUNT OF BLEEDING AROUND SITE. PT TOLERATED WELL. RN AWARE
[2020-12-11 12:43] VITALS: BP 110/59; PULSE 79; RESP 18; TEMP 36.4; O2SAT 95
[2020-12-11 20:50] VITALS: PULSE 70; RESP 18
[2020-12-12 05:00] VITALS: BP 141/81; PULSE 70; RESP 16; TEMP 36.7; O2SAT 94
[2020-12-12] MEDS: Iron Polysaccharide Complex 150 MG CAPSULE PO (05:18)
[2020-12-12] MEDS: Menthol/Lanolin/Calamine/Znox 113 GM Tube 1 APPLIC TOPICAL ×2 (05:19→20:45)
[2020-12-12] MEDS: Nystatin Powder 15gm Bottle 1 APPLIC TOPICAL ×2 (05:20→20:45)
[2020-12-12] MEDS: predniSONE 20 MG Tablet 40 MG PO (07:59)
[2020-12-12] MEDS: Sertraline 100 MG Tablet PO (07:59)
[2020-12-12] MEDS: Losartan Potassium 100 MG Tablet PO (07:59)
[2020-12-12] MEDS: Pantoprazole Sodium 40 MG Tablet PO (07:59)
[2020-12-12] MEDS: Carbidopa/Levodopa 25/250 Tablet PO ×4 (07:59→20:43)
[2020-12-12] MEDS: Calcium (Elemental) 500 MG Tablet PO ×2 (07:59→16:13)
[2020-12-12] MEDS: Pramipexole Di-HCl 0.5 MG Tablet PO ×3 (07:59→20:43)
[2020-12-12] MEDS: CARBIDOPA/LEVODOPA CR 50/200 Tablet PO ×2 (08:59→22:25)
[2020-12-12 10:00] VITALS: PULSE 79; O2SAT 95
[2020-12-12] MEDS: Amantadine 100 MG Capsule PO ×2 (10:17→22:25)
[2020-12-12 14:20] VITALS: BP 110/65; PULSE 72; RESP 16; TEMP 36.8; O2SAT 95
--- NOTE | 2020-12-12 15:45 | CHAPLAIN ---
Type of Pastoral Visit ___ Initial Visit _x__ Follow-up Visit ___ On-call Visit ___ General Patient Visit ___ Spiritual Assessment ___ Family Conference ___ Bereavement ___ Rapid Response ___ Code Blue ___ Other (describe below) Pastoral Care Referral From _x__ Patient ___ Family ___ Nurse ___ Physician ___ Administrative Services Officer ___ Studio Camera Operator ___ Other (describe below) Sacrament/Intervention _x__ Active listening ___ Anointing ___ Taoist ___ Bereavement ___ Communion ___ Evelyn exploration ___ ___ Life review _x__ Prayer ___ Reconciliation ___ Sacrament of Sick _x__ Supportive presence ___ Wedding ___ Other (describe below) Pastoral Comments patient shared about another family member that has physical illness and pt requested prayer for him
[2020-12-13 05:00] VITALS: BP 150/82; PULSE 74; RESP 16; TEMP 36.6; O2SAT 95
[2020-12-13] MEDS: Iron Polysaccharide Complex 150 MG CAPSULE PO (05:45)
[2020-12-13] MEDS: Menthol/Lanolin/Calamine/Znox 113 GM Tube 1 APPLIC TOPICAL ×2 (05:46→19:54)
[2020-12-13] MEDS: Nystatin Powder 15gm Bottle 1 APPLIC TOPICAL ×2 (05:46→19:54)
[2020-12-13] MEDS: Sertraline 100 MG Tablet PO (08:12)
[2020-12-13] MEDS: CARBIDOPA/LEVODOPA CR 50/200 Tablet PO ×2 (08:12→22:17)
[2020-12-13] MEDS: Calcium (Elemental) 500 MG Tablet PO ×2 (08:12→16:37)
[2020-12-13] MEDS: Pramipexole Di-HCl 0.5 MG Tablet PO ×3 (08:13→19:52)
[2020-12-13] MEDS: predniSONE 20 MG Tablet 40 MG PO (08:13)
[2020-12-13] MEDS: Pantoprazole Sodium 40 MG Tablet PO (08:13)
[2020-12-13] MEDS: Amantadine 100 MG Capsule PO ×2 (08:13→22:17)
[2020-12-13] MEDS: Losartan Potassium 100 MG Tablet PO (08:13)
[2020-12-13] MEDS: Carbidopa/Levodopa 25/250 Tablet PO ×4 (08:14→19:52)
[2020-12-13 15:16] VITALS: BP 118/66; PULSE 66; RESP 17; TEMP 36.2; O2SAT 100
--- NOTE | 2020-12-14 02:54 | NURSING ---
NOTED TONGUE WITH NUMEROUS WHITE PATCHES, PT ABLE TO BRUSH TONGUE AND DO GOOD MOUTH CARE, MESSAGE LEFT FOR
[2020-12-14 03:12] VITALS: BP 122/73; PULSE 94; RESP 16; TEMP 36.5; O2SAT 94
[2020-12-14] MEDS: Iron Polysaccharide Complex 150 MG CAPSULE PO (05:52)
[2020-12-14] MEDS: Nystatin Powder 15gm Bottle 1 APPLIC TOPICAL ×2 (05:53→20:56)
[2020-12-14] MEDS: Menthol/Lanolin/Calamine/Znox 113 GM Tube 1 APPLIC TOPICAL ×2 (05:53→20:56)
[2020-12-14 07:52] VITALS: BP 127/74; PULSE 80
[2020-12-14] MEDS: Carbidopa/Levodopa 25/250 Tablet PO ×4 (07:53→20:56)
[2020-12-14] MEDS: Pramipexole Di-HCl 0.5 MG Tablet PO ×3 (07:53→20:56)
[2020-12-14] MEDS: Sertraline 100 MG Tablet PO (07:53)
[2020-12-14] MEDS: predniSONE 20 MG Tablet 40 MG PO (07:54)
[2020-12-14] MEDS: Calcium (Elemental) 500 MG Tablet PO ×2 (07:54→16:32)
[2020-12-14] MEDS: Pantoprazole Sodium 40 MG Tablet PO (07:54)
[2020-12-14] MEDS: Losartan Potassium 100 MG Tablet PO (07:54)
[2020-12-14] MEDS: Amantadine 100 MG Capsule PO ×2 (09:38→21:58)
[2020-12-14 10:00] VITALS: PULSE 76; RESP 18; O2SAT 95
--- NOTE | 2020-12-14 10:26 | NURSING ---
CHANGED OUT OSTOMY UNIT. STOOL SOFT,BROWN WITH BLOOD MIXED IN. SMALL AMOUNT OF BLEEDING AROUND STOMA. STOMA BEEFY RED. AREA CLEANED AND NEW UNIT APPLIED. PT TOLERATED WELL. RN AWARE.
[2020-12-14] MEDS: CARBIDOPA/LEVODOPA CR 50/200 Tablet PO ×2 (10:34→21:58)
[2020-12-14] MEDS: NYSTATIN 500,000 UNIT/5 ML UDC 500000 UNIT PO ×3 (11:33→20:57)
[2020-12-14 13:38] VITALS: BP 131/78; PULSE 91; RESP 18; TEMP 36.1; O2SAT 94
--- NOTE | 2020-12-14 14:29 | PCM.PN.RX ---
Progress Note - Pharmacy Subjective: November TCU Note Objective: Allergies haloperidol [From Haldol] Allergy (Verified 10/29/20 13:52) as a parkinson's pt was told never to have it Penicillins Allergy (Verified 10/29/20 13:52) Rash Current Medications Generic Name Dose Route Start Last Admin Trade Name Freq PRN Reason Stop Dose Admin Acetaminophen 1,000 mg 11/01/20 23:01 11/13/20 09:42 Acetaminophen 500 Mg Tablet PO 1,000 mg Q6H PRN PRN Administration Pain Score 1-5 Alendronate Sodium 70 mg 11/06/20 06:00 12/11/20 05:39 Alendronate Sodium 70 Mg Tablet PO 70 mg TU HARPREET Administration Amantadine HCl 100 mg 11/01/20 22:00 12/14/20 09:38 Amantadine 100 Mg Capsule PO 100 mg BID@1000,2200 HARPREET Administration Bisacodyl 10 mg 11/01/20 23:01 Bisacodyl 10 Mg Suppository RECTAL DAILY PRN Constipation Calamine/Phenol 1 applic 11/13/20 06:00 12/14/20 05:53 Menthol/Lanolin/Calamine/Znox 113 Gm Tube TOPICAL 1 applicatio 0600,2200 HARPREET Administration Protocol Calcium Carbonate 500 mg 11/02/20 08:00 12/14/20 07:54 Calcium (Elemental) 500 Mg Tablet PO 500 mg BIDCM HARPREET Administration Carbidopa/Levodopa 1 tablet 11/02/20 07:30 12/14/20 11:33 Carbidopa/Levodopa 25/250 Tablet PO 1 tablet 0730,1130,1630,2030 AHRPREET Administration Carbidopa/Levodopa 1 tablet 11/01/20 22:00 12/14/20 10:34 Carbidopa/Levodopa Cr 50/200 Tablet PO 1 tablet BID@0900,2200 HARPREET Administration Ergocalciferol 50,000 unit 11/08/20 08:00 12/13/20 08:13 Ergocalciferol 50,000 Unit Capsule PO 50,000 unit Th@0800 HARPREET Administration Losartan Potassium 100 mg 11/02/20 07:30 12/14/20 07:54 Losartan Potassium 100 Mg Tablet PO 100 mg DAILY@0730 HARPREET Administration Magnesium Hydroxide 30 ml 11/01/20 23:01 Magnesium Hydroxide 30 Ml Udc PO DAILY PRN Constipation Nystatin 1 applic 11/13/20 06:00 12/14/20 05:53 Nystatin Powder 15gm Bottle TOPICAL 1 applicatio 0600,2200 COUNTS INCLUDE 234 BEDS AT THE [facility] Administration Protocol Nystatin 500,000 unit 12/14/20 12:00 12/14/20 11:33 Nystatin 500,000 Unit/5 Ml Udc PO 12/24/20 12:01 500,000 unit 4X/DAY HARPREET Administration Oxycodone HCl 5 mg 11/01/20 23:01 Oxycodone 5 Mg Tablet PO Q4H PRN PRN Pain Score 6-10 Pantoprazole Sodium 40 mg 11/02/20 07:30 12/14/20 07:54 Pantoprazole Sodium 40 Mg Tablet PO 40 mg DAILY@0730 COUNTS INCLUDE 234 BEDS AT THE [facility] Administration Polyethylene Glycol 17 gm 11/04/20 10:19 Polyethylene Glycol 3350 17 Gm Packet PO DAILY PRN Constipation Polysaccharide Iron Complex 150 mg 11/05/20 06:00 12/14/20 05:52 Iron Polysaccharide Complex 150 Mg Capsule PO 150 mg DAILY HARPREET Administration Pramipexole Dihydrochloride 0.5 mg 11/02/20 07:30 12/14/20 13:34 Pramipexole Di-Hcl 0.5 Mg Tablet PO 0.5 mg TID@0730,1400,2030 COUNTS INCLUDE 234 BEDS AT THE [facility] Administration Prednisone 40 mg 11/22/20 08:00 12/14/20 07:54 Prednisone 20 Mg Tablet PO 40 mg DAILY@0800 HARPREET Administration Senna/Docusate Sodium 2 tablet 11/04/20 10:19 12/05/20 22:09 Senna/Docusate Sodium 1 Tablet PO 2 tablet BID PRN Administration Constipation Sertraline HCl 100 mg 11/02/20 07:30 12/14/20 07:53 Sertraline 100 Mg Tablet PO 100 mg DAILY@0730 COUNTS INCLUDE 234 BEDS AT THE [facility] Administration Sodium Chloride 10 - 40 ml 11/26/20 14:38 11/27/20 04:04 0.9% Saline Lock 10 Ml Syringe IV 10 ml UD PRN Administration SALINE FLUSH Problem List Closed right hip fracture (Acute) Debility (Acute) Frequent falls (Acute) Idiopathic thrombocytopenia (Chronic) Prostate cancer (Chronic) Vitamin D deficiency (Chronic) Osteoporosis (Chronic) GERD (gastroesophageal reflux disease) (Chronic) Depression (Chronic) Hypertension (Chronic) Parkinson disease (Chronic) Vital Signs Temp Pulse Resp BP Pulse Ox 96.9 F L 91 18 131/78 H 94 12/14/20 13:38 12/14/20 13:38 12/14/20 13:38 12/14/20 13:38 12/14/20 13:38 Oxygen Flow Rate (L/min) 97 Oxygen Delivery Method Room Air Weight: 85.842 kg Body Mass Index (BMI) 26.9 Sodium 140 mmol/L (136-145) 12/10/20 05:10 Potassium 3.7 mmol/L (3.5-5.1) 12/10/20 05:10 Chloride 106 mmol/L (98-107) 12/10/20 05:10 Carbon Dioxide 29.0 mmol/L (21.0-32.0) 12/10/20 05:10 Anion Gap 5 (5-15) 12/10/20 05:10 BUN 21 mg/dL (7-18) H 12/10/20 05:10 Creatinine 0.87 mg/dL (0.70-1.30) 12/10/20 05:10 Est GFR (MDRD) Af Amer 110 mL/min (>60) 12/10/20 05:10 Est GFR (MDRD) Non-Af 91 mL/min (>60) 12/10/20 05:10 BUN/Creatinine Ratio 24.2 RATIO (10-20) H 12/10/20 05:10 Glucose 80 mg/dL (74-106) 12/10/20 05:10 Assessment/Plan: 1. Pain: acetaminophen 1000mg PO Q6H PRN pain (1-5) and oxycodone 5mg Q4H PRN pain (6-10). Please continue to monitor for increased pain, constipation, PRN usage, and respiratory depression. 2. Parkinson disease: Sinemet 25/250mg 1 tab PO four times daily, Sinemet CR 50/200mg PO BID, pramipexole 0.5mg PO TID, and amantadine 100mg PO BID. Please continue to monitor for GI side effects, renal function, dizziness, and dyskinesias. 3. Osteoporosis: alendronate 70mg PO every week, Calcium carbonate 500mg PO BID. Please continue to monitor calcium levels (last 8.5 mg/dL), BMD, jaw pain. Please give alendronate on an empty stomach with a full glass of water. 4. Hypertension: losartan 100mg PO daily. Please continue to monitor BP (last 131/78), renal function, and potassium (last 3.7mmol/L). 5. GERD: pantoprazole 40mg PO daily. Please continue to monitor for S/S of GERD and diarrhea. 6. ITP: prednisone 40mg PO DAILYCM. Please continue to monitor for platelets (last 93,000), bleeding, insomnia, gastritis, hypertension, blood glucose, and infections. *7. Vitamin D deficiency: Ergocalciferol 50,000 units PO every week. Please consider ordering a vitamin D level. Last level from 11/2016. Thanks. 8. Iron deficiency: Ferrex 150mg PO daily. Please continue to monitor hemoglobin levels (last 12g/dL) and for dark stools. 9. Thrush (white patches on tongue per nursing note 12/14): nystatin 500,000units PO four times daily thru 12/24/20. Please continue to monitor for improved patches on tongue. Psychotropic Medications: 1. Depression: sertraline 100mg PO daily. Please see physician note regarding GDR. Please continue to monitor for GI side effects. Unnecessary Medications: None Bowel Regimen: Miralax 17 gm PO daily PRN constipation, Senna/docusate 2 tablets PO BID PRN constipation, MOM 30ml PO daily PRN constipation, and bisacodyl 10mg rectally daily PRN constipation. Please continue to monitor for constipation and PRN usage. Date of Note:: 12/14/20 - Provider Comments Provider responsibility: Provider responsible to enter orders to implement recommendations
--- NOTE | 2020-12-14 15:32 | NURSING ---
PT HAS APPOINTMENT ON 12/17 WITH . WILL MATERIAL ANALYST AT 10AM.
[2020-12-15 05:00] VITALS: BP 144/88; PULSE 70; RESP 18; TEMP 36.6; O2SAT 94
[2020-12-15] MEDS: Nystatin Powder 15gm Bottle 1 APPLIC TOPICAL ×2 (05:58→20:39)
[2020-12-15] MEDS: Menthol/Lanolin/Calamine/Znox 113 GM Tube 1 APPLIC TOPICAL ×2 (05:58→20:39)
[2020-12-15] MEDS: NYSTATIN 500,000 UNIT/5 ML UDC 500000 UNIT PO ×4 (06:00→20:40)
[2020-12-15] MEDS: Iron Polysaccharide Complex 150 MG CAPSULE PO (06:00)
[2020-12-15] MEDS: Pantoprazole Sodium 40 MG Tablet PO (07:52)
[2020-12-15] MEDS: Losartan Potassium 100 MG Tablet PO (07:52)
[2020-12-15] MEDS: Calcium (Elemental) 500 MG Tablet PO ×2 (07:52→16:28)
[2020-12-15] MEDS: Sertraline 100 MG Tablet PO (07:52)
[2020-12-15] MEDS: Carbidopa/Levodopa 25/250 Tablet PO ×4 (07:52→20:41)
[2020-12-15] MEDS: predniSONE 20 MG Tablet 40 MG PO (07:52)
[2020-12-15] MEDS: Pramipexole Di-HCl 0.5 MG Tablet PO ×3 (07:52→20:41)
[2020-12-15] MEDS: CARBIDOPA/LEVODOPA CR 50/200 Tablet PO ×2 (09:16→22:05)
[2020-12-15] MEDS: Amantadine 100 MG Capsule PO ×2 (10:12→22:05)
[2020-12-15 15:07] VITALS: BP 106/60; PULSE 87; RESP 18; TEMP 36.7; O2SAT 94
[2020-12-16 05:00] VITALS: BP 146/76; PULSE 68; RESP 18; TEMP 36.6; O2SAT 94
[2020-12-16] MEDS: Iron Polysaccharide Complex 150 MG CAPSULE PO (06:17)
[2020-12-16] MEDS: NYSTATIN 500,000 UNIT/5 ML UDC 500000 UNIT PO ×4 (06:17→21:28)
[2020-12-16] MEDS: Menthol/Lanolin/Calamine/Znox 113 GM Tube 1 APPLIC TOPICAL ×2 (06:17→20:14)
[2020-12-16] MEDS: Nystatin Powder 15gm Bottle 1 APPLIC TOPICAL ×2 (06:18→20:14)
[2020-12-16] MEDS: predniSONE 20 MG Tablet 40 MG PO (07:43)
[2020-12-16] MEDS: Pantoprazole Sodium 40 MG Tablet PO (07:43)
[2020-12-16] MEDS: Pramipexole Di-HCl 0.5 MG Tablet PO ×3 (07:43→20:15)
[2020-12-16] MEDS: Losartan Potassium 100 MG Tablet PO (07:43)
[2020-12-16] MEDS: Calcium (Elemental) 500 MG Tablet PO ×2 (07:43→16:23)
[2020-12-16] MEDS: Carbidopa/Levodopa 25/250 Tablet PO ×4 (07:43→20:15)
[2020-12-16] MEDS: Sertraline 100 MG Tablet PO (07:44)
[2020-12-16] MEDS: CARBIDOPA/LEVODOPA CR 50/200 Tablet PO ×2 (09:21→21:28)
[2020-12-16 10:00] VITALS: PULSE 88; O2SAT 95
[2020-12-16] MEDS: Amantadine 100 MG Capsule PO ×2 (10:23→21:28)
[2020-12-16 14:15] VITALS: BP 117/69; PULSE 91; RESP 14; TEMP 36.1; O2SAT 94
[2020-12-17 03:08] VITALS: BP 129/73; PULSE 69; RESP 16; TEMP 36.5; O2SAT 99
[2020-12-17] MEDS: Iron Polysaccharide Complex 150 MG CAPSULE PO (05:24)
[2020-12-17] MEDS: NYSTATIN 500,000 UNIT/5 ML UDC 500000 UNIT PO ×4 (05:24→21:28)
[2020-12-17] MEDS: Nystatin Powder 15gm Bottle 1 APPLIC TOPICAL ×2 (05:25→20:16)
[2020-12-17] MEDS: Menthol/Lanolin/Calamine/Znox 113 GM Tube 1 APPLIC TOPICAL ×2 (05:25→20:17)
[2020-12-17 05:55] LABS: Absolute Lymphocyte Count 1.23 X10^3/uL (0.83-4.51); Absolute Neutrophil Count 10.5 X10^3/uL (2.0-7.7); Basophil# 0.03 X10^3/uL; Basophil% 0.2 % (0-1); Eosinophil# 0.07 X10^3/uL; Eosinophils% 0.5 % (0-5); Hematocrit 39.8 % (40-54); Hemoglobin 12.1 g/dL (13.0-16.5); Lymphocyte # 1.23 X10^3/ul (4.0); Lymphocyte % 9.6 % (19-41); Mean Corp Hgb Conc 30.4 g/dL (32-36); Mean Corpuscular Hgb 28.7 pg (27.0-32.0); Mean Corpuscular Volume 94.3 fL (80-94); Monocyte# 0.75 X10^3/uL; Monocyte% 5.9 % (0-10); NRBC Flagged by Analyzer 0 % (0-5); Neutrophil % 82.5 % (47-70); POSITIVE COUNT YES; Platelet Count 91 K/mm3 (150-450); RBC Distribution Width CV 15.6 % (11.6-14.6); RBC Distribution Width SD 54.1 fl (35.1-43.9); Red Blood Count 4.22 M/mm3 (4.6-6.2); White Blood Count 12.8 K/mm3 (4.4-11.0)
[2020-12-17 05:56] LABS: Differential Indicated SCAN CRITERIA MET
[2020-12-17 06:14] LABS: Anion Gap 4 (5-15); BUN 27 mg/dL (7-18); BUN/Creat Ratio 33.1 RATIO (10-20); Calcium,Total 8.8 mg/dL (8.5-10.1); Chloride 107 mmol/L (98-107); Creatinine, Serum 0.82 mg/dL (0.70-1.30); EST Glomerular Filtration Rate 97 mL/min (>60); Est Glom Filt Rate - Afr Amer 117 mL/min (>60); Estimated Creatinine Clearance 86.32 ml/min; Glucose 84 mg/dL (74-106); Potassium 3.7 mmol/L (3.5-5.1); Sodium Level 141 mmol/L (136-145)
[2020-12-17] MEDS: predniSONE 20 MG Tablet 40 MG PO (07:37)
[2020-12-17] MEDS: Carbidopa/Levodopa 25/250 Tablet PO ×4 (07:37→20:14)
[2020-12-17] MEDS: Calcium (Elemental) 500 MG Tablet PO ×2 (07:38→16:35)
[2020-12-17] MEDS: Sertraline 100 MG Tablet PO (07:38)
[2020-12-17] MEDS: Pramipexole Di-HCl 0.5 MG Tablet PO ×3 (07:38→20:14)
[2020-12-17] MEDS: Pantoprazole Sodium 40 MG Tablet PO (07:38)
[2020-12-17] MEDS: Losartan Potassium 100 MG Tablet PO (07:38)
[2020-12-17 07:47] VITALS: BP 148/77; PULSE 75
[2020-12-17] MEDS: CARBIDOPA/LEVODOPA CR 50/200 Tablet PO ×2 (09:43→21:28)
[2020-12-17] MEDS: Amantadine 100 MG Capsule PO ×2 (09:43→21:28)
[2020-12-17 10:00] VITALS: PULSE 85; RESP 16; O2SAT 94
--- NOTE | 2020-12-17 10:58 | NURSING ---
OFFICE CALLED AND WANTS PT DECREASED TO PREDNISONE 20MG PER DAY. RN AWARE.
[2020-12-17 15:06] VITALS: BP 111/60; PULSE 82; RESP 16; TEMP 36.8; O2SAT 95
--- NOTE | 2020-12-17 16:50 | NURSING ---
EMPTIED OSOTOMY BAG AND STOOL HAD A LOT OF BLOOD THREW OUT. RN AWARE.
[2020-12-18 02:33] VITALS: BP 131/74; PULSE 85; RESP 16; TEMP 37.1; O2SAT 94
[2020-12-18] MEDS: NYSTATIN 500,000 UNIT/5 ML UDC 500000 UNIT PO ×4 (05:38→22:25)
[2020-12-18] MEDS: Senna/Docusate Sodium 1 Tablet 2 TABLET PO (05:39)
[2020-12-18] MEDS: Iron Polysaccharide Complex 150 MG CAPSULE PO (05:39)
[2020-12-18] MEDS: Alendronate Sodium 70 MG Tablet PO (05:39)
[2020-12-18] MEDS: Nystatin Powder 15gm Bottle 1 APPLIC TOPICAL ×2 (05:40→22:27)
[2020-12-18] MEDS: Menthol/Lanolin/Calamine/Znox 113 GM Tube 1 APPLIC TOPICAL ×2 (05:40→22:27)
[2020-12-18] MEDS: Pramipexole Di-HCl 0.5 MG Tablet PO ×3 (07:58→20:36)
[2020-12-18] MEDS: Calcium (Elemental) 500 MG Tablet PO ×2 (07:58→16:41)
[2020-12-18] MEDS: predniSONE 20 MG Tablet PO (07:58)
[2020-12-18] MEDS: Carbidopa/Levodopa 25/250 Tablet PO ×4 (07:58→20:36)
[2020-12-18] MEDS: Pantoprazole Sodium 40 MG Tablet PO (07:58)
[2020-12-18] MEDS: Losartan Potassium 100 MG Tablet PO (07:58)
[2020-12-18] MEDS: Sertraline 100 MG Tablet PO (07:58)
[2020-12-18 08:05] VITALS: BP 105/70; PULSE 81
[2020-12-18] MEDS: CARBIDOPA/LEVODOPA CR 50/200 Tablet PO ×2 (09:11→22:25)
[2020-12-18] MEDS: Amantadine 100 MG Capsule PO ×2 (09:11→22:25)
--- NOTE | 2020-12-18 09:46 | PCM.TCUNOT ---
Subjective: Resident seen today for regulatory visit. He is sitting in his room, eating breakfast, no new problems, concerns, issues, complaints. Anticipating discharge in 9 days. Vitals/I&O's: Vital Signs Temp Pulse Resp BP Pulse Ox 98.7 F 81 16 105/70 94 12/18/20 02:33 12/18/20 08:05 12/18/20 02:33 12/18/20 08:05 12/18/20 02:33 Oxygen Flow Rate (L/min) 97 Oxygen Delivery Method Room Air Weight: 85.842 kg Body Mass Index (BMI) 26.9 Intake and Output for Last 24 Hours 12/16/20 12/17/20 12/18/20 23:59 23:59 23:59 Intake Total 1080 / 1080 960 / 960 480 / 480 Balance 1080 / 1080 960 / 960 480 / 480 Past Medical History Past Medical History (Chronic Problems): Chronic Problems Chronic ITP (idiopathic thrombocytopenia) (Chronic) Idiopathic thrombocytopenia (Chronic) Prostate cancer (Chronic) Closed left hip fracture (Chronic) Displaced intertrochanteric fracture of left femur (Chronic) WBAT, pt on xarelto x 30 days post operative, final dose 01/23 Left wrist fracture (Chronic) Vitamin D deficiency (Chronic) Osteoporosis (Chronic) GERD (gastroesophageal reflux disease) (Chronic) Depression (Chronic) Hypertension (Chronic) Patellar instability (Chronic) S/P ORIF (open reduction internal fixation) fracture (Chronic) 11/2716 Dr Ott left intertrochanteric fracture 10/04/[address] Rebolledo right patellar fracture Parkinson disease (Chronic) mirapex increased during this admission, will require new prescription at d/c Allergies haloperidol [From Haldol] Allergy (Verified 10/29/20 13:52) as a parkinson's pt was told never to have it Penicillins Allergy (Verified 10/29/20 13:52) Rash Home Medications: Ambulatory Orders Medication Instructions Recorded Carbidopa/Levodopa 25/250 [Sinemet 1 tab PO 0730,1130,1630,2030 08/27/15 25/250] Sertraline HCl [Zoloft] 100 mg PO DAILY@0730 08/27/15 Calcium (Elemental) [Os-Raheem 500] 630 mg PO BID 11/19/18 Carbidopa/Levodopa [Carbidopa-Levo 1 each PO BID@0900,2200 11/19/18 ER 50-200 Tab] Lansoprazole [Prevacid] 30 mg PO DAILY@72911/19/18 Losartan Potassium [Cozaar] 100 mg PO DAILY@72911/19/18 Alendronate Sodium [Fosamax] 70 mg PO TU 10/29/20 Amantadine [Symmetrel] 1 tab PO BID@1000,2200 10/29/20 Ergocalciferol [Vitamin D] 50,000 unit PO Th@0800 10/29/20 Pramipexole Di-HCl [Mirapex] 0.5 mg PO TID@0730,1400,2030 10/29/20 Acetaminophen [Tylenol] 1,000 mg PO Q6H PRN PRN tab 12/10/20 Iron Polysaccharide Complex 150 mg PO DAILY #30 cap 12/10/20 [Ferrex 150] Menthol/Lanolin/Calamine/Znox 1 applic TOPICAL 0600,2200 tube 12/10/20 [Calmoseptine Ointment] Nystatin Powder [Mycostatin Powder] 1 applic TOPICAL 0600,2200 bottle 12/10/20 predniSONE tablet 40 mg PO DAILY@0800 #120 tab 12/10/20 Surgical History: cholecystectomy, colectomy - Colostomy., - - Prostate surgery for prostate cancer, Left hip ORIF, Right knee patella fracture, Right ankle surgery, Left 2nd PIPJ arthrodesis, Left wrist closed reduction, Right hip ORIF nail. Psychiatric History: Depression Lives: Spouse/ Significant Other Smoking Status: Never smoker Tobacco Use: Non-smoker Alcohol: None Drugs: None - *Family History Maternal History Items: - Paternal History Items: Renal Disease Capacity - Capacity Assessment Tool Can the patient make a choice & communicate that choice?: Yes Can the patient understand benefits, risks and alternatives?: Yes Can the patient make a logical, rational choice?: Yes Is the choice the patient makes consistent w/ their values?: Yes Is there an impending, emergent risk to the patient?: No Does the patient have an Advance Directive?: No Is there a Surrogate Available?: Yes i.e. HCPOA: Yes i.e. close relative (spouse, child, parent, sibling)?: Yes Review of Systems Constitutional: Denies: Chills, Fever, Weight Change HEENT: Denies: Head Aches, Sinus Congestion, Sinus Drainage Cardiovascular: Denies: Chest Pain, Palpitations Respiratory: Denies: Cough, Shortness of breath at rest, Sputum production Gastrointestinal: Denies: Abdominal Pain, Nausea, Vomiting Genitourinary: Denies: Dysuria Musculoskeletal: Denies: Joint Pain, Joint Tenderness Skin: Denies: Rash, Wounds Neurological: Denies: Numbness, Tingling, Focal weakness Psychiatric: Denies: Anxiety, Depression, Homicidal Ideations, Suicidal Ideations Hematologic/ Lymphatic: Denies: Easy Bruising, Easy Bleeding Patient Problems: Active and Suspected Problems Closed right hip fracture (Acute) Debility (Acute) Frequent falls (Acute) - Physical Exam Vitals/I&O's: Vital Signs Temp Pulse Resp BP Pulse Ox 98.7 F 81 16 105/70 94 12/18/20 02:33 12/18/20 08:05 12/18/20 02:33 12/18/20 08:05 12/18/20 02:33 Oxygen Flow Rate (L/min) 97 Oxygen Delivery Method Room Air Weight: 85.842 kg Body Mass Index (BMI) 26.9 Intake and Output for Last 24 Hours 12/16/20 12/17/20 12/18/20 23:59 23:59 23:59 Intake Total 1080 / 1080 960 / 960 480 / 480 Balance 1080 / 1080 960 / 960 480 / 480 General: Alert, Oriented x3, Cooperative HEENT: Atraumatic, PERRLA, EOMI, Normocephalic Neck: Supple, No JVD, Negative Carotid Bruits Lungs: Clear to auscultation, Normal air movement Cardiovascular: Regular rate, No murmurs Abdomen: Bowel Sounds Present, Soft, Non Tender, - - Colostomy. Extremities: No edema, Capillary Refill Less than 3 Seconds Skin: No rashes, No breakdown Musculoskeletal: No Tenderness to Palpation of Joints or Extremities Neurological: Cranial nerves II-XII grossly intact Psych/Mental Status: Normal Affect, Appropriate Current Medications Acetaminophen (Acetaminophen 500 Mg Tablet) 1,000 mg PO Q6H PRN PRN PRN Reason: Pain Score 1-5 Last Admin: 11/13/20 09:42 Dose: 1,000 mg Documented by: Alendronate Sodium (Alendronate Sodium 70 Mg Tablet) 70 mg PO [facility] Last Admin: 12/18/20 05:39 Dose: 70 mg Documented by: Amantadine HCl (Amantadine 100 Mg Capsule) 100 mg PO BID@1000,2200 [facility] Last Admin: 12/18/20 09:11 Dose: 100 mg Documented by: Bisacodyl (Bisacodyl 10 Mg Suppository) 10 mg RECTAL DAILY PRN PRN Reason: Constipation Calamine/Phenol (Menthol/Lanolin/Calamine/Znox 113 Gm Tube) 1 applic TOPICAL 0600,2200 [facility]; Protocol Last Admin: 12/18/20 05:40 Dose: 1 applicatio Documented by: Calcium Carbonate (Calcium (Elemental) 500 Mg Tablet) 500 mg PO BIDCM [facility] Last Admin: 12/18/20 07:58 Dose: 500 mg Documented by: Carbidopa/Levodopa (Carbidopa/Levodopa 25/250 Tablet) 1 tablet PO 0730,1130,1630,2030 [facility] Last Admin: 12/18/20 07:58 Dose: 1 tablet Documented by: Carbidopa/Levodopa (Carbidopa/Levodopa Cr 50/200 Tablet) 1 tablet PO BID@0900,2200 [facility] Last Admin: 12/18/20 09:11 Dose: 1 tablet Documented by: Ergocalciferol (Ergocalciferol 50,000 Unit Capsule) 50,000 unit PO Th@0800 [facility] Last Admin: 12/13/20 08:13 Dose: 50,000 unit Documented by: Losartan Potassium (Losartan Potassium 100 Mg Tablet) 100 mg PO DAILY@0730 [facility] Last Admin: 12/18/20 07:58 Dose: 100 mg Documented by: Magnesium Hydroxide (Magnesium Hydroxide 30 Ml Udc) 30 ml PO DAILY PRN PRN Reason: Constipation Nystatin (Nystatin Powder 15gm Bottle) 1 applic TOPICAL 0600,2200 [facility]; Protocol Last Admin: 12/18/20 05:40 Dose: 1 applicatio Documented by: Nystatin (Nystatin 500,000 Unit/5 Ml Udc) 500,000 unit PO 4X/DAY [facility] Stop: 12/24/20 12:01 Last Admin: 12/18/20 05:38 Dose: 500,000 unit Documented by: Oxycodone HCl (Oxycodone 5 Mg Tablet) 5 mg PO Q4H PRN PRN PRN Reason: Pain Score 6-10 Pantoprazole Sodium (Pantoprazole Sodium 40 Mg Tablet) 40 mg PO DAILY@0730 [facility] Last Admin: 12/18/20 07:58 Dose: 40 mg Documented by: Polyethylene Glycol (Polyethylene Glycol 3350 17 Gm Packet) 17 gm PO DAILY PRN PRN Reason: Constipation Polysaccharide Iron Complex (Iron Polysaccharide Complex 150 Mg Capsule) 150 mg PO DAILY [facility] Last Admin: 12/18/20 05:39 Dose: 150 mg Documented by: Pramipexole Dihydrochloride (Pramipexole Di-Hcl 0.5 Mg Tablet) 0.5 mg PO TID@0730,1400,2030 [facility] Last Admin: 12/18/20 07:58 Dose: 0.5 mg Documented by: Prednisone (Prednisone 20 Mg Tablet) 20 mg PO DAILY@0800 [facility] Last Admin: 12/18/20 07:58 Dose: 20 mg Documented by: Senna/Docusate Sodium (Senna/Docusate Sodium 1 Tablet) 2 tablet PO BID PRN PRN Reason: Constipation Last Admin: 12/18/20 05:39 Dose: 2 tablet Documented by: Sertraline HCl (Sertraline 100 Mg Tablet) 100 mg PO DAILY@0730 [facility] Last Admin: 12/18/20 07:58 Dose: 100 mg Documented by: Sodium Chloride (0.9% Saline Lock 10 Ml Syringe) 10 - 40 ml IV UD PRN PRN Reason: SALINE FLUSH Last Admin: 11/27/20 04:04 Dose: 10 ml Documented by: Assessment/Plan All Active Problems Closed right hip fracture (Acute) Debility (Acute) Frequent falls (Acute) Fall (Acute) Hip fracture (Acute) Radius and ulna distal fracture (Resolved) Right patella fracture (Resolved) 80 year old male with below past medical history significant for Parkinson Disease, frequent falls, hospitalized for right hip fracture, underwent ORIF, intramedullary nail 10/31/2020, admitted to TCU with debility, here for rehabilitation, strengthening, prior to discharge home with . Debility - PT/OT. Dysphagia - ST. Pain - Tylenol 1000MG Q6H PRN pain (1-5), Oxycodone 5MG Q4H PRN pain (6-10). Bowel - Miralax 17GM daily PRN, Senna/colace 2 tablets BID PRN, MOM 30ML daily PRN, Dulcolax 10MG daily PRN. Adult immunization - Administer Prevnar 13, Pneumovax 23, Fluzone, COVID19 vaccine as appropriate. DVT prophylaxis - Held due to anemia, low platelets. Iron deficiency anemia - Ferrex 150MG daily, Hemoglobin improving. Osteoporosis - Fosamax 70MG per week, Calcium 500MG BID. Vitamin D deficiency - D2 50,000 units per week. Parkinson Disease - Sinemet 25/250MG 1 tablet QID, Sinemet CR 50/200MG BID, Mirapex 0.5MG TID, Amantadine 100MG BID. Hypertension - Losartan 100MG daily. GERD - Pantoprazole 40MG daily. ITP - Prednisone 20MG daily, Dr. Lanier's lowered prednisone 20MG daily. Depression - Sertraline 100MG daily, stable chronic group home use, GDR not recommended. Skin irritation - Calmoseptine BID. Tinea Corporis - Nystatin powder BID. Stoma bleeding - Resolved. Thrush - Nystatin 500,000 4x/day thru 12/24/2020.
[2020-12-18 10:10] VITALS: PULSE 77; RESP 18; O2SAT 96
--- NOTE | 2020-12-18 11:03 | NURSING ---
ostomy site cleaned,and new unit applied. small amount of blood around site but none in stool. beefy red. pt tolerated well.
[2020-12-18 12:51] VITALS: BP 112/61; PULSE 76; RESP 18; TEMP 36.3; O2SAT 95
[2020-12-19 05:00] VITALS: BP 147/70; PULSE 68; RESP 16; TEMP 36.6; O2SAT 93
[2020-12-19] MEDS: Menthol/Lanolin/Calamine/Znox 113 GM Tube 1 APPLIC TOPICAL ×2 (06:01→20:55)
[2020-12-19] MEDS: Iron Polysaccharide Complex 150 MG CAPSULE PO (06:02)
[2020-12-19] MEDS: NYSTATIN 500,000 UNIT/5 ML UDC 500000 UNIT PO ×4 (06:02→20:56)
[2020-12-19] MEDS: Nystatin Powder 15gm Bottle 1 APPLIC TOPICAL ×2 (06:02→20:55)
[2020-12-19] MEDS: Pramipexole Di-HCl 0.5 MG Tablet PO ×3 (07:49→20:50)
[2020-12-19] MEDS: Carbidopa/Levodopa 25/250 Tablet PO ×4 (07:50→20:50)
[2020-12-19] MEDS: Pantoprazole Sodium 40 MG Tablet PO (07:50)
[2020-12-19] MEDS: predniSONE 20 MG Tablet PO (07:50)
[2020-12-19] MEDS: Sertraline 100 MG Tablet PO (07:50)
[2020-12-19] MEDS: Losartan Potassium 100 MG Tablet PO (07:50)
[2020-12-19] MEDS: Calcium (Elemental) 500 MG Tablet PO ×2 (07:50→16:30)
[2020-12-19] MEDS: CARBIDOPA/LEVODOPA CR 50/200 Tablet PO ×2 (09:02→22:03)
[2020-12-19] MEDS: Amantadine 100 MG Capsule PO ×2 (09:53→22:03)
[2020-12-19 13:26] VITALS: BP 154/63; PULSE 77; RESP 17; TEMP 36.3; O2SAT 92
--- NOTE | 2020-12-19 14:49 | PT ---
Family training completed with pt's regarding transfers. Discussed at length that pt needs assistance is not able to transfer himself. He will continue to need assistance at home. He also needs hands on assistance for transfers. Pt's verbalized understanding. Had pt's attempt transfer with pt. Repeated multiple times, pt's needed to hold on to pt's gait belt. Pt's resistive to being hands on with pt. She stated they will have additional help at home.
[2020-12-20 05:00] VITALS: BP 138/82; PULSE 70; RESP 18; TEMP 36.6; O2SAT 95
[2020-12-20] MEDS: Menthol/Lanolin/Calamine/Znox 113 GM Tube 1 APPLIC TOPICAL ×2 (05:36→20:29)
[2020-12-20] MEDS: Nystatin Powder 15gm Bottle 1 APPLIC TOPICAL ×2 (05:36→20:29)
[2020-12-20] MEDS: NYSTATIN 500,000 UNIT/5 ML UDC 500000 UNIT PO ×4 (05:36→20:30)
[2020-12-20] MEDS: Iron Polysaccharide Complex 150 MG CAPSULE PO (05:36)
[2020-12-20] MEDS: Losartan Potassium 100 MG Tablet PO (07:48)
[2020-12-20] MEDS: Pramipexole Di-HCl 0.5 MG Tablet PO ×3 (07:48→20:29)
[2020-12-20] MEDS: Carbidopa/Levodopa 25/250 Tablet PO ×4 (07:48→20:29)
[2020-12-20] MEDS: Pantoprazole Sodium 40 MG Tablet PO (07:49)
[2020-12-20] MEDS: Sertraline 100 MG Tablet PO (07:50)
[2020-12-20] MEDS: predniSONE 20 MG Tablet PO (07:50)
[2020-12-20] MEDS: Calcium (Elemental) 500 MG Tablet PO ×2 (07:50→16:26)
[2020-12-20 07:59] VITALS: BP 113/72; PULSE 79
[2020-12-20] MEDS: CARBIDOPA/LEVODOPA CR 50/200 Tablet PO ×2 (09:35→22:02)
[2020-12-20] MEDS: Amantadine 100 MG Capsule PO ×2 (09:35→22:02)
[2020-12-20 13:15] VITALS: PULSE 85; RESP 18; O2SAT 95
[2020-12-20 14:21] VITALS: BP 102/56; PULSE 83; RESP 18; TEMP 36.2; O2SAT 94
[2020-12-21 05:00] VITALS: BP 139/69; PULSE 70; RESP 18; TEMP 36.6; O2SAT 95
[2020-12-21] MEDS: Menthol/Lanolin/Calamine/Znox 113 GM Tube 1 APPLIC TOPICAL ×2 (06:17→22:38)
[2020-12-21] MEDS: Iron Polysaccharide Complex 150 MG CAPSULE PO (06:17)
[2020-12-21] MEDS: Nystatin Powder 15gm Bottle 1 APPLIC TOPICAL ×2 (06:17→22:38)
[2020-12-21] MEDS: NYSTATIN 500,000 UNIT/5 ML UDC 500000 UNIT PO ×4 (06:17→22:36)
[2020-12-21] MEDS: Carbidopa/Levodopa 25/250 Tablet PO ×4 (07:48→20:06)
[2020-12-21] MEDS: predniSONE 20 MG Tablet PO (07:48)
[2020-12-21] MEDS: Losartan Potassium 100 MG Tablet PO (07:48)
[2020-12-21] MEDS: Calcium (Elemental) 500 MG Tablet PO ×2 (07:48→17:23)
[2020-12-21] MEDS: Pramipexole Di-HCl 0.5 MG Tablet PO ×3 (07:48→20:06)
[2020-12-21] MEDS: Pantoprazole Sodium 40 MG Tablet PO (07:48)
[2020-12-21] MEDS: Sertraline 100 MG Tablet PO (07:49)
[2020-12-21] MEDS: Amantadine 100 MG Capsule PO ×2 (09:44→22:36)
[2020-12-21] MEDS: CARBIDOPA/LEVODOPA CR 50/200 Tablet PO ×2 (09:44→22:36)
[2020-12-21 22:39] VITALS: PULSE 76; RESP 18; O2SAT 94
[2020-12-22 05:00] VITALS: BP 145/79; PULSE 69; RESP 16; TEMP 36.6; O2SAT 94
[2020-12-22] MEDS: Iron Polysaccharide Complex 150 MG CAPSULE PO (06:10)
[2020-12-22] MEDS: NYSTATIN 500,000 UNIT/5 ML UDC 500000 UNIT PO ×4 (06:10→22:27)
[2020-12-22] MEDS: Nystatin Powder 15gm Bottle 1 APPLIC TOPICAL ×2 (06:13→22:27)
[2020-12-22] MEDS: Menthol/Lanolin/Calamine/Znox 113 GM Tube 1 APPLIC TOPICAL ×2 (06:13→22:27)
[2020-12-22] MEDS: Sertraline 100 MG Tablet PO (07:46)
[2020-12-22] MEDS: Pramipexole Di-HCl 0.5 MG Tablet PO ×3 (07:46→20:23)
[2020-12-22] MEDS: Calcium (Elemental) 500 MG Tablet PO ×2 (07:46→17:33)
[2020-12-22] MEDS: predniSONE 20 MG Tablet PO (07:46)
[2020-12-22] MEDS: Carbidopa/Levodopa 25/250 Tablet PO ×4 (07:47→20:23)
[2020-12-22] MEDS: Losartan Potassium 100 MG Tablet PO (07:47)
[2020-12-22] MEDS: Pantoprazole Sodium 40 MG Tablet PO (07:47)
[2020-12-22] MEDS: CARBIDOPA/LEVODOPA CR 50/200 Tablet PO ×2 (09:48→22:26)
[2020-12-22] MEDS: Amantadine 100 MG Capsule PO ×2 (09:48→22:35)
[2020-12-22 14:29] VITALS: BP 121/65; PULSE 86; RESP 14; TEMP 35.8; O2SAT 95
[2020-12-23 05:00] VITALS: BP 131/69; PULSE 69; RESP 18; TEMP 36.9; O2SAT 94
[2020-12-23] MEDS: NYSTATIN 500,000 UNIT/5 ML UDC 500000 UNIT PO ×4 (05:53→22:02)
[2020-12-23] MEDS: Iron Polysaccharide Complex 150 MG CAPSULE PO (05:53)
[2020-12-23] MEDS: Menthol/Lanolin/Calamine/Znox 113 GM Tube 1 APPLIC TOPICAL ×2 (05:55→22:01)
[2020-12-23] MEDS: Nystatin Powder 15gm Bottle 1 APPLIC TOPICAL ×2 (05:55→22:02)
[2020-12-23] MEDS: Pantoprazole Sodium 40 MG Tablet PO (09:05)
[2020-12-23] MEDS: Sertraline 100 MG Tablet PO (09:05)
[2020-12-23] MEDS: Carbidopa/Levodopa 25/250 Tablet PO ×4 (09:05→20:48)
[2020-12-23] MEDS: Calcium (Elemental) 500 MG Tablet PO ×2 (09:05→16:37)
[2020-12-23] MEDS: Pramipexole Di-HCl 0.5 MG Tablet PO ×3 (09:06→20:48)
[2020-12-23] MEDS: Losartan Potassium 100 MG Tablet PO (09:06)
[2020-12-23] MEDS: predniSONE 20 MG Tablet PO (09:06)
[2020-12-23] MEDS: Amantadine 100 MG Capsule PO ×2 (10:00→22:02)
[2020-12-23] MEDS: CARBIDOPA/LEVODOPA CR 50/200 Tablet PO ×2 (10:00→22:02)
[2020-12-23 15:40] VITALS: BP 105/57; PULSE 80; RESP 16; TEMP 36.8; O2SAT 95
[2020-12-23 22:15] VITALS: PULSE 74; RESP 16; O2SAT 95
--- NOTE | 2020-12-23 23:32 | NURSING ---
Blood noted in patient colostomy bag with sitting in chair. Nurse assess the stoma beefy red, and blood around stoma area. Assisted into bed with a COMMERCIAL LOAN CLOSER cleansed area and bag and no more blood noted. Will continue to monitor doing this shift. Rn made aware.
[2020-12-24 05:00] VITALS: BP 131/75; PULSE 73; RESP 16; TEMP 36.7; O2SAT 93
[2020-12-24] MEDS: Menthol/Lanolin/Calamine/Znox 113 GM Tube 1 APPLIC TOPICAL ×2 (05:28→22:50)
[2020-12-24] MEDS: Nystatin Powder 15gm Bottle 1 APPLIC TOPICAL ×2 (05:28→22:50)
[2020-12-24] MEDS: NYSTATIN 500,000 UNIT/5 ML UDC 500000 UNIT PO ×2 (05:29→13:52)
[2020-12-24] MEDS: Iron Polysaccharide Complex 150 MG CAPSULE PO (05:29)
[2020-12-24 06:06] LABS: Absolute Lymphocyte Count 1.05 X10^3/uL (0.83-4.51); Absolute Neutrophil Count 8.2 X10^3/uL (2.0-7.7); Basophil# 0.03 X10^3/uL; Basophil% 0.3 % (0-1); Differential Indicated SCAN CRITERIA MET; Eosinophil# 0.15 X10^3/uL; Eosinophils% 1.5 % (0-5); Hematocrit 40.4 % (40-54); Hemoglobin 12.2 g/dL (13.0-16.5); Lymphocyte # 1.05 X10^3/ul (4.0); Lymphocyte % 10.5 % (19-41); Mean Corp Hgb Conc 30.2 g/dL (32-36); Mean Corpuscular Hgb 28.3 pg (27.0-32.0); Mean Corpuscular Volume 93.7 fL (80-94); Mean Platelet Vol. 14.7 fl (6.2-12.0); Monocyte# 0.52 X10^3/uL; Monocyte% 5.2 % (0-10); NRBC Flagged by Analyzer 0 % (0-5); Neutrophil # 8.15 X10^3/uL (2.7-7.7); Neutrophil % 81.5 % (47-70); POSITIVE COUNT YES; Platelet Count 95 K/mm3 (150-450); RBC Distribution Width CV 15.3 % (11.6-14.6); RBC Distribution Width SD 53.5 fl (35.1-43.9); Red Blood Count 4.31 M/mm3 (4.6-6.2)
[2020-12-24 06:24] LABS: Anion Gap 6 (5-15); BUN 20 mg/dL (7-18); BUN/Creat Ratio 26.8 RATIO (10-20); Calcium,Total 8.4 mg/dL (8.5-10.1); Chloride 109 mmol/L (98-107); Creatinine, Serum 0.75 mg/dL (0.70-1.30); EST Glomerular Filtration Rate 107 mL/min (>60); Est Glom Filt Rate - Afr Amer 130 mL/min (>60); Estimated Creatinine Clearance 70.78 ml/min; Glucose 88 mg/dL (74-106); Potassium 3.7 mmol/L (3.5-5.1); Sodium Level 141 mmol/L (136-145)
[2020-12-24] MEDS: Pramipexole Di-HCl 0.5 MG Tablet PO ×3 (07:49→20:51)
[2020-12-24] MEDS: predniSONE 20 MG Tablet PO (07:50)
[2020-12-24] MEDS: Carbidopa/Levodopa 25/250 Tablet PO ×4 (07:50→20:51)
[2020-12-24] MEDS: Losartan Potassium 100 MG Tablet PO (07:50)
[2020-12-24] MEDS: Sertraline 100 MG Tablet PO (07:50)
[2020-12-24] MEDS: Pantoprazole Sodium 40 MG Tablet PO (07:50)
[2020-12-24] MEDS: Calcium (Elemental) 500 MG Tablet PO ×2 (07:50→16:49)
[2020-12-24] MEDS: CARBIDOPA/LEVODOPA CR 50/200 Tablet PO ×2 (09:14→22:50)
[2020-12-24] MEDS: Amantadine 100 MG Capsule PO ×2 (10:00→22:50)
[2020-12-24 14:34] VITALS: BP 108/63; PULSE 74; RESP 16; TEMP 36.2; O2SAT 97
--- NOTE | 2020-12-24 15:17 | NURSING ---
Pt had appointment with Dr. Lanier today, pt stated he received a Nplate shot.
[2020-12-25 05:00] VITALS: BP 127/66; PULSE 70; RESP 18; TEMP 525.5; TEMP 978; O2SAT 93
[2020-12-25] MEDS: Nystatin Powder 15gm Bottle 1 APPLIC TOPICAL ×2 (05:23→22:09)
[2020-12-25] MEDS: Iron Polysaccharide Complex 150 MG CAPSULE PO (05:23)
[2020-12-25] MEDS: Menthol/Lanolin/Calamine/Znox 113 GM Tube 1 APPLIC TOPICAL ×2 (05:23→22:08)
[2020-12-25] MEDS: Alendronate Sodium 70 MG Tablet PO (05:23)
[2020-12-25] MEDS: Pramipexole Di-HCl 0.5 MG Tablet PO ×3 (08:23→20:17)
[2020-12-25] MEDS: Losartan Potassium 100 MG Tablet PO (08:23)
[2020-12-25] MEDS: Carbidopa/Levodopa 25/250 Tablet PO ×4 (08:23→20:17)
[2020-12-25] MEDS: Pantoprazole Sodium 40 MG Tablet PO (08:24)
[2020-12-25] MEDS: predniSONE 20 MG Tablet PO (08:24)
[2020-12-25] MEDS: Calcium (Elemental) 500 MG Tablet PO ×2 (08:24→16:02)
[2020-12-25] MEDS: Sertraline 100 MG Tablet PO (08:24)
[2020-12-25] MEDS: CARBIDOPA/LEVODOPA CR 50/200 Tablet PO ×2 (08:25→22:06)
[2020-12-25 08:26] VITALS: BP 109/63; PULSE 84
[2020-12-25] MEDS: Amantadine 100 MG Capsule PO ×2 (09:32→22:07)
--- NOTE | 2020-12-25 10:52 | NURSING ---
ostomy area cleaned and new unit applied. stoma beefy red. small amount of blood around stoma and in stool. pt tolerated well.
--- NOTE | 2020-12-25 13:36 | NURSING ---
1300 pt lowered to floor while SANDING MACHINE TENDER trying to weigh pt, pt legs gave out, no injury. updated.
[2020-12-25 14:21] VITALS: BP 113/62; PULSE 80; RESP 18; TEMP 36.4; O2SAT 94
--- NOTE | 2020-12-25 15:45 | CHAPLAIN ---
Type of Pastoral Visit ___ Initial Visit _x__ Follow-up Visit ___ On-call Visit ___ General Patient Visit ___ Spiritual Assessment ___ Family Conference ___ Bereavement ___ Rapid Response ___ Code Blue ___ Other (describe below) Pastoral Care Referral From _x__ Patient ___ Family ___ Nurse ___ Physician ___ Customs Import Specialist ___ Air Conditioning Insulation Installer ___ Other (describe below) Sacrament/Intervention _x__ Active listening ___ Anointing ___ Latter-Day ___ Bereavement ___ Communion ___ Evelyn exploration ___ ___ Life review _x__ Prayer ___ Reconciliation ___ Sacrament of Sick _x__ Supportive presence ___ Wedding ___ Other (describe below) Pastoral Comments stopped by for a follow up visit with patient; when asked how his day was going pt was quiet and teary eyed; pt stated that he was weak today and he is concerned about his future and going home; pt states he has good days and bad days and wants to be at home; presence, listening, supporting and prayer given
[2020-12-25 23:43] VITALS: PULSE 78; RESP 18; O2SAT 96
[2020-12-26 05:00] VITALS: BP 159/79; PULSE 72; RESP 18; TEMP 36.6; O2SAT 94
[2020-12-26] MEDS: Nystatin Powder 15gm Bottle 1 APPLIC TOPICAL ×2 (05:16→22:20)
[2020-12-26] MEDS: Iron Polysaccharide Complex 150 MG CAPSULE PO (05:17)
[2020-12-26] MEDS: Menthol/Lanolin/Calamine/Znox 113 GM Tube 1 APPLIC TOPICAL ×2 (05:17→22:21)
[2020-12-26] MEDS: Carbidopa/Levodopa 25/250 Tablet PO ×4 (07:51→20:35)
[2020-12-26] MEDS: Pantoprazole Sodium 40 MG Tablet PO (07:51)
[2020-12-26] MEDS: Sertraline 100 MG Tablet PO (07:51)
[2020-12-26] MEDS: Pramipexole Di-HCl 0.5 MG Tablet PO ×3 (07:51→20:35)
[2020-12-26] MEDS: predniSONE 20 MG Tablet PO (07:51)
[2020-12-26] MEDS: Calcium (Elemental) 500 MG Tablet PO ×2 (07:51→16:34)
[2020-12-26] MEDS: Losartan Potassium 100 MG Tablet PO (07:51)
[2020-12-26] MEDS: CARBIDOPA/LEVODOPA CR 50/200 Tablet PO ×2 (09:25→22:20)
[2020-12-26 10:00] VITALS: PULSE 78; O2SAT 92
[2020-12-26] MEDS: Amantadine 100 MG Capsule PO ×2 (10:05→22:20)
[2020-12-26 15:06] VITALS: BP 116/70; PULSE 89; RESP 16; TEMP 36; O2SAT 95
[2020-12-27 05:00] VITALS: BP 142/76; PULSE 70; RESP 16; TEMP 36.7; O2SAT 93
[2020-12-27] MEDS: Nystatin Powder 15gm Bottle 1 APPLIC TOPICAL (05:31)
[2020-12-27] MEDS: Iron Polysaccharide Complex 150 MG CAPSULE PO (05:31)
[2020-12-27] MEDS: Menthol/Lanolin/Calamine/Znox 113 GM Tube 1 APPLIC TOPICAL (05:33)
[2020-12-27] MEDS: Carbidopa/Levodopa 25/250 Tablet PO ×2 (07:46→11:14)
[2020-12-27] MEDS: Losartan Potassium 100 MG Tablet PO (07:46)
[2020-12-27] MEDS: Pramipexole Di-HCl 0.5 MG Tablet PO (07:46)
[2020-12-27] MEDS: Pantoprazole Sodium 40 MG Tablet PO (07:47)
[2020-12-27] MEDS: Calcium (Elemental) 500 MG Tablet PO (07:47)
[2020-12-27] MEDS: predniSONE 20 MG Tablet PO (07:47)
[2020-12-27] MEDS: Sertraline 100 MG Tablet PO (07:47)
[2020-12-27 07:52] VITALS: BP 121/77; PULSE 80
[2020-12-27] MEDS: Amantadine 100 MG Capsule PO (09:48)
[2020-12-27] MEDS: CARBIDOPA/LEVODOPA CR 50/200 Tablet PO (09:48)
[2020-12-27 10:00] VITALS: PULSE 74; RESP 18; O2SAT 95
== END 2020-12-27 11:30 | disposition home health service (06) | DRG 560 ==
PROVIDERS: Internal Medicine Hematology & Oncology; Admitting Provider Family Medicine Geriatric Medicine; PCP Internal Medicine; Visit Provider Family Medicine Geriatric Medicine
DX: S72.001D Fracture of unspecified part of neck of right femur, subsequent encounter for closed fracture with routine healing (principal); D69.3 Immune thrombocytopenic purpura; K94.01 Colostomy hemorrhage; W19.XXXD Unspecified fall, subsequent encounter; G20 Parkinson's disease; I10 Essential (primary) hypertension; K21.9 Gastro-esophageal reflux disease without esophagitis; F32.9 Major depressive disorder, single episode, unspecified; E55.9 Vitamin D deficiency, unspecified; M81.0 Age-related osteoporosis without current pathological fracture; Y83.9 Surgical procedure, unspecified as the cause of abnormal reaction of the patient, or of later complication, without mention of misadventure at the time of the procedure; B35.4 Tinea corporis; D50.9 Iron deficiency anemia, unspecified; R29.6 Repeated falls; B37.9 Candidiasis, unspecified
CPT/HCPCS: 36415; 73502; 80048; 82962; 85014; 85018; 85025; 87426; 92507; 92523; 92526; 92610; 97110; 97116; 97162; 97166; 97530; 97535; 97802; J7030; A4216

== ENCOUNTER → 2021-02-14 15:38 | Outpatient (CLI) | payer MEDICARE, BC, SELFPAY ==
[2021-02-05 10:55] VITALS: BMI 25.0
--- NOTE | 2021-02-14 15:38 | MRI_ITS ---
STUDY: MRI BRAIN WITH AND WITHOUT CONTRAST REASON FOR EXAM: Male, 80 years old. Parkinson''s Disease TECHNIQUE: Standardized multiplanar fat and water weighted pulse sequences were obtained. IV Dotarem 18ml was administered for the contrast portion of the examination. COMPARISON: CT brain 06/17/2020 FINDINGS: There is moderate cerebral atrophy with widening of the extra-axial spaces and ventricular dilatation. There are multiple white matter hyperintensities, distributed throughout the deep white matter tracts of the cerebral hemispheres, consistent with moderate chronic white matter ischemic changes. There is no evidence for recent intracranial ischemia or other cause of cytotoxic edema on diffusion weighted imaging (DWI). 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 Normal bilateral basal ganglia. Normal thalami. There is no extra-axial fluid accumulation. Normal flow voids within the major intracranial circulation suggesting patency by spin echo criteria. Normal venous enhancement. There is no enhancing intra-axial or extra-axial abnormality. Normal sella turcica, pituitary gland, infundibular stalk, optic chiasm and hypothalamus. Normal tectal plate and pineal gland. Normal midbrain, mayi and medulla. Normal cerebellum. Normal basal cisterns. Normal bilateral temporal bones. Normal bilateral internal auditory canals. No demonstrated orbital abnormality, within the constraints of a routine brain study. Air fluid level sphenoid sinus. Normal calvarium and skull base. Normal visualized soft tissue structures. Normal visualized upper cervical spine. IMPRESSION: Sphenoid sinusitis otherwise no acute disease. Involutional changes of the brain, as described above. Electronically Signed: Vj Crawley MD at 22:03 EDT , Service support , MRI/Brain W/WO Contrast
[2021-02-14 17:34] LABS: Vitamin B12 629 pg/mL (211-911)
[2021-02-14 19:04] LABS: Thyroid Stim Hormone (TSH) 0.96 uIU/mL (0.358-3.74)
== END ==
PROVIDERS: PCP Internal Medicine; Referring Provider Psychiatry & Neurology Neurology; Visit Provider Psychiatry & Neurology Neurology
DX: G20 Parkinson's disease (principal); I10 Essential (primary) hypertension; R53.81 Other malaise; R53.83 Other fatigue; R26.9 Unspecified abnormalities of gait and mobility
CPT/HCPCS: 36415; 70553; 82607; 82746; 84443; A9575

== ENCOUNTER 2021-04-29 16:26 | Emergency (ER) | payer MEDICARE, BC, SELFPAY ==
[2021-03-26 15:15] VITALS: BMI 25.0
[2021-04-29 16:28] VITALS: BP 128/64; PULSE 84; RESP 18; TEMP 36.8; O2SAT 97; BMI 26.8
--- NOTE | 2021-04-29 16:43 | ED.VIS.CHEST ---
HPI History of Present Illness Chief Complaint: Chest Pain Informant: patient and spouse/S.O. Narrative Narrative: Patient is a 80-year-old male with a past medical history of Parkinson, ITP, hypertension, hyperlipidemia who presents to the emergency department for sternal chest pain. This started yesterday. Denies ever having some before in the past. Whenever he coughs or takes a deep breath then this seems to make it worse. Pushing on the chest as well aggravates it. He has been taking Tylenol for which did not give him any relief. EMS gave him [address] to [address] hospital. He denies associated shortness of breath. No nausea or cold/clammy sensation. No radiation of the pain. He denies any abdominal pain. No leg swelling past baseline or calf pain. No history of DVT/PE. No history of CAD. He denies any smoking history. Patient has been coughing whenever he eats due to his Parkinson. Otherwise denies fever/chills. PFSH PFSH Home Medications sertraline 100 mg PO DAILY@30 08/27/15 [History Last Taken 10/29/20 07:30] calcium carbonate 630 mg PO BID 11/19/18 [History Last Taken 10/29/20] lansoprazole 30 mg PO DAILY@72911/19/18 [History Last Taken 10/29/20 07:30] losartan 100 mg PO DAILY@72911/19/18 [History Last Taken 10/29/20 07:30] alendronate 70 mg PO TU 10/29/20 [History Last Taken 10/23/20] ergocalciferol (vitamin D2) 50,000 unit PO Th@0800 10/29/20 [History Last Taken 10/25/20] acetaminophen 1,000 mg PO Q6H PRN PRN tab 12/10/20 [Rx Last Taken Unknown] amantadine HCl 100 mg capsule 100 mg PO TID #90 cap 03/26/21 [Rx Last Taken Unknown] carbidopa 25 mg-levodopa 100 mg tablet 2 tab PO .QID #240 tab 03/26/21 [Rx Last Taken Unknown] carbidopa ER 50 mg-levodopa 200 mg tablet,extended release 1 tab PO BID@0900,2200 #60 tablet 03/26/21 [Rx Last Taken Unknown] chlorthalidone 25 mg tablet 25 mg PO DAILY 03/26/21 [History Last Taken Unknown] pramipexole 0.5 mg tablet 0.5 mg PO TID #90 tab 03/26/21 [Rx Last Taken Unknown] prednisone 5 mg tablet 5 mg PO DAILY 03/26/21 [History Last Taken Unknown] Allergy/AdvReac Type Severity Reaction Status Date / Time haloperidol [From Haldol] Allergy as a Verified 04/29/21 16:36 parkinson's pt was told never to have it Penicillins Allergy Rash Verified 04/29/21 16:36 Social History Smoking Status: Never smoker alcohol intake: never substance use type: does not use ROS ROS ED Constitutional Constitutional ED: Denies chills or fever(s) Eyes Eyes: Denies change in vision ENT ENT ED: Denies epistaxis or rhinorrhea Cardiovascular Cardiovascular: Reports chest pain; Denies palpitations Respiratory/Chest Respiratory/Chest: Denies dyspnea or dyspnea on exertion Gastrointestinal Gastrointestinal: Denies abdominal pain, diarrhea, nausea or vomiting Musculoskeletal Musculoskeletal: Denies back pain or neck pain Integumentary Denies rash Neurologic Neurologic: Denies dizziness, headache(s) or weakness EXAM Physical Exam Const Vital Signs: 04/29/21 16:28 04/29/21 16:38 Temperature 98.2 F Temperature Source Oral Pulse Rate 84 Respiratory Rate 18 Blood Pressure 128/64 H Blood Pressure Mean 85 Pulse Ox 97 Oxygen Delivery Method Room Air Room Air Positive well nourished and well developed General Appearance ED: well developed and NAD HEENT Reports normocephalic, head/scalp atraumatic and moist mucous membranes Eyes PERRL and EOMs intact bilaterally Neck supple Chest Wall inspection of chest normal Chest Narrative: Chest wall tenderness all along the sternal borders. Resp normal respiratory effort and clear to auscultation bilaterally Auscultation: Negative for rales, rhonchi or wheezes Cardio regular rate, regular rhythm and no murmurs GI normal to inspection, nondistended, normoactive bowel sounds and non-tender GI Narrative: Colostomy bag present. Surrounding skin appears healthy. Palpation: soft; Negative for guarding or rebound tenderness present Extremity normal to inspection Extremity Narrative: Trace edema bilateral lower extremities that appear symmetrical. No tenderness. General Extremety ED: Yes tenderness Neuro no sensory deficits noted Sensorium / Orientation: alert Motor Exam: strength 5/5 throughout Psych mental status grossly normal Skin no rashes or lesions noted Heart Score History: Slightly/Non-Suspicious ECG: Normal Age: >/= 65 years Risk Factors: 1 or 2 Risk Factors Score: 3 MDM MDM MDM Narrative Medical decision making narrative: Patient presents the ED for chest wall pain. This is reproducible on physical exam. On arrival to the ED his vital signs within normal limits. Satting 97% on room air. Is not tachycardic. He is in no acute distress. Family is concerned because he did get aspirin and has a history of ITP. Will check basic lab work, EKG and chest x-ray. At this point I have low concern for ACS, thromboembolism or aortic catastrophe as it is reproducible. He has been coughing whenever he eats. He has no significant risk factors for DVT/PE. Patient's lab work did not reveal a high white blood cell count. He is mildly anemic but this is similar to his previous lab draws. His sodium is just barely low but otherwise no significant electrolyte abnormality. His troponin test is within normal limits. His chest x-ray did not reveal any acute cardiopulmonary abnormality. I did offer repeat troponin test to make sure this is not trending this was performed. This was the same exact number twice. It is not trending upward. This time they do feel comfortable going home. Plan follow-up with his PCP. Recommend symptomatic treatment. Return precautions are reviewed. Clinical impression: #1 chest wall pain EKG Initial EKG: Attestation: I personally reviewed and interpreted this EKG as follows: (Rate of 71 bpm and normal sinus rhythm. Prolonged QTC of 506 otherwise normal intervals. Left axis deviation. No significant ST elevations or depressions. No T wave abnormalities.) Discharge Plan Triage Chief Complaint: Chest Pain ED Provider: Frankie Camargo Dx/Rx/DC Orders Instructions: ED Chest Wall Pain, Costochondritis Prescriptions: No Action chlorthalidone 25 mg tablet 25 mg PO DAILY RF: 0 prednisone 5 mg tablet 5 mg PO DAILY RF: 0 amantadine HCl 100 mg capsule 100 mg PO TID Qty: 90 RF: 2 pramipexole 0.5 mg tablet 0.5 mg PO TID Qty: 90 RF: 2 carbidopa-levodopa [Sinemet] 25-100 mg tablet 2 tab PO .QID Qty: 240 RF: 2 carbidopa-levodopa 50-200 mg tablet extended release 1 tab PO BID@0900,2200 Qty: 60 RF: 1 sertraline 100 MG tablet 100 mg PO DAILY@0730 RF: 0 lansoprazole 30 MG capsule 30 mg PO DAILY@0730 RF: 0 losartan 100 MG tablet 100 mg PO DAILY@0730 RF: 0 calcium carbonate 500 MG tablet 630 mg PO BID RF: 0 alendronate 70 MG tablet 70 mg PO TU RF: 0 ergocalciferol (vitamin D2) 50,000 UNIT capsule 50,000 unit PO Th@0800 RF: 0 acetaminophen 500 MG tablet 1,000 mg PO Q6H PRN PRN (Reason: Pain Score 1-5) RF: 0 Primary Care Provider: Kendall Patel Referrals: Kendall Patel MD [Primary Care Provider] - 2 Days Disposition Disposition: Home, Self Care Discharge Date/Time: 04/29/21 19:43
--- NOTE | 2021-04-29 16:54 | EKG12_ITS ---
Test Reason : CP Blood Pressure : / mmHG Vent. Rate : 071 BPM Atrial Rate : 071 BPM P-R Int : 170 ms QRS Dur : 102 ms QT Int : 466 ms P-R-T Axes : 009 -44 031 degrees QTc Int : 506 ms Normal sinus rhythm Left axis deviation Prolonged QT Abnormal ECG Confirmed by FALGUNI CALERO, NITHIN ([id number]), film or videotape editor AUDRA PATEL ([id number]) on 05/01/2021 1:59:19 PM Referred By: ANANYA Confirmed By:NITHIN MONTES DE OCA MD
--- NOTE | 2021-04-29 17:00 | RAD_ITS ---
STUDY: X-RAY CHEST REASON FOR EXAM: Male, 80 years old. chest pain TECHNIQUE: Single AP portable view of the chest. COMPARISON: 10/29/2020 FINDINGS: The lungs are clear and expanded. There is no demonstrated pleural abnormality. Normal size heart. Normal mediastinum and ghada. Normal visualized pulmonary arteries. Normal visualized aortic arch and descending thoracic aorta. Normal visualized thoracic spine. Normal visualized ribs, clavicles, and shoulders. There is no demonstrated abnormality of the visualized soft tissue structures of the upper abdomen. RAD/Chest 1 View (Portable) IMPRESSION: Normal x-ray examination of the chest. Electronically Signed: Chau Cintron MD at 17:41 EDT Tel , Service support ,
[2021-04-29 17:04] LABS: Absolute Lymphocyte Count 1.38 X10^3/uL (0.83-4.51); Absolute Neutrophil Count 7.7 X10^3/uL (2.0-7.7); Basophil# 0.06 X10^3/uL; Basophil% 0.6 % (0-1); Eosinophil# 0.12 X10^3/uL; Eosinophils% 1.2 % (0-5); Hemoglobin 11.6 g/dL (13.0-16.5); Lymphocyte # 1.38 X10^3/ul (0.83-4.51); Lymphocyte % 13.9 % (19-41); Mean Corp Hgb Conc 31.4 g/dL (32-36); Mean Corpuscular Hgb 27.2 pg (27.0-32.0); Mean Corpuscular Volume 86.7 fL (80-94); Mean Platelet Vol. 14.7 fl (6.2-12.0); Monocyte# 0.67 X10^3/uL; Monocyte% 6.7 % (0-10); NRBC Flagged by Analyzer 0 % (0-5); Neutrophil # 7.67 X10^3/uL (2.7-7.7); Platelet Count 113 K/mm3 (150-450); RBC Distribution Width CV 14.6 % (11.6-14.6); RBC Distribution Width SD 46.5 fl (35.1-43.9); Red Blood Count 4.27 M/mm3 (4.6-6.2)
[2021-04-29 17:16] LABS: Anion Gap 9 (5-15); BUN 14 mg/dL (7-18); BUN/Creat Ratio 15.6 RATIO (10-20); Calcium,Total 8.9 mg/dL (8.5-10.1); Chloride 100 mmol/L (98-107); EST Glomerular Filtration Rate 87 mL/min (>60); Est Glom Filt Rate - Afr Amer 105 mL/min (>60); Estimated Creatinine Clearance 78.65 ml/min; Glucose 127 mg/dL (74-106); Magnesium 2.1 mg/dL (1.6-2.6); Potassium 3.5 mmol/L (3.5-5.1); Sodium Level 135 mmol/L (136-145); Troponin-I HS 23.5 pg/mL (3.0-78.5)
[2021-04-29 18:20] VITALS: BP 164/87; PULSE 69; RESP 19; O2SAT 97
[2021-04-29 18:53] LABS: Troponin-I HS 23.5 pg/mL (3.0-78.5)
[2021-04-29 19:23] VITALS: BP 162/78; PULSE 69; RESP 16; O2SAT 96
[2021-04-29 19:29] VITALS: BP 154/77; PULSE 70; RESP 16; O2SAT 99
[2021-04-29] MEDS: HYDROcodone Bitartrate/Apap 5/325 Tablet PO (19:33)
== END 2021-04-29 19:43 | disposition home or self-care (01) ==
PROVIDERS: Emergency Provider Emergency Medicine; PCP Internal Medicine
DX: R07.89 Other chest pain (principal); R05 Cough
CPT/HCPCS: 71045; 80048; 83735; 84484; 85025; 93005; 99285; A4216

== ENCOUNTER 2021-10-16 12:22 | Emergency (ER) | payer MEDICARE, BC, SELFPAY ==
[2021-10-16 12:24] VITALS: BP 145/76; PULSE 73; RESP 18; TEMP 36.3; O2SAT 96; BMI 25.2
--- NOTE | 2021-10-16 12:26 | CT_ITS ---
STUDY: CT BRAIN WITHOUT CONTRAST REASON FOR EXAM: Male, 81 years old. Head injury. RADIATION DOSAGE (If Supplied By Facility): CTDIvol = ( 44.99 ) mGy, DLP = ( 812.98 ) mGycm TECHNIQUE: Transaxial CT imaging of the brain was performed without administration of intravenous contrast material. Individualized dose optimization techniques were used for this CT. COMPARISON: Comparison is made with prior study dated 06/17/2018. FINDINGS: Normal soft tissue structures. Normal calvarium. There is mild cerebral atrophy with widening of the extra-axial spaces and ventricular dilatation. There are areas of decreased attenuation within the white matter tracts of the supratentorial brain, consistent with microvascular disease changes. Normal basal ganglia and thalami. Normal brainstem. There is mild cerebellar atrophy. There is no intracranial hemorrhage. There are no findings of an acute ischemic infarction. Normal visualized paranasal sinuses. CT/Brain/Head without Contrast IMPRESSION: Chronic involutional changes of the brain. Electronically Signed: Thomas Dennison MD at 12:58 EST , Service support ,
--- NOTE | 2021-10-16 12:26 | CT_ITS ---
STUDY: CT CERVICAL SPINE WITHOUT CONTRAST REASON FOR EXAM: Male, 81 years old. Injury RADIATION DOSAGE (If Supplied By Facility): CTDIvol = ( 21.58 ) mGy, DLP = ( 491.90 ) mGycm TECHNIQUE: High resolution transaxial imaging was performed without contrast material. Sagittal and coronal images were reconstructed. Individualized dose optimization techniques were used for this CT. COMPARISON: None FINDINGS: Normal craniovertebral junction. There are degenerative changes of the anterior atlantoaxial articulation. There is evidence of a transverse fracture at the base of the odontoid with posterior displacement. This causes deformity of the anterior central thecal sac. Normal cervical lordosis. Normal vertebral bodies and posterior osseous elements. C2-3: There is loss of the disc space at the C2-C3 level. C3-4: Marked degree of disc space narrowing. Facet joint osteoarthritis more prominent on the left side. C4-5: Facet joint osteoarthritis and hypertrophy worse on the left side. Uncovertebral arthrosis. Mild degree of left neural foraminal stenosis. C5-6: Marked degree of disc space narrowing. Hypertrophy of the facet joints worse on the right side with the moderate degree of right neural foraminal stenosis. C6-7: Marked degree of disc space narrowing and disc degeneration. No significant stenosis seen. Atherosclerotic calcification of the carotid bifurcation. CT/Spine Cervical without Contras IMPRESSION: Transverse fracture at the base of the odontoid with posterior displacement and minimal deformity of the anterior aspect of the thecal sac without significant stenosis. N.B. : The above Results were Read Back by Thomas Dennison MD to Mike Lopez MD, and understanding confirmed on 10/16/2021 13:01:54 (ET). Electronically Signed: Thomas Dennison MD at 13:03 EST , Service support ,
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
[2021-10-16 13:39] LABS: Absolute Lymphocyte Count 0.55 X10^3/uL (0.83-4.51); Basophil# 0.04 X10^3/uL; Basophil% 0.4 % (0-1); Eosinophils% 1.1 % (0-5); Hematocrit 37.1 % (40-54); Hemoglobin 11.9 g/dL (13.0-16.5); Lymphocyte # 0.55 X10^3/ul (0.83-4.51); Lymphocyte % 5.9 % (19-41); Mean Corp Hgb Conc 32.1 g/dL (32-36); Mean Corpuscular Hgb 26.3 pg (27.0-32.0); Mean Corpuscular Volume 81.9 fL (80-94); Monocyte# 0.62 X10^3/uL; Monocyte% 6.6 % (0-10); NRBC Flagged by Analyzer 0 % (0-5); Neutrophil # 7.95 X10^3/uL (2.7-7.7); Neutrophil % 85.2 % (47-70); POSITIVE COUNT YES; POSITIVE DIFFERENTIAL YES; Platelet Count 95 K/mm3 (150-450); RBC Distribution Width CV 15.8 % (11.6-14.6); RBC Distribution Width SD 46.3 fl (35.1-43.9); Red Blood Count 4.53 M/mm3 (4.6-6.2); White Blood Count 9.3 K/mm3 (4.4-11.0)
[2021-10-16 13:41] LABS: Differential Indicated SCAN CRITERIA MET
[2021-10-16 13:44] LABS: International Normalized Ratio 1.3; Partial Thromboplast Time 33.6 Seconds (24.1-36.2); Prothrombin Time (Protime)PT. 15.3 SECONDS (11.7-14.9)
[2021-10-16 13:52] LABS: ALB/GLOB Ratio 0.9 RATIO (0.9-2.4); AST(SGOT) 34 U/L (15-37); Alanine Aminotransfer ALT/SGPT 14 U/L (16-61); Albumin, Serum 3.2 g/dL (3.2-5.0); Alkaline Phosphatase 94 U/L (45-117); Anion Gap 12 (5-15); BUN 15 mg/dL (7-18); BUN/Creat Ratio 21.2 RATIO (10-20); Calcium,Total 8.8 mg/dL (8.5-10.1); Chloride 93 mmol/L (98-107); Creatinine, Serum 0.71 mg/dL (0.70-1.30); EST Glomerular Filtration Rate 114 mL/min (>60); Est Glom Filt Rate - Afr Amer 138 mL/min (>60); Estimated Creatinine Clearance 69.64 ml/min; Globulin 3.5 g/dL (2.2-4.2); Glucose 105 mg/dL (74-106); Potassium 3.1 mmol/L (3.5-5.1); Protein, Total 6.7 g/dL (6.4-8.2); Sodium Level 131 mmol/L (136-145)
[2021-10-16 13:53] VITALS: BP 141/70; PULSE 74; RESP 19
[2021-10-16 14:17] LABS: Platelet Estimate MOD DEC (ADEQ); Red Cell Morphology NORM C+C NORMAL (NORM C&C)
[2021-10-16 14:24] VITALS: BP 141/70; PULSE 74
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
[2021-10-16 15:22] LABS: Differential Comment SCANNED
== END 2021-10-16 14:25 | disposition short-term general hospital (02) ==
PROVIDERS: Emergency Provider Emergency Medicine; PCP Internal Medicine
DX: S12.190A Other displaced fracture of second cervical vertebra, initial encounter for closed fracture (principal); W07.XXXA Fall from chair, initial encounter; Y93.89 Activity, other specified; Y92.9 Unspecified place or not applicable; Y99.9 Unspecified external cause status; G20 Parkinson's disease
CPT/HCPCS: 70450; 72125; 80053; 85025; 85610; 85730; 99285; A4216

== ENCOUNTER 2022-02-23 01:03 | Emergency (ER) | payer MEDICARE, BC, SELFPAY ==
[2022-02-23] VITALS (8 sets, daily range): BP systolic 129–132; BP diastolic 66–78; PULSE 73–88; RESP 17–19; TEMP 36.4; O2SAT 87–97; BMI 25.7
--- NOTE | 2022-02-23 01:08 | EKG12_ITS ---
Test Reason : CP Blood Pressure : / mmHG Vent. Rate : 076 BPM Atrial Rate : 076 BPM P-R Int : 176 ms QRS Dur : 100 ms QT Int : 422 ms P-R-T Axes : 023 -52 041 degrees QTc Int : 474 ms Normal sinus rhythm Left anterior fascicular block Poor R wave progression Abnormal ECG Confirmed by FALGUNI CALERO, NITHIN ([id number]), acquisition editor RUPESH POOLE ([id number]) on 02/24/2022 11:23:33 AM Referred By: GEORGE Confirmed By:NITHIN MONTES DE OCA MD
[2022-02-23 01:18] LABS: Absolute Lymphocyte Count 1.01 X10^3/uL (0.83-4.51); Absolute Neutrophil Count 9.4 X10^3/uL (2.0-7.7); Basophil# 0.05 X10^3/uL; Basophil% 0.4 % (0-1); Eosinophil# 0.22 X10^3/uL; Eosinophils% 1.9 % (0-5); Hematocrit 40.5 % (40-54); Hemoglobin 12.9 g/dL (13.0-16.5); Lymphocyte # 1.01 X10^3/ul (0.83-4.51); Lymphocyte % 8.6 % (19-41); Mean Corp Hgb Conc 31.9 g/dL (32-36); Mean Corpuscular Hgb 30.4 pg (27.0-32.0); Mean Corpuscular Volume 95.3 fL (80-94); Mean Platelet Vol. 11.9 fl (6.2-12.0); Monocyte# 1.02 X10^3/uL; Monocyte% 8.7 % (0-10); NRBC Flagged by Analyzer 0 % (0-5); Neutrophil # 9.35 X10^3/uL (2.7-7.7); Neutrophil % 79.5 % (47-70); Platelet Count 192 K/mm3 (150-450); RBC Distribution Width CV 14.7 % (11.6-14.6); RBC Distribution Width SD 51.1 fl (35.1-43.9); Red Blood Count 4.25 M/mm3 (4.6-6.2); White Blood Count 11.8 K/mm3 (4.4-11.0)
--- NOTE | 2022-02-23 01:25 | RAD_ITS ---
STUDY: X-RAY CHEST REASON FOR EXAM: Male, 81 years old. Chest pain TECHNIQUE: Portable, upright, AP chest radiograph COMPARISON: 04/29/2021 FINDINGS: Left lung base atelectasis. Right lung appears clear. There is no demonstrated pleural abnormality. Normal size heart. Normal mediastinum and ghada. Normal visualized pulmonary arteries. There is atherosclerotic calcification of the aortic arch with tortuosity. There is no demonstrated abnormality of the visualized soft tissue structures of the upper abdomen. RAD/Chest 1 View (Portable) IMPRESSION: Left lung base atelectasis. Electronically Signed: Deuce Rivas MD at 1:43 EDT ,
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
[2022-02-23 01:51] LABS: Anion Gap 5 (5-15); BUN 19 mg/dL (7-18); BUN/Creat Ratio 21.5 RATIO (10-20); Calcium,Total 8.8 mg/dL (8.5-10.1); Chloride 105 mmol/L (98-107); Creatinine, Serum 0.88 mg/dL (0.70-1.30); EST Glomerular Filtration Rate 88 mL/min (>60); Est Glom Filt Rate - Afr Amer 107 mL/min (>60); Estimated Creatinine Clearance 74.71 ml/min; Glucose 131 mg/dL (74-106); Potassium 3.2 mmol/L (3.5-5.1); Sodium Level 140 mmol/L (136-145); Troponin-I HS (w/2H Reflex) 18 pg/mL (3.0-78.0)
--- NOTE | 2022-02-23 01:56 | CT_ITS ---
STUDY: CTA CHEST REASON FOR EXAM: Male, 81 years old. Chest pain RADIATION DOSAGE (If Supplied By Facility): CTDIvol = ( 12.33 ) mGy, DLP = ( 480.75 ) mGycm TECHNIQUE: The examination was performed with the intravenous administration of IV 75mL [id number]-[id number]. Post-processing of the angiographic images was performed, with multiplanar reformation and 3D reconstruction. Individualized dose optimization techniques were used for this CT. COMPARISON: None. FINDINGS: Normal enhancement of the main pulmonary artery and right and left pulmonary arteries. Normal enhancement of the bilateral peripheral pulmonary arteries. There is no demonstrated pulmonary embolism. Normal thoracic aorta and visualized great vessels. There is no demonstrated aortic dissection. Normal heart and pericardium. Normal mediastinum. Normal hilar regions. Diffuse bronchiectasis. Mild bilateral dependent atelectasis. Normal pulmonary parenchyma. Left partially calcified pleural plaques. Normal chest wall structures. Right eighth rib nondisplaced fracture. Multiple healing right and left rib fractures. T5 inferior endplate fracture. Small hiatal hernia with fat stranding. Cirrhotic liver morphology. Gastroesophageal varices. CT/CTA Chest W/WO Contrast IMPRESSION: T5 inferior endplate fracture. Acute right eighth rib fracture and multiple healing right and left rib fractures. Diffuse bronchiectasis. Mild bilateral dependent atelectasis. Normal CTA chest examination, without a demonstrated pulmonary embolism or arterial dissection. Electronically Signed: Deuce Rivas MD at 2:34 EDT ,
[2022-02-23] MEDS: Aspirin 81 MG TAB.CHEW 324 MG PO (02:01)
[2022-02-23] MEDS: Lidocaine 5% Patch 1 PATCH TOPICAL (02:59)
[2022-02-23] MEDS: HYDROcodone Bitartrate/Apap 5/325 Tablet PO (03:00)
[2022-02-23 03:17] LABS: Reflex Troponin-HS? (from REC) Y
[2022-02-23 03:59] LABS: Troponin-I HS 17 pg/mL (3.0-78.0)
--- NOTE | 2022-02-23 04:39 | NURSING ---
Left message on machine for nurse at [facility] to let know patient should be there between 5 and 515am. Let them know abot T5 and rib fractures and will be sending papers back with the [facility].
== END 2022-02-23 05:05 | disposition skilled nursing facility (03) ==
PROVIDERS: Emergency Provider Student in an Organized Health Care Education/Training Program; PCP Family Medicine; Visit Provider Student in an Organized Health Care Education/Training Program
DX: M80.0AXA Age-related osteoporosis with current pathological fracture, other site, initial encounter for fracture (principal); C78.00 Secondary malignant neoplasm of unspecified lung; G20 Parkinson's disease; M80.08XA Age-related osteoporosis with current pathological fracture, vertebra(e), initial encounter for fracture; C18.9 Malignant neoplasm of colon, unspecified; D69.3 Immune thrombocytopenic purpura; C61 Malignant neoplasm of prostate; Z99.3 Dependence on wheelchair; Z79.899 Other long term (current) drug therapy; W22.8XXA Striking against or struck by other objects, initial encounter; Y92.129 Unspecified place in nursing home as the place of occurrence of the external cause
CPT/HCPCS: 71045; 71275; 80048; 84484; 85025; 93005; 99285; Q9967; A4216

== ENCOUNTER 2022-03-17 18:27 | Emergency (ER) | payer MEDICARE, BC, SELFPAY ==
[2022-03-17 18:30] VITALS: BP 107/67; PULSE 75; RESP 18; TEMP 37; O2SAT 98; BMI 23.0
--- NOTE | 2022-03-17 18:51 | RAD_ITS ---
STUDY: X-RAY - LUMBAR SPINE REASON FOR EXAM: Male, 81 years old. LOW BACK PAIN trauma TECHNIQUE: XR Spine Lumbar 2 or 3 Views COMPARISON: CT 05/24/2014 FINDINGS: Normal lumbar lordosis. There is no substantial scoliosis. There is a normal alignment of the vertebrae. There is multilevel endplate spondylosis of the lumbar vertebrae. There is multi-level degenerative disc disease with multi-level disc space narrowing. There are multiple metallic clips in the right upper quadrant. This is consistent for a cholecystectomy. L2 compression deformity. The soft tissue structures are unremarkable. RAD/Lumbar Spine 2 or 3 Views IMPRESSION: There is a compression deformity of the spine at level: L2. These are age-indeterminate. MRI could further evaluate if of concern. This is new since 2013. Electronically Signed: Blake Zabala MD at 19:56 EDT ,
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
--- NOTE | 2022-03-17 18:56 | RAD_ITS ---
EXAM: XR LEFT FEMUR, 2 VIEWS CLINICAL INDICATION: TRAUMA leg pain TECHNIQUE: Frontal and lateral views of the left femur. This report was created using [employer] report generation technology. COMPARISON: None. FINDINGS: BONES/JOINTS: There is metallic hardware noted in the left hip. No acute fracture. No subluxation. Normal alignment. Preservation of the joint space. No sclerotic or destructive changes observed. SOFT TISSUES: Unremarkable. No soft tissue swelling or gas. No radiopaque foreign body. VASCULATURE: There are atherosclerotic vascular calcifications. RAD/Femur Min 2 Views IMPRESSION: No acute findings in the left femur. Electronically Signed: Blake Zabala MD at 19:55 EDT ,
--- NOTE | 2022-03-17 18:56 | EDS_ITS ---
HPI History of Present Illness Chief Complaint: Other, Pain/Inj Informant: patient and spouse/S.O. Narrative Narrative: Patient presents with some slight bruising on his left flank area and some soreness with weightbearing on both thighs. Patient has a history of ITP about 19 years ago. He is on meds including prednisone for this. He is not having any known source of bleeding now. He states he was in the shower the other day. He needs help to do this. His left foot started to slide. People caught him but he felt things move in his hips or back. He has had some pain since but really just with weightbearing. Of note, this patient does not walk. He only transfers from bed to a chair or stands with assistance for short period of time. This is due to advanced Parkinson's. He does not feel ill. He has not had blood in the stool or urine. He has no numbness tingling or new weakness. He has no nausea vomiting or abdominal pain. His states that he seems slightly confused all of a sudden. However when I asked why she stated because he had told me he is not hurting in his hips or legs but he had told her he was. He clarified that he is not hurting until he puts weight on them. Therefore I am not seeing signs or history consistent with confusion. He never hit his head and has no bruising on his head. He slipped in the shower but was caught by people around his waist. PFSH PFS Home Medications sertraline 100 mg PO DAILY@72908/27/15 [History Last Taken 10/29/20 07:30] calcium carbonate 630 mg PO BID 11/19/18 [History Last Taken 10/29/20] lansoprazole 30 mg PO DAILY@72911/19/18 [History Last Taken 10/29/20 07:30] losartan 100 mg PO DAILY@72911/19/18 [History Last Taken 10/29/20 07:30] alendronate 70 mg PO TU 10/29/20 [History Last Taken 10/23/20] ergocalciferol (vitamin D2) 50,000 unit PO Th@0800 10/29/20 [History Last Taken 10/25/20] acetaminophen 1,000 mg PO Q6H PRN PRN tab 12/10/20 [Rx Last Taken 10/16/21 1000] chlorthalidone 25 mg tablet 25 mg PO DAILY 03/26/21 [History Last Taken Unknown] prednisone 5 mg tablet 5 mg PO DAILY 03/26/21 [History Last Taken Unknown] carbidopa 25 mg-levodopa 250 mg tablet 1 tab PO BID #180 tab 05/30/21 [Rx Last Taken Unknown] pramipexole 0.5 mg tablet 0.5 mg PO TID #270 tab 05/30/21 [Rx Last Taken Unknown] carbidopa ER 50 mg-levodopa 200 mg tablet,extended release 1 tab PO BID@0900,2 200 #180 tab 07/30/21 [Rx Last Taken Unknown] amantadine HCl 100 mg capsule 100 mg PO BID #180 cap 08/19/21 [Rx Last Taken Unknown] potassium chloride 10 meq PO DAILY 10/16/21 [History Last Taken Unknown] Handicap van #1 ea 02/20/22 [Rx Last Taken Unknown] omeprazole 20 mg PO DAILY 02/23/22 [History Last Taken Unknown] polysaccharide iron complex 150 mg PO DAILY 02/23/22 [History Last Taken Unknow n] Allergy/AdvReac Type Severity Reaction Status Date / Time haloperidol [From Haldol] Allergy as a Verified 03/17/22 18:35 parkinson's pt was told never to have it Penicillins Allergy Rash Verified 03/17/22 18:35 Social History Smoking Status: Never smoker alcohol intake: never substance use type: does not use ROS ROS ED Constitutional Constitutional ED: Denies chills or fever(s) Eyes Eyes: Denies blurry vision ENT ENT ED: Denies rhinorrhea Cardiovascular Cardiovascular: Denies chest pain or palpitations Respiratory/Chest Respiratory/Chest: Denies cough or dyspnea Gastrointestinal Gastrointestinal: Denies abdominal pain, constipation, diarrhea, melena, nausea or vomiting Genitourinary Genitourinary ED: Denies dysuria or hematuria Musculoskeletal Musculoskeletal: Reports other Details: See history of present illness peer Integumentary Reports other Details: Slight bruising on left flank area. But no pain in that area. Neurologic Neurologic: Denies headache(s) Psychiatric Psychiatric: Denies anxiety or depression Endocrine Endocrinology: Denies polydipsia or polyuria Hematologic/Lymphatic Hematologic/Lymphatic: Reports other Details: No anticoagulation but does have a history of ITP. ; Denies easy bleeding or easy bruising Allergic/Immunologic Allergic/Immunologic ED: Denies urticaria EXAM Physical Exam Const Vital Signs: 03/17/22 18:30 Temperature 98.6 F Temperature Source Oral Pulse Rate 75 Respiratory Rate 18 Blood Pressure 107/67 Blood Pressure Mean 80 Pulse Ox 98 Oxygen Delivery Method Nasal Cannula Positive well nourished and well developed General Appearance ED: well developed and NAD HEENT HEENT Narrative: No head trauma or tenderness. atraumatic Eyes EOMs intact bilaterally Neck General: Negative for tenderness Chest Wall inspection of chest normal and palpation of chest normal Resp normal respiratory effort and clear to auscultation bilaterally Cardio regular rhythm Rate: regular rate GI normal to inspection, nondistended, normoactive bowel sounds, non-tender and non-distended GI Narrative: Abdomen is overall quite benign. Over on the left side slightly posteriorly there is some very subtle mild bruising. This is not a Martinez Thayer or Maurilio sign type appearance. This appears more consistent with his history of being caught around the waist by people trying to hold him up. There is no tenderness or firmness or swelling. Palpation: soft Back/Spine normal to inspection and no thoracic nor lumbar tenderness Back/Spine Narrative: Although he has some pain in his legs, there is no tenderness in his back. Extremity Extremity Narrative: Patient has minimal peripheral edema. There are some small areas of ecchymosis in the shins but no acute bleeding or hematoma. There does not appear to be any shortening or rotation. No areas of specific tenderness. Neuro oriented x3 Sensorium / Orientation: alert Psych mental status grossly normal Skin Skin Narrative: See above for MDM MDM MDM Narrative Medical decision making narrative: Labs show slight elevation of white count which is nonspecific. But he has no fevers or symptoms of infection. Hemoglobin are normal. Also, his platelets are normal. BUN shows mild elevation but creatinine is preserved. Electrolytes are unremarkable. Urine shows no sign of infection. X-rays show good position of his prior hip surgeries. There is an L2 compression fracture but he is not having any pain in that area. This is new over the last 8 years but there is no indication that this occurred with this near fall event. I had a long talk with the patient and son. I explained that this is likely a myofascial strain. He has a burning sense in his proximal thighs more on the right than the left with standing. This certainly could be loosening of one of his prior femoral components from his hip fractures. However, at this point he would not kim to softer surgery. We would give this time to heal. He is generally not on ambulatory and is just standing to transfer with assistance. They are comfortable with this plan. All questions were answered. Lab Data Attestation: I reviewed the patient's lab results. Labs: Laboratory Results - last 24 hr 03/17/22 03/17/22 03/17/22 19:05 19:05 19:05 WBC 14.2 H RBC 4.29 L Hgb 13.0 Hct 41.2 MCV 96.0 H MCH 30.3 MCHC 31.6 L RDW Std Deviation 53.0 H RDW Coeff of Shahid 15.0 H Plt Count 267 MPV 11.9 Immature Gran % (Auto) 1.400 H Neut % (Auto) 84.1 H Lymph % (Auto) 5.4 L Will % (Auto) 7.9 Eos % (Auto) 1.1 Baso % (Auto) 0.1 Absolute Neuts (auto) 11.9 H Absolute Lymphs (auto) 0.76 L Nucleated RBC % 0 Sodium 138 Potassium 3.6 Chloride 105 Carbon Dioxide 26.0 Anion Gap 7 BUN 28 H Creatinine 0.86 Estim Creat Clear Calc 80.19 Est GFR (MDRD) Af Amer 110 Est GFR (MDRD) Non-Af 91 BUN/Creatinine Ratio 32.6 H Glucose 118 H Calcium 8.9 Urine Color Yellow Urine Clarity Clear Urine pH 6.0 Ur Specific [place] 1.015 Urine Protein 15 H Urine Glucose (UA) Normal Urine Ketones 5 H Urine Occult Blood Negative Urine Nitrite Negative Urine Bilirubin Negative Urine Urobilinogen 4 H Ur Leukocyte Esterase 25 H Urine RBC 0-5 SEEN Urine WBC 0 SEEN Ur Squamous Epith Cells 0-5 SEEN Urine Bacteria 1+ Urine Mucus 1+ Radiography Diagnostic Testing: Clinical Impression(s) from Imaging Studies Lumbar Spine X-Ray 03/17/22 18:51 IMPRESSION: There is a compression deformity of the spine at level: L2. These are age-indeterminate. MRI could further evaluate if of concern. This is new since 2013. Electronically Signed: Blake Zabala MD at 19:56 EDT Reading Location ID and State: [facility] / [place] , Service support , Pelvis X-Ray 03/17/22 18:51 IMPRESSION: Degenerative findings of the hips. Electronically Signed: Blake Zabala MD at 19:53 EDT , Femur X-Ray 03/17/22 18:56 IMPRESSION: No acute findings in the left femur. Electronically Signed: Blake Zabala MD at 19:55 EDT , Femur X-Ray 03/17/22 19:10 IMPRESSION: No acute findings in the right femur. Electronically Signed: Blake Zabala MD at 19:54 EDT , Discharge Plan Triage Chief Complaint: Other, Pain/Inj ED Provider: Bigg Collazo Dx/Rx/DC Orders Clinical Impression: Fall at assisted, Contusion of flank, Bilateral hip pain Instructions: ED Hip Strain Prescriptions: No Action chlorthalidone 25 mg tablet 25 mg PO DAILY RF: 0 prednisone 5 mg tablet 5 mg PO DAILY RF: 0 pramipexole 0.5 mg tablet 0.5 mg PO TID Qty: 270 RF: 1 carbidopa-levodopa 25-250 mg tablet 1 tab PO BID Qty: 180 RF: 1 sertraline 100 MG tablet 100 mg PO DAILY@0730 RF: 0 lansoprazole 30 MG capsule 30 mg PO DAILY@0730 RF: 0 losartan 100 MG tablet 100 mg PO DAILY@0730 RF: 0 calcium carbonate 500 MG tablet 630 mg PO BID RF: 0 alendronate 70 MG tablet 70 mg PO TU RF: 0 ergocalciferol (vitamin D2) 50,000 UNIT capsule 50,000 unit PO Th@0800 RF: 0 acetaminophen 500 MG tablet 1,000 mg PO Q6H PRN PRN (Reason: Pain Score 1-5) RF: 0 potassium chloride 10 mEq capsule, extended release 10 meq PO DAILY RF: 0 polysaccharide iron complex 150 mg iron Capsule 150 mg PO DAILY RF: 0 omeprazole 20 mg Capsule,Delayed Release(Dr/Ec) 20 mg PO DAILY RF: 0 carbidopa-levodopa 50-200 mg tablet extended release 1 tab PO BID@0900,2200 Qty: 180 RF: 1 amantadine HCl 100 mg capsule 100 mg PO BID Qty: 180 RF: 0 (DME) Handicap van See Rx Instructions .Route .MEDSUPPLY Qty: 1 RF: 0 Primary Care Provider: Deuce Perez Referrals: Deuce Perez MD [Primary Care Provider] - 3-5 Days if not improving Disposition Disposition: [facility] Facility Discharge Location: [facility]
--- NOTE | 2022-03-17 19:10 | RAD_ITS ---
EXAM: XR RIGHT FEMUR, 2 VIEWS CLINICAL INDICATION: trauma hip pain TECHNIQUE: Frontal and lateral views of the right femur. This report was created using [employer] report generation technology. COMPARISON: None. FINDINGS: BONES/JOINTS: There is metallic hardware noted in the right hip. Healed right intertrochanteric fracture. Demineralization of the proximal tibia and distal femur. Preservation of the joint space. No sclerotic or destructive changes observed. SOFT TISSUES: Unremarkable. No soft tissue swelling or gas. No radiopaque foreign body. VASCULATURE: There are atherosclerotic vascular calcifications. RAD/Femur Min 2 Views IMPRESSION: No acute findings in the right femur. Electronically Signed: Blake Zabala MD at 19:54 EDT ,
[2022-03-17 19:14] LABS: White Blood Cells 0 SEEN /hpf (0-5)
[2022-03-17 19:20] LABS: Color, Urine Yellow (Yellow); Glucose, Dipstick Normal (Normal); Ketone-Dipstick 5 mg/dl (Negative); Leukocyte Esterase-Dipstick 25 /ul (Negative); Nitrite-Dipstick Negative (Negative); Occult Blood-Urine Negative /ul (Negative); Protein-Dipstick 15 mg/dl (Negative); Specific Gravity, Urine 1.015 (1.002-1.030); Urine Bilirubin Dipstick Negative (Negative); Urine Clarity Clear (Clear); Urine Urobilinogen 4 mg/dl (Normal)
[2022-03-17 19:23] LABS: Absolute Lymphocyte Count 0.76 X10^3/uL (0.83-4.51); Absolute Neutrophil Count 11.9 X10^3/uL (2.0-7.7); Basophil# 0.02 X10^3/uL; Basophil% 0.1 % (0-1); Eosinophil# 0.16 X10^3/uL; Eosinophils% 1.1 % (0-5); Hematocrit 41.2 % (40-54); Lymphocyte # 0.76 X10^3/ul (0.83-4.51); Lymphocyte % 5.4 % (19-41); Mean Corp Hgb Conc 31.6 g/dL (32-36); Mean Corpuscular Hgb 30.3 pg (27.0-32.0); Mean Platelet Vol. 11.9 fl (6.2-12.0); Monocyte# 1.12 X10^3/uL; Monocyte% 7.9 % (0-10); NRBC Flagged by Analyzer 0 % (0-5); Neutrophil # 11.92 X10^3/uL (2.7-7.7); Neutrophil % 84.1 % (47-70); Platelet Count 267 K/mm3 (150-450); Red Blood Count 4.29 M/mm3 (4.6-6.2); White Blood Count 14.2 K/mm3 (4.4-11.0)
[2022-03-17 19:31] LABS: Anion Gap 7 (5-15); BUN 28 mg/dL (7-18); BUN/Creat Ratio 32.6 RATIO (10-20); Calcium,Total 8.9 mg/dL (8.5-10.1); Chloride 105 mmol/L (98-107); Creatinine, Serum 0.86 mg/dL (0.70-1.30); EST Glomerular Filtration Rate 91 mL/min (>60); Est Glom Filt Rate - Afr Amer 110 mL/min (>60); Estimated Creatinine Clearance 80.19 ml/min; Glucose 118 mg/dL (74-106); Potassium 3.6 mmol/L (3.5-5.1); Sodium Level 138 mmol/L (136-145)
[2022-03-17 19:33] LABS: Red Blood Cells-Urine 0-5 SEEN /hpf (0-5)
[2022-03-17 19:34] LABS: Bacteria 1+ /hpf (None Seen); Mucous, Urine 1+ /hpf (<or=2+); Squamous Epithelial Cells - UA 0-5 SEEN /hpf (0-5)
[2022-03-17 21:06] VITALS: BP 141/66; PULSE 67; RESP 18; O2SAT 97
== END 2022-03-17 22:31 | disposition skilled nursing facility (03) ==
PROVIDERS: Emergency Provider Emergency Medicine; PCP Family Medicine; Visit Provider Emergency Medicine
DX: S30.1XXA Contusion of abdominal wall, initial encounter (principal); G20 Parkinson's disease; D69.3 Immune thrombocytopenic purpura; M25.551 Pain in right hip; M25.552 Pain in left hip; W01.0XXA Fall on same level from slipping, tripping and stumbling without subsequent striking against object, initial encounter; Y93.E1 Activity, personal bathing and showering; Y99.8 Other external cause status; Y92.121 Bathroom in nursing home as the place of occurrence of the external cause
CPT/HCPCS: 72100; 72170; 73552; 80048; 81001; 85025; 99284; A4216